=== PATIENT | male | born 1940 | race Caucasian/White ===

== ENCOUNTER 2022-04-28 14:38 | Emergency (ER) | payer MEDICARE, BC, SELFPAY ==
[2022-04-28] VITALS (12 sets, daily range): BP systolic 92–138; BP diastolic 63–84; PULSE 55–105; RESP 16; TEMP 36.3; O2SAT 95–97; BMI 23.0
--- NOTE | 2022-04-28 15:16 | ED_ITS ---
HPI - Arrhythmia/Palpitations General Chief Complaint: Arrhythmia/Palpitations Stated Complaint: Light headed, feeling faint, fast heartrate Time Seen by Provider: 04/28/22 14:45 History of Present Illness HPI narrative: This 81-year-old male comes in reporting episodes of lightheadedness especially when getting up. He states that he has noticed his heart is been going fast at times and other times he feels some palpitations. 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 Today his symptoms are more pronounced but at the time of my visit and while at rest he feels completely normal. He does not report any fevers. He has not had any shortness of breath, nausea, vomiting, or diaphoresis. He is taking metoprolol daily. He does have a prior history of atrial fibrillation. Related Data Home Medications Medication Instructions Recorded Confirmed allopurinol 300 mg tablet mg 04/28/22 calcitriol 0.25 mcg capsule mcg 04/28/22 calcium carb,cit ER 600 mg-vit D3 tab PO 04/28/22 12.5 mcg (500 unit) tablet,ext.rel (Citracal-D3 Slow Release) finasteride 5 mg tablet mg 04/28/22 levothyroxine 150 mcg tablet mcg 04/28/22 omeprazole 20 mg capsule,delayed mg 04/28/22 release potassium chloride 20 mEq meq PO 04/28/22 tablet,extended release(part/cryst) (Klor-Con M) rosuvastatin 10 mg tablet mg 04/28/22 sodium citrate-citric acid 500 ml 04/28/22 mg-334 mg/5 mL oral solution sodium di- and tab 04/28/22 monophosphate-potassium phos monobasic 250 mg tablet (Phospha Neutral) tamsulosin 0.4 mg capsule mg PO 04/28/22 Allergies Allergy/AdvReac Type Severity Reaction Status Date / Time furosemide [From Lasix] Allergy Intermediate Palpitation Verified 04/28/22 14:54 s aspirin Allergy Mild gi bleeding Verified 04/28/22 14:54 atorvastatin [From Lipitor] Allergy Mild Verified 04/28/22 14:54 codeine Allergy Mild constipatio Verified 04/28/22 14:54 n simvastatin Allergy Mild myalgia Verified 04/28/22 14:54 Review of Systems Status of ROS: Reports: 10 or more systems reviewed and unremarkable except as noted in History and below Narrative: Constitutional: No fevers, no weight gain or loss. Eyes: No discharge. No vision changes. HENT: No congestion, no sore throat, no ear pain. Cardiovascular: No chest pain. He reports palpitations and episodes of increased heart rate. Respiratory: No shortness of breath, no wheezes, no cough. Gastrointestinal: No abdominal pain, no vomiting, no diarrhea. Genitourinary: No dysuria, no hematuria. Musculoskeletal: Normal range of motion. Skin: No rashes, no pruritis. Neurological: No weakness, sensory change, speech change. Lightheadedness when arising from sitting position. Endo/Heme/Allergies: No bruising or bleeding. No polydipsia. Pysch: no suicidality, no anxiety, no insomnia. All other systems reviewed and are negative. PFSH PFS Social History Smoking Status: Never smoker Do you use any of these nicotine containing products: None Second hand tobacco smoke exposure: No How often do you have a drink containing alcohol: never How often do you have six or more drinks on one occasion: Never AUDIT-C Alcohol total score: 0 Non-prescribed substance use: denies use service: No Exam Narrative: Exam Narrative: Constitutional: Well-developed, well-nourished, no acute distress. HEENT: Normocephalic, atraumatic. Neck: Normal range of motion. Nontender. Supple. Heart: Irregular. No murmurs. Normal rate. Intact distal pulses. Lungs: Clear to auscultation. No chest discomfort. No wheezes, rhonchi, or rales. Abdomen: Normal bowel sounds. Nontender. No rebound tenderness. Genitalia: Deferred. Back: No midline tenderness. Normal range of motion. Extremities: Normal range of motion. No injury. Skin: Intact. No rash. Warm. No erythema or pallor. Neurologic: No altered sensation. No weakness. Alert and oriented. Psychiatric: No suicidality. No anxiety or depression. No insomnia. Nursing notes and vitals signs are reviewed. Const: Vital Signs, click to edit/add: Vital Signs - 24 hr 04/28/22 14:42 04/28/22 15:26 04/28/22 15:14 Temperature 97.3 F L Pulse Rate 60 Pulse Rate [Pulse Oximeter] 80 Pulse Rate [orthos tatic lying Pulse Oximeter] 59 L Pulse Rate [orthos tatic sitting Puls e Oximeter] 69 Pulse Rate [orthos tatic standing Pul se Oximeter] 105 H Respiratory Rate 16 Blood Pressure Blood Pressure [Le ft Upper Arm] 129/84 Blood Pressure [or thostatic lying] 113/63 Blood Pressure [or thostatic sitting] 116/63 Blood Pressure [or thostatic standing ] 92/66 Pulse Oximetry 96 96 Oxygen Delivery Me thod Room Air 04/28/22 15:30 04/28/22 15:35 04/28/22 15:38 Temperature Pulse Rate 63 55 L 67 Pulse Rate [Pulse Oximeter] Pulse Rate [orthos tatic lying Pulse Oximeter] Pulse Rate [orthos tatic sitting Puls e Oximeter] Pulse Rate [orthos tatic standing Pul se Oximeter] Respiratory Rate Blood Pressure 113/63 116/63 Blood Pressure [Le ft Upper Arm] Blood Pressure [or thostatic lying] Blood Pressure [or thostatic sitting] Blood Pressure [or thostatic standing ] Pulse Oximetry 96 96 95 Oxygen Delivery Me thod 04/28/22 15:43 04/28/22 16:00 04/28/22 16:30 Temperature Pulse Rate 87 63 62 Pulse Rate [Pulse Oximeter] Pulse Rate [orthos tatic lying Pulse Oximeter] Pulse Rate [orthos tatic sitting Puls e Oximeter] Pulse Rate [orthos tatic standing Pul se Oximeter] Respiratory Rate Blood Pressure 92/66 Blood Pressure [Le ft Upper Arm] Blood Pressure [or thostatic lying] Blood Pressure [or thostatic sitting] Blood Pressure [or thostatic standing ] Pulse Oximetry 97 97 97 Oxygen Delivery Me thod 04/28/22 17:00 Temperature Pulse Rate 60 Pulse Rate [Pulse Oximeter] Pulse Rate [orthos tatic lying Pulse Oximeter] Pulse Rate [orthos tatic sitting Puls e Oximeter] Pulse Rate [orthos tatic standing Pul se Oximeter] Respiratory Rate Blood Pressure Blood Pressure [Le ft Upper Arm] Blood Pressure [or thostatic lying] Blood Pressure [or thostatic sitting] Blood Pressure [or thostatic standing ] Pulse Oximetry 96 Oxygen Delivery Me thod Course Vital Signs Vital signs: Initial Vital Signs Temperature 97.3 F L 04/28/22 14:42 Temperature Source Temporal Artery Scan 04/28/22 14:42 Pulse Rate 80 04/28/22 14:42 Pulse Rhythm 04/28/22 14:42 Pulse Strength 3+ Normal 04/28/22 14:42 Respiratory Rate 16 04/28/22 14:42 Blood Pressure 129/84 04/28/22 14:42 Blood Pressure Mean 99 04/28/22 14:42 Blood Pressure Position Semi-Fowlers 04/28/22 14:42 Pulse Oximetry 96 04/28/22 14:42 Oxygen Delivery Method 04/28/22 14:42 Vital Signs Temperature 97.3 F L 04/28/22 14:42 Pulse Rate 80 04/28/22 14:42 Respiratory Rate 16 04/28/22 14:42 Blood Pressure 129/84 04/28/22 14:42 Pulse Oximetry 96 04/28/22 14:42 Oxygen Delivery Method 04/28/22 14:42 Temperature 97.3 F L 04/28/22 14:42 Pulse Rate 60 04/28/22 17:00 Respiratory Rate 16 04/28/22 14:42 Blood Pressure 92/66 04/28/22 15:43 Pulse Oximetry 96 04/28/22 17:00 Oxygen Delivery Method 04/28/22 14:42 MDM - Arrhythmia/Palpitations MDM Narrative Medical decision making narrative: This patient does feel fine when sitting and remaining still but has lightheadedness when arising to standing position. Orthostatic pressures are ob tained here and when he did transition from sitting to standing his blood pressure went from around 115 down to 92 and his heart rate went from 69 up to 105 roughly. His lab results returned with reassuring findings. He does have some chronic renal insufficiency and creatinine today returns at 2.8. EKG shows a paced rhythm at times. He has frequent PACs. He is not on any antihypertensives or rate controlling medications. The patient did receive a L of normal saline here and his blood pressure improved to a systolic value of 138. At the time of discharge the patient appears safe for outpatient management. The treatment plan is reviewed along with written and verbal return precautions. Reasons to return and the importance of close followup were also reviewed. I advised him to record his blood pressures and bring this to follow- up appointment with his primary physician. Lab Data Labs: Lab Results 04/28/22 04/28/22 04/28/22 Range/Units 14:52 14:52 14:52 WBC 5.81 (4.50-11.00) K/uL RBC 4.60 (4.30-5.90) m/uL Hgb 14.3 (13.5-17.5) gm/dL Hct 43.9 (37.0-53.0) % MCV 95 (80-100) fL MCH 31 (26-34) pg MCHC 33 (32-36) gm/dL RDW Coeff of Sylvia 13.5 (11.5-15.5) % Plt Count 176 (140-440) K/uL Neut % (Auto) 72.8 H (42.0-72.0) % Lymph % (Auto) 16.4 L (20-44) % Cascade % (Auto) 7.4 (0.0-11.0) % Eos % (Auto) 1.9 (0.0-7.0) % Baso % (Auto) 0.5 (0.0-3.0) % Neut # (Auto) 4.20 (1.7-7.0) K/uL Lymph # (Auto) 1.00 (0.90-2.90) K/uL Cascade # (Auto) 0.40 (0.00-0.90) K/UL Eos # (Auto) 0.11 (0.00-0.50) K/uL Baso # (Auto) 0.03 (0.00-0.30) K/uL Sodium 141 (135-149) mmol/L Potassium 3.8 (3.6-5.1) mmol/L Chloride 97 (96-114) mmol/L Carbon Dioxide 34 H (20-32) mmol/L BUN 57 H (7-30) mg/dL Creatinine 2.8 H (0.5-1.5) mg/dL Estimated Creat Clear 21.96 Estimated GFR 22 ml/min Glucose 116 H (60-115) mg/dL Calcium 9.9 (8.4-10.6) mg/dL Magnesium 1.8 (1.5-2.6) mg/dL POC Troponin I (0.01-0.04) ng/ml 04/28/22 Range/Units 15:15 WBC (4.50-11.00) K/uL RBC (4.30-5.90) m/uL Hgb (13.5-17.5) gm/dL Hct (37.0-53.0) % MCV (80-100) fL MCH (26-34) pg MCHC (32-36) gm/dL RDW Coeff of Sylvia (11.5-15.5) % Plt Count (140-440) K/uL Neut % (Auto) (42.0-72.0) % Lymph % (Auto) (20-44) % Cascade % (Auto) (0.0-11.0) % Eos % (Auto) (0.0-7.0) % Baso % (Auto) (0.0-3.0) % Neut # (Auto) (1.7-7.0) K/uL Lymph # (Auto) (0.90-2.90) K/uL Cascade # (Auto) (0.00-0.90) K/UL Eos # (Auto) (0.00-0.50) K/uL Baso # (Auto) (0.00-0.30) K/uL Sodium (135-149) mmol/L Potassium (3.6-5.1) mmol/L Chloride (96-114) mmol/L Carbon Dioxide (20-32) mmol/L BUN (7-30) mg/dL Creatinine (0.5-1.5) mg/dL Estimated Creat Clear Estimated GFR ml/min Glucose (60-115) mg/dL Calcium (8.4-10.6) mg/dL Magnesium (1.5-2.6) mg/dL POC Troponin I 0.02 (0.01-0.04) ng/ml ECG Data Attestation: I personally reviewed and interpreted this ECG as follows: Interpretation: Atrial fibrillation. Paced rhythm. Left bundle branch block. Rate is 74 beats per minute. There are no specific ST or T-wave abnormalities. Discharge Plan Discharge Clinical Impression: Orthostatic lightheadedness Patient Disposition: Home, Self-Care Condition: Stable Additional Instructions: Continue current plans. Take plenty of fluids. Follow-up with primary physician for review of plans. Return if worsening symptoms happen. Prescriptions: No Action potassium chloride [Klor-Con M20] 20 mEq tablet,ER particles/crystals PO Label Comments: TAKE ONE TABLET BY MOUTH TWICE DAILY WITH MEALS tamsulosin 0.4 mg capsule PO Label Comments: TAKE TWO CAPSULE BY MOUTH DAILY AT BEDTIME sodium citrate-citric acid 500-334 mg/5 mL solution Label Comments: TAKE 45ML BY MOUTH TWICE DAILY. levothyroxine 150 mcg tablet Label Comments: Take 1 Tablet (150 mcg) by mouth before breakfast. omeprazole 20 mg capsule,delayed release(DR/EC) Phospha 250 Neutral 250 mg tablet Label Comments: TAKE ONE TABLET BY MOUTH TWICE DAILY WITH FOOD allopurinol 300 mg tablet Label Comments: TAKE ONE TABLET BY MOUTH ONE TIME DAILY calcitriol 0.25 mcg capsule Label Comments: TAKE ONE CAPSULE BY MOUTH ONE TIME DAILY finasteride 5 mg tablet Label Comments: TAKE ONE TABLET BY MOUTH EVERY DAY IN THE MORNING. rosuvastatin 10 mg tablet Label Comments: TAKE ONE TABLET BY MOUTH ONE TIME DAILY AT BEDTIME calcium carb and citrate-vitD3 [Citracal-D3 Slow Release] 600 mg-12.5 mcg (500 unit) tablet extended release PO Label Comments: TAKE ONE TABLET BY MOUTH ONE TIME DAILY Follow Up/Referrals: Osito Joe MD [Primary Care Provider] - Stand Alone Forms: [facility] Info Instructions
[2022-04-28 15:21] LABS: Troponin, Point-of-Care* 0.02 ng/ml (0.01-0.04)
[2022-04-28 15:45] LABS: Chloride* 97 mmol/L (96-114); Potassium* 3.8 mmol/L (3.6-5.1); Sodium* 141 mmol/L (135-149)
[2022-04-28 15:48] LABS: Blood Urea Nitrogen* 57 mg/dL (7-30); Carbon Dioxide* 34 mmol/L (20-32); Creatinine* 2.8 mg/dL (0.5-1.5); Est. Creatinine Clearance* 21.96; Estimated Glomerular Filt Rate 22 ml/min; Magnesium* 1.8 mg/dL (1.5-2.6)
[2022-04-28 15:49] LABS: Calcium* 9.9 mg/dL (8.4-10.6); Glucose* 116 mg/dL (60-115)
[2022-04-28 15:55] LABS: Basophils Absolute Auto 0.03 K/uL (0.00-0.30); Basophils Percent Auto 0.5 % (0.0-3.0); Eosinophils Absolute Auto 0.11 K/uL (0.00-0.50); Eosinophils Percent Auto 1.9 % (0.0-7.0); Hematocrit 43.9 % (37.0-53.0); Hemoglobin* 14.3 gm/dL (13.5-17.5); Immature Granulocytes Abs Auto 0.06 K/uL (0.00-0.30); Lymphocytes Percent Auto 16.4 % (20-44); Mean Corpuscular HGB Conc 33 gm/dL (32-36); Mean Corpuscular Hemoglobin 31 pg (26-34); Mean Corpuscular Volume 95 fL (80-100); Monocytes Percent Auto 7.4 % (0.0-11.0); Neutrophils Percent Auto 72.8 % (42.0-72.0); Platelet Count* 176 K/uL (140-440); RDW Coefficient of Variation % 13.5 % (11.5-15.5); White Blood Count* 5.81 K/uL (4.50-11.00)
[2022-04-28 15:56] LABS: Slide Review Reflex No
[2022-04-28] MEDS: 0.9 % SODIUM CHLORIDE 1000 ml 1,000 ML IV (16:36)
== END 2022-04-28 18:07 | disposition home or self-care (01) ==
PROVIDERS: Emergency Provider Emergency Medicine Emergency Medical Services; PCP Surgery
DX: R42 Dizziness and giddiness (principal); I95.1 Orthostatic hypotension
CPT/HCPCS: 36415; 80048; 83735; 84484; 85025; 93005; 99283; 99284; J7030

== ENCOUNTER 2022-09-21 11:13 | Outpatient (CLI) | payer MEDICARE, BC, SELFPAY ==
[2022-09-21 11:22] VITALS: BP 118/64; PULSE 65; RESP 16; O2SAT 98
[2022-09-21] MEDS: TETRACAINE 0.5% OPHTH 1 DROP EYE-BOTH ×3 (11:22→11:56)
[2022-09-21] MEDS: BRIMONIDINE TARTRATE 0.2% OPHTH 1 DROP EYE-BOTH ×2 (11:26→12:18)
--- NOTE | 2022-09-21 12:38 | W.PM.OPTPROC ---
Procedure Note Date of procedure: 09/21/22 Will [facility] bill your pro fee for this procedure?: Yes Procedure Description: SURGEON: Bernadine Bolivar MD PREOPERATIVE DIAGNOSIS: Posterior capsular opacity, right and left eye POSTOPERATIVE DIAGNOSIS: Posterior capsular opacity, right and left eye PROCEDURE: YAG laser capsulotomy, both eyes ANESTHESIA: Topical. ESTIMATED BLOOD LOSS: None PATHOLOGY SPECIMEN: None COMPLICATIONS: None INDICATIONS: See consult note for details. The risks, benefits and alternatives of the procedure were explained to the patient, who elected to proceed and signed informed consent to do so. PROCEDURE: The patient was brought to the pre-holding area where the right and left eyes were identified as the operative eyes. I placed my initials above the eyes. The following was given in both eyes: The patient received 2 sets of 1 drop of 0.5% tetracaine and 1 drop of 1% tropicamide. They also received 1 drop of 0.2% brimonidine. They received 1 drop of 0.5% tetracaine immediately prior to bringing them back for the procedure. The patient was then brought to the procedure room where the right and left eyes were again identified as the operative eyes. A YAG Huan capsulotomy lens was placed on the right eye. The laser was administered using a total number of 13 shots with an energy of 2.4 mJ per shot for a total energy of 31 mJ. The patient tolerated the procedure well. A YAG Huan capsulotomy lens was placed on the left eye. The laser was administered using a total number of 35 shots with an energy of 2.4 mJ per shot for a total energy of 80 for mJ. The patient tolerated the procedure well. DISPOSITION: The patient was taken back to the pre-holding area and given 1 drop of 0.2% brimonidine in both eyes. They were discharged to home in stable condition. The patient was instructed to call me or go to the emergency department with any sudden change, including dramatic loss of vision, severe pain in the eye or eyebrow region, nausea, or vomiting. The patient was instructed to use the 0.2% brimonidine 1 drop 2 times a day in both eyes for 1 week. The patient will follow up in the clinic in 1-2 weeks.
== END 2022-09-21 12:19 | disposition home or self-care (01) ==
LOC: EYE PRC 11:14
PROVIDERS: PCP Surgery; Visit Provider Ophthalmology
DX: H26.9 Unspecified cataract (principal)
CPT/HCPCS: 66821; A9270

== ENCOUNTER 2022-10-20 19:50 | Outpatient (CLI) | payer MEDICARE, BC, SELFPAY | END 2022-10-20 19:51 | disposition home or self-care (01) | LOC: AMB 10-24 00:20 | PROVIDERS: PCP Surgery; Visit Provider Emergency Medicine Emergency Medical Services | DX: R10.9 Unspecified abdominal pain (principal) | CPT/HCPCS: A0425; A0427 ==

== ENCOUNTER 2022-10-20 20:16 | Emergency (ER) | payer MEDICARE, BC, SELFPAY ==
[2022-10-20] VITALS (10 sets, daily range): BP systolic 129–148; BP diastolic 70–100; PULSE 51–80; RESP 16; TEMP 36.7; O2SAT 94–97
--- NOTE | 2022-10-20 20:39 | CRLHL7_ITS ---
For Patients: As a result of the 21st Century Cures Act, medical imaging exams and procedure reports are released immediately into your electronic medical record. You may view this report before your referring provider. If you have questions, please contact your health care provider. INDICATION: Abdominal pain and distension. Previous history of ileostomy, appendectomy, transverse colonic resection. COMPARISON: CT of the abdomen and pelvis without contrast from 09/11/2012. TECHNIQUE: CT examination of the abdomen and pelvis was performed without contrast enhancement using 3 mm thick axial sections from the lung bases through the pubic symphysis. Oral contrast was not administered. Please note that all CT scans at this facility use dose modulation, iterative reconstruction, and/or weight-based dosing when appropriate to reduce radiation dose to as low as reasonably achievable. FINDINGS: There has been an increase in size of the moderate sized right paramedian mid abdominal ventral hernia, containing a short segment of transverse colon. The hernia sac measures up to 7.5 centimeters in diameter while the hernia neck measures 2.7 centimeters. There is new prominent gas distention of the nondependent portion of the colon. The sigmoid colon and rectum are nondistended. The findings suggest an ileus of the colon. There is new mild gaseous distention of the small bowel, without a point of transition to suggest obstruction. This may be an ileus. Again seen is the left upper pelvic wall ileostomy site with a mild peristomal hernia containing nondistended loops of small bowel. In the abdomen, the unenhanced liver, spleen, pancreas, and adrenals are normal in appearance. Again seen are several small cysts arising from both kidneys. There is moderate left and mild right nonobstructive nephrolithiasis, with the previously seen irregular calculus located in the right renal pelvis is no longer present. Stone burden is improved compared to the previous study, with an overall decrease in number of small calculi in both kidneys. The calculi are range between 2 and 5 millimeters in diameter. There is no sign of hydronephrosis or hydroureter. There is no sign of ureterolithiasis. The gallbladder is moderately distended and is otherwise normal in appearance. The abdominal aorta is normal in caliber with no sign of dilatation. There is no sign of retroperitoneal mass or adenopathy. The stomach, loops of small bowel, and colon in the abdomen are normal in appearance. In the pelvis, the appendix is nonvisualized, but there is no sign of an inflammatory process in the area of the appendix. The loops of small bowel, colon, and rectum in the pelvis are normal in appearance. The prostate remains moderately enlarged and is otherwise normal in appearance. The urinary bladder is normal in appearance. There is no sign of pelvic or inguinal mass or adenopathy. There is no sign of free air or free fluid in the abdomen or pelvis. The lung bases are clear. There is stable mild scoliosis of the lumbar spine convex towards the left. IMPRESSION: New moderate gaseous distension of the nondependent colon, with new mild distension of the small bowel, suggesting an ileus. CT of the abdomen shows increase in size of the moderate sized right anterior mid abdominal wall hernia containing a short segments of mildly distended transverse colon. Mild bilateral nonobstructive nephrolithiasis with decreased stone burden compared to the previous study. CT of the pelvis shows stable appearance of a left paramedian upper pelvic wall hernia with stable peristomal hernia containing nondistended loops of small bowel. Stable moderate enlargement of the prostate. Please note that all CT scans at this facility use dose modulation, iterative reconstruction, and/or weight-based dosing when appropriate to reduce radiation dose to as low as reasonably achievable. Dictated by Carmelo Henry MD @ 10/20/2022 10:10:19 PM (Electronically Signed)
--- NOTE | 2022-10-20 20:43 | ED.ABDPAIN ---
HPI - Abdominal Pain General Chief Complaint: Abdominal Pain Stated Complaint: RUQ abd pain Time Seen by Provider: 10/20/22 20:32 History of Present Illness HPI narrative: This 82-year-old male comes in reporting abdominal pain that is worsened over the past 3 or so hours. He does have history of abdominal surgery and has an ostomy. He has a hernia in the right upper quadrant that bulges when his bowels are distended. This is not new for him but it is more pronounced recently. He does have a history of bowel obstruction in the past. He came in by ambulance and received a dose of fentanyl and Zofran intravenously. This brought some temporary relief but he states that his pain is worsening currently. Related Data Home Medications Medication Instructions Recorded Confirmed allopurinol 300 mg tablet mg 04/28/22 calcitriol 0.25 mcg capsule mcg 04/28/22 calcium carb,cit ER 600 mg-vit D3 tab PO 04/28/22 12.5 mcg (500 unit) tablet,ext.rel (Citracal-D3 Slow Release) finasteride 5 mg tablet mg 04/28/22 levothyroxine 150 mcg tablet mcg 04/28/22 omeprazole 20 mg capsule,delayed mg 04/28/22 release potassium chloride 20 mEq meq PO 04/28/22 tablet,extended release(part/cryst) (Klor-Con M) rosuvastatin 10 mg tablet mg 04/28/22 sodium citrate-citric acid 500 ml 04/28/22 mg-334 mg/5 mL oral solution sodium di- and tab 04/28/22 monophosphate-potassium phos monobasic 250 mg tablet (Phospha Neutral) tamsulosin 0.4 mg capsule mg PO 04/28/22 Allergies Allergy/AdvReac Type Severity Reaction Status Date / Time furosemide [From Lasix] Allergy Intermediate Palpitation Verified 04/28/22 14:54 s aspirin Allergy Mild gi bleeding Verified 04/28/22 14:54 atorvastatin [From Lipitor] Allergy Mild Verified 04/28/22 14:54 codeine Allergy Mild constipatio Verified 04/28/22 14:54 n simvastatin Allergy Mild myalgia Verified 04/28/22 14:54 Review of Systems Status of ROS Reports: 10 or more systems reviewed and unremarkable except as noted in History and below Narrative Constitutional: No fevers, no weight gain or loss. Eyes: No discharge. No vision changes. HENT: No congestion, no sore throat, no ear pain. Cardiovascular: No chest pain, no palpitations. Respiratory: No shortness of breath, no wheezes, no cough. Gastrointestinal: Diffuse abdominal pain and distension. Genitourinary: No dysuria, no hematuria. Musculoskeletal: Normal range of motion. Skin: No rashes, no pruritis. Neurological: No dizziness, weakness, sensory change, speech change. Endo/Heme/Allergies: No bruising or bleeding. No polydipsia. Pysch: no suicidality, no anxiety, no insomnia. All other systems reviewed and are negative. [facility] Social History Smoking Status: Never smoker Do you use any of these nicotine containing products: None Second hand tobacco smoke exposure: No How often do you have a drink containing alcohol: never How often do you have six or more drinks on one occasion: Never AUDIT-C Alcohol total score: 0 Non-prescribed substance use: denies use service: No Exam Narrative: Exam Narrative: Constitutional: Well-developed, well-nourished, no acute distress. HEENT: Normocephalic, atraumatic. Neck: Normal range of motion. Nontender. Supple. Heart: Regular. No murmurs. Normal rate. Intact distal pulses. Lungs: Clear to auscultation. No chest discomfort. No wheezes, rhonchi, or rales. Abdomen: Diffuse abdominal pain. High-pitched bowel sounds. Abdominal distension. A right upper quadrant abdominal hernia with significant bulging. Ostomy is in place and seems to be functioning normally. Genitalia: Deferred. Back: No midline tenderness. Normal range of motion. Extremities: Normal range of motion. No injury. Skin: Intact. No rash. Warm. No erythema or pallor. Neurologic: No altered sensation. No weakness. Alert and oriented. Psychiatric: No suicidality. No anxiety or depression. No insomnia. Nursing notes and vitals signs are reviewed. Const: Vital Signs, click to edit/add: Vital Signs - 24 hr 10/20/22 20:23 10/20/22 21:24 10/20/22 21:30 Temperature 98.0 F Pulse Rate 51 L 54 L Pulse Rate [Left P ulse Oximeter] 67 Respiratory Rate 16 Blood Pressure Blood Pressure [Ri ght Upper Arm] 148/100 H Pulse Oximetry 97 94 94 Oxygen Delivery Me thod Room Air 10/20/22 21:32 10/20/22 22:00 10/20/22 22:01 Temperature Pulse Rate 65 57 L 61 Pulse Rate [Left P ulse Oximeter] Respiratory Rate Blood Pressure 129/75 137/77 Blood Pressure [Ri ght Upper Arm] Pulse Oximetry 95 97 96 Oxygen Delivery Me thod 10/20/22 22:30 10/20/22 22:32 10/20/22 23:00 Temperature Pulse Rate 53 L 57 L 72 Pulse Rate [Left P ulse Oximeter] Respiratory Rate Blood Pressure 133/75 Blood Pressure [Ri ght Upper Arm] Pulse Oximetry 96 97 95 Oxygen Delivery Me thod 10/20/22 23:02 Temperature Pulse Rate 80 Pulse Rate [Left P ulse Oximeter] Respiratory Rate Blood Pressure 138/70 Blood Pressure [Ri ght Upper Arm] Pulse Oximetry 96 Oxygen Delivery Me thod Course Vital Signs Vital signs: Initial Vital Signs Temperature 98.0 F 10/20/22 20:23 Temperature Source Temporal Artery Scan 10/20/22 20:23 Pulse Rate 67 10/20/22 20:23 Respiratory Rate 16 10/20/22 20:23 Blood Pressure 148/100 H 10/20/22 20:23 Blood Pressure Mean 116 H 10/20/22 20:23 Blood Pressure Position Sitting 10/20/22 20:23 Pulse Oximetry 97 10/20/22 20:23 Oxygen Delivery Method Room Air 10/20/22 20:23 Vital Signs Temperature 98.0 F 10/20/22 20:23 Pulse Rate 67 10/20/22 20:23 Respiratory Rate 16 10/20/22 20:23 Blood Pressure 148/100 H 10/20/22 20:23 Pulse Oximetry 97 10/20/22 20:23 Oxygen Delivery Method Room Air 10/20/22 20:23 Temperature 98.0 F 10/20/22 20:23 Pulse Rate 80 10/20/22 23:02 Respiratory Rate 16 10/20/22 20:23 Blood Pressure 138/70 10/20/22 23:02 Pulse Oximetry 96 10/20/22 23:02 Oxygen Delivery Method Room Air 10/20/22 20:23 MDM - Abdominal Pain MDM Narrative Medical decision making narrative: This patient comes in with abdominal pain and distension. 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 He does have some function of his: Also despite the ileostomy. He has had symptoms like this in the past. An IV was established and labs are acquired. CT imaging of the abdomen and pelvis show a distended ventral hernia that does not appear to be incarcerated. There is a lot a gas in the colon primarily. There is no sign of transition suggesting obstruction. More likely this was an ileus. I spoke with the surgeon on-call regarding this who reviewed the patient's past history and recommended admission but would not be able to do any kind of surgical intervention if needed. It went back in to describe results to the patient and he is sitting up with his clothes on states that he feels much better and is ready to go home. He states that he got up to the bathroom and passed a lot a gas and now feels back to normal. Lab Data Labs: Lab Results 10/20/22 10/20/22 10/20/22 Range/Units 20:51 20:51 20:51 WBC 4.54 (4.50-11.00) K/uL RBC 4.08 L (4.30-5.90) m/uL Hgb 12.9 L (13.5-17.5) gm/dL Hct 39.8 (37.0-53.0) % MCV 98 (80-100) fL MCH 32 (26-34) pg MCHC 32 (32-36) gm/dL RDW Coeff of Sylvia 14.2 (11.5-15.5) % Plt Count 143 (140-440) K/uL Neut % (Auto) 88.0 H (42.0-72.0) % Lymph % (Auto) 7.7 L (20-44) % Merrick % (Auto) 3.5 (0.0-11.0) % Eos % (Auto) 0.2 (0.0-7.0) % Baso % (Auto) 0.4 (0.0-3.0) % Neut # (Auto) 4.00 (1.7-7.0) K/uL Lymph # (Auto) 0.30 L (0.90-2.90) K/uL Merrick # (Auto) 0.20 (0.00-0.90) K/UL Eos # (Auto) 0.01 (0.00-0.50) K/uL Baso # (Auto) 0.02 (0.00-0.30) K/uL Abs Immat Gran (auto) 0.01 (0.00-0.30) K/uL Imm/Tot Granulo (auto) 0.2 % Sodium 138 (135-149) mmol/L Potassium 3.2 L (3.6-5.1) mmol/L Chloride 96 (96-114) mmol/L Carbon Dioxide 30 (20-32) mmol/L Anion Gap 12 (7-15) mEq/L BUN 51 H (7-30) mg/dL Creatinine 2.9 H (0.5-1.5) mg/dL Estimated Creat Clear 7.82 Estimated GFR 21 ml/min Glucose 154 H (60-115) mg/dL Lactate 2.9 H (0.5-1.9) mmol/L Calcium 9.6 (8.4-10.6) mg/dL Total Bilirubin 0.6 Cancelled (0.1-1.5) mg/dL Direct Bilirubin 0.2 Cancelled (0.0-0.5) mg/dL AST 41 H (12-35) U/L ALT (4-50) U/L Alkaline Phosphatase (40-150) U/L Total Protein (6.0-8.3) g/dL Albumin (3.3-5.0) g/dL Lipase (23-300) U/L 10/20/22 10/20/22 10/20/22 Range/Units 20:51 20:51 20:51 WBC (4.50-11.00) K/uL RBC (4.30-5.90) m/uL Hgb (13.5-17.5) gm/dL Hct (37.0-53.0) % MCV (80-100) fL MCH (26-34) pg MCHC (32-36) gm/dL RDW Coeff of Sylvia (11.5-15.5) % Plt Count (140-440) K/uL Neut % (Auto) (42.0-72.0) % Lymph % (Auto) (20-44) % Merrick % (Auto) (0.0-11.0) % Eos % (Auto) (0.0-7.0) % Baso % (Auto) (0.0-3.0) % Neut # (Auto) (1.7-7.0) K/uL Lymph # (Auto) (0.90-2.90) K/uL Merrick # (Auto) (0.00-0.90) K/UL Eos # (Auto) (0.00-0.50) K/uL Baso # (Auto) (0.00-0.30) K/uL Abs Immat Gran (auto) (0.00-0.30) K/uL Imm/Tot Granulo (auto) % Sodium (135-149) mmol/L Potassium (3.6-5.1) mmol/L Chloride (96-114) mmol/L Carbon Dioxide (20-32) mmol/L Anion Gap (7-15) mEq/L BUN (7-30) mg/dL Creatinine (0.5-1.5) mg/dL Estimated Creat Clear Estimated GFR ml/min Glucose (60-115) mg/dL Lactate (0.5-1.9) mmol/L Calcium (8.4-10.6) mg/dL Total Bilirubin (0.1-1.5) mg/dL Direct Bilirubin (0.0-0.5) mg/dL AST Cancelled (12-35) U/L ALT 23 Cancelled (4-50) U/L Alkaline Phosphatase 63 Cancelled (40-150) U/L Total Protein 7.6 (6.0-8.3) g/dL Albumin (3.3-5.0) g/dL Lipase (23-300) U/L 10/20/22 10/20/22 10/20/22 Range/Units 20:51 20:51 20:51 WBC (4.50-11.00) K/uL RBC (4.30-5.90) m/uL Hgb (13.5-17.5) gm/dL Hct (37.0-53.0) % MCV (80-100) fL MCH (26-34) pg MCHC (32-36) gm/dL RDW Coeff of Sylvia (11.5-15.5) % Plt Count (140-440) K/uL Neut % (Auto) (42.0-72.0) % Lymph % (Auto) (20-44) % Merrick % (Auto) (0.0-11.0) % Eos % (Auto) (0.0-7.0) % Baso % (Auto) (0.0-3.0) % Neut # (Auto) (1.7-7.0) K/uL Lymph # (Auto) (0.90-2.90) K/uL Merrick # (Auto) (0.00-0.90) K/UL Eos # (Auto) (0.00-0.50) K/uL Baso # (Auto) (0.00-0.30) K/uL Abs Immat Gran (auto) (0.00-0.30) K/uL Imm/Tot Granulo (auto) % Sodium (135-149) mmol/L Potassium (3.6-5.1) mmol/L Chloride (96-114) mmol/L Carbon Dioxide (20-32) mmol/L Anion Gap (7-15) mEq/L BUN (7-30) mg/dL Creatinine (0.5-1.5) mg/dL Estimated Creat Clear Estimated GFR ml/min Glucose (60-115) mg/dL Lactate (0.5-1.9) mmol/L Calcium (8.4-10.6) mg/dL Total Bilirubin (0.1-1.5) mg/dL Direct Bilirubin (0.0-0.5) mg/dL AST (12-35) U/L ALT (4-50) U/L Alkaline Phosphatase (40-150) U/L Total Protein Cancelled (6.0-8.3) g/dL Albumin 4.5 Cancelled (3.3-5.0) g/dL Lipase 322 H Cancelled (23-300) U/L Imaging Data CT scan - abdomen: Radiologist's impression: New moderate gaseous distension of the nondependent colon, with new mild distension of the small bowel, suggesting an ileus. CT of the abdomen shows increase in size of the moderate sized right anterior mid abdominal wall hernia containing a short segments of mildly distended transverse colon. Mild bilateral nonobstructive nephrolithiasis with decreased stone burden compared to the previous study. CT of the pelvis shows stable appearance of a left paramedian upper pelvic wall hernia with stable peristomal hernia containing nondistended loops of small bowel. Stable moderate enlargement of the prostate. Discharge Plan Discharge Clinical Impression: Abdominal pain Patient Disposition: Home, Self-Care Condition: Improved Additional Instructions: Continue current plans. Follow up with MD or return if worsening. Prescriptions: No Action potassium chloride [Klor-Con M20] 20 mEq tablet,ER particles/crystals PO Patient Comments: TAKE ONE TABLET BY MOUTH TWICE DAILY WITH MEALS tamsulosin 0.4 mg capsule PO Patient Comments: TAKE TWO CAPSULE BY MOUTH DAILY AT BEDTIME sodium citrate-citric acid 500-334 mg/5 mL solution Patient Comments: TAKE 45ML BY MOUTH TWICE DAILY. levothyroxine 150 mcg tablet Patient Comments: Take 1 Tablet (150 mcg) by mouth before breakfast. omeprazole 20 mg capsule,delayed release(DR/EC) Phospha 250 Neutral 250 mg tablet Patient Comments: TAKE ONE TABLET BY MOUTH TWICE DAILY WITH FOOD allopurinol 300 mg tablet Patient Comments: TAKE ONE TABLET BY MOUTH ONE TIME DAILY calcitriol 0.25 mcg capsule Patient Comments: TAKE ONE CAPSULE BY MOUTH ONE TIME DAILY finasteride 5 mg tablet Patient Comments: TAKE ONE TABLET BY MOUTH EVERY DAY IN THE MORNING. rosuvastatin 10 mg tablet Patient Comments: TAKE ONE TABLET BY MOUTH ONE TIME DAILY AT BEDTIME calcium carb and citrate-vitD3 [Citracal-D3 Slow Release] 600 mg-12.5 mcg (500 unit) tablet extended release PO Patient Comments: TAKE ONE TABLET BY MOUTH ONE TIME DAILY Follow Up/Referrals: Osito Joe MD [Primary Care Provider] - Stand Alone Forms: [facility] Info Instructions
[2022-10-20 20:56] LABS: Lactate* 2.9 mmol/L (0.5-1.9)
[2022-10-20 21:00] LABS: Basophils Absolute Auto 0.02 K/uL (0.00-0.30); Basophils Percent Auto 0.4 % (0.0-3.0); Eosinophils Absolute Auto 0.01 K/uL (0.00-0.50); Eosinophils Percent Auto 0.2 % (0.0-7.0); Hematocrit 39.8 % (37.0-53.0); Hemoglobin* 12.9 gm/dL (13.5-17.5); Immature Granulocytes Abs Auto 0.01 K/uL (0.00-0.30); Immature Granulocytes Pct Auto 0.2 %; Lymphocytes Percent Auto 7.7 % (20-44); Mean Corpuscular HGB Conc 32 gm/dL (32-36); Mean Corpuscular Hemoglobin 32 pg (26-34); Mean Corpuscular Volume 98 fL (80-100); Monocytes Percent Auto 3.5 % (0.0-11.0); Platelet Count* 143 K/uL (140-440); RDW Coefficient of Variation % 14.2 % (11.5-15.5); Red Blood Count 4.08 m/uL (4.30-5.90); White Blood Count* 4.54 K/uL (4.50-11.00)
[2022-10-20] MEDS: HYDROmorphone 0.5 mg/0.5 ml inj 0.3 MG IVP (21:00)
[2022-10-20 21:03] LABS: Slide Review Reflex No
[2022-10-20 21:12] LABS: Albumin* 4.5 g/dL (3.3-5.0); Chloride* 96 mmol/L (96-114)
[2022-10-20 21:13] LABS: Potassium* 3.2 mmol/L (3.6-5.1); Sodium* 138 mmol/L (135-149)
[2022-10-20 21:15] LABS: Anion Gap 12 mEq/L (7-15); Bilirubin Direct* 0.2 mg/dL (0.0-0.5); Bilirubin Total* 0.6 mg/dL (0.1-1.5); Blood Urea Nitrogen* 51 mg/dL (7-30); Carbon Dioxide* 30 mmol/L (20-32); Creatinine* 2.9 mg/dL (0.5-1.5); Est. Creatinine Clearance* 7.82; Estimated Glomerular Filt Rate 21 ml/min; Total Protein* 7.6 g/dL (6.0-8.3)
[2022-10-20 21:16] LABS: Alanine Aminotransferase* 23 U/L (4-50); Alkaline Phosphatase* 63 U/L (40-150); Aspartate Amino Transferase* 41 U/L (12-35); Calcium* 9.6 mg/dL (8.4-10.6); Glucose* 154 mg/dL (60-115); Lipase* 322 U/L (23-300)
== END 2022-10-21 00:17 | disposition home or self-care (01) ==
PROVIDERS: Emergency Provider Emergency Medicine Emergency Medical Services; PCP Surgery
DX: R10.11 Right upper quadrant pain (principal)
CPT/HCPCS: 36415; 74176; 80048; 80076; 83605; 83690; 85025; 96374; 99283; 99284; J1170

== ENCOUNTER 2023-10-17 09:20 | Emergency (ER) | payer MEDICARE, BC, SELFPAY ==
[2023-10-17 09:42] VITALS: BP 134/80; PULSE 82; TEMP 36.6; O2SAT 97; BMI 22.2
[2023-10-17 09:48] VITALS: RESP 20
[2023-10-17 10:00] LABS: Appearance Urine Cloudy (Clear); Bilirubin Urine Negative (Negative); Blood Urine 3+ (Negative); Color Urine Dark yellow (Yellow); Glucose Urine Negative (Negative); Ketones Urine Negative (Negative); Leukocyte Esterase Urine 3+ (Negative); Nitrite Urine Negative (Negative); Protein Urine 2+ (Negative); Specific Gravity Urine 1.015 (1.000-1.030)
--- NOTE | 2023-10-17 10:02 | CRLHL7_ITS ---
For Patients: As a result of the Century Cures Act, medical imaging exams and procedure reports are released immediately into your electronic medical record. You may view this report before your referring provider. If you have questions, please contact your health care provider. Indication: ABD PAIN, HERNIA NEAR ILEOSTOMY SITE? Technique: CT abdomen/pelvis without IV contrast Comparison: CT abdomen/pelvis on October 20, 2022 Findings: Lower thorax: Trace bibasilar linear atelectasis/scarring, unchanged. Abdomen/pelvis: The liver, gallbladder and biliary system, spleen, pancreas, and bilateral adrenal glands are unremarkable in appearance. Redemonstration of multiple renal cysts bilaterally, grossly unchanged compared to prior exam. There are few small nonobstructing renal stones bilaterally. No hydroureteronephrosis. The bladder is within normal limits in appearance. Mild prostatomegaly. There is no evidence of bowel obstruction. There is redemonstration of a right paramedian ventral abdominal wall hernia containing a short segment of the transverse colon similar in appearance compared to prior examination without evidence of obstruction or inflammation. 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 There is a small amount of fluid within the hernia with some mild fat stranding. No pneumatosis intestinalis. No free air. No abdominopelvic lymphadenopathy. No abdominal aortic aneurysm. Moderate calcific atherosclerosis of the aortoiliac system and its branches. Healed midline abdominal incision. No acute fracture or malalignment. Multilevel degenerative changes throughout the spine. Degenerative changes of the bilateral sacroiliac and femoroacetabular joints. Impression: 1. 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 There is a small amount of fluid within the hernia with some minimal fat stranding. Nonspecific findings which can be seen with strangulation in the appropriate clinical context. 2. There is no evidence of bowel obstruction. 3. Grossly unchanged right paramedian ventral abdominal wall hernia containing a short segment of transverse colon. Please note that all CT scans at this facility use dose modulation, iterative reconstruction, and/or weight-based dosing when appropriate to reduce radiation dose to as low as reasonably achievable. Dictated by Addison Bacon MD @ 10/17/2023 11:41:33 AM (Electronically Signed)
--- NOTE | 2023-10-17 10:04 | ED_ITS ---
HPI - General Adult General Chief complaint: Urogenital Problems, Male Stated complaint: Pain near ileostomy, UTI symptoms Time Seen by Provider: 10/17/23 09:53 History of Present Illness HPI narrative: This 83-year-old male comes in reporting some symptoms of dysuria over the past day or 2 with some increased pain when voiding urine. He also reports abdominal pain around the site of his ileostomy. He states that this is not a new finding as there is recurrent episodes of pain where he has increased gas. He does however report a lump that is tender just inferior to the ileostomy. This is a new or finding and seem suspicious for a hernia. He does have a hernia on the right abdomen that is not causing symptoms for him. Related Data Home Medications ?Medication ?Instructions ?Recorded ?Confirmed allopurinol 300 mg tablet mg 04/28/22 calcitriol 0.25 mcg capsule mcg 04/28/22 calcium carb,cit ER 600 mg-vit D3 tab PO 04/28/22 12.5 mcg (500 unit) tablet,ext.rel (Citracal-D3 Slow Release) finasteride 5 mg tablet mg 04/28/22 levothyroxine 150 mcg tablet mcg 04/28/22 omeprazole 20 mg capsule,delayed mg 04/28/22 release potassium chloride 20 mEq meq PO 04/28/22 tablet,extended release(part/cryst) (Klor-Con M) rosuvastatin 10 mg tablet mg 04/28/22 sodium citrate-citric acid 500 ml 04/28/22 mg-334 mg/5 mL oral solution sodium di- and tab 04/28/22 monophosphate-potassium phos monobasic 250 mg tablet (Phospha Neutral) tamsulosin 0.4 mg capsule mg PO 04/28/22 Previous Rx's ?Medication ?Instructions ?Recorded cephalexin 500 mg capsule 500 mg PO TID 10 days #30 caps 10/17/23 Allergies Allergy/AdvReac Type Severity Reaction Status Date / Time furosemide [From Lasix] Allergy Intermediate Palpitation Verified 04/28/22 14:54 s aspirin Allergy Mild gi bleeding Verified 04/28/22 14:54 atorvastatin [From Lipitor] Allergy Mild Verified 04/28/22 14:54 codeine Allergy Mild constipatio Verified 04/28/22 14:54 n simvastatin Allergy Mild myalgia Verified 04/28/22 14:54 Review of Systems Status of ROS: Reports: 10 or more systems reviewed and unremarkable except as noted in History and below Narrative: Constitutional: No fevers, no weight gain or loss. Eyes: No discharge. No vision changes. HENT: No congestion, no sore throat, no ear pain. Cardiovascular: No chest pain, no palpitations. Respiratory: No shortness of breath, no wheezes, no cough. Gastrointestinal: No vomiting, no diarrhea. Abdominal pain as described above. Genitourinary: No hematuria. He reports dysuria symptoms. Musculoskeletal: Normal range of motion. Skin: No rashes, no pruritis. Neurological: No dizziness, weakness, sensory change, speech change. Endo/Heme/Allergies: No bruising or bleeding. No polydipsia. Pysch: no suicidality, no anxiety, no insomnia. All other systems reviewed and are negative. PFSH PFS Social History Smoking Status: Never smoker Do you use any of these nicotine containing products: None Second hand tobacco smoke exposure: No How often do you have a drink containing alcohol: never How often do you have six or more drinks on one occasion: Never AUDIT-C Alcohol total score: 0 Non-prescribed substance use: denies use service: No Exam Narrative: Exam Narrative: Constitutional: Well-developed, well-nourished, no acute distress. HEENT: Normocephalic, atraumatic. Neck: Normal range of motion. Nontender. Supple. Heart: Regular. No murmurs. Normal rate. Intact distal pulses. Lungs: Clear to auscultation. No chest discomfort. No wheezes, rhonchi, or rales. Abdomen: Normal bowel sounds. No rebound tenderness. Tenderness around the ileostomy site. There is a palpable lump typical of a small hernia inferior to the ileostomy. Genitalia: Deferred. Back: No midline tenderness. Normal range of motion. Extremities: Normal range of motion. No injury. Skin: Intact. No rash. Warm. No erythema or pallor. Neurologic: No altered sensation. No weakness. Alert and oriented. Psychiatric: No suicidality. No anxiety or depression. No insomnia. Nursing notes and vitals signs are reviewed. Const: Vital Signs, click to edit/add: Vital Signs - 24 hr 10/17/23 09:42 10/17/23 09:48 10/17/23 11:17 Temperature 98 F Pulse Rate [Pulse Oximeter] 82 68 Respiratory Rate 20 20 Blood Pressure [Le ft Upper Arm] 134/80 144/84 H Pulse Oximetry 97 98 Oxygen Delivery Me thod Room Air Room Air Course Vital Signs Vital signs: Initial Vital Signs Temperature 98 F 10/17/23 09:42 Temperature Source Temporal Artery Scan 10/17/23 09:42 Pulse Rate 82 10/17/23 09:42 Pulse Rhythm Regular 10/17/23 09:42 Blood Pressure 134/80 10/17/23 09:42 Blood Pressure Mean 98 10/17/23 09:42 Pulse Oximetry 97 10/17/23 09:42 Oxygen Delivery Method Room Air 10/17/23 09:42 Vital Signs Temperature 98 F 10/17/23 09:42 Pulse Rate 82 10/17/23 09:42 Blood Pressure 134/80 10/17/23 09:42 Pulse Oximetry 97 10/17/23 09:42 Oxygen Delivery Method Room Air 10/17/23 09:42 Temperature 98 F 10/17/23 09:42 Pulse Rate 68 10/17/23 11:17 Respiratory Rate 20 10/17/23 11:17 Blood Pressure 144/84 H 10/17/23 11:17 Pulse Oximetry 98 10/17/23 11:17 Oxygen Delivery Method Room Air 10/17/23 11:17 Medical Decision Making MDM Narrative Medical decision making narrative: This 83-year-old male comes in reporting dysuria symptoms and abdominal pain as described above. Urinalysis does show evidence of urinary tract infection. The patient received a prescription for Keflex. CT imaging of the abdomen and pelvis does show evidence of a new hernia inferior to his ileostomy site that does have a loop of bowel present in the herniation. The patient is not showing any signs of incarceration. His pain is minimal currently. He does not have any nausea or vomiting and his bowel function is normal for him. I advised him to follow-up with surgery clinic for ongoing management of this condition. He is okay to be discharged home. Lab Data Labs: Lab Results 10/17/23 10/17/23 Range/Units 09:50 10:15 WBC 5.33 (4.50-11.00) K/uL RBC 3.96 L (4.30-5.90) m/uL Hgb 12.4 L (13.5-17.5) gm/dL Hct 38.7 (37.0-53.0) % MCV 98 (80-100) fL MCH 31 (26-34) pg MCHC 32 (32-36) gm/dL RDW Coeff of Sylvia 13.4 (11.5-15.5) % Plt Count 172 (140-440) K/uL Neut % (Auto) 86.0 H (42.0-72.0) % Lymph % (Auto) 5.8 L (20-44) % [place] % (Auto) 6.6 (0.0-11.0) % Eos % (Auto) 0.8 (0.0-7.0) % Baso % (Auto) 0.4 (0.0-3.0) % Neut # (Auto) 4.60 (1.7-7.0) K/uL Lymph # (Auto) 0.30 L (0.90-2.90) K/uL [place] # (Auto) 0.40 (0.00-0.90) K/UL Eos # (Auto) 0.04 (0.00-0.50) K/uL Baso # (Auto) 0.02 (0.00-0.30) K/uL Abs Immat Gran (auto) 0.02 (0.00-0.30) K/uL Imm/Tot Granulo (auto) 0.4 % Sodium 137 (135-149) mmol/L Potassium 3.6 (3.6-5.1) mmol/L Chloride 99 (96-114) mmol/L Carbon Dioxide 30 (20-32) mmol/L Anion Gap 8 (7-15) mEq/L BUN 46 H (7-30) mg/dL Creatinine 2.3 H (0.5-1.5) mg/dL Estimated Creat Clear 25.05 Estimated GFR 28 ml/min Glucose 112 (60-115) mg/dL Calcium 9.2 (8.4-10.6) mg/dL Urine Color Dark yellow (Yellow) Urine Appearance Cloudy A (Clear) Urine pH 7.0 (5.0-8.5) Ur Specific [place] 1.015 (1.000-1.030) Urine Protein 2+ A (Negative) Urine Glucose (UA) Negative (Negative) Urine Ketones Negative (Negative) Urine Blood 3+ A (Negative) Urine Nitrite Negative (Negative) Urine Bilirubin Negative (Negative) Urine Urobilinogen 1.0 (0.2-1.0) Ur Leukocyte Esterase 3+ A (Negative) Urine RBC >100 A (0-2) Urine WBC >100 A (0-5) Ur Squamous Epith Cells None (None-Few) Urine Bacteria Few A (None) Imaging Data CT scan - abdomen: Radiologist's impression: 1. 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 There is a small amount of fluid within the hernia with some minimal fat stranding. Nonspecific findings which can be seen with strangulation in the appropriate clinical context. 2. There is no evidence of bowel obstruction. 3. Grossly unchanged right paramedian ventral abdominal wall hernia containing a short segment of transverse colon. Discharge Plan Discharge Clinical Impression: Urinary tract infection, Abdominal hernia Patient Disposition: Home, Self-Care Condition: Stable Additional Instructions: Take medication as prescribed for urinary tract infection. Follow-up with surgery clinic for ongoing assessment and management of this abdominal hernia. Return if worsening. Prescriptions: New cephalexin 500 mg capsule 500 mg PO TID 10 Days Qty: 30 0RF No Action potassium chloride [Klor-Con M20] 20 mEq tablet,ER particles/crystals PO Patient Comments: TAKE ONE TABLET BY MOUTH TWICE DAILY WITH MEALS tamsulosin 0.4 mg capsule PO Patient Comments: TAKE TWO CAPSULE BY MOUTH DAILY AT BEDTIME sodium citrate-citric acid 500-334 mg/5 mL solution Patient Comments: TAKE 45ML BY MOUTH TWICE DAILY. levothyroxine 150 mcg tablet Patient Comments: Take 1 Tablet (150 mcg) by mouth before breakfast. omeprazole 20 mg capsule,delayed release(DR/EC) Phospha 250 Neutral 250 mg tablet Patient Comments: TAKE ONE TABLET BY MOUTH TWICE DAILY WITH FOOD allopurinol 300 mg tablet Patient Comments: TAKE ONE TABLET BY MOUTH ONE TIME DAILY calcitriol 0.25 mcg capsule Patient Comments: TAKE ONE CAPSULE BY MOUTH ONE TIME DAILY finasteride 5 mg tablet Patient Comments: TAKE ONE TABLET BY MOUTH EVERY DAY IN THE MORNING. rosuvastatin 10 mg tablet Patient Comments: TAKE ONE TABLET BY MOUTH ONE TIME DAILY AT BEDTIME calcium carb and citrate-vitD3 [Citracal-D3 Slow Release] 600 mg-12.5 mcg (500 unit) tablet extended release PO Patient Comments: TAKE ONE TABLET BY MOUTH ONE TIME DAILY Follow Up/Referrals: Osito Joe MD [Primary Care Provider] - Stand Alone Forms: [facility] Info Instructions
[2023-10-17 10:14] LABS: Bacteria Urine Few; RBC Urine >100 (0-2); WBC Urine >100 (0-5)
[2023-10-17 10:22] LABS: Basophils Absolute Auto 0.02 K/uL (0.00-0.30); Basophils Percent Auto 0.4 % (0.0-3.0); Eosinophils Absolute Auto 0.04 K/uL (0.00-0.50); Eosinophils Percent Auto 0.8 % (0.0-7.0); Hematocrit 38.7 % (37.0-53.0); Hemoglobin* 12.4 gm/dL (13.5-17.5); Immature Granulocytes Abs Auto 0.02 K/uL (0.00-0.30); Immature Granulocytes Pct Auto 0.4 %; Lymphocytes Percent Auto 5.8 % (20-44); Mean Corpuscular HGB Conc 32 gm/dL (32-36); Mean Corpuscular Hemoglobin 31 pg (26-34); Mean Corpuscular Volume 98 fL (80-100); Monocytes Percent Auto 6.6 % (0.0-11.0); Platelet Count* 172 K/uL (140-440); RDW Coefficient of Variation % 13.4 % (11.5-15.5); Red Blood Count 3.96 m/uL (4.30-5.90); White Blood Count* 5.33 K/uL (4.50-11.00)
[2023-10-17 10:24] LABS: Slide Review Reflex No
[2023-10-17 10:35] LABS: Chloride* 99 mmol/L (96-114); Sodium* 137 mmol/L (135-149)
[2023-10-17 10:36] LABS: Potassium* 3.6 mmol/L (3.6-5.1)
[2023-10-17 10:38] LABS: Creatinine* 2.3 mg/dL (0.5-1.5); Est. Creatinine Clearance* 25.05; Estimated Glomerular Filt Rate 28 ml/min
[2023-10-17 10:39] LABS: Anion Gap 8 mEq/L (7-15); Blood Urea Nitrogen* 46 mg/dL (7-30); Calcium* 9.2 mg/dL (8.4-10.6); Carbon Dioxide* 30 mmol/L (20-32); Glucose* 112 mg/dL (60-115)
[2023-10-17 11:17] VITALS: BP 144/84; PULSE 68; RESP 20; O2SAT 98
== END 2023-10-17 12:29 | disposition home or self-care (01) ==
PROVIDERS: Emergency Provider Emergency Medicine Emergency Medical Services; PCP Surgery
DX: N39.0 Urinary tract infection, site not specified (principal); K46.9 Unspecified abdominal hernia without obstruction or gangrene
CPT/HCPCS: 36415; 74176; 80048; 81001; 85025; 87086; 99284

== ENCOUNTER 2023-10-24 19:54 | Emergency (ER) | payer MEDICARE, BC, SELFPAY ==
[2023-10-24] VITALS (20 sets, daily range): BP systolic 92–126; BP diastolic 45–73; PULSE 69–76; RESP 16; TEMP 37.6; O2SAT 92–98; BMI 22.2
--- NOTE | 2023-10-24 20:34 | ED_ITS ---
HPI - Abdominal Pain General Time Seen by Provider: 08:15 Date Seen: 10/24/23 Chief Complaint: Abdominal Pain Stated Complaint: Abdominal pain Time Seen by Provider: 10/24/23 20:16 Source: patient and family Mode of arrival: ambulatory Limitations: no limitations History of Present Illness HPI narrative: Patient is an 83-year-old white male who presents to the emergency department for evaluation of abdominal pain. Patient here with known left lower abdominal hernia near his ileostomy who presents for evaluation of worsening abdominal pain. Patient states that he was seen in the emergency department recently last week for similar symptoms. States that he has had ongoing pain and unable to take the pain so came into the emergency department. The patient complains of intense pain located in left lower quadrant of his abdomen near his ileostomy. Patient reports pain for the past 1 week. Patient reports difficulty sleeping due to the pain. Patient has been taking Vicodin he had at home twice a day as needed for pain. Patient does have an appointment tomorrow with the line a coordinator for follow-up in in hopes to schedule surgery. Patient denies any fever, chills, nausea, vomiting, patient reports normal bowel movements, denies any bloody stools. Denies any chest pain, shortness of breath. Patient reports no new or worsening symptoms. Patient does report recently treated for urinary tract infection under current on antibiotics. No other complaints. Related Data Home Medications ?Medication ?Instructions ?Recorded ?Confirmed allopurinol 300 mg tablet mg 04/28/22 calcitriol 0.25 mcg capsule mcg 04/28/22 calcium carb,cit ER 600 mg-vit D3 tab PO 04/28/22 12.5 mcg (500 unit) tablet,ext.rel (Citracal-D3 Slow Release) finasteride 5 mg tablet mg 04/28/22 levothyroxine 150 mcg tablet mcg 04/28/22 omeprazole 20 mg capsule,delayed mg 04/28/22 release potassium chloride 20 mEq meq PO 04/28/22 tablet,extended release(part/cryst) (Klor-Con M) rosuvastatin 10 mg tablet mg 04/28/22 sodium citrate-citric acid 500 ml 04/28/22 mg-334 mg/5 mL oral solution sodium di- and tab 04/28/22 monophosphate-potassium phos monobasic 250 mg tablet (Phospha Neutral) tamsulosin 0.4 mg capsule mg PO 04/28/22 Previous Rx's ?Medication ?Instructions ?Recorded cephalexin 500 mg capsule 500 mg PO TID 10 days #30 caps 10/17/23 Allergies Allergy/AdvReac Type Severity Reaction Status Date / Time furosemide [From Lasix] Allergy Intermediate Palpitation Verified 10/24/23 20:08 s aspirin Allergy Mild gi bleeding Verified 10/24/23 20:08 atorvastatin [From Lipitor] Allergy Mild Verified 10/24/23 20:08 codeine Allergy Mild constipatio Verified 10/24/23 20:08 n simvastatin Allergy Mild myalgia Verified 10/24/23 20:08 Review of Systems Const Denies: fever ENMT Denies: throat pain Cardio Denies: chest pain or shortness of breath with exertion Resp Denies: shortness of breath GI Reports: abdominal pain; Denies: vomiting Denies: painful urination Musculo Denies: back pain Integ/Breast Denies: rash Neuro Denies: headache PFSH PFSH Social History Smoking Status: Never smoker Do you use any of these nicotine containing products: None Second hand tobacco smoke exposure: No How often do you have a drink containing alcohol: never How often do you have six or more drinks on one occasion: Never AUDIT-C Alcohol total score: 0 Non-prescribed substance use: denies use service: No Exam Narrative: Exam Narrative: General: Afebrile, moderate distress. Appears stated age. HENT: MMM, no oropharyngeal lesions Eyes: PERRL, normal sclerae Neck: non-tender, supple Cardio: regular rate. Regular rhythm. Extremities well perfused Resp: Normal work of breathing, clear breath sounds Chest/Back: no visual signs of trauma, no CVA tenderness Abdomen: soft, non-distended, +hernia in right side abdomen reducible, ostomy in place left abdomen, no obvious palpable hernia near ostomy, no peritoneal signs Neuro: alert and fully oriented. CN II-XII grossly intact. Grossly normal strength and sensation in all extremities. MSK: no deformities. Integumentary/Skin: no rash visualized, normal color Psych: normal affect, normal behavior Const: Vital Signs, click to edit/add: Vital Signs - 24 hr 10/24/23 20:04 10/24/23 20:57 10/24/23 20:58 Temperature 99.7 F H Pulse Rate 71 72 Pulse Rate [Right Pulse Oximeter] 76 Respiratory Rate 16 Blood Pressure 116/63 115/73 Blood Pressure [Ri ght Upper Arm] 92/45 L Pulse Oximetry 96 96 95 Oxygen Delivery Me thod Room Air 10/24/23 20:59 10/24/23 21:00 10/24/23 21:02 Temperature Pulse Rate 74 72 69 Pulse Rate [Right Pulse Oximeter] Respiratory Rate Blood Pressure 115/65 Blood Pressure [Ri ght Upper Arm] Pulse Oximetry 96 94 92 Oxygen Delivery Me thod 10/24/23 21:15 10/24/23 21:17 10/24/23 21:30 Temperature Pulse Rate 72 71 72 Pulse Rate [Right Pulse Oximeter] Respiratory Rate Blood Pressure 118/62 Blood Pressure [Ri ght Upper Arm] Pulse Oximetry 94 93 93 Oxygen Delivery Me thod 10/24/23 21:32 10/24/23 21:45 10/24/23 21:47 Temperature Pulse Rate 73 73 72 Pulse Rate [Right Pulse Oximeter] Respiratory Rate Blood Pressure 118/65 121/63 Blood Pressure [Ri ght Upper Arm] Pulse Oximetry 93 94 94 Oxygen Delivery Me thod 10/24/23 22:00 10/24/23 22:02 10/24/23 22:15 Temperature Pulse Rate 73 75 73 Pulse Rate [Right Pulse Oximeter] Respiratory Rate Blood Pressure 118/68 Blood Pressure [Ri ght Upper Arm] Pulse Oximetry 94 95 96 Oxygen Delivery Me thod 10/24/23 22:16 10/24/23 22:30 10/24/23 22:31 Temperature Pulse Rate 71 71 72 Pulse Rate [Right Pulse Oximeter] Respiratory Rate Blood Pressure 126/70 124/70 Blood Pressure [Ri ght Upper Arm] Pulse Oximetry 97 94 94 Oxygen Delivery Me thod 10/24/23 22:45 10/24/23 22:46 Temperature Pulse Rate 75 72 Pulse Rate [Right Pulse Oximeter] Respiratory Rate Blood Pressure 125/72 Blood Pressure [Ri ght Upper Arm] Pulse Oximetry 98 97 Oxygen Delivery Me thod Course Vital Signs Vital signs: Initial Vital Signs Temperature 99.7 F H 10/24/23 20:04 Temperature Source Temporal Artery Scan 10/24/23 20:04 Pulse Rate 76 10/24/23 20:04 Pulse Rhythm Regular 10/24/23 20:04 Pulse Strength 3+ Normal 10/24/23 20:04 Respiratory Rate 16 10/24/23 20:04 Blood Pressure 92/45 L 10/24/23 20:04 Blood Pressure Mean 60 L 10/24/23 20:04 Blood Pressure Position Sitting 10/24/23 20:04 Pulse Oximetry 96 10/24/23 20:04 Oxygen Delivery Method Room Air 10/24/23 20:04 Vital Signs Temperature 99.7 F H 10/24/23 20:04 Pulse Rate 76 10/24/23 20:04 Respiratory Rate 16 10/24/23 20:04 Blood Pressure 92/45 L 10/24/23 20:04 Pulse Oximetry 96 10/24/23 20:04 Oxygen Delivery Method Room Air 10/24/23 20:04 Temperature 99.7 F H 10/24/23 20:04 Pulse Rate 72 10/24/23 22:46 Respiratory Rate 16 10/24/23 20:04 Blood Pressure 125/72 10/24/23 22:46 Pulse Oximetry 97 10/24/23 22:46 Oxygen Delivery Method Room Air 10/24/23 20:04 Medications Administered Medications: Discontinued Medications Generic Name Dose Route Start Last Admin Trade Name Freq PRN Reason Stop Dose Admin Hydromorphone HCl 0.5 mg 10/24/23 20:31 10/24/23 21:00 Hydromorphone 0.5 Mg/0.5 Ml Inj IVP 10/24/23 20:32 0.5 mg ONCE ONE Administration Sodium Chloride 1,000 mls @ 500 mls/hr 10/24/23 20:45 10/24/23 21:39 0.9 % Sodium Chloride 1000 Ml IV 10/24/23 22:44 Infused .Q2H JOHANA Infusion Ondansetron HCl 4 mg 10/24/23 20:32 10/24/23 21:00 Ondansetron 2 Mg/Ml Inj IVP 10/24/23 20:33 4 mg ONCE ONE Administration MDM - Abdominal Pain MDM Narrative Medical decision making narrative: 83-year-old male here with known hernia on recent ED visit who presents for further evaluation of ongoing abdominal pain. Upon arrival patient is nontoxic appearing, afebrile, moderate distress secondary to pain. Patient blood pressure soft 92/45, heart rate 76, oxygen 96% on room air. Abdomen is soft, nondistended, no tenderness to palpation. Patient with known right lower abdominal hernia which is reducible, patient reports hernia located chest near his ileostomy. Unable to palpate hernia on examination, no obvious signs of strangulation. Upon arrival patient was treated with a dose of IV Zofran, Dilaudid, and IV fluids. Plan for comprehensive labs, and possible repeat imaging. I reviewed comprehensive labs which were unremarkable with white blood cell count 10.34, hemoglobin 12.3, sodium 133, no other acute metabolic electrolyte abnormality, BUN 10, creatinine 0.6, no significant transaminitis, normal lipase. I reviewed the urinalysis which is unremarkable with no evidence of acute infection. Patient is currently on antibiotics and shows improvement of infection. Recommend continuing previously prescribed antibiotics. I reviewed patient's most recent CT imaging on 10/17/2023 which demonstrates a left lower abdominal ileostomy with peristomal hernia containing a few loops of nondistended small bowel. On re-evaluation patient resting comfortably, no distress. Patient reports significant improvement of the symptoms after IV pain medication in the emergency department. I did discuss laboratory testing with patient as well as considering repeat imaging. At this time patient does not want repeat imaging. Patient reports improvement of his pain and would like to go home and follow-up at his currently scheduled outpatient appointment tomorrow. Discussed with patient to ensure follow-up, also recommend Tylenol as well as oxycodone as needed for severe pain until he is able to follow up but definitive plan. Strict return precautions discussed if high fever, worsening pain, vomiting, any worsening symptoms. Patient and spouse understand agrees with plan. Patient discharged in stable condition. Medical Records Attestation: I reviewed the patient's medical records. Lab Data Attestation: I reviewed the patient's lab results. Labs: Lab Results 10/24/23 10/24/23 Range/Units 20:40 20:45 WBC 10.34 (4.50-11.00) K/uL RBC 3.94 L (4.30-5.90) m/uL Hgb 12.3 L (13.5-17.5) gm/dL Hct 38.9 (37.0-53.0) % MCV 99 (80-100) fL MCH 31 (26-34) pg MCHC 32 (32-36) gm/dL RDW Coeff of Sylvia 14.0 (11.5-15.5) % Plt Count 194 (140-440) K/uL Neut % (Auto) 91.3 H (42.0-72.0) % Lymph % (Auto) 4.1 L (20-44) % [place] % (Auto) 3.8 (0.0-11.0) % Eos % (Auto) 0.3 (0.0-7.0) % Baso % (Auto) 0.2 (0.0-3.0) % Neut # (Auto) 9.40 H (1.7-7.0) K/uL Lymph # (Auto) 0.40 L (0.90-2.90) K/uL [place] # (Auto) 0.40 (0.00-0.90) K/UL Eos # (Auto) 0.03 (0.00-0.50) K/uL Baso # (Auto) 0.02 (0.00-0.30) K/uL Abs Immat Gran (auto) 0.03 (0.00-0.30) K/uL Imm/Tot Granulo (auto) 0.3 % Sodium 133 L (135-149) mmol/L Potassium 4.1 (3.6-5.1) mmol/L Chloride 109 (96-114) mmol/L Carbon Dioxide 16 L (20-32) mmol/L Anion Gap 8 (7-15) mEq/L BUN 10 (7-30) mg/dL Creatinine 0.6 (0.5-1.5) mg/dL Estimated Creat Clear 57.61 Estimated GFR 97 ml/min Glucose 106 (60-115) mg/dL Calcium 8.4 (8.4-10.6) mg/dL Total Bilirubin 0.9 (0.1-1.5) mg/dL AST 48 H (12-35) U/L ALT 27 (4-50) U/L Alkaline Phosphatase 146 (40-150) U/L Total Protein 5.7 L (6.0-8.3) g/dL Albumin 3.0 L (3.3-5.0) g/dL Lipase 167 (23-300) U/L Urine Color Yellow (Yellow) Urine Appearance Clear (Clear) Urine pH 8.5 (5.0-8.5) Ur Specific [place] 1.015 (1.000-1.030) Urine Protein 2+ A (Negative) Urine Glucose (UA) Negative (Negative) Urine Ketones Negative (Negative) Urine Blood Negative (Negative) Urine Nitrite Negative (Negative) Urine Bilirubin Negative (Negative) Urine Urobilinogen 1.0 (0.2-1.0) Ur Leukocyte Esterase Negative (Negative) Urine RBC 0-2 (0-2) Urine WBC 0-2 (0-5) Ur Squamous Epith Cells Few (None-Few) Urine Bacteria Moderate A (None) Discharge Plan Discharge Clinical Impression: Abdominal pain Patient Disposition: Home, Self-Care Condition: Improved Instructions: Abdominal Pain (ED) Additional Instructions: Please follow-up at your appointment tomorrow for further evaluation and follow-up. Please continue on medications. Please take Tylenol 1000 mg every 6 hours as needed for pain. Please take oxycodone 1 tablet every 6 hours as needed for severe pain. Please be cautious while taking this medication as it may make you dizzy, weak. Please return to the emergency department if you develop high fever, severe pain, persistent vomiting, or any worsening symptoms. It was a pleasure taking care of you today. We hope you feel better soon. Prescriptions: No Action cephalexin 500 mg capsule 500 mg PO TID 10 Days Qty: 30 0RF potassium chloride [Klor-Con M20] 20 mEq tablet,ER particles/crystals PO Patient Comments: TAKE ONE TABLET BY MOUTH TWICE DAILY WITH MEALS tamsulosin 0.4 mg capsule PO Patient Comments: TAKE TWO CAPSULE BY MOUTH DAILY AT BEDTIME sodium citrate-citric acid 500-334 mg/5 mL solution Patient Comments: TAKE 45ML BY MOUTH TWICE DAILY. levothyroxine 150 mcg tablet Patient Comments: Take 1 Tablet (150 mcg) by mouth before breakfast. omeprazole 20 mg capsule,delayed release(DR/EC) Phospha 250 Neutral 250 mg tablet Patient Comments: TAKE ONE TABLET BY MOUTH TWICE DAILY WITH FOOD allopurinol 300 mg tablet Patient Comments: TAKE ONE TABLET BY MOUTH ONE TIME DAILY calcitriol 0.25 mcg capsule Patient Comments: TAKE ONE CAPSULE BY MOUTH ONE TIME DAILY finasteride 5 mg tablet Patient Comments: TAKE ONE TABLET BY MOUTH EVERY DAY IN THE MORNING. rosuvastatin 10 mg tablet Patient Comments: TAKE ONE TABLET BY MOUTH ONE TIME DAILY AT BEDTIME calcium carb and citrate-vitD3 [Citracal-D3 Slow Release] 600 mg-12.5 mcg (500 unit) tablet extended release PO Patient Comments: TAKE ONE TABLET BY MOUTH ONE TIME DAILY Follow Up/Referrals: Osito Joe MD [Primary Care Provider] - Stand Alone Forms: [employer] Info Instructions
[2023-10-24 20:53] LABS: Appearance Urine Clear (Clear); Bilirubin Urine Negative (Negative); Blood Urine Negative (Negative); Color Urine Yellow (Yellow); Glucose Urine Negative (Negative); Ketones Urine Negative (Negative); Leukocyte Esterase Urine Negative (Negative); Nitrite Urine Negative (Negative); Protein Urine 2+ (Negative); Specific Gravity Urine 1.015 (1.000-1.030); pH Urine 8.5 (5.0-8.5)
[2023-10-24 20:53] LABS: Basophils Absolute Auto 0.02 K/uL (0.00-0.30); Basophils Percent Auto 0.2 % (0.0-3.0); Eosinophils Absolute Auto 0.03 K/uL (0.00-0.50); Eosinophils Percent Auto 0.3 % (0.0-7.0); Hematocrit 38.9 % (37.0-53.0); Hemoglobin* 12.3 gm/dL (13.5-17.5); Immature Granulocytes Abs Auto 0.03 K/uL (0.00-0.30); Immature Granulocytes Pct Auto 0.3 %; Lymphocytes Percent Auto 4.1 % (20-44); Mean Corpuscular HGB Conc 32 gm/dL (32-36); Mean Corpuscular Hemoglobin 31 pg (26-34); Mean Corpuscular Volume 99 fL (80-100); Monocytes Percent Auto 3.8 % (0.0-11.0); Neutrophils Percent Auto 91.3 % (42.0-72.0); Platelet Count* 194 K/uL (140-440); Red Blood Count 3.94 m/uL (4.30-5.90); White Blood Count* 10.34 K/uL (4.50-11.00)
[2023-10-24] MEDS: 0.9 % SODIUM CHLORIDE 1000 ml 1,000 ML 500 ML IV (20:54)
[2023-10-24] MEDS: HYDROmorphone 0.5 mg/0.5 ml inj IVP (21:00)
[2023-10-24] MEDS: ONDANSETRON 2 MG/ML inj 4 MG IVP (21:00)
[2023-10-24 21:02] LABS: Slide Review Reflex No
[2023-10-24 21:05] LABS: Chloride* 109 mmol/L (96-114); Potassium* 4.1 mmol/L (3.6-5.1); Sodium* 133 mmol/L (135-149)
[2023-10-24 21:07] LABS: Aspartate Amino Transferase* 48 U/L (12-35); Bilirubin Total* 0.9 mg/dL (0.1-1.5); Carbon Dioxide* 16 mmol/L (20-32); Creatinine* 0.6 mg/dL (0.5-1.5); Est. Creatinine Clearance* 57.61; Estimated Glomerular Filt Rate 97 ml/min
[2023-10-24 21:08] LABS: Alanine Aminotransferase* 27 U/L (4-50); Alkaline Phosphatase* 146 U/L (40-150); Blood Urea Nitrogen* 10 mg/dL (7-30); Calcium* 8.4 mg/dL (8.4-10.6); Glucose* 106 mg/dL (60-115); Lipase* 167 U/L (23-300); Total Protein* 5.7 g/dL (6.0-8.3)
[2023-10-24 21:22] LABS: Anion Gap 8 mEq/L (7-15)
[2023-10-24 21:23] LABS: RBC Urine 0-2 (0-2); WBC Urine 0-2 (0-5)
[2023-10-24 21:24] LABS: Bacteria Urine Moderate; Squamous Epithelial Cell Urine Few (None-Few)
== END 2023-10-24 22:55 | disposition home or self-care (01) ==
PROVIDERS: Emergency Provider Emergency Medicine; PCP Surgery
DX: R10.9 Unspecified abdominal pain (principal)
CPT/HCPCS: 36415; 80053; 81001; 81003; 83690; 85025; 87086; 94761; 96374; 96375; 99283; 99285; J1170; J2405; J7030

== ENCOUNTER 2023-10-31 09:50 | Outpatient (CLI) | payer MEDICARE, BC, SELFPAY ==
--- OUTSIDE RECORDS SUMMARY | 2023-11-04 03:12 | XMS_ITS | Continuity of Care Document ---
Author Organization [facility] Address [address] [address] [place] [address] Phone Care Team Providers Care Nuclear Power Reactor Operator Name Role Phone Bryce Bae MD Unavailable Unavailable Procedures Procedure Date Subsqt Hosp-da E&m Minr Compl 6 Ileoscopy-stoma; W/bx 1/mx Init Hosp-da E&m Mod Severity 6 Ugi Endo; Dx W/wo Collec Specm 16 Advance Directives Directive Yes / No Effective Date File Name No Information Encounters Encounter Description Practice Location Reason(s) For Visit Diagnoses Date Provider Providers Copied on Encounter [facility], [address] [address], [place], [place], [id number], [place] tel:[phone] [facility] No Information 4 Kathia Wu. [address] [facility], [facility] [address], [place], [id number], [place]. tel:[phone] Subsqt Hosp-da E&m Minr Compl [facility], [address] [address], [place], [place], [id number], [place] tel:[phone] [facility] No Information 6 Kvng Tellez. [address] [facility], [facility] [address], [place], [place], [id number], [place]. tel:[phone] Referring Provider: Rosalinda Swan, [address] [facility] [address], [place], [address] . tel:[phone] [facility], [address] [address], [place], [place], [id number], tel:[phone] [facility] No Information Dec-0 3201 6 Sandra Rosenbaum. [address] [place] [address], [id number], . tel:[phone] Referring Provider: Elenita Flores MD, [address] [place] [address], [place], [address] . tel:[phone] Init Hosp-da E&m Mod Severity [facility], [address] [address], [place], [place], [id number], tel:[phone] [facility] No Information Dec-0 2201 6 Joe Welsh. [address] [place] [address], [address], [id number], [place]. tel:[phone] Referring Provider: Anitha Diaz MD, [address] [place] [address], [place], [address] . tel:[phone] Family History Family Member Type Diagnosis Age At Onset No Information Payers Payer name Insurance type Covered alliance party ID Authoriza tion(s) No Information Social History Type Description Quantity Date Captured Comments Sex Male Smoking Status No Information Chief Complaint And Reason For Visit No Information Reason For Referral Reason For Referral No Information History Of Present Illness Encounter Date Complaint History Of Prese nt Illness No Information Functional Status Date Functional Assessmen t No Information Instructions Date Instruction Additional Infor mation No Information Assessments Type Assessment Date No Information Patient Care Teams Name Effective Dates (start - stop) Status Members No Information
--- OUTSIDE RECORDS SUMMARY | 2023-11-04 03:12 | XMS_ITS | Encounter Summary ---
Author Organization [facility] Address [address] [place] [address] Care Team Providers Care Banking Services Clerk Name Role Phone Osito Joe MD Primary Care Provider [phone] Encounter Details Date Type Department Care Team (Late st Contact Info) Description 08/25/2023 Orders Only [facility] [address] [place] [address] Yan Romero MD [address] [place] [address] Chronic kidney disease stage 4 (HCC); Hypomagnesemia Social History Tobacco Use Types Packs/Day Years Used Date Smoking Tobacco: Former Cigarettes 1 15 0 02/27/1974 - 02/27/1989 Smokeless Tobacco: Never Alcohol Use Standard Drinks/Week Comments Never 0 (1 standard drink = 0.6 oz pur e alcohol) Sex and Gender Information Value Date Recorded Sex Assigned at Not on file Gender Identity Not on file Sexual Orientation Not on file documented as of this encounter Plan of Treatment Upcoming Encounters Date Type Department Care Team (Late st Contact Info) Description 11/06/2023 Orders Only [facility] [address] [place] [address] Yan Romero MD [address] [place] [address] Chronic kidney disease stage 4 (HCC); Hypomagnesemia 12/14/2023 2:00 PM EDT Office Visit [facility] [address] [place] [address] Rossy Dunn, FIRER POWERHOUSE-DISPUTE RESOLUTION SPECIALIST [address] [place] [phone] documented as of this encounter Visit Diagnoses Diagnosis Chronic kidney disease stage 4 (HCC) Hypomagnesemia Chronic kidney disease stage 4 (HCC) Hypomagnesemia documented in this encounter Care Teams Banking Services Clerk Relationship Specialty Start Date End Date Osito Joe MD [address] [place] [address] PCP - General Family Medicine 01/13/23 documented as of this encounter
--- OUTSIDE RECORDS SUMMARY | 2023-11-04 03:12 | XMS_ITS | Clinical Summary ---
Author Organization [facility] Address [address] [place] [address] Phone Care Team Providers Care Catalyst Concentration Operator Name Role Phone Osito Joe MD Primary Care Provider [phone] Allergies Active Allergy Reactions Criticality Noted Date Comments Aspirin GI bleeding 04/12/2019 Atorvastatin Other (see comments) 11/17/2006 myalgia Codeine 05/09/2006 constipation Furosemide Palpitations Low 02/03/2012 Lasix caused palpitations in 2011. Simvastatin Other (see comments) Medium 03/19/2009 Medications Medication Sig Dispensed Refills Start Date End Date Status potassium chloride (KLOR-CON M20) 20 MEQ CR tablet Take 1 tablet (20 mEq total) by mouth in the morning and 1 tablet (20 mEq total) in the evening. 180 tablet 3 04/11/2023 04/10/2024 Active K Phos Harvey-Sod Phos Di & Harvey (Phospha 250 Neutral) 155-852-130 MG tablet Take 1 tablet by mouth in the morning and 1 tablet in the evening. 180 tablet 3 04/11/2023 04/10/2024 Active omeprazole (PriLOSEC) [address] capsule TAKE ONE CAPSULE BY MOUTH ONE TIME DAILY BEFORE A MEAL.* 04/28/2023 Active nitroglycerin (NITROSTAT) 0.[address] 0.4 mg under the tongue every 5 (five) minutes if needed for chest pain 05/30/2022 Active Bfuaaz-Daingiexoi-Ex lberry 20-1-2.2 MG capsule Take by mouth 1 (one) time each day 10/01/2021 Active Magnesium Oxide -Mg Supplement (True Magnesium Oxide) 500 MG tablet Take 1,000 mg by mouth in the morning and 1,000 mg in the evening. 08/06/2020 Active Sod Citrate-Citric Acid (Cytra-2) 500-334 MG/5ML solution Take 30 ml BID 01/12/2023 Active tamsulosin (FLOMAX) 0.4 MG 24 hr capsule Take 0.8 mg by mouth 1 (one) time each day Active rosuvastatin (CRESTOR) 20 MG tablet Take 10 mg by mouth 1 (one) time each day 05/30/2022 Active predniSONE (DELTASONE) 10 MG tablet Take 1 Tablet (10 mg) by mouth once daily with a meal. Take at onset of pseudogout flare. Only needs 1-2 days and then resolves. 10/24/2022 Active coenzyme Q-10 100 MG capsule 200 mg morning, 400 mg afternoon. 06/14/2016 Active cholecalciferol (VITAMIN D-3) 25 MCG (1000 UT) tablet Take 1,000 Units by mouth 1 (one) time each day 09/30/2016 Active allopurinol (ZYLOPRIM) 300 MG tablet Take 300 mg by mouth 1 (one) time each day 05/30/2022 Active finasteride (PROSCAR) 5 MG tablet Take 5 mg by mouth 1 (one) time each day Active levothyroxine (SYNTHROID, LEVOTHROID) 150 MCG tablet TAKE ONE TABLET BY MOUTH ONE TIME DAILY BEFORE BREAKFAST* Active Calcium Polycarbophil (FIBER-CAPS PO) Take 1 capsule by mouth in the morning. 05/11/2007 Active cyanocobalamin (VITAMIN B-12) 1000 MCG tablet Take 1,000 mcg by mouth once daily. PROTECT FROM LIGHT 01/09/2009 Active ferrous sulfate 325 (65 Fe) MG EC tablet Take 1 tablet by mouth 2 times daily with meals. 09/25/2012 Active calcitriol (ROCALTROL) 0.25 MCG capsule Take 1 capsule (0.25 mcg total) by mouth 1 (one) time each day 90 capsule 3 06/06/2023 06/05/2024 Active CITRACAL 600-40-500 MG-MG-UNIT tablet sustained-release 24 hour Take 1 Tablet 24 Hour Sustained Release by mouth 1 (one) time each day 90 tablet 3 09/25/2023 Active Active Problems Problem Noted Date Diagnosed Date Hyperparathyroidism due to renal insufficiency 0 05/25/2023 Overview: And Primary Hyperparathyroidism: Had parathyroidectomy and partial thyroidectomy. Currently supplemented. 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 Has fistula formation so stools in ileostomy and per rectum. Hypomagnesemia 05/25/2023 Ileostomy present 05/21/2021 Anemia 12/09/2020 Paroxysmal atrial fibrillation 05/09/2019 Hypokalemia 08/22/2018 Iron deficiency anemia 03/31/2016 History of calculus of kidney 01/28/2016 History of deep vein thrombosis 01/28/2016 Overview: Diagnosed 11/2008 following prolonged immobility; warfarin discontinued 01/2016 Hypertensive chronic kidney disease with stage 1 through stage 4 chronic kidney disease, or unspecified chronic kidney disease 07/23/2015 Nephrolithiasis 08/16/2013 Chronic kidney disease stage 4 11/10/2010 Benign prostatic hyperplasia without lower urinary tract symptom 05/14/2010 Overview: No symptoms with tamsulosin 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 Rare flare for which he takes prednisone. Vitamin D deficiency 05/07/2009 Reflux esophagitis 05/09/2006 Overview: Symptoms well controlled on omeprazole Supraventricular arrhythmia 01/10/2005 Overview: Diagnosed many years ago. Continues to have palpitations off and on but no diagnosed SVT for > 10 years. Encounters Date Type Department Care Team Description 08/25/2023 Orders Only [facility] [address] [place] [phone] Yan Romero MD Chronic kidney disease stage 4 (HCC); Hypomagnesemia from Last 3 Months Immunizations Name Administration Dates Next Due Influenza Split High Dose Pr eservative Free IM 12/29/2022,12/13/2021,11/27/2020 RSV RECOMBINANT 11/03/2022 Family History Medical History Relation Comments Hyperlipidemia Brother Heart disease Father [place] CABG Stroke Father Cancer Mother colon cancer Stroke Mother Hyperlipidemia Sister Relation Status Comments Brother Father Mother Sister Social History Tobacco Use Types Packs/Day Years Used Date Smoking Tobacco: Former Cigarettes 1 15 0 02/27/1974 - 02/27/1989 Smokeless Tobacco: Never Tobacco Cessation:Counseling Given: Not Answered Alcohol Use Standard Drinks/Week Comments Never 0 (1 standard drink = 0.6 oz pur e alcohol) Sex and Gender Information Value Date Recorded Sex Assigned at Not on file Gender Identity Not on file Sexual Orientation Not on file Last Filed Vital Signs Vital Sign Reading Time Taken Comments Blood Pressure 124/58 05/25/2023 1:32 PM CDT Pulse 78 05/25/2023 1:32 PM CDT Temperature - - Respiratory Rate - - Oxygen Saturation 97% 05/25/2023 1:32 PM CDT Inhaled Oxygen Concentration - - Weight 72.6 kg (160 lb) 05/25/2023 1:32 PM CDT Height 177.8 cm (5' 10) 05/25/2023 1:32 PM CDT Body Mass Index 22.96 05/25/2023 1:32 PM CDT Plan of Treatment Upcoming Encounters Date Type Department Care Team (Late st Contact Info) Description 11/06/2023 Orders Only [facility] [address] [place] [phone] Yan Romero MD [address] [place] [phone] Chronic kidney disease stage 4 (HCC); Hypomagnesemia 12/14/2023 2:00 PM EDT Office Visit [facility] [address] [place] [address] Rossy Dunn, RUBBER CUTTER AND SHAPE CARVER-DISTRICT TRAFFIC CHIEF [address] [place] [phone] Health Maintenance Due Date Last Done Comments Influenza Vaccine (#1) 2023 3, 12/13/2021, 11/27/2020, Additional history exists Hepatitis B Vaccine Aged Out 03/04/2005, 11/08/2004, 10/06/2004, Additional history exists No longer eligible based on patient's age to complete this topic Pneumococcal Vaccine: 65+ Years Completed 02/12/2015, 07/25/2013, 09/13/2012, Additional history exists Care Teams Catalyst Concentration Operator Relationship Specialty Start Date End Date Osito Joe MD [address] [place] [address] PCP - General Family Medicine 01/13/23
--- OUTSIDE RECORDS SUMMARY | 2023-11-04 03:13 | XMS_ITS | Encounter Summary ---
Author Organization [facility] Address [address] [place] [address] Care Team Providers Care Director Of Patient Safety Name Role Phone Osito Joe MD Primary Care Provider [phone] Encounter Details Date Type Department Care Team (Late st Contact Info) Description 07/19/2023 Office Communication [facility] [address] [place] [address] Yan Romero MD [address] [place] [address] Social History Tobacco Use Types Packs/Day Years [...] on file documented as of this encounter Miscellaneous Notes * Telephone Encounter - Lainey Ovalle - 09/06/2023 2:23 PM CDT Second call attempt made to reach the patient for scheduling. Mailed the Established Patient Letter to the patient to schedule 6 month follow up in October with CURTIS Dunn at [facility], per Dr. Romero. * Telephone Encounter - Matilda Hernandez - 07/19/2023 12:01 PM CDT LVM for patient to see if he will follow up with Rossy on 11-15 in [facility] per Dr. Romero'srequest. documented in this encounter Plan of Treatment Upcoming Encounters Date Type Department Care Team (Late st Contact Info) Description 11/06/2023 Orders Only [facility] [place] [address] [address] [phone] Yan Romero MD [address] [place] [phone] Chronic kidney disease stage 4 (HCC); Hypomagnesemia 12/14/2023 2:00 PM EDT Office Visit [facility] [place] [address] [phone] Rossy Dunn, [employer] [address] [facility] [address] [place] [phone] documented as of this encounter Visit Diagnoses Not on filedocumented in this encounter Care Teams Director Of Patient Safety Relationship Specialty Start Date End Date Osito Joe MD [address] [place] [address] PCP - General Family Medicine 01/13/23 documented as of this encounter
--- OUTSIDE RECORDS SUMMARY | 2023-11-04 03:13 | XMS_ITS | Clinical Summary ---
Author Organization [facility] Address [place], [place] [address] Care Team Providers Care Building Rental Manager Name Role Phone Osito Joe MD Primary Care Provider [phone] Ronan Pinedo RN Unavailable Unavailable Allergies Active Allergy Reactions Criticality Noted Date Comments Aspirin GI Bleeding 04/12/2019 Codeine 05/09/2006 constipation Furosemide Palpitations 02/03/2012 Lasix caused palpitations in 2011. Atorvastatin Intolerance-Can't Take 11/17/2006 myalgia Simvastatin Myalgia Medium 03/19/2009 Medications Medication Sig Dispensed Refills Start Date End Date Status FIBER CAP Take 1 capsule by mouth once daily. 0 05/11/19 08 Suspended CYANOCOBALAMIN 1,000 MCG TABIndications:Other B-complex deficiencies Take 1,000 mcg by mouth once daily. PROTECT FROM LIGHT 180 3 01/10/20 09 Suspended ferrous sulfate 325 mg delayed release tabletIndications:Hemo rrhage of gastrointestinal tract, unspecified Take 1 tablet by mouth 2 times daily with meals. 0 09/26/19 13 Suspended coenzyme q10 100 mg capIndications:Systoli c hypertension Take 200 mg by mouth in the morning, and 400 mg by mouth in the afternoon. 0 06/15/19 17 Suspended cholecalciferol (VITAMIN D) 1,000 unit tabletIndications:Teresa min D deficiency Take 1 tablet by mouth once daily. 90 tablet 3 10/01/19 17 Suspended Additional Information Magnesium Oxide 500 mg tabIndications:PAF (paroxysmal atrial fibrillation) (HC) Take 1,000 mg by mouth 2 times daily. 0 08/07/19 21 Suspended Additional Information oawpgo-wijfwppwqm-fyqx erry ext 20-1-2.2 mg cap Take 1 Capsule by mouth once daily. 0 10/02/19 22 Suspended potassium chloride (Klor-Con M20) 20 mEq Extended-Release tabletIndications:Hypo kalemia Take 1 Tablet (20 mEq) by mouth two times daily with meals. 180 Tablet 3 03/03/19 23 Suspended Additional Information potassium-sodium di-/monobasic phosphates (Phospha 250 Neutral) 250 mg tabletIndications:Hypo kalemia,Hypophosphatem ia Take 1 Tablet by mouth two times daily with meals. 180 Tablet 3 03/03/19 23 Suspended Additional Information nitroglycerin (NITROSTAT) 0.4 mg sublingual tabletIndications:CAD in [place] artery Place 1 Tablet (0.4 mg) under the tongue every 5 minutes if needed for Chest Pain. 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 90 Tablet 3 06/02/19 24 Suspended Additional Information finasteride (PROSCAR) 5 mg tabletIndications:BPH with obstruction/lower urinary tract symptoms Take 1 Tablet (5 mg) by mouth every morning. 90 Tablet 3 06/02/19 24 Suspended Additional Information levothyroxine (SYNTHROID) 150 mcg tabletIndications:Hypo thyroidism (acquired) Take 1 Tablet (150 mcg) by mouth before breakfast. 90 Tablet 3 06/02/19 24 Suspended Additional Information omeprazole (PRILOSEC) 20 mg Delayed-Release capsuleIndications:Gas troesophageal reflux disease with esophagitis without hemorrhage Take 1 Capsule (20 mg) by mouth once daily before a meal. 90 Capsule 3 06/02/19 24 Suspended Additional Information rosuvastatin (CRESTOR) 20 mg tabletIndications:Mixe d hyperlipidemia Take 0.5 Tablets (10 mg) by mouth at bedtime. 45 Tablet 3 06/02/19 24 024 Discontinued (Pharmacist change per medication history (E-cancel not sent)) tamsulosin (FLOMAX) 0.4 mg capsuleIndications:BPH with obstruction/lower urinary tract symptoms Take 2 Capsules (0.8 mg) by mouth at bedtime. 180 Capsule 3 06/02/19 24 Suspended Additional Information CITRACAL + D SLOW REL. Extended-Release tabletIndications:Seco ndary renal hyperparathyroidism (HC) TAKE ONE TABLET BY MOUTH ONE TIME DAILY 80 Tablet 06/30/19 24 Suspended Additional Information predniSONE (DELTASONE) 5 mg tabletIndications:Pseu dogout Take 1 tablet up to twice a week on an as needed basis for flares of joint pain 30 Tablet 1 09/19/19 24 024 Discontinued (Pharmacist change per medication history (E-cancel not sent)) HYDROcodone-acetaminop hen (5-325 mg/tablet)Indications: Acute abdominal pain Take 1 Tablet by mouth 2 times daily if needed for Pain. Max acetaminophen dose: 4000 mg in 24 hrs. 20 Tablet 10/27/19 Suspended Additional Information rosuvastatin (Crestor) 10 mg tablet Take 10 mg by mouth at bedtime. 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 Thyroidectomy in 2022. Hypothyroidism (acquired) 06/02/[address] 05/21/2021 Anemia in stage 4 chronic kidney disease 021 Paroxysmal atrial fibrillation 05/09/2019 Hypokalemia 08/22/2018 Iron deficiency anemia 03/31/2016 History of DVT (deep vein thrombosis) 01/28/2016 Overview (01/25/2018): Diagnosed 11/2008 following prolonged immobility; warfarin discontinued 01/2016 Essential hypertension 07/23/2015 Nephrolithiasis 08/16/2013 CKD (chronic kidney disease) stage 4, GFR 15-29 ml/min 11/10/2010 Benign prostatic hyperplasia without lower urinary tract symptoms 05/14/2010 Overview (01/25/2018): No symptoms with tamsulosin Pseudogout 09/25/2009 Overview (01/25/2018): On allopurinol. Rare flare for which he takes prednisone. Vitamin D deficiency 05/07/2009 Reflux esophagitis 05/09/2006 Overview (01/25/2018): Symptoms well controlled on omeprazole Paroxysmal supraventricular tachycardia 01/11/20 05 Overview (01/25/2018): Diagnosed many years ago. Continues to have palpitations off and on but no diagnosed SVT for > 10 years. CROHN'S DISEASE, s/p ILEOSTOMY Overview (01/31/2016): Ileostomy 35yrs ago. Has fistula formation so stools in ileostomy and per rectum. SECONDARY HYPERPARATHRYROIDISM Overview (05/30/2022): And Primary Hyperparathyroidism: Had parathyroidectomy and partial thyroidectomy. Currently supplemented. 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 Mixed hyperlipidemia DJD (degenerative joint disease) Overview (05/30/2022): OF KNEES AND SHOULDER Resolved Problems Problem Noted Date Diagnosed Date Resolved Date Orthostatic lightheadedness 05/30/2022 05/30/2022 06/02/2023 Subclinical hypothyroidism 04/13/2019 0 06/02/2023 History of nephrolithiasis 01/28/2016 0 06/02/2023 Pain medication agreement 07/30/2010 Other psoriasis 06/02/2023 Nontoxic goiter 06/02/2023 Delayed emergence from anesthesia 06/02/2023 Encounters Date Type Department Care Team Description 11/02/2023 10:56 AM CDT Anesthesia Event [facility] [address] [place] [address] Josue Sinha MD Moss, Elaina Susan, CRNA 11/02/2023 10:44 AM CDT - 11/02/2023 11:18 AM CDT Surgery [facility] [address] [place] [address] Bryce Pope MD ILEOSCOPY 10/31/2023 11:04 AM CDT - Present Hospital Encounter [facility] [address] [place] [address] Louisa Rivera, DO [facility], [facility], Sidney Cole MD 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, unspecified hernia type (Primary Dx); Abdominal pain, unspecified abdominal location 10/31/2023 Travel 10/27/2023 1:30 PM CDT Office Visit [facility] [address] [place] [address] Aileen Metcalf PA Medication Management (Needs something for pain until he can see surgeon or PCP) 10/27/2023 Travel 10/25/2023 3:30 PM CDT Office Visit [address] [address] Marnie Rosario MD Consult (Hernia/) 10/25/[address] [address] Marnie Rosario MD Questions 10/25/2023 Travel 10/17/2023 Orders Only [facility] Scanner 2 scans: (2-Ord) [facility], ABDOMEN PELVIS W/O CONTRAST, 10/17/2023 10/12/[address] [facility] [address] [place] [address] Osito Joe MD Abdominal Pain/problem (Abdominal pain for 3 days pain 7-8/10) 09/19/2023 10:55 AM CDT Office Visit [facility] [address] [place] [address] Osito Joe MD Follow Up 09/19/2023 Travel 09/19/[address] [address] Yan Romero MD Refill Request (Citracal + D Slow Rel.) from Last 3 Months Immunizations Name Administration Dates Next Due AMB Influenza, IIV4 PF (=>6 mos Flulaval,Fluzone Fluarix)(Flu Clinic Only) 12/17/2018 COVID-19 vaccine (H[employer] NTGera-IT 30mcg/0.3mL) PF, MDV 05/19/2020,04/28/2020 Hepatitis B (Adult) 03/04/2005, 5,10/06/2004,09/08 Influenza A (H1N1), Inactiva tessa (Age >=3 Years) 03/05/2009 Influenza, High-dose Inactivated 11/26/2015,10/28,11/06/2013 Influenza, High-dose Quadriv alent Inactivated 12/29/2022,12/13/2021,11/27/2020 Influenza, IIV3 (Age 6-35 mos) 11/10/2010 Influenza, IIV3 (Age >=3 years) 12/15/19 13,10/28/2011,11/10/2010,12/21,12/01/2008,01/04/2008,12/29/2006 ,12/14/2005 Influenza, Inactivated IIV3 (Age 65+ Years) Preserv Free 12/02/2019,11/29/2017,12/16/2016 Pneumococcal Poly,23-Valent (Pneumovax) 07/25/2013,09/13/2012,10/04/2004 Pneumococcal conj 13-Valent (Prevnar 13) 02/12/2015 RSV, Recombinant ADJ Reconst ituted (Arexvy 120MCG/0.5mL) 11/03/2022 Td (Age >=7 Years) 02/02/2005 Tdap 07/25/2013 Zoster (Shingrix-RZV, recombinant) 06/04/2019, Zoster (Zostavax-ZVL, live) 06/01/2007 Family History Medical History Relation Name Comments Hyperlipidemia Brother Heart Disease Father [place], CABG Stroke Father age 70s fr om CVA during CEA Cancer-colon Mother 72 Stroke Mother Diabetes Other none Hyperlipidemia Sister Relation Name Status Comments Brother Father (Age 70's) Mother (Age 70's) Other Sister Social History Tobacco Use Types Packs/Day Years Used Date Smoking Tobacco: Former Cigarettes 1 15 0 02/27/1974 - 02/27/1989 Smokeless Tobacco: Never Tobacco Cessation:Counseling Given: Yes Alcohol Use Standard Drinks/Week Comments No 0 (1 standard drink = 0.6 oz pur e alcohol) none PHQ-2 Answer Date Recorded PHQ-2 TOTAL SCORE 0 06/02/2023 Social Connections Answer Date Recorded Frequency of Communication with Friends and Fami ly 0 10/27/2023 Financial Resource Strain Answer Date R ecorded Difficulty of Paying Living Expenses 3 10/27/2023 Difficulty of Paying Living Expenses Not on file 10/27/2023 Food Insecurity Answer Date Recorded Worried About Running Out of Food in the Last Ye ar 1 10/27/2023 Transportation Needs Answer Date Record ed Lack of Transportation (Medical) 1 10/27/2023 Housing Stability Answer Date Recorded Unable to Pay for Housing in the Last Year 1 10/27/2023 Sex and Gender Information Value Date Recorded Sex Assigned at Not on file Gender Identity Not on file Sexual Orientation Not on file Obstetrics History Last Filed Vital Signs Vital Sign Reading Time Taken Comments Blood Pressure 103/54 11/03/2023 8:33 PM CDT Pulse 71 11/03/2023 8:33 PM CDT Temperature 36.5 ??C (97.7 ??F) 11/03/2023 8:33 PM CD T Respiratory Rate 16 11/03/2023 8:33 PM CDT Oxygen Saturation 99% 11/03/2023 8:33 PM CDT Inhaled Oxygen Concentration - - Weight 68 kg (150 lb) 10/31/2023 11:05 AM CDT Height 177.8 cm (5' 10) 10/31/2023 11:05 AM CDT Body Mass Index 21.52 10/31/2023 11:05 AM CDT Plan of Treatment Upcoming Encounters Date Type Department Care Team (Late st Contact Info) Description 11/10/2023 Cardiac Device Check [facility] [phone] 12/07/2023 10:15 AM CDT Orders Only [facility] [address] [place] [address] [place], [place] 12/18/2023 11:10 AM CDT Office Visit [facility] [address] [place] [address] Osito Joe MD [address] [place] [address] Health Maintenance Due Date Last Done Comments Tetanus booster 07/26/2023 07/25/2013, 02/02/2005 Influenza for age 65+ 10/29/2023 12/29/2022 , 12/13/2021, 11/27/2020, Additional history exists BMI (ht and wt on same day) for age 18+ 06/01/2024 06/02/2023, 03/06/2023, 05/30/2022, Additional history exists Depression screening for age 12+ 06/01/2024 06/02/2023, 06/02/2023, 06/01/2022, Additional history exists Medicare Wellness for age 65+ 06/02/2024, 05/30/2022, 05/21/2021, Additional history exists Tdap Completed 07/25/2013, 07/25/2013 Pneumococcal series for age 65+ Completed 02/12/2015, 02/12/2015, 07/25/2013, Additional history exists Zoster (shingles) series for age 50+ Completed 06/04/2019, 03/06/2019, 06/01/2007 RSV vaccine for adults or Completed 11/03/2022 COVID-19 vaccine series Completed 05/31/19 24, 12/22/2022, 07/28/2022, Additional history exists Medical Devices Implanted Type Area Greenhouse Technician Device Identifier Shelf Expiration Date Model / Serial / Lot Stent Contour [id number] - [id number] Implanted:Qty: 1 on 03/28/2012 by Sukhdev Elizalde MD at [facility] Right: [employer] [facility] 01/26/2015 [id number] / / [id number] Description:please see impla nt sheet. Stent Prcflx [id number] Hydpls - [id number] Implanted:Qty: 1 on 08/17/2013 at [facility] Right: [employer] [facility] [id number] / / [id number] Procedures The patient is currently admitted. The information in this section might not be complete until the patient is discharged. Procedure Name Priority Date/Time Associated Diagnosis Comments AEROBIC BACTERIAL CULTURE, STAIN Routine 11/03/2023 3:[address] ABD WALL SOFT TISSUE FLUID DRAIN COLLECT W GUIDE Routine 11/03/2023 3:28 PM CDT PROTIME-INR Early AM 11/03/2023 7:35 AM CDT BILIRUBIN,TOTAL Early AM 11/03/2023 7:35 AM CDT ALK PHOSPHATASE Early AM 11/03/2023 7:35 AM CDT ALT (SGPT) Early AM 11/03/2023 7:35 AM CDT AST (SGOT) Early AM 11/03/2023 7:35 AM CDT CREATININE Early AM 11/03/2023 7:35 AM CDT SODIUM Early AM 11/03/2023 7:35 AM CDT HEMOGLOBIN Early AM 11/03/2023 7:35 AM CDT POTASSIUM Early AM 11/03/2023 7:35 AM CDT ILEOSCOPY 11/02/2023 10:46 AM CDT See MD dictation ENDOSCOPY 11/02/2023 10:44 AM CDT HEMOGLOBIN Early AM 11/02/2023 6:57 AM CDT ALK PHOSPHATASE Early AM 11/02/2023 6:57 AM CDT BILIRUBIN,TOTAL Early AM 11/02/2023 6:57 AM CDT ALT (SGPT) Early AM 11/02/2023 6:57 AM CDT AST (SGOT) Early AM 11/02/2023 6:57 AM CDT CREATININE Early AM 11/02/2023 6:57 AM CDT POTASSIUM Early AM 11/02/2023 6:57 AM CDT SODIUM Early AM 11/02/2023 6:57 AM CDT US ABDOMEN LIMITED RUQ PORTABLE Routine 11/02/2023 6:[address] ABDOMEN PELVIS WO Routine 11/01/2023 8:49 PM CDT BILIRUBIN,TOTAL Early AM 11/01/2023 6:25 AM CDT ALT (SGPT) Early AM 11/01/2023 6:25 AM CDT AST (SGOT) Early AM 11/01/2023 6:25 AM CDT HEMOGLOBIN Early AM 11/01/2023 6:25 AM CDT BASIC METABOLIC PANEL Early AM 11/01/2023 6:[address] ABDOMEN PELVIS WO Routine 10/31/2023 8:29 PM CDT URINALYSIS MICROSCOPIC STAT 5:22 PM CDT UA W/ SEDIMENT EXAM REFLEXED PER CRITERIA STAT 10/31/2023 5:22 PM CDT LACTATE VENOUS STAT 10/31/2023 2:[address] ABDOMEN PELVIS WO STAT 10/31/2023 1:22 PM CDT LACTATE VENOUS STAT 10/31/2023 11:33 AM CDT LACTATE SCREEN VENOUS ISTAT W LINDQUIST STAT 10/31/2023 11:33 AM CDT EXTRA TUBE LINDQUIST ON ICE STAT 11:22 AM CDT ISTAT LACTATE SCREEN VENOUS STAT 10/31/2023 11:22 AM CDT LIPASE STAT 10/31/2023 11:21 AM CDT HEPATIC FUNCTION PANEL STAT 11:21 AM CDT BASIC METABOLIC PANEL STAT 10/31/2023 11:21 AM CDT CBC W PLT NO DIFF STAT 10/31/2023 11: 21 AM CDT SCAN-CT INTERPRETATION 12:00 AM CDT from Last 3 Months Results * CT ABD WALL SOFT TISSUE FLUID DRAIN COLLECT W GUIDE (11/03/2023 3:28 PM CDT) Anatomical Region Laterality Modality Abdomen Computed Tomogra phy, Other, Other 11/03/2023 4:09 PM CDT Narrative 11/03/2023 4:09 PM CDT For Patients: ??As a result of the Century Cures Act, medical imaging exams and procedure reports are released immediately into your electronic medical record. ??You may view this report before your referring provider. ??If you have questions, please contact your health care provider. INDICATION: Left lower quadrant ileostomy with adjacent 10 x 8 cm fluid collections suspicious for abscess. Drain placement requested. Oral contrast given prior to drain placement to better delineate bowel. TECHNIQUE: CT-guided abdominal drain placement. COMPARISON: CTs of the abdomen and pelvis 11/01/2023, 10/30/2022, and 10/08/2021. FINDINGS/DESCRIPTION OF PROCEDURE : In my discussion, prior to the signing of the consent, I reviewed the procedure, benefits, risks, long-term effects, treatment options, possible use of pain or sedation medications, and how the procedure will meet the treatment goal with the patient. The patient was given ample time to ask questions. All questions were answered. ?? MEDICATION GIVEN: VERSED 1 mg IV and FENTANYL 100 mcg IV. Lidocaine for local anesthesia. ?? MODERATE SEDATION: ??Under physician supervision, midazolam and fentanyl were administered intravenously for moderate sedation. Pulse oximetry, heart rate, and blood pressure were continuously monitored by a trained, dedicated nurse. The physician who performed the procedure provided 35 minutes of intra-service time with the patient. With the patient in supine position, localizing CT images were performed through the lower abdomen and pelvis without IV contrast, with oral contrast. There was good opacification of small bowel with contrast into the ostomy bag. There is dilute contrast visualized within the 10 x 8 cm fluid collection/abscess along the abdominal wall. This indicates communication with small bowel. Better seen on prior studies is distal small bowel diverticulosis. Suspect the abscess secondary to diverticulitis. There are new small gas bubbles extending from the inferior aspect of the abscess into the subcutaneous tissues and into the perineum. There are some small gas bubbles that extend into the scrotum. 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 Right anterior lateral approach to the abscess was chosen. The site was marked, and then prepped and draped in sterile fashion. [place] protocol was followed. TIME-OUT conducted just prior to starting procedure confirmed patient identity, site/side, procedure, patient position, and availability of correct equipment. ??Pause for cause was performed. 5 cc 1 percent lidocaine was used for superficial and deeper anesthesia. Under CT fluoroscopic guidance, a Yueh needle was advanced into the abscess. Through this, an 035 wire was advanced. The tract was dilated with a 12-Albanian dilator. Over the wire, a 14-Albanian pigtail catheter was placed with position verified by CT. The catheter was locked and attached to a Dino-Close drainage bag after 50 cc of pus was obtained and sent to microbiology. There was a large amount of drainage into the bag. Post images showed significant decrease in the size of the abscess by at least 75 percent. No immediate complications. EBL less than 10 cc. IMPRESSION/POSTPROCEDURE DIAGNOSIS : 1. CT images obtained prior to drain placement showed new gas bubbles within the subcutaneous tissues extending inferiorly from the abscess into the perineum with a few gas bubbles extending into the scrotum. 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 2. Contrast seen within the abscess. This indicates communication with distal small bowel. Distal small bowel diverticulosis has previously been noted. Overall, the findings are suspicious for abscess secondary to distal small bowel diverticulitis. 3. The above results were discussed with and acknowledged by Dr. Arauz 2:45 p.m., 11/03/2023. 4. Status post CT-guided placement of 14-Albanian pigtail catheter into left lower quadrant abscess. 50 cc of pus obtained and sent to microbiology. 5. No immediate complications. 6. Moderate sedation planned and used. Please note that all CT scans at this facility use dose modulation, iterative reconstruction, and/or weight-based dosing when appropriate to reduce radiation dose to as low as reasonably achievable. Dictated by Jesus Ortega MD @ 11/03/2023 4:09:57 PM (Electronically Signed) Procedure Note Jesus Ortega MD - 11/03/2023 For Patients: As a result of the Cures Act, medical imagingexams and procedure reports are released immediately into your electronicmedical record. You may view this report before your referring provider.If you have questions, please contact your health care provider. INDICATION: Left lower quadrant ileostomy with adjacent 10 x 8 cm fluid collectionssuspicious for abscess. Drain placement requested. Oral contrast givenprior to drain placement to better delineate bowel. TECHNIQUE: CT-guided abdominal drain placement. COMPARISON: CTs of the abdomen and pelvis 11/01/2023, 10/30/2022, and 10/08/2021. FINDINGS/DESCRIPTION OF PROCEDURE : In my discussion, prior to the signing of the consent, I reviewed theprocedure, benefits, risks, long-term effects, treatment options, possibleuse of pain or sedation medications, and how the procedure will meet thetreatment goal with the patient. The patient was given ample time to askquestions. All questions were answered. MEDICATION GIVEN: VERSED 1 mg IV and FENTANYL 100 mcg IV. Lidocaine forlocal anesthesia. MODERATE SEDATION: Under physician supervision, midazolam and fentanylwere administered intravenously for moderate sedation. Pulse oximetry,heart rate, and blood pressure were continuously monitored by a trained,dedicated nurse. The physician who performed the procedure provided 35minutes of intra-service time with the patient. With the patient in supine position, localizing CT images were performedthrough the lower abdomen and pelvis without IV contrast, with oralcontrast. There was good opacification of small bowel with contrast intothe ostomy bag. There is dilute contrast visualized within the 10 x 8 cmfluid collection/abscess along the abdominal wall. This indicatescommunication with small bowel. Better seen on prior studies is distalsmall bowel diverticulosis. Suspect the abscess secondary todiverticulitis. There are new small gas bubbles extending from theinferior aspect of the abscess into the subcutaneous tissues and into theperineum. 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 Right anterior lateral approach to the abscess was chosen. The site wasmarked, and then prepped and draped in sterile fashion. [place] protocol was followed. TIME-OUT conducted just prior to startingprocedure confirmed patient identity, site/side, procedure, patientposition, and availability of correct equipment. Pause for cause wasperformed. 5 cc 1 percent lidocaine was used for superficial and deeper anesthesia.Under CT fluoroscopic guidance, a NextEnergy needle was advanced into theabscess. Through this, an 035 wire was advanced. The tract was dilatedwith a 12-Albanian dilator. Over the wire, a 14-Albanian pigtail catheter wasplaced with position verified by CT. The catheter was locked and attachedto a Dino-Close drainage bag after 50 cc of pus was obtained and sent tomicrobiology. There was a large amount of drainage into the bag. Postimages showed significant decrease in the size of the abscess by at least75 percent. No immediate complications. EBL less than 10 cc. IMPRESSION/POSTPROCEDURE DIAGNOSIS : 1. CT images obtained prior to drain placement showed new gas bubbleswithin the subcutaneous tissues extending inferiorly from the abscess intothe perineum with a few gas bubbles extending into the scrotum. Findingsare consistent with necrotizing fasciitis/Christie`s gangrene. 2. Contrast seen within the abscess. This indicates communication withdistal small bowel. Distal small bowel diverticulosis has previously beennoted. Overall, the findings are suspicious for abscess secondary todistal small bowel diverticulitis. 3. The above results were discussed with and acknowledged by Dr. Arauz2:45 p.m., 11/03/2023. 4. Status post CT-guided placement of 14-Albanian pigtail catheter into leftlower quadrant abscess. 50 cc of pus obtained and sent to microbiology. 5. No immediate complications. 6. Moderate sedation planned and used. Please note that all CT scans at this facility use dose modulation,iterative reconstruction, and/or weight-based dosing when appropriate toreduce radiation dose to as low as reasonably achievable. Dictated by Jesus Ortega MD @ 11/03/2023 4:09:57 PM (Electronically Signed) Sidney Arauz MD CT * (ABNORMAL) Hemoglobin AM (11/03/2023 7:35 AM CDT) Only the most recent of3 resultswithin the time period is included. HEMOGLOBIN 9.8(L) 13.5 - 17.5 g/dL 11/03/2023 7:45 AM CDT [facility] MCV 93 80 - 100 fL 11/03/2023 7:45 AM CDT [facility] Blood BLOOD SPECIMEN / Unknown Venipuncture / Unknown 11/03/2023 7:35 AM CDT 11/03/2023 7:42 AM CDT Sidney Arauz MD HEMATOLOGY Performing Organization Address City/[facility] Co de Phone Number [facility] [address] [place] [address], [place] * (ABNORMAL) SODIUM (11/03/2023 7:35 AM CDT) Only the most recent of2 resultswithin the time period is included. Pathologist [facility] [place] SODIUM 135(L) 136 - 145 mmol/L 11/03/2023 8:22 AM CDT [facility] Blood BLOOD SPECIMEN / Unknown Venipuncture / Unknown 11/03/2023 7:35 AM CDT 11/03/2023 7:42 AM CDT Sidney Arauz MD CHEMISTRY Performing Organization Address [facility] Co de Phone Number [facility] [address] [place] [address], [place] * POTASSIUM (11/03/2023 7:35 AM CDT) Only the most recent of2 resultswithin the time period is included. POTASSIUM 3.8 3.5 - 5.1 mmol/L 11/03/2023 8:22 AM CDT [facility] Blood BLOOD SPECIMEN / Unknown Venipuncture / Unknown 11/03/2023 7:35 AM CDT 11/03/2023 7:42 AM CDT Sidney Arauz MD CHEMISTRY Performing Organization Address City/[facility]/ZIP Co de Phone Number [facility] [address] [place] [address], * (ABNORMAL) CREATININE (11/03/2023 7:35 AM CDT) Only the most recent of2 resultswithin the time period is included. eGFR 28(L) >90 mL/min/1.7 3m2 11/03/2023 8:22 AM CDT [facility] Comment:As of 2021, eG FR is calculated by the CKD-EPI creatinine equation without race adjustment. ??eGFR can be influenced by muscle mass, exercise, and diet. ??The reported eGFR is an estimation only and is only applicable if the renal function is stable. CREATININE 2.30(H) 0.70 - 1.20 mg/dL 11/03/2023 8:22 AM CDT [facility] Blood BLOOD SPECIMEN / Unknown Venipuncture / Unknown 11/03/2023 7:35 AM CDT 11/03/2023 7:42 AM CDT Sidney Arauz MD CHEMISTRY [facility] [address] [id number], [place] * (ABNORMAL) Bilirubin, total AM (11/03/2023 7:35 AM CDT) Only the most recent of3 resultswithin the time period is included. BILIRUBIN,TOTA L 1.3(H) 0.0 - 1.2 mg/dL 11/03/2023 8:22 AM CDT [facility] Blood BLOOD SPECIMEN / Unknown Venipuncture / Unknown 11/03/2023 7:35 AM CDT 11/03/2023 7:42 AM CDT Sidney Arauz MD CHEMISTRY Performing Organization Address [facility] de Phone Number [facility] [address] [address], [place] * (ABNORMAL) INR AM (11/03/2023 7:35 AM CDT) INR 1.9(H) <1.3 11/03/2023 7:58 AM CDT [facility] PROTIME 20.8(H) 10.3 - 12.3 sec 11/03/2023 7:58 AM CDT [facility] Blood BLOOD SPECIMEN / Unknown Venipuncture / Unknown 11/03/2023 7:35 AM CDT 11/03/2023 7:42 AM CDT Narrative [facility] - 11/03/2023 7:58 AM CDT ?Therapeutic Range 2.0-3.0 for most anticoagulated patients 2.5-3.5 or 4.0 for high risk patients The INR is only used for patients on stable oral anticoagulant therapy. It makes no significant contribution to the diagnosis or treatment of patients whose Protime is prolonged for other reasons. INR results are increased when heparin levels exceed 1.0 U/mL, which corresponds to an aPTT >125 seconds if the patient is on UFH. Sidney Arauz MD HEMATOLOGY Performing Organization Address [facility] de Phone Number [facility] [address] [address], [place] * ALT AM (11/03/2023 7:35 AM CDT) Only the most recent of3 resultswithin the time period is included. ALT (SGPT) 44 10 - 50 IU/L 11/03/2023 8:22 AM CDT [facility] Blood BLOOD SPECIMEN / Unknown Venipuncture / Unknown 11/03/2023 7:35 AM CDT 11/03/2023 7:42 AM CDT Sidney Arauz MD CHEMISTRY Performing Organization Address [facility] Co de Phone Number [facility] [address] [place] [address], * (ABNORMAL) AST AM (11/03/2023 7:35 AM CDT) Only the most recent of3 resultswithin the time period is included. AST (SGOT) 75(H) 10 - 50 IU/L 11/03/2023 8:22 AM CDT [facility] Blood BLOOD SPECIMEN / Unknown Venipuncture / Unknown 11/03/2023 7:35 AM CDT 11/03/2023 7:42 AM CDT Sidney Arauz MD CHEMISTRY Performing Organization Address [facility] de Phone Number [facility] [address] [place] [address], [place] * Alk phosphatase AM (11/03/2023 7:35 AM CDT) Only the most recent of2 resultswithin the time period is included. ALK PHOSPHATASE 125 40 - 129 IU/L 11/03/2023 8:22 AM CDT [facility] Blood BLOOD SPECIMEN / Unknown Venipuncture / Unknown 11/03/2023 7:35 AM CDT 11/03/2023 7:42 AM CDT Sidney Arauz MD CHEMISTRY Performing Organization Address [facility] Co de Phone Number [facility] [address] [place] [address], * ENDOSCOPY (11/02/2023 10:44 AM CDT) 11/02/2023 10:4 4 AM CDT Narrative Transcriptions Bryce Pope MD - 11/02/2023 11:19 AM CDT [facility] Patient Name: Long Nugent Procedure Date: 11/02/2023 Gender: Male Date of : 1940 Admit Type: Inpatient Procedure: Ileoscopy Proceduralist: Bryce Varner MD - [facility] Indications/Pre-Op Diagnosis: History of partial colectomy, Inflammatory bowel disease Medications: Monitored Anesthesia Care Procedure Description: Risk of bleeding, infection, perforation, need for surgery and alternatives were discussed. The endoscope [id number] was introduced through the anus and advanced to the terminal ileum. Risk of bleeding, infection, perforation, need for surgery and alternatives were discussed. The ileoscopy was performed without difficulty. The patient tolerated the procedure well. The quality of the bowel preparation wasadequate. Complications: No immediate complications. Estimated Blood Loss & Specimen: Estimated blood loss: none. Specimen collected: None Findings: The da-terminal ileum appeared normal. The terminal ileum contained multiple small diverticula. Impressions/Post-Op Diagnosis: - The examined portion of the ileum was normal. Normal mucosa, no evidence of Crohn's disease. 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 - No specimens collected. Recommendation: - Return patient to hospital [facility] for ongoing care. Bryce Varner MD 11/02/2023 11:19:23 AM This report has been signed electronically. Note Initiated On: 11/02/2023 10:44 AM Bryce Varner MD PROCEDURE O RD * US ABDOMEN LIMITED RUQ PORTABLE (11/02/2023 6:41 AM CDT) Anatomical Region Laterality Modality Abdomen, LIVER, PANCREAS, GALLBLADDER, SPLEEN Ultrasound 11/02/2023 7:12 AM CDT Impressions 11/02/2023 7:12 AM CDT 1. No sonographic findings to explain abnormal LFTs. 2. Distended gallbladder. Cholelithiasis and gallbladder sludge. No other sonographic signs of acute cholecystitis. No extrahepatic bile duct dilatation. Dictated by Bhupinder Burnette MD @ 11/02/2023 7:12:24 AM (Electronically Signed) Narrative 11/02/2023 7:12 AM CDT For Patients: ??As a result of the Cures Act, medical imaging exams and procedure reports are released immediately into your electronic medical record. ??You may view this report before your referring provider. ??If you have questions, please contact your health care provider. INDICATION: Abnormal LFTs. COMPARISON: CT examinations dated 11/01/2023 and 10/31/2023. TECHNIQUE: Right upper quadrant grayscale and limited color Doppler ultrasound. FINDINGS: Liver: Homogeneous in echotexture. No suspicious focal lesion. No intrahepatic biliary ductal dilatation. Smooth contour. Normal hepatopedal portal venous blood flow. Gallbladder: Distended. Numerous gallstones and sludge are noted within the gallbladder lumen. Normal wall thickness. Negative sonographic White sign. CBD: 3mm Pancreas: Normal where visualized. The pancreas is partially obscured and therefore incompletely evaluated. Right Kidney: Normal echotexture. No hydronephrosis. No convincing sonographic evidence of nephrolithiasis. Incidental anechoic unilocular benign exophytic right upper pole renal cortical cyst measuring 1.8 cm in greatest dimension. Midline Vasculature: Unremarkable where visualized. Peritoneal Cavity: No significant ascites. Additional Findings: None. Procedure Note Bhupinder Burnette MD - 11/02/2023 For Patients: As a result of the Cures Act, medical imagingexams and procedure reports are released immediately into your electronicmedical record. You may view this report before your referring provider.If you have questions, please contact your health care provider. INDICATION: Abnormal LFTs. COMPARISON: CT examinations dated 11/01/2023 and 10/31/2023. TECHNIQUE: Right upper quadrant grayscale and limited color Doppler ultrasound. FINDINGS: Liver: Homogeneous in echotexture. No suspicious focal lesion. Nointrahepatic biliary ductal dilatation. Smooth contour. Normal hepatopedalportal venous blood flow. Gallbladder: Distended. Numerous gallstones and sludge are noted withinthe gallbladder lumen. Normal wall thickness. Negative sonographic Murphysign. CBD: 3mm Pancreas: Normal where visualized. The pancreas is partially obscured andtherefore incompletely evaluated. Right Kidney: Normal echotexture. No hydronephrosis. No convincingsonographic evidence of nephrolithiasis. Incidental anechoic unilocularbenign exophytic right upper pole renal cortical cyst measuring 1.8 cm ingreatest dimension. Midline Vasculature: Unremarkable where visualized. Peritoneal Cavity: No significant ascites. Additional Findings: None. IMPRESSION: 1. No sonographic findings to explain abnormal LFTs. 2. Distended gallbladder. Cholelithiasis and gallbladder sludge. No othersonographic signs of acute cholecystitis. No extrahepatic bile ductdilatation. Dictated by Bhupinder Burnette MD @ 11/02/2023 7:12:24 AM (Electronically Signed) Rimma Osman MD, PhD [place] * CT ABDOMEN PELVIS WO (11/01/2023 8:49 PM CDT) Only the most recent of3 resultswithin the time period is included. Anatomical Region Laterality Modality Abdomen, Pelvis, AORTA, LIVER, SPLEEN Computed Tomography 11/02/2023 7:13 AM CDT Impressions 11/02/2023 7:13 AM CDT 1. Left lower quadrant stoma. 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 This measures 10.6 x 5.4 x 7.8 centimeters. It is difficult to say with certainty what component of this is hernia rather than collection. There is no clearly visible extraluminal contrast as administered through the left lower quadrant stoma. 2. Distended gallbladder with possible pericholecystic fluid. Correlate with sonography. 3. Other nonacute appearing findings as above Please note that all CT scans at this facility use dose modulation, iterative reconstruction, and/or weight-based dosing when appropriate to reduce radiation dose to as low as reasonably achievable. Dictated by Landon Mckay MD @ 11/02/2023 7:13:36 AM (Electronically Signed) Narrative 11/02/2023 7:13 AM CDT For Patients: ??As a result of the Cures Act, medical imaging exams and procedure reports are released immediately into your electronic medical record. ??You may view this report before your referring provider. ??If you have questions, please contact your health care provider. INDICATION: Abdominal pain, acute, non localized. Evaluate bowel involved in parastomal hernia versus a fluid collection. COMPARISON: A prior study dated October 31, 2023 TECHNIQUE: CT examination of the abdomen and pelvis was performed without intravenous contrast. Thin section axial images were obtained from the lung bases through the pubic symphysis. Contrast was administered as 90 milliliters of Omnipaque 350 mixed with water. This was injected via the left lower quadrant stoma. Please note that all CT scans at this facility use dose modulation, iterative reconstruction, and/or weight-based dosing when appropriate to reduce radiation dose to as low as reasonably achievable. FINDINGS: LUNG BASES: Basilar atelectasis. Small effusions bilaterally.Enlarged heart. Pacer. LIVER/BILIARY SYSTEM:The liver is normal in size and configuration given the lack of intravenous contrast. There is no visible focal mass and there is no intra- or extra hepatic biliary ductal dilatation.The gallbladder is significantly distended. There may be pericholecystic inflammatory change. Correlate with sonography. ADRENALS: Normal non-contrast appearance KIDNEYS, URETERS and BLADDER:Multiple rheumatoid or lesions probably combination of cysts and hyperdense cysts. Similar to the prior study. Calcifications probably largely vascular calcifications rather than stones. No obstructive uropathy. The bladder as visualized appears normal SPLEEN:Normal non-contrast appearance. PANCREAS: Normal non-contrast appearance. RETROPERITONEUM and MESENTERY: There is no mass, adenopathy or aortic aneurysm. Dense atherosclerotic vascular calcification GASTROINTESTINAL SYSTEM: There is a bowel containing hernia in the right lower quadrant in the subcutaneous space. This has Christie`s and Sixto feces filled bowel and is similar in appearance to the prior study. No definite evidence of mechanical obstruction in this area or evidence of necrosis. There is a left lower quadrant stoma. There is marked inflammatory change in this area. The contrast administered retrograde through the stoma appears to enter distal small bowel. There is a collection in this area which is primarily in the anterior abdominal wall including the rectus sheath on the left measuring about 5.3 x 1.6 by 7.8 centimeters. I am unconvinced that any of the contrast in this area is extraluminal. The larger abnormality I believe represents a large collection though it is difficult to say entirely what is intraluminal and extraluminal. This likely represents an abscess. Slightly worsened in overall appearance compared to the prior examination. PELVIS: No mass, adenopathy or free fluid. OSSEOUS STRUCTURES and ABDOMINAL WALL: There is an age-appropriate appearance of the osseous structures.No significant abdominal wall defect. OTHER: No free fluid or free air. Procedure Note Landon Mckay MD - 11/02/2023 For Patients: As a result of the Century Cures Act, medical imagingexams and procedure reports are released immediately into your electronicmedical record. You may view this report before your referring provider.If you have questions, please contact your health care provider. INDICATION: Abdominal pain, acute, non localized. Evaluate bowel involved inparastomal hernia versus a fluid collection. COMPARISON: A prior study dated October 31, 2023 TECHNIQUE: CT examination of the abdomen and pelvis was performed without intravenouscontrast. Thin section axial images were obtained from the lung basesthrough the pubic symphysis. Contrast was administered as 90 millilitersof Omnipaque 350 mixed with water. This was injected via the left lowerquadrant stoma. Please note that all CT scans at this facility use dose modulation,iterative reconstruction, and/or weight-based dosing when appropriate toreduce radiation dose to as low as reasonably achievable. FINDINGS: LUNG BASES: Basilar atelectasis. Small effusions bilaterally.Enlargedheart. Pacer. LIVER/BILIARY SYSTEM:The liver is normal in size and configuration giventhe lack of intravenous contrast. There is no visible focal mass and thereis no intra- or extra hepatic biliary ductal dilatation.The gallbladder issignificantly distended. There may be pericholecystic inflammatory change.Correlate with sonography. ADRENALS: Normal non-contrast appearance KIDNEYS, URETERS and BLADDER:Multiple rheumatoid or lesions probablycombination of cysts and hyperdense cysts. Similar to the prior study.Calcifications probably largely vascular calcifications rather thanstones. No obstructive uropathy. The bladder as visualized appearsnormal SPLEEN:Normal non-contrast appearance. PANCREAS: Normal non-contrast appearance. RETROPERITONEUM and MESENTERY: There is no mass, adenopathy or aorticaneurysm. Dense atherosclerotic vascular calcification GASTROINTESTINAL SYSTEM: There is a bowel containing hernia in the rightlower quadrant in the subcutaneous space. This has Christie`s and Lopezfeces filled bowel and is similar in appearance to the prior study. Nodefinite evidence of mechanical obstruction in this area or evidence ofnecrosis. There is a left lower quadrant stoma. There is markedinflammatory change in this area. The contrast administered retrogradethrough the stoma appears to enter distal small bowel. There is acollection in this area which is primarily in the anterior abdominal wallincluding the rectus sheath on the left measuring about 5.3 x 1.6 by 7.8centimeters. I am unconvinced that any of the contrast in this area isextraluminal. The larger abnormality I believe represents a largecollection though it is difficult to say entirely what is intraluminal andextraluminal. This likely represents an abscess. Slightly worsened inoverall appearance compared to the prior examination. PELVIS: No mass, adenopathy or free fluid. OSSEOUS STRUCTURES and ABDOMINAL WALL: There is an age-appropriateappearance of the osseous structures.No significant abdominal walldefect. OTHER: No free fluid or free air. IMPRESSION: 1. Left lower quadrant stoma. There is a parastomal hernia identified inthis area though the majority of the abnormality in this area I believe itis a large collection in the anterior abdominal wall and the rectus sheathon the left. This measures 10.6 x 5.4 x 7.8 centimeters. It is difficultto say with certainty what component of this is hernia rather thancollection. There is no clearly visible extraluminal contrast asadministered through the left lower quadrant stoma. 2. Distended gallbladder with possible pericholecystic fluid. Correlatewith sonography. 3. Other nonacute appearing findings as above Please note that all CT scans at this facility use dose modulation,iterative reconstruction, and/or weight-based dosing when appropriate toreduce radiation dose to as low as reasonably achievable. Dictated by Landon Mckay MD @ 11/02/2023 7:13:36 AM (Electronically Signed) [place]yenne Green MD CT * (ABNORMAL) Basic metabolic panel AM (11/01/2023 6:25 AM CDT) Only the most recent of2 resultswithin the time period is included. SODIUM 134(L) 136 - 145 mmol/L 11/01/2023 7:13 AM CDT [facility] POTASSIUM 3.6 3.5 - 5.1 mmol/L 11/01/2023 7:13 AM CDT [facility] CHLORIDE 94(L) 98 - 107 mmol/L 11/01/2023 7:13 AM T [facility] CO2,TOTAL 29 22 - 29 mmol/L 11/01/2023 7:13 AM CDT [facility] ANION GAP 11 5 - 18 11/01/2023 7:13 AM CDT [facility] GLUCOSE 71 70 - 99 mg/dL 11/01/2023 7:13 AM CDT [facility] CALCIUM 8.5(L) 8.8 - 10.2 mg/dL 11/01/2023 7:13 AM T [facility] BUN 40(H) 8 - 23 mg/dL 11/01/2023 7:13 AM T [facility] CREATININE 2.22(H) 0.70 - 1.20 mg/dL 11/01/2023 7:13 AM T [facility] BUN/CREAT RATIO 18 10 - 20 7:13 AM T [facility] eGFR 29(L) >90 mL/min/1.7 3m2 11/01/2023 7:13 AM T [facility] Comment:As of 2021, eG FR is calculated by the CKD-EPI creatinine equation without race adjustment. ??eGFR can be influenced by muscle mass, exercise, and diet. ??The reported eGFR is an estimation only and is only applicable if the renal function is stable. Blood BLOOD SPECIMEN / Unknown Venipuncture / Unknown 11/01/2023 6:25 AM CDT 11/01/2023 6:39 AM CDT Sidney Arauz MD CHEMISTRY Performing Organization Address City/[facility]/ZIP Co de Phone Number [facility] [address] [place] [address], [place] * (ABNORMAL) URINALYSIS MICROSCOPIC (10/31/2023 5:22 PM CDT) RBC 0-2 0-2, None Seen /HPF 10/31/2023 5:54 PM CDT [facility] WBC 11-25(A) 0-2, 3-5, None Seen /HPF 10/31/2023 5:54 PM CDT [facility] BACTERIA None Seen None Seen, Rare, Few Bacteria/ HPF 10/31/2023 5:54 PM CDT [facility] EPITHELIAL CELLS None Seen None Seen, Few Epi/HPF 10/31/2023 5:54 PM CDT [facility] HYALINE CASTS 0-2 0-2, 3-5 /LPF 10/31/2023 5:54 PM CDT [facility] Urine URINE SPECIMEN / Unknown Non-Blood / Unknown 10/31/2023 5:22 PM CDT 10/31/2023 5:37 PM CDT Louisa Calles DO URINE Performing Organization Address City/[facility]/ZIP Co de Phone Number [facility] [address] [place] [id number], [place] * (ABNORMAL) UA W/ SEDIMENT EXAM REFLEXED PER CRITERIA (10/31/2023 5:22 PM CDT) COLOR Yellow Yellow Color 10/31/2023 5:54 PM CDT [facility] CLARITY Clear Clear Clarity 10/31/2023 5:54 PM CDT [facility] SPECIFIC GRAVITY,URINE 1.015 1.010, 1.015, 1.020, 1.025 10/31/2023 5:54 PM CDT [facility] PH,URINE 8.0 6.0, 7.0, 8.0, 5.5, 6.5, 7.5, 8.5 10/31/2023 5:54 PM CDT [facility] UROBILINOGEN, QUALITATIVE Normal Normal EU/dl 10/31/2023 5:54 PM CDT [facility] PROTEIN, URINE 100(A) Negative mg/dL 10/31/2023 5:54 PM CDT [facility] GLUCOSE, URINE Negative Negative mg/dL 10/31/2023 5:54 PM CDT [facility] KETONES,URINE Trace(A) Negative mg/dL 10/31/2023 5:54 PM CDT [facility] BILIRUBIN,URI NE Negative Negative 10/31/2023 5:54 PM CDT [facility] OCCULT BLOOD,URINE Negative Negative 10/31/2023 5:54 PM CDT [facility] NITRITE Negative Negative 10/31/2023 5:54 PM CDT [facility] LEUKOCYTE ESTERASE Trace(A) Negative 10/31/2023 5:54 PM CDT [facility] Urine URINE SPECIMEN / Unknown Non-Blood / Unknown 10/31/2023 5:22 PM CDT 10/31/2023 5:37 PM CDT Louisa Calles DO URINE [facility] [address] [place] [address], * LACTATE VENOUS (10/31/2023 2:01 PM CDT) Only the most recent of2 resultswithin the time period is included. LACTATE,VENOUS 1.7 0.5 - 2.0 mmol/L 10/31/2023 2:53 PM CDT [facility] Blood BLOOD SPECIMEN / Unknown Venipuncture / Unknown 10/31/2023 2:01 PM CDT 10/31/2023 2:07 PM CDT Louisa Calles DO CHEMI STRY [facility] [address] [place] [address], [place] * (ABNORMAL) LACTATE SCREEN VENOUS ISTAT W LINDQUIST (10/31/2023 11:33 AM CDT) [facility] LACTATE VENOUS SCREEN ISTAT Intermedia te(A) <=2.0 10/31/2023 11:39 AM CDT [facility] LACTATE SCREEN VENOUS POCT 2.1(H) <=2.0 10/31/2023 11:39 AM CDT [facility] Blood BLOOD SPECIMEN / Unknown 10/31/2023 11:33 AM CDT 10/31/2023 11:39 AM CDT Narrative [facility] - 10/31/2023 11:39 AM CDT Lactate screen results of 2.1-3.9 mmol/L are reported as Intermediate. Lactate screen results of 4.0 mmol/L or greater are reported as Critical. Elevated whole blood lactate screening results >2.0 are automatically referred for confirmatory plasma lactate quantitation. Louisa Calles DO LABOR ATORValeria [facility] [address] [place] [address], [place] * EXTRA TUBE LINDQUIST ON ICE (10/31/2023 11:22 AM CDT) Blood BLOOD SPECIMEN / Unknown Butterfly / Unknown 10/31/2023 11:22 AM CDT 10/31/2023 11:36 AM CDT Louisa Zuleyma Calles DO [facility] Organization Address City/State/ZIP Co de Phone Number [facility] [address] [place] [address], * (ABNORMAL) CBC W PLT NO DIFF (10/31/2023 11:21 AM CDT) WHITE BLOOD COUNT 10.8 4.5 - 11.0 thou/cu mm 10/31/2023 11:47 AM CDT [facility] RED BLOOD COUNT 3.73(L) 4.30 - 5.90 mil/cu mm 10/31/2023 11:47 AM CDT [facility] HEMOGLOBIN 11.7(L) 13.5 - 17.5 g/dL 10/31/2023 11:47 AM CDT [facility] HEMATOCRIT 35.5(L) 37.0 - 53.0 % 10/31/2023 11:47 AM CDT [facility] MCV 95 80 - 100 fL 10/31/2023 11:47 AM CDT [facility] MCH 31.4 26.0 - 34.0 pg 10/31/2023 11:47 AM CDT [facility] MCHC 33.0 32.0 - 36.0 g/dL 10/31/2023 11:47 AM CDT [facility] RDW 14.7 11.5 - 15.5 % 10/31/2023 11:47 AM CDT [facility] PLATELET COUNT 189 140 - 440 thou/cu mm 10/31/2023 11:47 AM CDT [facility] MPV 10.0 6.5 - 11.0 fL 10/31/2023 11:47 AM CDT [facility] NRBC 0.0 % 10/31/2023 11:47 AM CDT [facility] ABS NRBC 0.0 thou /cu mm 10/31/2023 11:47 AM CDT [facility] Blood BLOOD SPECIMEN / Unknown Butterfly / Unknown 10/31/2023 11:21 AM CDT 10/31/2023 11:36 AM CDT Anw Ed Triage HEMATOLOGY Performing Organization Address [facility]/ZIP Co de Phone Number [facility] [address] [place] [address], * LIPASE (10/31/2023 11:21 AM CDT) LIPASE 34.9 13.0 - 60.0 IU/L 10/31/2023 12:11 PM CDT [facility] Blood BLOOD SPECIMEN / Unknown Butterfly / Unknown 10/31/2023 11:21 AM CDT 10/31/2023 11:36 AM CDT Louisa Calles DO CHEMI STRY Performing Organization Address City/[facility]/ZIP Co de Phone Number [facility] [address] [place] [address], [place] * (ABNORMAL) HEPATIC FUNCTION PANEL (10/31/2023 11:21 AM CDT) ALBUMIN 2.8(L) 4.0 - 4.9 g/dL 10/31/2023 12:11 PM CDT [facility] PROTEIN,TOTAL 6.9 6.0 - 8.0 g/dL 10/31/2023 12:11 PM CDT [facility] BILIRUBIN,TOTAL 1.7(H) 0.0 - 1.2 mg/dL 10/31/2023 12:11 PM CDT [facility] BILIRUBIN,DIRECT 0.9(H) 0.0 - 0.2 mg/dL 10/31/2023 12:11 PM CDT [facility] BILIRUBIN,INDIRE CT 0.8 0.2 - 0.8 mg/dL 10/31/2023 12:11 PM CDT [facility] ALK PHOSPHATASE 125 40 - 129 IU/L 10/31/2023 12:11 PM CDT [facility] ALT (SGPT) 71(H) 10 - 50 IU/L 10/31/2023 12:11 PM CDT [facility] AST (SGOT) 140(H) 10 - 50 IU/L 10/31/2023 12:11 PM CDT [facility] Blood BLOOD SPECIMEN / Unknown Butterfly / Unknown 10/31/2023 11:21 AM CDT 10/31/2023 11:36 AM CDT Anw Ed Triage CHEMISTRY [facility] [address] [place] [id number], * SCAN-CT INTERPRETATION (10/17/2023 12:00 AM CDT) Anatomical Region Laterality Modality Other Scanner OTHER from Last 3 Months Advance Directives * DNR (Latest Code Status on File) Date Activated Date Inactivated Comments 10/31/2023 4:15 PM Question Answer Comments Code Status Discussion: Reviewed Preferences * DNR Date Activated Date Inactivated Comments 04/12/2023 11:47 AM 04/12/2023 10:39 PM Question Answer Comments Code Status Discussion: Other * Full Code Date Activated Date Inactivated Comments 07/07/2020 7:15 AM 07/07/2020 3:47 PM Question Answer Comments Code Status Discussion: Discussed * Full Code Date Activated Date Inactivated Comments 02/14/2020 10:20 AM 02/15/2020 2:19 AM Question Answer Comments Code Status Discussion: Not Discussed * Full Code Date Activated Date Inactivated Comments 12/30/2019 9:46 AM 12/31/2019 5:13 PM Question Answer Comments Code Status Discussion: Discussed Care Teams Building Rental Manager Relationship Specialty Start Date End Date Osito Joe MD [address] [place] [address] PCP - General Family Practice 09/13/16 Ronan Pinedo RN [address] [place] [address] Painting Instructor Registered Nurse 01/20/20
== END 2023-10-31 09:51 | disposition home or self-care (01) ==
LOC: AMB 11-04 03:10
PROVIDERS: PCP Surgery; Visit Provider Student in an Organized Health Care Education/Training Program
DX: R53.1 Weakness (principal); R10.9 Unspecified abdominal pain
CPT/HCPCS: A0425; A0429

== ENCOUNTER 2023-12-24 12:12 | Emergency (ER) | payer MEDICARE, BC, SELFPAY ==
[2023-12-24] VITALS (7 sets, daily range): BP systolic 105–116; BP diastolic 47–74; PULSE 71–79; RESP 16; TEMP 37.2; O2SAT 97–100; BMI 21.5
--- OUTSIDE RECORDS SUMMARY | 2023-12-24 13:19 | XMS_ITS | Clinical Summary ---
Author Organization [facility] Address [address] [place] [address] Care Team Providers Care Buyer Intern Name Role Phone Unavailable Primary Care Provider Unavailabl e Source Comments Patient records contain information from all sites at [facility]. For routine questions regarding patient records, call [phone] during business hours, M-F 8:00 AM - 5:00 PM Central Time. Record requests for emergency care only can be directed to [phone] at any time.[facility] Allergies Active Allergy Reactions Criticality Noted Date Comments Aspirin GI bleeding Low 04/12/2019 Atorvastatin GI intolerance,Other (see comments) Low 11/17/2006 myalgia Codeine GI intolerance Low 05/09/2006 constipation Furosemide Palpitations High 02/03/2012 Lasix caused palpitations in 2011. Simvastatin Myalgia,Other (see comments) Medium 03/19/2009 Medications calcitRIOL (RocaltroL) 0.25 mcg capsule Take 1 capsule by mouth daily. 024 Active Phospha 250 Neutral 250 mg tablet Take 1 tablet by mouth 2 (two) times a day with meals. 023 Active nitroglycerin (Nitrostat) 0.[address] 0.4 mg under the tongue every 5 (five) minutes as needed. 023 Active magnesium oxide (Mag-Ox) 500 mg magnesium tablet tablet Take 1,000 mg by mouth 2 (two) times a day. 021 Active cyanocobalamin (Vitamin B-12) 1,000 mcg tablet Take 1,000 mcg by mouth daily. 009 Active bismuth subsalicylate (Pepto-BismoL) 262 mg/15 mL suspension Take 15 mL by mouth 2 (two) times a day as needed for diarrhea. Active cholecalciferol, vitamin D3, 25 mcg (1,000 Unit) tablet Take 1 tablet by mouth daily. Active acetaminophen (TylenoL) 500 mg tablet Take 1,000 mg by mouth every 6 (six) hours as needed for pain. Max Dose of 4000 mg in 24 hours Active amino acids-protein hydrolysate (Provide Gold) 15-60 gram-kcal/30 mL liquid Take 30 mL by mouth daily. Active vitamin A,C,J-vxapsf-hmhk rals 300 mcg (1,000 Unit)-200 mg-60 Unit-2 mg tablet Take 1 tablet by mouth daily. Active sodium citrate-citric acid (Cytra-2) 500-334 mg/5 mL solution Take 30 mL by mouth 2 (two) times a day. Active apixaban (Eliquis) 5 mg tabletIndications :Thrombosis Deep Vein Acute Lower Leg Left (HCC) Take 1 tablet (5 mg total) by mouth 2 (two) times a day. 60 tablet 2 2024 Active midodrine (ProAmatine) 5 mg tablet Take 1 tablet (5 mg total) by mouth 3 (three) times a day. Per [facility] EHR: Give 1 tablet by mouth three times a day related to ORTHOSTATIC HYPOTENSION (I95.1) Hold if SBP >120 or DBP >90 90 tablet Active oxyCODONE (Roxicodone) 5 mg immediate release tabletIndications :Acute Pain Exception Take 1 tablet (5 mg total) by mouth every 6 (six) hours as needed for pain Indication: Acute Pain Exception. 10 tablet Active potassium chloride (Jessica CieL) 20 mEq/15 mL liquid 40 mEq (30 mL) with breakfast and 20 mEq (15 mL) with lunch and supper Must dilute with at least 120 mL of cold water or liquid prior to administration . 180 mL Active allopurinoL (Zyloprim) 300 mg tablet Take 1 tablet (300 mg total) by mouth daily. 30 tablet Active amoxicillin-pot clavulanate (Augmentin) 875-125 mg per tablet Take 1 tablet by mouth 2 (two) times a day. 30 tablet Active omeprazole (PriLOSEC) [address] capsule Take 1 capsule (20 mg total) by mouth daily. 30 capsule Active rosuvastatin (Crestor) 10 mg tablet Take 1 tablet (10 mg total) by mouth at bedtime. 30 tablet Active finasteride (Proscar) 5 mg tablet Take 1 tablet (5 mg total) by mouth every morning. 30 tablet Active levothyroxine 175 mcg tablet Take 1 tablet (175 mcg total) by mouth daily before morning meal. 30 tablet Active finasteride (Proscar) 5 mg tablet Take 1 tablet by mouth every morning. 2023 Discontinued(R eorder) midodrine (ProAmatine) 5 mg tablet Take 5 mg by mouth 3 (three) times a day. Per SNF EHR: Give 1 tablet by mouth three times a day related to ORTHOSTATIC HYPOTENSION (I95.1) Hold if SBP >120 or DBP >90 2023 Discontinued(R eorder) sodium citrate-citric acid (Cytra-2) 500-334 mg/5 mL solution Take 30 mL by mouth 2 (two) times a day. 2023 Discontinued(T herapy completed) omeprazole (PriLOSEC) [address] capsule Take 1 capsule by mouth daily. 2023 Discontinued(R eorder) ondansetron ODT (Zofran-ODT) 4 mg disintegrating tablet Dissolve 4 mg in the mouth every 8 (eight) hours as needed for vomiting or nausea. 2023 Discontinued(T herapy completed) allopurinoL (Zyloprim) 300 mg tablet Take 1 tablet by mouth daily. 2023 Discontinued(R eorder) rosuvastatin (Crestor) 10 mg tablet Take 10 mg by mouth at bedtime. 2023 Discontinued(R eorder) levothyroxine 175 mcg tablet Take 175 mcg by mouth daily before morning meal. 2023 Discontinued(R eorder) amoxicillin-pot clavulanate (Augmentin) 875-125 mg per tablet Take 1 tablet by mouth 2 (two) times a day with meals. Hold for 5 days starting 11/30/23 2023 Discontinued ciprofloxacin (Cipro) 500 mg tablet Take 500 mg by mouth 2 (two) times a day before morning and evening meals. 2023 potassium chloride (Klor-Con M) 20 mEq ER tablet Take 1 tablet (20 mEq total) by mouth daily. 2023 Discontinued(T herapy completed) cefepime in dextrose, iso osm, (Maxipime) 2 gram/100 mL IVBP Infuse 100 mL (2 g total) into a venous catheter daily for 5 days. 500 mL 2023 metroNIDAZOLE (FlagyL) 500 mg tablet Take 1 tablet (500 mg total) by mouth 3 (three) times a day for 5 days. 15 tablet 2023 oxyCODONE (Oxy IR) 5 mg immediate release capsule Take 5 mg by mouth every 6 (six) hours as needed for moderate pain or score 4-6 of 10 or severe pain or score 7-10 of 10. 2023 Discontinued(D uplicate order) apixaban (Eliquis) 5 mg tablet Take 5 mg by mouth 2 (two) times a day. 2023 Discontinued(R eorder) vitamin A,C,Y-dahels-hxzo rals 300 mcg (1,000 Unit)-200 mg-60 Unit-2 mg tablet Take 1 tablet by mouth daily. 2023 Discontinued(T herapy completed) oxyCODONE (Roxicodone) 5 mg immediate release tabletIndications :Acute Pain Exception Take 1 tablet (5 mg total) by mouth every 6 (six) hours as needed for pain Indication: Acute Pain Exception. 20 tablet 2023 Discontinued(R eorder) potassium chloride (Jessica CieL) 20 mEq/15 mL liquid Take 15 mL (20 mEq total) by mouth 2 (two) times a day with meals. Must dilute with at least 120 mL of cold water or liquid prior to administration . 2023 Discontinued(D ose adjustment) UNABLE TO FIND Take 30 each by mouth 2 (two) times a day. Med Name: Bicitra 30 mL 2023 Discontinued(D uplicate order) multivitamin (Multiple Vitamins) tablet Take 1 tablet by mouth daily. Occuvite 2023 Discontinued(D uplicate order) potassium bicarb-citric acid (Effer-K) 20 mEq disintegrating tablet Take 1 tablet (20 mEq total) by mouth 2 (two) times a day with meals. 2023 Discontinued(T herapy completed) potassium chloride (Jessica CieL) 20 mEq/15 mL liquid Take 15 mL (20 mEq total) by mouth 3 (three) times a day with meals. Must dilute with at least 120 mL of cold water or liquid prior to administration . 2023 Discontinued(R eorder) amoxicillin-pot clavulanate (Augmentin) 875-125 mg per tablet Take 1 tablet by mouth 2 (two) times a day. 2023 Discontinued(R eorder) Active Problems Problem Noted Date Diagnosed Date Thrombosis Deep Vein Acute Lower Leg Left 2023 Overview (12/01/2023): Left posterior vein DVT noted 12/01/23 Assessment & Plan (12/18/2023 1:24 PM CDT): Noted on 12/01/2023 in left posterior vein He completed 7 days of 10 mg of apixaban twice a day Will continue with 5 mg of apixaban twice a day for three months Appears to be a med error in that he didn't receive apixaban from 12/10 through 12/18/23 Assessment & Plan (12/01/2023 12:01 PM CDT): Did discuss risks versus benefits of anticoagulation with patient. He had been on warfarin in the past and developed multiple GI bleeds. This was 10-15 years ago. He did have a Watchman procedure done and an ablation related to his atrial fibrillation which is why he was not on anticoagulation. Patient is agreeable to restart apixaban, have consulted with anticoagulation pharmacist, his renal function was noted and studies have shown no further risk of bleeding with apixaban with creatinine clearance less than 25 mL/min. He is also on multiple antibiotics which could impact his INR's if placed on warfarin. Have elected to start apixaban 10 mg twice a day x 7 days, then 5 mg twice a day x at least three months. Oxycodone 5 mg every 6 hours prn for pain if acetaminophen is not effective Crohns Disease Unspecified Without Complications 11/24/2023 Overview (11/24/2023): Ileostomy 35yrs ago. Has fistula formation so stools in ileostomy and per rectum. 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 This is improving in size and character. Current orders are cleanse area with Vashe say wound cleanser, pat dry, apply skin prep to periwound, apply Santyl and cover with foam change daily and as needed Assessment & Plan (11/24/2023 12:04 PM CDT): Wound care per arturo wound care nurse practitioner Anemia 11/24/2023 Assessment & Plan (12/18/2023 1:27 PM CDT): Will need to be monitored by PCP Assessment & Plan (11/24/2023 12:05 PM CDT): Last hemoglobin was 8.6 on 11/17/23 Recheck ordered for 11/28/23 Benign Prostatic Hyperplasia Without Obstruction 11/24/2023 Assessment & Plan (12/18/2023 1:27 PM CDT): Continue finasteride Assessment & Plan (11/24/2023 12:07 PM CDT): Continue finasteride Abscess Abdominal Wall 11/02/2023 Assessment & Plan (12/18/2023 1:31 PM CDT): Continue with wound care, was followed be wound care SENIOR GIS ANALYST Current wound care orders remove all packing, irrigate wound with normal saline and wound cleanser, probe wound with Q-tip to assess undermining/tunneling, loosely pack wound with Kerlix roll gauze slightly dampened with saline, take care to pack into areas of undermining, cover with oval Mepilex dressing Continue with Augmentin and ciprofloxacin until recommended abdominal CT which is scheduled for 12/20/23. ID to contact patient if he should continue antibiotics at that time Will discontinue Zofran Assessment & Plan (11/24/2023 11:42 AM CDT): Continue with wound care Continue with Augmentin and ciprofloxacin until follow up with ID He is using Zofran as needed Parastomal Hernia Without Obstruction Or Gangren e 10/31/2023 Assessment & Plan (12/18/2023 1:30 PM CDT): Has follow up with general surgery Assessment & Plan (11/24/2023 12:06 PM CDT): Has follow up with general surgery Hypothyroidism 06/02/2023 Overview (11/24/2023): History of thyroidectomy Assessment & Plan (12/18/2023 1:28 PM CDT): Continue levothyroxine 175 mcg daily Assessment & Plan (11/24/2023 12:06 PM CDT): Continue levothyroxine 175 mcg daily Tumor Benign Thyroid 06/02/2023 Overview (11/24/2023): No malignancy. Thyroidectomy in 2022. Hyperlipidemia Mixed 05/25/2023 Assessment & Plan (11/24/2023 11:45 AM CDT): Rosuvastatin Hyperparathyroidism Renal Secondary 05/25/2023 Overview (11/24/2023): And Primary Hyperparathyroidism: Had parathyroidectomy and partial thyroidectomy. Currently supplemented. 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 Assessment & Plan (12/18/2023 1:28 PM CDT): Continue calcitriol Continue follow up with nephrology Assessment & Plan (11/24/2023 11:43 AM CDT): Continue cacitriol Osteoarthritis 05/25/2023 Overview (11/24/2023): OF KNEES AND SHOULDER Assessment & Plan (12/18/2023 1:25 PM CDT): Continue as needed acetaminophen He has had a flare up with some pain in left knee. 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 Rare flare for which he takes prednisone. 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 Rare flare for which he takes prednisone. Deficiency Vitamin D 05/07/2009 Assessment & Plan (12/18/2023 1:24 PM CDT): Continue vitamin D supplement Assessment & Plan (11/24/2023 11:43 AM CDT): Continue vitamin D supplement Gastro-Esophageal Reflux Dis ease With Esophagitis Without Bleeding 05/09/2006 Overview (11/24/2023): Symptoms well controlled on omeprazole Assessment & Plan (12/18/2023 1:24 PM CDT): Continue omeprazole, now on anticoagulation for DVT. Did explain signs and symptoms of GI bleeding to patient and he verbalized understanding. Assessment & Plan (12/01/2023 12:02 PM CDT): Continue omeprazole, now on anticoagulation for DVT. Did explain signs and symptoms of GI bleeding to patient and he verbalized understanding. Assessment & Plan (11/24/2023 12:07 PM CDT): Continue omeprazole Supraventricular Tachycardia, Unspecified 2004 Overview (11/24/2023): Diagnosed many years ago. Continues to have palpitations off and on but no diagnosed SVT for > 10 years. Assessment & Plan (12/18/2023 1:20 PM CDT): Had history of ablation Assessment & Plan (11/24/2023 12:03 PM CDT): Had history of ablation Resolved Problems Problem Noted Date Diagnosed Date Resolved Date Acute Cystitis Without Hematuria 12/01/2023 12/18/2023 Assessment & Plan (12/01/2023 12:03 PM CDT): Complicated due to age and comorbidities. Did consult with antibiotic pharmacist as patient had been treated with ciprofloxacin and Augmentin for abdominal abscess. Recommendation is to treat with 2 g of IV cefepime every 24 hours x5 days and Flagyl 500 mg every 8 hours x5 days for his abdominal abscess. After 5 days of treatment he will resume ciprofloxacin and Augmentin as ordered until he follows up with General surgery and Infectious Disease. Estimated Creatinine Clearance: 21.3 mL/min (A) (by C-G formula based on SCr of 2.55 mg/dL (H)). Encounters Date Type Department Care Team Description 12/19/2023 Clinical Communication Department of Family Medicine in [place] [address] [place] [address] Cindy Au R.N. SNF Nurse Intake 12/18/2023 9:30 AM CDT External Outreach [facility] in [place] [address] [place] [address] Christina Vargas APRN, C.N.P. 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 Hypokalemia Discharge Disposition: Home or Self Care 12/12/2023 12:41 AM CDT - 12/12/2023 11:59 PM CDT Hospital Encounter Department of Laboratory Medicine in [place], [place] [address] [place] [address] Christina Vargas APRN, C.N.P. Anemia; Chronic Kidney Disease Discharge Disposition: Home or Self Care 12/12/2023 Orders Only [facility] in [address] [address] Christina Vargas APRN, C.N.P. 12/08/2023 2:00 PM CDT External Outreach [facility] in [place] [address] [place] [phone] Christina Vargas APRN, C.N.P. Effusion Knee Left (Primary Dx); Thrombosis Deep Vein Acute Lower Leg Left (HCC) 12/07/2023 9:00 AM CDT External Outreach [facility] in [place] [address] [place] [address] Merissa Reddy D.O. 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 (HCC); Hypertensive Chronic Kidney Disease With Stage 1 Through Stage 4 Chronic Kidney Disease, Or Unspecified Chronic Kidney Disease; Chronic Kidney Disease Stage 4 Glomerular Filtration Rate 15-29 (HCC); Hyperparathyroidism Renal Secondary (HCC); Deficiency Vitamin D; Hypothyroidism; Hyperlipidemia Mixed; Benign Prostatic Hyperplasia Without Obstruction; Gastro-Esophageal Reflux Disease With Esophagitis Without Bleeding; Chondrocalcinosis; Osteoarthritis; Deficiency Vitamin B12 12/07/2023 8:30 AM CDT - 12/07/2023 11:59 PM CDT Hospital Encounter Department of Laboratory Medicine in [place] [address] [place] [address] Christina Vargas APRN, C.N.P. Anemia Discharge Disposition: Home or Self Care 12/06/2023 Clinical Communication [facility] in [place] [address] [place] [address] Emilie Villareal R.N. [facility] Nurse Intake 12/04/2023 8:30 AM CDT - 12/04/2023 11:59 PM CDT Hospital Encounter Department of Laboratory Medicine in [address] [address] Christina Vargas APRN, C.N.P. Chronic Kidney Disease Discharge Disposition: Home or Self Care 12/04/2023 Clinical Communication [facility] in [place] [address] [place] [phone] Diana Morris APRN, C.N.P., M.S.N. 12/02/2023 2:40 PM CDT - 12/02/2023 6:06 PM CDT Emergency [facility] [place] [facility] [address] [place] [phone] Garry Pettit III, M.D. Other Iron Deficiency Anemias (Primary Dx); Chronic Kidney Disease Stage 4 Glomerular Filtration Rate 15-29 (HCC) Discharge Disposition: Home or Self Care 12/02/2023 Clinical Communication [facility] in [place] [address] [place] [address] Christina Vargas APRN, C.N.P. 12/01/2023 2:50 PM CDT - 12/01/2023 11:59 PM CDT Hospital Encounter Department of Laboratory Medicine in [place], [place] [address] [place] [address] Ethan Orozco M.D. Chronic Kidney Disease Discharge Disposition: Home or Self Care 12/01/2023 1:30 PM CDT External Outreach [facility] in [place] [address] [place] [address] Christina Vargas APRN, C.N.P. Thrombosis Deep Vein Acute Lower Leg Left (HCC) (Primary Dx); Gastro-Esophageal Reflux Disease With Esophagitis Without Bleeding; Acute Cystitis Without Hematuria; Chronic Kidney Disease Stage 4 Glomerular Filtration Rate 15-29 (HCC) 11/30/2023 7:30 AM CDT External Outreach [facility] in [address] [place] [address] Andrew Coleman APRN, C.N.P. Pain Lower Leg Left (Primary Dx); Atrial Fibrillation Paroxysmal (HCC) Discharge Disposition: Home or Self Care 11/30/2023 Clinical Communication [facility] in [address] [place] [phone] Andrew Coleman APRN, C.N.P. 11/29/2023 Orders Only [facility] in [place] [address] [place] [address] Christina Vargas APRN, C.N.P. 11/29/2023 Orders Only [facility] in [place] [address] [place] [address] Christina Vargas APRN, C.N.P. 11/28/2023 12:33 AM CDT - 11/28/2023 11:59 PM CDT Hospital Encounter Department of Laboratory Medicine in [place] [address] [place] [address] Christina Vargas APRN, C.N.P. Chronic Kidney Disease Stage 4 Glomerular Filtration Rate 15-29 (HCC); Abscess Abdominal Wall Discharge Disposition: Home or Self Care 11/28/2023 Refill Senior [facility] in [address] [address] hCristina Vargas APRN, C.N.P. Med Refill 11/27/2023 Clinical Communication [facility] in [address] [address] Emilie Villareal R.N. SNF Nurse Intake 11/25/2023 3:48 PM CDT - 11/25/2023 11:59 PM CDT Hospital Encounter Department of Laboratory Medicine in [address] [phone] Christina Vargas APRN, C.N.P. Urinary Tract Infection Site Not Specified Discharge Disposition: Home or Self Care 11/24/2023 3:00 PM CDT External Outreach [facility] in [address] [address] Christina Vargas APRN, C.N.P. 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 Chronic Kidney Disease Stage 4 Glomerular Filtration Rate 15-29 (HCC) Discharge Disposition: Home or Self Care from Last 3 Months Immunizations Name Administration Dates Next Due H1N1 Inj 03/05/2009 HZV (ZOSTAVAX) 06/01/2007 HepB Adult 03/04/2005, 5,10/06/2004,2004 Influenza TIV (IM) 12/07/2023,11/29/2017, 017 Influenza high dose QV(65 ye ars or older) (PF) 12/29/2022,12/13/2021,11/27/2020 Influenza, Seasonal, Injectable 12/15/19 13,10/28/2011,12/21/2009,2008,01/04/2008,12/29/2006,12/14/2005 PCV13 02/12/2015 PPSV23 07/25/2013,09/13/2012,10/04/2004 RSV: respiratory syncytial v irus (AREXVY) recombinant vaccine 11/03/2022 RZV (SHINGRIX) 06/04/2019,03/06/2019 Td Preservative Free (TENIVA C, DECAVAC) 02/02/2005 Tdap 07/25/2013 influenza trivalent high dos e (HD)(PF) 11/26/2015,11/07/2014,11/06/2013 influenza trivalent vaccine (6 months and older)(PF) 11/10/2010 influenza vaccine QV(FLUBLOK ) (18 years or older) (PF) 12/02/2019 influenza vaccine quad (FLUZONE/FLUARIX) (6 months and older)(PF) 12/17/2018 Social History Tobacco Use Types Packs/Day Years Used Date Smoking Tobacco: Former Cigarettes Q uit: 1989 Smokeless Tobacco: Never Tobacco Cessation:Counseling Given: Not Answered Nutrition Answer Date Recorded Nutrition: EVOO Fat Source Unknown 07/08 Nutrition: Servings of Fruits/Vegetables per Day Not on file 07/08/2020 Dental Answer Date Recorded Dental: Regular Dentist Unknown 11/21/19 Sex and Gender Information Value Date Recorded Sex Assigned at Not on file Legal Sex Male 8:25 AM CDT Gender Identity Not on file Sexual Orientation Not on file Last Filed Vital Signs Vital Sign Reading Time Taken Comments Blood Pressure 105/68 12/18/2023 8:34 AM CDT Pulse 79 12/18/2023 8:34 AM CDT Temperature 36.5 ??C (97.7 ??F) 12/18/2023 8:34 AM CD T Respiratory Rate 18 12/18/2023 8:34 AM CDT Oxygen Saturation 97% 12/18/2023 8:34 AM CDT Inhaled Oxygen Concentration - - Weight 67.1 kg (148 lb) 12/18/2023 8:34 AM CDT Height - - Body Mass Index - - Plan of Treatment Health Maintenance Due Date Last Done Comments Fall Risk Screen (Annual) 02/27/2023 DTaP,Tdap,and Td Vaccines (2 - Td or Tdap) 07/26/2023 07/25/2013, 02/02/2005 COVID-19 Vaccine (7 - 2023-2 5 season) 2023 07/28/2022, 11/16/2021, 06/07/2021, Additional history exists Hepatitis B Vaccines Completed 03/04/2005, 11/08/2004, 10/06/2004, Additional history exists Pneumococcal vaccine (65+ years) Completed 02/12/2015, 07/25/2013, 09/13/2012, Additional history exists Zoster Vaccines Completed 06/04/2019, 09/2019, 06/01/2007 RSV vaccine - (32-3 6 weeks) or 60+ years Completed 11/03/2022 Influenza Vaccine Completed 12/07/2023, , 12/13/2021, Additional history exists Procedures Procedure Name Priority Date/Time Associated Diagnosis Comments BASIC METABOLIC PANEL, S/P Routine 12/15/2023 1:45 PM CDT Hypokalemia CBC WITH DIFFERENTIAL, B Routine 12/12/2023 6:40 AM CDT Anemia Chronic Kidney Disease BASIC METABOLIC PANEL, S/P Routine 12/12/2023 6:40 AM CDT Anemia Chronic Kidney Disease CBC WITH DIFFERENTIAL, B Routine 12/07/2023 1:58 PM CDT Anemia BASIC METABOLIC PANEL, S/P Routine 12/04/2023 1:05 PM CDT Chronic Kidney Disease C-REACTIVE PROTEIN (CRP), S/P STAT 12/02/2023 4:02 PM CDT BASIC METABOLIC PANEL, S/P STAT 12/02/2023 4:02 PM CDT CBC WITH DIFFERENTIAL, B STAT 12/02/2023 4:02 PM CDT BASIC METABOLIC PANEL, S/P Routine 12/01/2023 3:30 PM CDT Chronic Kidney Disease CBC WITHOUT DIFFERENTIAL, B Routine 11/28/2023 7:05 AM CDT Chronic Kidney Disease Stage 4 Glomerular Filtration Rate 15-29 (HCC) Abscess Abdominal Wall BASIC METABOLIC PANEL, S/P Routine 11/28/2023 7:05 AM CDT Chronic Kidney Disease Stage 4 Glomerular Filtration Rate 15-29 (HCC) Abscess Abdominal Wall HC URINALYSIS AUTO W MICRO Routine 11/25/2023 2:20 PM CDT URINALYSIS WITH MICROSCOPIC IF INDICATED, U Routine 11/25/2023 2:20 PM CDT Urinary Tract Infection Site Not Specified BACTERIAL CULTURE, AEROBIC + SUSC, URINE Routine 11/25/2023 2:20 PM CDT Urinary Tract Infection Site Not Specified BASIC METABOLIC PANEL, S/P Routine 11/23/2023 11:55 AM CDT Chronic Kidney Disease Stage 4 Glomerular Filtration Rate 15-29 (HCC) from Last 3 Months Results * (ABNORMAL) Basic Metabolic Panel (12/15/2023 1:45 PM CDT) Only the most recent of7 resultswithin the time period is included. Potassium, P 3.4(L) 3.6 - 5.2 mmol/L 12/15/2023 3:27 PM CDT NPRG Sodium, P 137 135 - 145 mmol/L 12/15/2023 3:27 PM CDT NPRG Chloride, P 99 98 - 107 mmol/L 12/15/2023 3:27 PM CDT NPRG Bicarbonate, P 24 22 - 29 mmol/L 12/15/2023 3:27 PM CDT NPRG Anion Gap, P 14 7 - 15 12/15/2023 3:27 PM CDT NPRG BUN (Blood Urea Nitrogen), P 19 8 - 24 mg/dL 12/15/2023 3:27 PM CDT NPRG Creatinine 2.21(H) 0.74 - 1.35 mg/dL 12/15/2023 3:27 PM CDT NPRG Estimated GFR (eGFR) 29(L) >=60 mL/min/BSA 12/15/2023 3:27 PM CDT NPRG Comment: Estimated GFR calculated using the 2020 CKD_EPI creatinine equation. Calcium, Total, P 7.0(L) 8.8 - 10.2 mg/dL 12/15/2023 3:27 PM CDT NPRG Glucose, P 123 70 - 140 mg/dL 12/15/2023 3:27 PM CDT NPRG Blood (Blood, Venous) 12/15/2023 1:45 PM CDT 12/15/2023 3:08 PM CDT us Christina Vargas APRN, C.N.P. LAB BLOOD ADD-ON Fi nal Result [facility] [address] [place] [address], [facility] NPRG [facility] [address] [place] [address] * (ABNORMAL) CBC with Differential, Blood (12/12/2023 6:40 AM CDT) Only the most recent of3 resultswithin the time period is included. Hemoglobin 8.7(L) 13.2 - 16.6 g/dL 12/12/2023 7:19 AM CDT NPRG Hematocrit 27.9(L) 38.3 - 48.6 % 12/12/2023 7:19 AM CDT NPRG Erythrocytes 2.82(L) 4.35 - 5.65 x10(12)/L 12/12/2023 7:19 AM CDT NPRG MCV 98.9(H) 78.2 - 97.9 fL 12/12/2023 7:19 AM CDT NPRG RBC Distrib Width 17.9(H) 11.8 - 14.5 % 12/12/2023 7:19 AM CDT NPRG Platelet Count 241 135 - 317 x10(9)/L 12/12/2023 7:19 AM CDT NPRG Leukocytes 4.8 3.4 - 9.6 x10(9)/L 12/12/2023 7:19 AM CDT NPRG Neutrophils 3.75 1.56 - 6.45 x10(9)/L 12/12/2023 7:19 AM CDT NPRG Lymphocytes 0.68(L) 0.95 - 3.07 x10(9)/L 12/12/2023 7:19 AM CDT NPRG Monocytes 0.21(L) 0.26 - 0.81 x10(9)/L 12/12/2023 7:19 AM CDT NPRG Eosinophils 0.07 0.03 - 0.48 x10(9)/L 12/12/2023 7:19 AM CDT NPRG Basophils 0.05 0.01 - 0.08 x10(9)/L 12/12/2023 7:19 AM CDT NPRG Blood (Blood, Venous) 12/12/2023 6:40 AM CDT 12/12/2023 7:07 AM CDT us Christina Vargas APRN C.NAnthonyP. LAB BLOOD ADD-ON Fi nal Result [facility] [address] [place] [address], [facility] NPRG [address] [place] [address] * (ABNORMAL) CRP (C-Reactive Protein) (12/02/2023 4:02 PM CDT) C-Reactive Protein (CRP), P 90.1(H) <5.0 mg/L 12/02/2023 4:26 PM CDT NPRG Blood (Blood, Venous) 12/02/2023 4:02 PM CDT 12/02/2023 4:04 PM CDT us Garry Pettit III, M.D. LAB BLOOD ADD-ON Final Result Performing Organization Address City/[facility] Co de Phone Number [facility] [address] [place] [address], [address] [address] * (ABNORMAL) CBC without Differential (11/28/2023 7:05 AM CDT) Hemoglobin 10.3(L) 13.2 - 16.6 g/dL 11/28/2023 8:12 AM CDT NPRG Hematocrit 32.1(L) 38.3 - 48.6 % 11/28/2023 8:12 AM CDT NPRG Erythrocytes 3.31(L) 4.35 - 5.65 x10(12)/L 11/28/2023 8:12 AM CDT NPRG MCV 97.0 78.2 - 97.9 fL 11/28/2023 8:12 AM CDT NPRG RBC Distrib Width 19.2(H) 11.8 - 14.5 % 11/28/2023 8:12 AM CDT NPRG Platelet Count 257 135 - 317 x10(9)/L 11/28/2023 8:12 AM CDT NPRG Leukocytes 5.8 3.4 - 9.6 x10(9)/L 11/28/2023 8:12 AM CDT NPRG Blood (Blood, Venous) 11/28/2023 7:05 AM CDT 11/28/2023 7:49 AM CDT us Christina Vargas APRN C.N.P. LAB BLOOD ADD-ON Fi nal Result [facility] [address] [place] [address], [facility] NPRG [facility] [address] [place] [address] * (ABNORMAL) Urinalysis with Microscopic if Indicated (11/25/2023 2:20 PM CDT) Source Urine, Urine, Catheter 11/25/2023 3:49 PM CDT NPRG Clarity Clear Clear 11/25/2023 3:54 PM CDT NPRG Color Daniella 11/25/2023 3:54 PM CDT NPRG Comment: ----REFERENCE VALUE---- Colorless Yellow Daniella Blood Moderate(A) Negative 11/25/2023 3:54 PM CDT NPRG Nitrite Negative Negative 11/25/2023 3:54 PM CDT NPRG Leukocyte Esterase Trace(A) Negative 11/25/2023 3:54 PM CDT NPRG Protein >=300(A) mg/dL 11/25/2023 3:54 PM CDT NPRG Comment: ----REFERENCE VALUE---- Negative Trace Glucose Negative Negative mg/dL 11/25/2023 3:54 PM CDT NPRG Ketones, QI(U) Trace(A) Negative mg/dL 11/25/2023 3:54 PM CDT NPRG Bilirubin Negative Negative 11/25/2023 3:54 PM CDT NPRG pH 6.0 5.0 - 8.0 11/25/2023 3:54 PM CDT NPRG Specific [place] >=1.030 1.001 - 1.035 11/25/2023 3:54 PM CDT NPRG Urobilinogen 0.2 0.2 - 1.0 mg/dL 11/25/2023 3:54 PM CDT NPRG Urine (Urine, Catheter) 11/25/2023 2:20 PM CDT 11/25/2023 3:49 PM CDT us Christina Vargas APRN, C.N.P. LAB URINE ORDERABLE S Final Result Performing Organization Address City/[facility]/ZIP Co de Phone Number [facility] [address] [place] [address], [place] NPRG [address] [place] [address] * (ABNORMAL) Microscopic Manual (11/25/2023 2:20 PM CDT) White Blood Cells 4-10(A) /hpf 11/25/2023 4:01 PM CDT NPRG Comment: ----REFERENCE VALUE---- Males: 0-3 Females: 0-10 Unknown: 0-10 Red Blood Cells 11-20(A) 0 - 2 /hpf 4:01 PM CDT NPRG Dysmorphic Red Blood Cells <=25 <=25 % 11/25/2023 4:01 PM CDT NPRG Squamous Cells 4-10 /hpf 11/25/2023 4:01 PM CDT NPRG Bacteria Present(A) None Seen 11/25/2023 4:01 PM CDT NPRG Urine 11/25/2023 2:20 PM CDT 11/25/2023 3:49 PM CDT us Christina Vargas APRN, C.N.P. LAB URINE ORDERABLE S Final Result Performing Organization Address City/[facility] Co de Phone Number [facility] [address] [place] [address], [place] NPR[place] [address] [place] [address] * (ABNORMAL) Bacterial Culture, Aerobic + Susceptibility, Urine (11/25/2023 2:20 PM CDT) [facility] Urine Culture With urogenital microbiota, susceptibilities not performed per laboratory criteria. (A) 11/28/2023 7:15 AM CDT [facility] Urine Culture PSEUDOMONAS AERUGINOSA >100,000 cfu/mL (A) 11/28/2023 7:15 AM CDT [facility] Urine (Urine, Straight Catheter) 11/25/2023 2:20 PM CDT 11/26/2023 4:59 PM CDT Comment:Specimen Source Site : Urine Narrative Organism Antibiotic Method Susceptibility Pseudomonas aeruginosa Piperacillin + Tazobactam SUSCEPTIBILITY, DAILY (MCG/ML) 8 mcg/mL: Susceptible Pseudomonas aeruginosa Ceftazidime SUSCEPTIB ILITY, DAILY (MCG/ML) 2 mcg/mL: Susceptible Pseudomonas aeruginosa Cefepime SUSCEPTIB ILITY, DAILY (MCG/ML) 8 mcg/mL: Susceptible Pseudomonas aeruginosa Meropenem SUSCEPTIB ILITY, DAILY (MCG/ML) <=0.25 mcg/mL: Susceptible Pseudomonas aeruginosa Gentamicin SUSCEPTIB ILITY, DAILY (MCG/ML) <=1 mcg/mL: Resistant Pseudomonas aeruginosa Tobramycin SUSCEPTIB ILITY, DAILY (MCG/ML) <=1 mcg/mL: Susceptible Pseudomonas aeruginosa Levofloxacin SUSCEPTIB ILITY, DAILY (MCG/ML) 2 mcg/mL: Intermediate Christina Vargas APRN C.N.P. LAB MICROBIOLOGY - GENERAL ORDERABLES Final Result [facility] [address] [place] [address], [facility] [place] [address] [place] [address] from Last 3 Months Insurance MEDICARE [facility] Advance Directives For more information, please contact: [phone] Documents on File Type Date Recorded Patient Letterer Expl anation Advance Directives 11/27/2023 10:48 AM ODILON MENDOZA/MAXIME
--- OUTSIDE RECORDS SUMMARY | 2023-12-24 13:20 | XMS_ITS | Encounter Summary ---
Author Organization [facility] Address [address] [place] [address] Care Team Providers Care Pipeline Construction Inspector Name Role Phone Christina Vargas APRN, C.NAnthonyPAnthony Primary Care Provi khurram Encounter Details Date Type Department Care Team (Latest Contact Info) Description 12/07/2023 9:00 AM CDT External [facility]reach [facility] [place] [address] [place] [address] Merissa Reddy, DSofi [address] [place] [address] Abscess Abdominal Wall (Primary Dx); Crohns Disease [...] Without Bleeding; Chondrocalcinosis; Osteoarthritis; Deficiency Vitamin B12 Social History Tobacco Use Types Packs/Day Years [...] on file documented as of this encounter Last Filed Vital Signs Vital Sign Reading Time Taken Comments Blood Pressure 120/69 12/07/2023 8:33 AM CDT Pulse 84 12/07/2023 8:33 AM CDT Temperature 36.8 ??C (98.2 ??F) 12/07/2023 8:33 AM CD T Respiratory Rate 16 12/07/2023 8:33 AM CDT Oxygen Saturation 99% 12/07/2023 8:33 AM CDT Inhaled Oxygen Concentration - - Weight 66.6 kg (146 lb 12.8 oz) 12/07/2023 8:33 AM CDT Height - - Body Mass Index - - documented in this encounter Progress Notes * Merissa Reddy D.O. - 12/07/2023 9:00 AM CDT SUBJECTIVE CHIEF COMPLAINT / REASON FOR VISIT I am asked to see Long, for a New Admission visit. Visit Type: In Person Face-to- Face visit HISTORY OF PRESENT ILLNESS Long is a 83 y.o. male who currently resides at [facility] in [place], [place]. Past medical history of Crohn's disease (s/p end-ileostomy), CKD stage IV, atrial fibrillation s/p Watchman and ablation, hypertension, hypothyroidism s/p thyroidectomy 2022. Obtained from Patient, SBAR, and chart review: Patient was hospitalized from 10/31/23-11/20/23 for abdominal wall abscess. Patient was having worsening pain around his stoma site. CT showed increased fat stranding with foci of gas and fluid aboutthe left anterior abdominal wall. Patient had ileoscopy via ileostomy, which showed no evidence of Crohn's disease. Infectious Disease was consulted. Patient was initiated on IV cefepime and metronidazole while in the hospital. CT-guided drain was placed. Unfortunately, CT scan on 11/06/2023 showedincrease in size of fluid collection with gas concerning for ostomy leak. Patient taken to the operating room on 11/08/23 for for incision and drainage of abdominal wall secondary to perforated colostomy diverticulum. Patient advised to remain on ciprofloxacin and Augmentin for 30 more days. However, due to concern for UTI, patient was transitioned to IV cefepime 2 g for 5 days and Flagyl 500 mg every 8 hours for 5 days. He has completed this and is now back on Augmentin and ciprofloxacin. Has Infectious Disease follow up on 12/13/2023. Patient had general surgery follow up yesterday, who recommended continuing with wet-to-dry packing changing 1-2 times daily. Covering with Mepilex. Plan isfor follow up in 1 month. Patient was diagnosed with DVT on 12/01/2023. Has history of GI bleeds When on warfarin about 10-15years ago, which he no longer required after having Watchman procedure and ablation for atrial fibrillation. Per chart review, there was discussion regarding risks and benefits of restarting anticoagulation. Apixaban dosing was discussed with anticoagulation pharmacist, recommending apixaban 10 mg twice a day for 7 days, then 5 mg twice a day for at least 3 months. Patient was sent to the emergency department this past weekend due to concern for abdominal wound possibly having stool from fistula. At Emergency Department, his dose was decreased to 5 mg twice daily in hopes of reducing bleeding, though unclear if patient was truly having bleeding. Reports that he has not noticed any bleeding in his ileostomy output or urine. Upon return to the residential, it appears his dose of apixaban was increased again to 10 mg twice daily for a total of 7 days. Patient reports that his leg pain hascompletely resolved. He is no longer noticing swelling in his left leg. Patient's hemoglobin is noted to have dropped from 10.3 to 8.9 when seen in the Emergency Department. Diagnosis Overview 1. Chondrocalcinosis On allopurinol. Rare flare for which he takes prednisone. 2. Chronic Kidney Disease Stage 4 Glomerular Filtration Rate 15-29 (HCC) 3. Hypertensive Chronic Kidney Disease With Stage 1 Through Stage 4 Chronic Kidney Disease, Or Unspecified Chronic Kidney Disease (Chronic) 4. Crohns Disease Unspecified Without Complications (HCC) Ileostomy 35yrs ago. Has fistula formation so stools in ileostomy and per rectum. 5. Deficiency Vitamin D 6. Gastro-Esophageal Reflux Disease With Esophagitis Without Bleeding Symptoms well controlled on omeprazole 7. Hyperlipidemia Mixed 8. Hyperparathyroidism Renal Secondary (HCC) And Primary Hyperparathyroidism: Had parathyroidectomy and partial thyroidectomy. Currently supplemented. 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 9. Hypothyroidism History of thyroidectomy 10. Ileostomy Status ([facility]) 11. Osteoarthritis OF KNEES AND SHOULDER 12. Abscess Abdominal Wall - Primary 13. Pressure Injury (Ulcer) Of Sacral Region Stage 2 ([facility]) 14. Anemia 15. Benign Prostatic Hyperplasia Without Obstruction 16. Thrombosis Deep Vein Acute Lower Leg Left (HCC) Left posterior vein DVT noted 12/01/23 I reviewed EPIC notes as well as any facility-provided information (if applicable), lab/test results, and images/imaging reports. The following portions of the patient's history were reviewed and updated as appropriate: allergies, current medications, medical history, social history, surgical history and problem list. CODE STATUS: DNR REVIEW OF SYSTEMS Complete review of systems was performed, as allowable by patient's cognitive status, and incorporating collateral history if applicable. Relevant positives are noted elsewhere in this note, otherwise negative. OBJECTIVE VITAL SIGNS Vitals: 12/07/23 0833 BP: 120/69 Pulse: 84 Temp: 36.8 ??C Resp: 16 Weight: 66.6 kg SpO2: 99% PHYSICAL EXAMINATION Constitutional General: No acute distress. Appearance: Normal appearance. He is not ill-appearing. HENT Nose: Nose normal. No congestion or rhinorrhea. Eyes Conjunctiva/sclera: Conjunctivae normal. Extraocular movements intact. Cardiovascular Rate and Rhythm: Normal rate and regular rhythm. Pulmonary Effort: Pulmonary effort is normal. No respiratory distress. Clear to auscultation. Abdominal Comments: He has ileostomy. Soft, nontender. Musculoskeletal No swelling present bilaterally. No pain in calves bilaterally. Skin Has stage 2 pressure ulcer of sacrum and open abdominal wound- did not view, though did review photographs obtained by wound care today. Neurological Mental Status: He is alert. Mental status is at baseline. Psychiatric Mood and Affect: Mood normal. Behavior: Behavior normal. Labs: Lab Results Component Value Date WBC 6.9 12/07/2023 HGB 9.8 (L) 12/07/2023 HCT 30.2 (L) 12/07/2023 MCV 98.1 (H) 12/07/2023 PLT 258 12/07/2023 Lab Results Component Value Date NA 141 12/04/2023 KSERUM 3.4 (L) 11/20/2023 KBLOOD 3.6 04/12/2023 KPLASMA 3.8 12/04/2023 CL 105 12/04/2023 BICARB 21 (L) 12/04/2023 CREATININE 2.25 (H) 12/04/2023 EGFRBLKAA 29 (L) 02/10/2021 EGFRNONBLKAA 24 (L) 02/10/2021 EGFR 29 (L) 12/04/2023 BUN 35 (H) 12/04/2023 ANIONGAP 15 12/04/2023 GLUCOSE 151 (H) 12/04/2023 CALCIUM 7.7 (L) 12/04/2023 ASSESSMENT / PLAN #1 Abscess Abdominal Wall Patient was hospitalized from 10/31/23-11/20/23 for abdominal wall abscess. CT scan on 11/06/2023 showed increase in size of fluid collection with gas concerning for ostomy leak. Patient taken to theoperating room on 11/08/23 for incision and drainage of abdominal wall secondary to perforated colostomy diverticulum. Patient advised to remain on ciprofloxacin and Augmentin for 30 more days. However, due to concern for UTI, patient was transitioned to IV cefepime 2 g for 5 days and Flagyl 500 mgevery 8 hours for 5 days. He has completed this in his now back on Augmentin and ciprofloxacin. - Re-evaluated by General surgery yesterday. Provided wound care recommendations. Wound Care will continue to follow. Follow up with General surgery in 1 month. - Follow up with Infectious Disease on 12/13/2023. - Continue Augmentin 875-125 mg daily. - Continue ciprofloxacin 500 mg twice daily. #2 Crohn's Disease Unspecified Without Complications ([facility]) #3 Ileostomy Status ([facility]) Overview: Ileostomy 35yrs ago. Has fistula formation so stools in ileostomy and per rectum. #4 Thrombosis Deep Vein Acute Lower Leg Left ([facility]) #5 Anticoagulant Therapy Overview: Left posterior vein DVT noted 12/01/23 - Risks and benefits discussed with patient. Initially started on apixaban 10 mg twice daily for 7 days after anticoagulation pharmacist was consulted, though this was decreased to 5 mg twice daily by ED provider. It appears this was then increased again at residential to 10 mg twice daily for total of 7 days. Given his slight decrease in hemoglobin and known history of GI bleeds, will obtain CBC today to ensure hemoglobin has remained stable. If continuing to decrease, then would need to re-evaluate dosing of apixaban. - For now, continue apixaban 10 mg twice daily for 7 days total, then 5 mg twice daily for 3 months. - Oxycodone p.r.n. initiated when diagnosed with DVT. Patient has required oxycodone on 11/30, 12/05,and 12/06. #6 Anemia - History of anemia. Obtaining CBC as above. #7 Pressure Injury (Ulcer) Of Sacral Region Stage 2 ([facility]) - Wound Care following. #8 Chronic Kidney Disease Stage 4 Glomerular Filtration Rate 15-29 ([facility]) #9 Hyperparathyroidism Renal Secondary ([facility]) #10 Deficiency Vitamin D #11 History of hypomagnesemia #12 History of hypocalcemia #13 History of hypokalemia Patient also has primary hyperthyroidism, status post parathyroidectomy and partial thyroidectomy. Currently supplemented. Secondary hyperparathyroidism related to chronic kidney disease. Follows with Nephrology, He has appointment with them on 12/14/2023. - Continue calcitriol 0.25 mcg daily. - Continue vitamin-D 1000 units daily. - Continue magnesium oxide 1000 units twice daily. - Continue Phospha 1 tablet by mouth twice daily. - Continue potassium chloride 20 mEq twice daily. #14 Hypothyroidism Overview: History of thyroidectomy - Continue levothyroxine 175 mcg daily. #15 Hyperlipidemia Mixed - Continue rosuvastatin 10 mg daily. #16 Benign Prostatic Hyperplasia Without Obstruction - Continue finasteride 5 mg daily. #17 Gastro-Esophageal Reflux Disease With Esophagitis Without Bleeding Overview: Symptoms well controlled on omeprazole - Continue omeprazole 20 mg daily. #18 Chondrocalcinosis Overview: On allopurinol. Rare flare for which he takes prednisone. - Continue allopurinol 300 mg daily. #19 Osteoarthritis Overview: Knees and shoulders - Acetaminophen as needed. #20 Vitamin B12 Deficiency - Continue vitamin B12 1000 mcg daily #21 Orthostatic Hypotension - Continue midodrine 5 mg 3 times daily for orthostatic hypotension, hold if SBP> 120 or DBP>90. Merissa Reddy D.O. documented in this encounter Plan of Treatment Not on file documented as of this encounter Visit Diagnoses Diagnosis Abscess Abdominal Wall- Primary Crohns Disease Unspecified Without Complications (HCC) Ileostomy Status (HCC) Thrombosis Deep Vein Acute Lower Leg Left (HCC) Anticoagulant Therapy Anemia Pressure Injury (Ulcer) Of Sacral Region Stage 2 (HCC) Hypertensive Chronic Kidney Disease With Stage 1 Through Stage 4 Chronic Kidney Disease, Or Unspecified Chronic Kidney Disease Chronic Kidney Disease Stage 4 Glomerular Filtration Rate 15-29 (HCC) Hyperparathyroidism Renal Secondary (HCC) Deficiency Vitamin D Hypothyroidism Hyperlipidemia Mixed Benign Prostatic Hyperplasia Without Obstruction Gastro-Esophageal Reflux Disease With Esophagitis Without Bleeding Chondrocalcinosis Osteoarthritis Deficiency Vitamin B12 documented in this encounter Care Teams Pipeline Construction Inspector Relationship Specialty Start Date End Date Christina Vargas, KIMBERLY, C.N.P. [address] [place] [phone] PCP - General Family Medicine 11/20/23 12/19/23 documented as of this encounter
--- OUTSIDE RECORDS SUMMARY | 2023-12-24 13:20 | XMS_ITS | Encounter Summary ---
Author Organization [facility] Address [address] [place] [address] Care Team Providers Care Christmas Tree Farm Worker Name Role Phone Jarred Yepez APRN, C.N.P. Primary Care Provi khurram Encounter Details Date Type Department Care Team (Late st Contact Info) Description 12/01/2023 1:30 PM CDT External Outreach [facility] [place] [phone] Jarred Yepez APRN, C.N.P. 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 - 12/01/2023 1:30 PM CDT CHIEF COMPLAINT / REASON FOR VISIT The resident is being seen at [place], [place] for Acute visit Visit Type: In Person Face-to- Face visit SUBJECTIVE HISTORY OF PRESENT ILLNESS Obtained from Patient and Nursing: SNF VISIT for New Admission visit New Admission to the facility. Recent Hospital admission: Yes,This resident was recently hospitalized at: Outside Hospital [facility] Date of hospitalization: Admission Date: 10/31/2023 Discharge Date: 11/20/2023 Reason for hospitalization: Abdominal wall abscess Long Nugent is a(n) 83 y.o. with a history of Crohn disease (s/p end- ileostomy), CKD stage IV, atrial fibrillation (s/p Watchman and ablation), HTN, hypothyroidism (s/p thyroidectomy 2022) Patient was admitted for worsening abdominal pain around his stoma site. CT showed large fluid collection within the left anterior abdominal wall and rectus sheath. He underwent an ileoscopy through the ileostomy which showed no evidence of Crohn disease. He was started on IV cefepime and metronidazole in the hospital. He had a CT-guided drain placed, on 11/05 CT scan showed increase in size of fluid collection with gas concerning for ostomy leak. He was taken to the operating room for incisionand drainage of abdominal wall secondary to perforated colostomy diverticulum on 11/07. He received1 unit of packed red blood cells after his surgery and was started on midodrine for lower blood pres sures. At discharge his oral appetite was good, TPN was discontinued. He is to follow-up with surgery and Infectious Disease. His activity is up as tolerated. He is walking with a walker. Active wound requiring treatment: Wound care to lower left quadrant 1 remove all packing. 2 irrigate wound with saline or wound dry cleaner apprentice. 3 probe wound with q-tip to assess undermining/tunneling.4 loosely pack wound with Kerlix roll gauze lightly dampened with saline, take care to pack into areas of undermining. 5 Cover with dry gauze or ABD. Wounds/L/D/A: Colostomy He was seen yesterday for provider for left knee pain and swelling. Had positive Marleny's sign. Portable ultrasound was ordered, results were available at 12:30 p.m. a.m. proximally. Did show positiveleft lower extremity in the left posterior tibial vein. Also visible was the abscess in midline andleft groin which was known previously. Patient is seen today. He does have some pain and stiffness in his left knee. He says it is hard towalk at times. Does not have any decreased sensation, no chest pain or shortness of breath. His legis not warm or red. I personally reviewed the most recent following items: clinical notes, lab results, imaging reports The following medical problems were actively reviewed (including updating overview sections as necessary) and addressed as part of today's visit: Diagnosis Overview 1. 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 Gastro-Esophageal Reflux Disease With Esophagitis Without Bleeding Symptoms well controlled on omeprazole 3. Thrombosis Deep Vein Acute Lower Leg Left (HCC) - Primary Left posterior vein DVT noted 12/01/23 4. Acute Cystitis Without Hematuria CODE STATUS: DNR/DNI REVIEW OF SYSTEMS Complete review of systems was performed, as allowable by patient's cognitive status, and incorporating collateral history if applicable. Relevant positives are noted elsewhere in this note, otherwise negative. OBJECTIVE Vital signs provided by facility: BP 125/74 Pulse 85 Temp 36.4 ??C Resp 19 Wt 66.2 kg SpO2 99% PHYSICAL EXAM Constitutional General: He is not in acute distress. Appearance: Normal appearance. He is not ill-appearing. HENT Nose: Nose normal. No congestion or rhinorrhea. Eyes Conjunctiva/sclera: Conjunctivae normal. Cardiovascular Rate and Rhythm: Normal rate and regular rhythm. Pulses: Dorsalis pedis pulses are 2+ on the left side. Pulmonary Effort: Pulmonary effort is normal. No respiratory distress. Abdominal Comments: He has ileostomy Musculoskeletal General: Swelling (left knee swelling) present. Right lower leg: No edema. Left lower leg: No edema. Comments: He does have decreased range of motion due to pain. No redness or warmths Skin Coloration: Skin is pale. Comments: Has stage 2 pressure ulcer of sacrum and open abdominal wound- did not view today Neurological Mental Status: He is alert. Mental status is at baseline. Psychiatric Mood and Affect: Mood normal. Behavior: Behavior normal. Thought Content: Thought content normal. Judgment: Judgment normal. ASSESSMENT / PLAN Full background details regarding problems addressed at today's visit can be found in the HPI. Pertinent changes to the care plan based on today's evaluation are explicitly discussed below, otherwiselisted problems are stable and present management will be continued. #1 Thrombosis Deep Vein Acute Lower Leg Left (HCC) Assessment & Plan: Did discuss risks versus benefits of anticoagulation with patient. He had been on warfarin in the past and developed multiple GI bleeds. This was 10-15 years ago. He did have a Watchman procedure done and an ablation related to his atrial fibrillation which is why he was not on anticoagulation. Patient is agreeable to restart apixaban, have consulted with anticoagulation pharmacist, his renal func tion was noted and studies have shown no [...] for pain if acetaminophen is not effective #2 Gastro-Esophageal Reflux Disease With Esophagitis Without Bleeding Assessment & Plan: Continue omeprazole, now on anticoagulation for DVT. Did explain signs and symptoms of GI bleeding to patient and he verbalized understanding. #3 Acute Cystitis Without Hematuria Assessment & Plan: Complicated due to age and comorbidities. Did consult with antibiotic pharmacist as patient had been treated with ciprofloxacin and Augmentinfor abdominal abscess. Recommendation is to treat with 2 g of IV cefepime every 24 hours x5 days and Flagyl 500 mg every 8 hours x5 days for his abdominal abscess. After 5 days of treatment he will resume ciprofloxacin and Augmentin as ordered until he follows up with General surgery and InfectiousDisease. Estimated Creatinine Clearance: 21.3 mL/min (A) (by C-G formula based on SCr of 2.55 mg/dL (H)). 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 Explained diagnosis and treatment plan; patient/child/caregiver expressed understanding of the content. Billing based on: Time, including the following tasks: reviewing the electronic medical record, updating the EPIC Problem List, reviewing written facility- provided information, reviewing information in facility EMR, medication reconciliation, obtaining collateral history from facility staff, Interviewing and examining the patient, consulting resources (e.g. journal articles, UpToDate, AskMayoExpert) to guide medical decision-making, communicating with specialty service(s), placing orders, communicating orders to facility, providing education/counseling to patient, family, and/or facility staff. Total time 50 minutes. F/U with Dr Haseeb Monk MondayDec 12 1:00pm [facility] [address] [place] [address] Patient needs [facility]. documented in this encounter Miscellaneous Notes * Addendum Note - Jarred Yepez APRN, C.N.P. - 12/01/2023 1:30 PM CDT Addended by: JARRED YEPEZ on: 12/01/2023 05:58 PM Modules accepted: Orders * Assessment & Plan Note - Jarred Yepez APRN, C.N.P. 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 - 12/01/2023 12:03 PM CDTAssociated Problem(s): Acute Cystitis Without Hematuria (Resolved 12/18/2023) Complicated due to age and comorbidities. Did consult with antibiotic pharmacist as patient had been treated with ciprofloxacin and Augmentinfor abdominal abscess. Recommendation is to treat with 2 g of IV cefepime every 24 hours x5 days and Flagyl 500 mg every 8 hours x5 days for his abdominal abscess. After 5 days of treatment he will resume ciprofloxacin and Augmentin as ordered until he follows up with General surgery and InfectiousDisease. Estimated Creatinine Clearance: 21.3 mL/min (A) (by C-G formula based on SCr of 2.55 mg/dL (H)). * Assessment & Plan Note - Jarred Yepez APRN, C.N.P. - 12/01/2023 12:02 PM CDTAssociated Problem(s): Gastro-Esophageal Reflux Disease With Esophagitis Without Bleeding Continue omeprazole, now on anticoagulation for DVT. Did explain signs and symptoms of GI bleeding to patient and he verbalized understanding. * Assessment & Plan Note - Jarred Yepez APRN, C.N.P. - 12/01/2023 12:01 PM CDTAssociated Problem(s): Thrombosis Deep Vein Acute Lower Leg Left (HCC) Did discuss risks versus benefits of anticoagulation with patient. He had been on warfarin in the past and developed multiple GI bleeds. This was 10-15 years ago. He did have a Watchman procedure done and an ablation related to his atrial fibrillation which is why he was not on anticoagulation. 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 [address] [place] [phone] PCP - General Family Medicine 11/20/23 12/19/23 documented as of this encounter
--- OUTSIDE RECORDS SUMMARY | 2023-12-24 13:20 | XMS_ITS | Encounter Summary ---
Author Organization [facility] Address [address] [place] [address] Care Team Providers Care District Medical Examiner Name Role Phone Alicia Christina Main APRN, C.N.P. Primary Care Provi khurram Reason for Visit * Reason Comments Abnormal Lab Pt brought in by EMS for abnormal sodium bicarb Encounter Details Date Type Department Care Team (Late st Contact Info) Description 12/02/2023 2:40 PM CDT - 12/02/2023 6:06 PM CDT Emergency [facility] [address] [place] [phone] Garry Pettit III, M.D. 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 Rate 15-29 (HCC) Discharge Disposition: Home or Self Care Social History Tobacco Use Types Packs/Day Years Used Date Smoking Tobacco: Former Cigarettes Q uit: 1989 Smokeless Tobacco: Never Nutrition Answer Date Recorded Nutrition: EVOO Fat [...] Sign Reading Time Taken Comments Blood Pressure 107/64 12/02/2023 6:04 PM CDT Pulse 72 12/02/2023 6:04 PM CDT Temperature 36.6 ??C (97.9 ??F) 12/02/2023 6:04 PM CD T Respiratory Rate 17 12/02/2023 6:04 PM CDT Oxygen Saturation 97% 12/02/2023 6:04 PM CDT Inhaled Oxygen Concentration - - Weight 67.4 kg (148 lb 11.2 oz) 12/02/2023 2:43 PM CDT Height - - Body Mass Index - - documented in this encounter Discharge Instructions * Attachments The following attachments cannot be sent through Care Everywhere. * Iron Deficiency Anemia ([place]) documented in this encounter Medications at Time of Discharge acetaminophen (TylenoL) 500 mg tablet Take 1,000 mg by mouth every 6 (six) hours as needed for pain. Max Dose of 4000 mg in 24 hours 11/19/2023 bismuth subsalicylate (Pepto-BismoL) 262 mg/15 mL suspension Take 15 mL by mouth 2 (two) times a day as needed for diarrhea. 11/19/2023 calcitRIOL (RocaltroL) 0.25 mcg capsule Take 1 capsule by mouth daily. 03/03/2023 cholecalciferol, vitamin D3, 25 mcg (1,000 Unit) tablet Take 1 tablet by mouth daily. 09/30/2016 cyanocobalamin (Vitamin B-12) 1,000 mcg tablet Take 1,000 mcg by mouth daily. 01/09/2009 magnesium oxide (Mag-Ox) 500 mg magnesium tablet tablet Take 1,000 mg by mouth 2 (two) times a day. 08/06/2020 nitroglycerin (Nitrostat) 0.[address] 0.4 mg under the tongue every 5 (five) minutes as needed. 05/30/2022 Phospha 250 Neutral 250 mg tablet Take 1 tablet by mouth 2 (two) times a day with meals. 03/03/2022 cefepime in dextrose, iso osm, (Maxipime) 2 gram/100 mL IVBP Infuse 100 mL (2 g total) into a venous catheter daily for 5 days. 500 mL 11/30/2023 12/05/19 24 ciprofloxacin (Cipro) 500 mg tablet Take 500 mg by mouth 2 (two) times a day before morning and evening meals. 12/20/19 metroNIDAZOLE (FlagyL) 500 mg tablet Take 1 tablet (500 mg total) by mouth 3 (three) times a day for 5 days. 15 tablet 11/30/2023 12/05/19 allopurinoL (Zyloprim) 300 mg tablet Take 1 tablet by mouth daily. 05/30/2022 12/20/19 amoxicillin-pot clavulanate (Augmentin) 875-125 mg per tablet Take 1 tablet by mouth 2 (two) times a day with meals. Hold for 5 days starting 11/30/23 11/16/2023 12/18/19 apixaban (Eliquis) 5 mg tablet Take 5 mg by mouth 2 (two) times a day. 12/18/19 finasteride (Proscar) 5 mg tablet Take 1 tablet by mouth every morning. 06/02/2023 12/20/19 levothyroxine 175 mcg tablet Take 175 mcg by mouth daily before morning meal. 11/20/2023 12/20/19 midodrine (ProAmatine) 5 mg tablet Take 5 mg by mouth 3 (three) times a day. Per SNF EHR: Give 1 tablet by mouth three times a day related to ORTHOSTATIC HYPOTENSION (I95.1) Hold if SBP >120 or DBP >90 11/16/2023 12/18/19 omeprazole (PriLOSEC) [address] capsule Take 1 capsule by mouth daily. 04/28/2023 12/20/19 ondansetron ODT (Zofran-ODT) 4 mg disintegrating tablet Dissolve 4 mg in the mouth every 8 (eight) hours as needed for vomiting or nausea. 11/16/2023 12/18/19 oxyCODONE (Roxicodone) 5 mg immediate release tabletIndications:A cute Pain Exception Take 1 tablet (5 mg total) by mouth every 6 (six) hours as needed for pain Indication: Acute Pain Exception. 20 tablet 12/01/2023 12/18/19 potassium chloride (Jessica CieL) 20 mEq/15 mL liquid Take 15 mL (20 mEq total) by mouth 2 (two) times a day with meals. Must dilute with at least 120 mL of cold water or liquid prior to administration. 12/01/2023 12/12/19 rosuvastatin (Crestor) 10 mg tablet Take 10 mg by mouth at bedtime. 12/20/19 UNABLE TO FIND Take 30 each by mouth 2 (two) times a day. Med Name: Bicitra 30 mL 12/15/19 documented as of this encounter ED Notes * Garry Pettit III, M.D. - 12/02/2023 6:00 PM CDT SUBJECTIVE CHIEF COMPLAINT/REASON FOR VISIT Abnormal Lab (Pt brought in by EMS for abnormal sodium bicarb) HISTORY OF PRESENT ILLNESS The patient is an 83 y.o. male who presents to the ED in [place] with a problem list significantfor hypertension, paroxysmal atrial fibrillation, CKD stage 4, hyperlipidemia, Crohn's disease, secondary hyperparathyroidism, and hypothyroidism. He was more tired and sleepy today. Nursing staff noted during dressing change of his abdominal wound that there was possibly stool from fistula in his abdominal wound. The patient states that this is not the case. He reports that they are directed to change the bandages multiple times each day, however, it does not appear that they are doing that quite as often and when they wait to change it, the bandages are more dark. His most recent labs have b een at baseline. History provided by: Patient and medical records REVIEW OF SYSTEMS Constitutional: Negative for chills and fever. HENT: Negative for sore throat. Eyes: Negative for pain and visual disturbance. Respiratory: Negative for shortness of breath. Cardiovascular: Negative for chest pain, palpitations and leg swelling. Gastrointestinal: Negative for constipation, diarrhea, nausea and vomiting. Endocrine: Negative for cold intolerance, heat intolerance, polydipsia, polyphagia and polyuria. Genitourinary: Negative for dysuria and frequency. Musculoskeletal: Negative for joint swelling and extremity pain. Skin: Negative for rash. Allergic/Immunologic: Negative for environmental allergies and food allergies. Neurological: Negative for weakness, numbness and headaches. Hematological: Does not bruise/bleed easily. Psychiatric/Behavioral: Negative for agitation and depression. OBJECTIVE Initial Vitals Temp -- Pulse Rate 12/02/23 1440 89 Heart Rate -- Resp -- Blood Pressure 12/02/23 1440 110/64 SpO2 12/02/23 1440 97 % Pain Score 10/05/24 1447 0 - No pain PHYSICAL EXAMINATION Constitutional: Nursing note and vitals reviewed. HENT: Head: Normocephalic and atraumatic. Mouth/Throat: Mucous membranes are moist. Eyes: Conjunctivae are normal. Cardiovascular: Normal rate, regular rhythm, S1 normal, S2 normal and normal heart sounds. Pulses are strong and palpable. Capillary refill: takes less than 3 secondsEdema: no edema noted Pulmonary/Chest: Effort normal and breath sounds normal. There is normal air entry. Abdominal: Soft. Bowel sounds are normal. exhibits no distension. There is no abdominal tenderness. Musculoskeletal: General: Normal range of motion. Neurological: Alert and oriented to person, place, and time. Skin: Skin is warm and dry. Psychiatric: He has a normal mood and affect. ASSESSMENT/PLAN Assessment and Plan The patient is an 83-year-old male who presents to the emergency department with concerns about abnormal labs. He reports that he feels more fatigued than normal. He was recently started on Eliquis for a DVT. He has taken a total of 2- 3 doses of the 10 mg loading. I discussed this case with pharmacy. They feel that it would be appropriate for him to decrease his dose to 5 mg twice daily in hopes of reducing whatever bleeding he was experiencing. We have recommended close follow-up with his primary medical provider early in the week for re- evaluation. If he feels like he is starting to see blood in his stool, feeling lightheaded, or presyncopal that we would recommend that he return to the em ergency department. He would much rather do this than consider admission at this point. Home, symptomatic therapies were reviewed. Reasons to return to the ED were discussed in detail. An appointmentwas scheduled with his primary medical provider. DIFFERENTIAL DIAGNOSES Electrolyte imbalance(s), anemia, medication reactions and urinary tract infection. . Final Diagnoses: as of 12/02/23 1800 Other Iron Deficiency Anemias Chronic Kidney Disease Stage 4 Glomerular Filtration Rate 15-29 (HCC) Garry Pettit III, M.D. 12/06/23 1320 documented in this encounter Plan of Treatment Not on file documented as of this encounter Procedures Procedure Name Priority Date/Time Associated Diagnosis Comments CBC WITH DIFFERENTIAL, B STAT 12/02/2023 4:02 PM CDT C-REACTIVE PROTEIN (CRP), S/P STAT 12/02/2023 4:02 PM CDT BASIC METABOLIC PANEL, S/P STAT 12/02/2023 4:02 PM CDT documented in this encounter Results * (ABNORMAL) CRP (C-Reactive Protein) (12/02/2023 4:02 PM CDT) C-Reactive Protein (CRP), P 90.1(H) <5.0 mg/L 12/02/2023 4:26 PM CDT NPRG Blood (Blood, Venous) 12/02/2023 4:02 PM CDT 12/02/2023 4:04 PM CDT Garry Pettit III, M.D. LAB BLOOD ADD-ON Final Result [facility] [address] [place] [address], [facility] NPRG [facility] [address] [place] [address] * (ABNORMAL) Basic Metabolic Panel (12/02/2023 4:02 PM CDT) Potassium, P 3.4(L) 3.6 - 5.2 mmol/L 12/02/2023 4:26 PM CDT NPRG Sodium, P 137 135 - 145 mmol/L 12/02/2023 4:26 PM CDT NPRG Chloride, P 102 98 - 107 mmol/L 12/02/2023 4:26 PM CDT NPRG Bicarbonate, P 21(L) 22 - 29 mmol/L 12/02/2023 4:26 PM CDT NPRG Anion Gap, P 14 7 - 15 12/02/2023 4:26 PM CDT NPRG BUN (Blood Urea Nitrogen), P 40(H) 8 - 24 mg/dL 12/02/2023 4:26 PM CDT NPRG Creatinine 2.39(H) 0.74 - 1.35 mg/dL 12/02/2023 4:26 PM CDT NPRG Estimated GFR (eGFR) 27(L) >=60 mL/min/BSA 12/02/2023 4:26 PM CDT NPRG Comment: Estimated GFR calculated using the 2020 CKD_EPI creatinine equation. Calcium, Total, P 7.5(L) 8.8 - 10.2 mg/dL 12/02/2023 4:26 PM CDT NPRG Glucose, P 102 70 - 140 mg/dL 12/02/2023 4:26 PM CDT NPRG Blood (Blood, Venous) 12/02/2023 4:02 PM CDT 12/02/2023 4:04 PM CDT us Garry Pettit III, M.D. LAB BLOOD ADD-ON Final Result [facility] [address] [place] [address], [facility] NPRG [facility] [address] [place] [address] * (ABNORMAL) CBC with Differential, Blood (12/02/2023 4:02 PM CDT) Hemoglobin 8.9(L) 13.2 - 16.6 g/dL 12/02/2023 4:09 PM CDT NPRG Hematocrit 27.0(L) 38.3 - 48.6 % 12/02/2023 4:09 PM CDT NPRG Erythrocytes 2.84(L) 4.35 - 5.65 x10(12)/L 12/02/2023 4:09 PM CDT NPRG MCV 95.1 78.2 - 97.9 fL 12/02/2023 4:09 PM CDT NPRG RBC Distrib Width 19.3(H) 11.8 - 14.5 % 12/02/2023 4:09 PM CDT NPRG Platelet Count 232 135 - 317 x10(9)/L 12/02/2023 4:09 PM CDT NPRG Leukocytes 5.8 3.4 - 9.6 x10(9)/L 12/02/2023 4:09 PM CDT NPRG Neutrophils 4.57 1.56 - 6.45 x10(9)/L 12/02/2023 4:09 PM CDT NPRG Lymphocytes 0.61(L) 0.95 - 3.07 x10(9)/L 12/02/2023 4:09 PM CDT NPRG Monocytes 0.49 0.26 - 0.81 x10(9)/L 12/02/2023 4:09 PM CDT NPRG Eosinophils 0.04 0.03 - 0.48 x10(9)/L 12/02/2023 4:09 PM CDT NPRG Basophils 0.05 0.01 - 0.08 x10(9)/L 12/02/2023 4:09 PM CDT NPRG Blood (Blood, Venous) 12/02/2023 4:02 PM CDT 12/02/2023 4:04 PM CDT us Garry Pettit III, M.D. 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 [address] [place] [phone] PCP - General Family Medicine 11/20/23 12/19/23 documented as of this encounter
--- OUTSIDE RECORDS SUMMARY | 2023-12-24 13:20 | XMS_ITS | Encounter Summary ---
Author Organization [facility] Address [address] [place] [address] Care Team Providers Care Merchandising Consultant Name Role Phone Christina Vargas APRN, C.N.P. Primary Care Provi khurram Encounter Details Date Type Department Care Team (Late st Contact Info) Description 12/12/2023 Orders Only Senior Services in [place], [place] [address] [place] [phone] Christina Vargas APRN, C.N.P. [address] [place] [address] Social History Tobacco Use Types Packs/Day Years [...] as of this encounter Plan of Treatment Not on file documented as of this encounter Visit Diagnoses Not on filedocumented in this encounter Care Teams Merchandising Consultant Relationship Specialty Start Date End Date Christina Vargas APRN, C.N.P. [address] [place] [address] PCP - General Family Medicine 11/20/23 12/19/23 documented as of this encounter
--- OUTSIDE RECORDS SUMMARY | 2023-12-24 13:20 | XMS_ITS | Encounter Summary ---
Author Organization [facility] Address [address] [place] [address] Care Team Providers Care Wig Stylist Name Role Phone Christina Vargas APRN, C.N.P. Primary Care Provi khurram Reason for Visit * Reason Onset Date Comments SNF Nurse Intake 12/06/2023 Encounter Details Date Type Department Care Team (Latest Contact Info) Description 12/06/2023 Clinical Communication [place] [phone] Emilie Villareal, R.N. SNF Nurse Intake Social History Tobacco Use Types Packs/Day Years [...] encounter Miscellaneous Notes * Telephone Encounter - Christina Vargas APRN, C.N.P. - 12/08/2023 8:43 AM CDT Noted. Have orders for repeat BMP next week on lab day (12/12/23) Electronically signed by: Christina Vargas APRN, C.N.P. 12/08/23 8:44 AM CDT * Telephone Encounter - Kimberly Lundy APRN, C.NMax - 12/07/2023 2:33 PM CDT Noted. No orders were given. Zeenat, please determine if you would like to order follow up potassium. * Telephone Encounter - Emilie Villareal R.N. - 12/07/2023 2:27 PM CDT Received call from Maria Elena, staff with [facility] where pt currently resides Maria Elena states that pt had med error this AM. Pt was to receive 20 mEq Effer-K , but accidentally received 20 mEq K+ in tablet form. No concerned noted per nursing staff. * Telephone Encounter - Emilie Villareal R.N. - 12/06/2023 2:34 PM CDT Received call from Kasia, nurse Rn Chronic from [facility] She calls as FYI to PCP that pt missed K+ dosing last night (12/05/23) and today (12/06/23). However, staff states they hope to get dose from pharmacy today to give evening dose this evening (12/06/23) Pt is to take 20 mEq 2xDay with meals (Of note, error occurred when pharmacy sent tablets and not effervescence as ordered) documented in this encounter Plan of Treatment Not on file documented as of this encounter Visit Diagnoses Not on filedocumented in this encounter Care Teams Wig Stylist Relationship Specialty Start Date End Date Christina Vargas APRN, C.N.P. [address] [place] [address], [place] [phone] PCP - General Family Medicine 11/20/23 12/19/23 documented as of this encounter
--- OUTSIDE RECORDS SUMMARY | 2023-12-24 13:20 | XMS_ITS | Encounter Summary ---
Author Organization [facility] Address [address] [place] [address] Care Team Providers Care Garment Folder Name Role Phone Christina Vargas APRN, C.N.P. Primary Care Provi khurram Encounter Details Date Type Department Care Team (Latest Contact Info) Description 12/04/2023 8:30 AM CDT - 12/04/2023 11:59 PM CDT Hospital Encounter Department of Laboratory Medicine in [place], [place] [address] [place] [phone] Christina Vargas APRN, C.N.P. [address] [place] [phone] Chronic Kidney Disease Discharge Disposition: Home or Self Care Social [...] on file documented as of this encounter Medications at Time of Discharge [...] for 5 days. 500 mL 11/30/2023 12/05/19 ciprofloxacin (Cipro) 500 mg tablet Take 500 mg by mouth 2 (two) times a day before morning and evening meals. 12/20/19 metroNIDAZOLE (FlagyL) 500 mg tablet Take 1 tablet (500 mg total) by mouth 3 (three) times a day for 5 days. 15 tablet 11/30/2023 12/05/19 allopurinoL (Zyloprim) 300 mg tablet Take 1 tablet by mouth daily. 05/30/2022 12/20/19 24 amoxicillin-pot clavulanate (Augmentin) 875-125 mg per tablet [...] mouth 3 (three) times a day. Per [facility] EHR: Give 1 tablet by mouth three [...] mL 12/15/19 documented as of this encounter Plan of Treatment Not on file documented as of this encounter Procedures Procedure Name Priority Date/Time Associated Diagnosis Comments BASIC METABOLIC PANEL, S/P Routine 12/04/2023 1:05 PM CDT Chronic Kidney Disease documented in this encounter Results * (ABNORMAL) Basic Metabolic Panel (12/04/2023 1:05 PM CDT) Potassium, P 3.8 3.6 - 5.2 mmol/L 12/04/2023 2:03 PM CDT NPRG Sodium, P 141 135 - 145 mmol/L 12/04/2023 2:03 PM CDT NPRG Chloride, P 105 98 - 107 mmol/L 12/04/2023 2:03 PM CDT NPRG Bicarbonate, P 21(L) 22 - 29 mmol/L 12/04/2023 2:03 PM CDT NPRG Anion Gap, P 15 7 - 15 12/04/2023 2:03 PM CDT NPRG BUN (Blood Urea Nitrogen), P 35(H) 8 - 24 mg/dL 12/04/2023 2:03 PM CDT NPRG Creatinine 2.25(H) 0.74 - 1.35 mg/dL 12/04/2023 2:03 PM CDT NPRG Estimated GFR (eGFR) 29(L) >=60 mL/min/BSA 12/04/2023 2:03 PM CDT NPRG Comment: Estimated GFR calculated using the 2020 CKD_EPI creatinine equation. Calcium, Total, P 7.7(L) 8.8 - 10.2 mg/dL 12/04/2023 2:03 PM CDT NPRG Glucose, P 151(H) 70 - 140 mg/dL 12/04/2023 2:03 PM CDT NPRG Blood (Blood, Venous) 12/04/2023 1:05 PM CDT 12/04/2023 1:35 PM CDT Christina Vargas APRN, C.N.P. LAB BLOOD ADD-ON Fi nal Result [facility] [address] [place] [address], [facility] NPRG [facility] [address] [place] [address] documented in this encounter Visit Diagnoses Diagnosis Chronic Kidney Disease documented in this encounter Care Teams Garment Folder Relationship Specialty Start Date End Date Christina Vargas APRN, C.N.P. [address] [place] [phone] PCP - General Family Medicine 11/20/23 12/19/23 documented as of this encounter
--- OUTSIDE RECORDS SUMMARY | 2023-12-24 13:20 | XMS_ITS | Encounter Summary ---
Author Organization [facility] Address [address] [place] [address] Care Team Providers Care Suede Cleaner Name Role Phone Jarred Yepez APRN, C.N.P. Primary Care Provi khurram Reason for Visit * Reason Comments Discharge Orders Encounter Details Date Type Department Care Team (Latest Contact Info) Description 12/18/2023 9:30 AM CDT External Outreach Senior Services in [place] [address] [place] [phone] Jarred Yepez APRN, C.N.P. [address] [place] [phone] Atrial Fibrillation Paroxysmal (HCC) (Primary Dx); Osteoarthritis; [...] Gangrene; Abscess Abdominal Wall; Dizziness And Giddiness Social History Tobacco Use Types Packs/Day Years [...] documented in this encounter Progress Notes * Abbie Donis, L.P.N. - 12/18/2023 9:30 AM CDT SNF VISIT for a [facility] Discharge Visit Anticipated Discharge Date: 12/20/2023 Anticipated Discharge to: The resident is admitting from their: Own home DNR The resident was admitted to the longterm on 11/20/2023 for: The patient is debilitated and unable to care for self at home due to chronic, progressive medical conditions and needs 24/7 nursing care He will need Home Health: Yes - Ordered w/ [facility] (Pending Review) Medication List has been reconciled: Yes Future Appointments 12/18/2023 9:30 AM Jarred Yepez APRN, C.N.P. Senior Services in [place] Nursing Comments External NEP Referral Scheduled: 12/21/2023 External GNS Referral Scheduled: 01/04/2024 External FAM PCP Visit Scheduled: 12/18/2023 * Jarred Yepez APRN, C.N.P. - 12/18/2023 9:30 AM CDT CHIEF COMPLAINT / REASON FOR VISIT The resident is being seen at [place], [place] for Discharge H&P Visit Visit Type: In Person Face-to- Face visit SUBJECTIVE HISTORY OF PRESENT ILLNESS Obtained from Patient, Nursing, and SBAR: SNF VISIT for a [place] [facility] Discharge Visit Anticipated Discharge Date: 12/20/2023 Anticipated Discharge to: Own home with Long Nugent is a(n) 83 y.o. with [...] tolerated. He is walking with a walker. His dizziness has improved with midodrine. He did develop an acute DVT in his left popliteal vein on 12/01/2023 and was started on apixaban 10 mg twice a day, he was supposed to transitioned to 5 mg twice a day, however there was a medication air and he has not received 5 mg twice a day, his last dose of apixaban was on 12/10/2023, will restart this medication for at least 3 months. Dose adjustment is not required as this is treatment dose for DVT. Patient has also had some increased pain in his knee. He is using as needed oxycodone sparingly. Therapy is recommending home health physical therapy, occupational therapy, RN and home health aide. He has followed up with Infectious Disease and they are recommending a CT scan on 12/19 2 assess abdom inal abscess. He is currently on ciprofloxacin and Augmentin. During his stay he did develop an acute urinary tract infection in which she was treated with cefepime and Flagyl to cover his abdominal infection, he received these medications for 5 days and his ciprofloxacin and Augmentin were on holdduring that time. Patient is seen today, he is in good spirits and looking forward to going home. He wonders if he should undergo a change in his stoma location as was recommended by General surgery. Did recommend he undergo his CT scan on 12/20/2023 which will give more information. Patient denies fever, chills, nelia sea. His breathing has been at baseline. I personally reviewed the most recent following items: clinical notes, lab results The following medical problems were actively reviewed (including updating overview sections as necessary) and addressed as part of today's visit: Diagnosis Overview 1. Atrial Fibrillation Paroxysmal (HCC) - Primary 2. Chronic Kidney Disease Stage 4 Glomerular Filtration Rate 15-29 ([facility]) 3. Crohns Disease Unspecified Without Complications ([facility]) Ileostomy 35yrs ago. Has fistula formation so stools in ileostomy and per rectum. 4. Deficiency Vitamin D 5. Dizziness And Giddiness 6. Gastro-Esophageal Reflux Disease With Esophagitis Without Bleeding Symptoms well controlled on omeprazole 7. Hyperparathyroidism Renal Secondary ([facility]) And Primary Hyperparathyroidism: Had parathyroidectomy and partial thyroidectomy. Currently supplemented. 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 8. Hypothyroidism History of thyroidectomy 9. Ileostomy Status ([facility]) 10. Osteoarthritis OF KNEES AND SHOULDER 11. Supraventricular Tachycardia, Unspecified ([facility]) Diagnosed many years ago. Continues to have palpitations off and on but no diagnosed SVT for > 10 years. 12. Abscess Abdominal Wall 13. Parastomal Hernia Without Obstruction Or Gangrene 14. 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 Anemia 16. Benign Prostatic Hyperplasia Without Obstruction 17. Thrombosis Deep Vein Acute Lower Leg Left (HCC) Left posterior vein DVT noted 12/01/23 CODE STATUS: DNR/DNI REVIEW OF SYSTEMS Complete review of systems was performed, as allowable by patient's cognitive status, and incorporating collateral history if applicable. Relevant positives are noted elsewhere in this note, otherwise negative. OBJECTIVE Vital signs provided by facility: BP 105/68 Pulse 79 Temp 36.5 ??C Resp 18 Wt 67.1 kg SpO2 97% PHYSICAL EXAM Constitutional General: He is not in acute distress. Appearance: Normal appearance. He is not ill-appearing. HENT Nose: Nose normal. No congestion or rhinorrhea. Eyes Conjunctiva/sclera: Conjunctivae normal. Cardiovascular Rate and Rhythm: Normal rate and regular rhythm. Heart sounds: Normal heart sounds. Pulmonary Effort: Pulmonary effort is normal. No respiratory distress. Breath sounds: Normal breath sounds. Abdominal General: Bowel sounds are normal. Palpations: Abdomen is soft. Comments: He has ileostomy Musculoskeletal Right lower leg: No edema. Left lower leg: Edema present. Skin Coloration: Skin is pale. Comments: Reviewed pictures and longterm records, open abdominal abscess and genital region measures 5.46x 1.69 x 1.5 cm. Wound bed is pink and beefy, 98% granulation tissue with 2% slough Stage III pressure ulcer on coccyx measures 0.91 cm x 0.34 cm x 0.3 cm, 100% slough with macerationaround wound bed Neurological Mental Status: He is alert. Mental [...] and present management will be continued. #1 Osteoarthritis Assessment & Plan: Continue as needed acetaminophen He has had a flare up with some pain in left knee. Will send 10 tablets of 5 mg oxycodone to pharmacy at discharge #2 Atrial Fibrillation Paroxysmal (HCC) Assessment & Plan: History of ablation and had watchman procedure #3 Supraventricular Tachycardia, Unspecified (HCC) Assessment & Plan: Had history of ablation #4 Thrombosis Deep Vein Acute Lower Leg Left (HCC) Assessment & Plan: Noted on 12/01/2023 in left posterior vein He completed 7 days of 10 mg of apixaban twice a day Will continue with 5 mg of apixaban twice a day for three months Appears to be a med error in that he didn't receive apixaban from 12/10 through 12/18/23 #5 Crohns Disease Unspecified Without Complications ([facility]) Assessment & Plan: Continue current ostomy cares #6 Deficiency Vitamin D Assessment & Plan: Continue vitamin D supplement #7 Gastro-Esophageal Reflux Disease With Esophagitis Without Bleeding Assessment & Plan: Continue omeprazole, now on anticoagulation for DVT. Did explain signs and symptoms of GI bleeding to patient and he verbalized understanding. 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 This is improving in size and character. Current orders are cleanse area with Vashe say wound cleanser, pat dry, apply skin prep to periwound, apply Santyl and cover with foam change daily and as needed #9 Anemia Assessment & Plan: Will need to be monitored by PCP #10 Benign Prostatic Hyperplasia Without Obstruction Assessment & Plan: Continue finasteride #11 Chronic Kidney Disease Stage 4 Glomerular Filtration Rate 15-29 ([facility]) Assessment & Plan: Follows with nephrology #12 Hypothyroidism Assessment & Plan: Continue levothyroxine 175 mcg daily #13 Hyperparathyroidism Renal Secondary ([facility]) Assessment & Plan: Continue calcitriol Continue follow up with nephrology #14 Ileostomy Status ([facility]) #15 Parastomal Hernia Without Obstruction Or Gangrene Assessment & Plan: Has follow up with general surgery #16 Abscess Abdominal Wall Assessment & Plan: Continue with wound care, was followed be wound care SAFETY AIDE Current wound care orders remove all packing, irrigate wound with normal saline and wound cleanser,probe wound with Q-tip to assess undermining/tunneling, loosely pack wound with Kerlix roll gauze slightly dampened with saline, take care to pack into areas of undermining, cover with oval Mepilex dressing Continue with Augmentin and ciprofloxacin until recommended abdominal CT which is scheduled for 12/20/23. ID to contact patient if he should continue antibiotics at that time Will discontinue Zofran #17 Dizziness And Giddiness Assessment & Plan: Continue midodrine three times per day Reviewed medications with patient. Discontinue Zofran due to nonuse Will send 10 tablets of oxycodone Patient to continue antibiotics until 12/20/2023, Infectious Disease to contact patient about whether continuing antibiotics are not Will send 30 day supply of midodrine as this is a new medication Increase potassium to 40 mEq in the morning and continue 20 mEq in lunch and supper DME Medical Justification: Kelby Nugent has a mobility limitation that sufficiently impairs his ability to participate in mobility-related activities of daily living in the home. A cane and crutch have been ruled out . The mobility limitation can be sufficiently resolved by the prescription of this walker. He can safely use the walker. More than one ambulation aid is not needed. Most recent height: No data found for Ht Most recent weight: 12/18/23 : 67.1 kg DME Medical Justification: Bathroom/Toileting/Commodes Long Nugent has bathing or toileting safety concerns of falling. A commode was not ordered. Most recent height: No data found for Ht Most recent weight: 12/18/23 : 67.1 kg FACE TO FACE DOCUMENTATION Patient has been prescribed home PT and OT at [facility] therapy department for continued balance, strengthening, and to develop a home exercise program. He will have home health nursing for wound care and medication management and home health aide for assistance with ADL's including bathing. Long is considered homebound because he requires a device for ambulation and leaving his home requires a considerable and taxing effort. External NEP Referral Scheduled: 12/21/2023 External GNS Referral Scheduled: 01/04/2024 External FAM PCP Visit Scheduled: 12/18/2023 PATIENT EDUCATION Ready to learn, no apparent [...] facility staff, Interviewing and examining the patient, placing orders, communicating orders to facility, providing education/counseling to patient, family, and/or facility staff. Total time 45 minutes. documented in this encounter Miscellaneous Notes * Assessment & Plan Note - Jarred Yepez APRN, C.N.P. - 12/18/2023 1:32 PM CDTAssociated Problem(s): Dizziness And Giddiness Continue midodrine three times per day * Assessment & Plan Note - Jarred Yepez APRN, C.N.P. - 12/18/2023 1:30 PM CDTAssociated Problem(s): Parastomal Hernia Without Obstruction Or Gangrene Has follow up with general surgery * Assessment & Plan Note - Jarred Yepez APRN, C.N.P. - 12/18/2023 1:30 PM CDTAssociated Problem(s): Abscess Abdominal Wall Continue with wound care, was followed be wound care SAFETY AIDE Current wound care orders remove all packing, irrigate wound with normal saline and wound cleanser,probe wound with Q-tip to assess undermining/tunneling, loosely pack wound with Kerlix roll gauze slightly dampened with saline, take care to pack into areas of undermining, cover with oval Mepilex dressing Continue with Augmentin and ciprofloxacin until recommended abdominal CT which is scheduled for 12/20/23. ID to contact patient if he should continue antibiotics at that time Will discontinue Zofran * Assessment & Plan Note - Jarred Yepez APRN, C.N.P. - 12/18/2023 1:28 PM CDTAssociated Problem(s): Hyperparathyroidism Renal Secondary (HCC) Continue calcitriol Continue follow up with nephrology * Assessment & Plan Note - Jarred Yepez APRN, C.N.P. - 12/18/2023 1:28 PM CDTAssociated Problem(s): Hypothyroidism Continue levothyroxine 175 mcg daily * Assessment & Plan Note - Jarred Yepez APRN, C.N.P. - 12/18/2023 1:28 PM CDTAssociated Problem(s): Chronic Kidney Disease Stage 4 Glomerular Filtration Rate 15-29 (HCC) Follows with nephrology * Assessment & Plan Note - Jarred Yepez APRN, C.N.P. - 12/18/2023 1:27 PM CDTAssociated Problem(s): Benign Prostatic Hyperplasia Without Obstruction Continue finasteride * Assessment & Plan Note - Jarred Yepez APRN, C.N.P. - 12/18/2023 1:27 PM CDTAssociated Problem(s): Anemia Will need to be monitored by PCP * Assessment & Plan Note - Jarred Yepez APRN, C.N.P. 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 This is improving in size and character. Current orders are cleanse area with Vashe say wound cleanser, pat dry, apply skin prep to periwound, apply Santyl and cover with foam change daily and as needed * Assessment & Plan Note - Jarred Yepez APRN, C.N.P. - 12/18/2023 1:25 PM CDTAssociated Problem(s): Osteoarthritis Continue as needed acetaminophen He has had a flare up with some pain in left knee. Will send 10 tablets of 5 mg oxycodone to pharmacy at discharge * Assessment & Plan Note - Jarred Yepez APRN, C.N.P. - 12/18/2023 1:24 PM CDTAssociated Problem(s): Gastro-Esophageal Reflux Disease With Esophagitis Without Bleeding Continue omeprazole, now on anticoagulation for DVT. Did explain signs and symptoms of GI bleeding to patient and he verbalized understanding. * Assessment & Plan Note - Jarred Yepez APRN, C.N.P. - 12/18/2023 1:24 PM CDTAssociated Problem(s): Deficiency Vitamin D Continue vitamin D supplement * Assessment & Plan Note - Jarred Yepez APRN, C.N.P. - 12/18/2023 1:24 PM CDTAssociated Problem(s): Crohns Disease Unspecified Without Complications (HCC) Continue current ostomy cares * Assessment & Plan Note - Jarred Yepez APRN, C.N.P. - 12/18/2023 1:24 PM CDTAssociated Problem(s): Thrombosis Deep Vein Acute Lower Leg Left (HCC) Noted on 12/01/2023 in left posterior vein He completed 7 days of 10 mg of apixaban twice a day Will continue with 5 mg of apixaban twice a day for three months Appears to be a med error in that he didn't receive apixaban from 12/10 through 12/18/23 * Assessment & Plan Note - Jarred Yepez APRN, C.N.P. - 12/18/2023 1:20 PM CDTAssociated Problem(s): Supraventricular Tachycardia, Unspecified (HCC) Had history of ablation * Assessment & Plan Note - Jarred Yepez APRN, C.N.P. - 12/18/2023 1:20 PM CDTAssociated Problem(s): Atrial Fibrillation Paroxysmal (HCC) History of ablation and had watchman procedure * Addendum Note - Jarred Yepez APRN, C.N.P. 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 [address] [place] [phone] PCP - General Family Medicine 11/20/23 12/19/23 documented as of this encounter
--- OUTSIDE RECORDS SUMMARY | 2023-12-24 13:20 | XMS_ITS | Encounter Summary ---
Author Organization [facility] Address [address] [place] [address] Care Team Providers Care Sap Hana Developer Name Role Phone Christina Vargas APRN, C.N.P. Primary Care Provi khurram Encounter Details Date Type Department Care Team (Late st Contact Info) Description 12/02/2023 Clinical Communication Senior Services in [place] [address] [place] [address] Christina Vargas APRN, C.N.P. [address] [place] [address] Social History Tobacco Use Types Packs/Day Years [...] Encounter - Christina Vargas APRN, C.N.P. - 12/02/2023 1:49 PM CDT Called Beena Lowell to check in on patient today. He is more tired and sleepy today. Nursing staff noted during dressing change of abdominal wound there was possibly stool from fistula in his abdominal wound. Have elected to have patient seen in ED for further labs, imaging and evaluation. documented in this encounter Plan of Treatment Not on file documented as of this encounter Visit Diagnoses Not on filedocumented in this encounter Care Teams Sap Hana Developer Relationship Specialty Start Date End Date Christina Vargas APRN, C.N.P. [address] [place] [phone] PCP - General Family Medicine 11/20/23 12/19/23 documented as of this encounter
--- OUTSIDE RECORDS SUMMARY | 2023-12-24 13:20 | XMS_ITS | Encounter Summary ---
Author Organization [facility] Address [address] [place] [address] Care Team Providers Care Catering Staff Member Name Role Phone Christina Vargas APRN C.N.PAnthony Primary Care Provi khurram Encounter Details Date Type Department Care Team (Latest Contact Info) Description 12/01/2023 2:50 PM CDT - 12/01/2023 11:59 PM CDT Hospital Encounter Department of Laboratory Medicine in [place], [place] [address] [place] [phone] Ethan Orozco M.D. [address] [place] [phone] Chronic Kidney Disease Discharge Disposition: Home or [...] 10 mg by mouth at bedtime. 12/20/19 sodium citrate-citric acid (Cytra-2) 500-334 mg/5 mL solution Take 30 mL by mouth 2 (two) times a day. 01/12/2023 12/02/19 vitamin A,C,A-vjmyhz-zuvpff ls 300 mcg (1,000 Unit)-200 mg-60 Unit-2 mg tablet Take 1 tablet by mouth daily. 12/02/19 documented as of this encounter Plan of Treatment Not on file documented as of this encounter Procedures Procedure Name Priority Date/Time Associated Diagnosis Comments BASIC METABOLIC PANEL, S/P Routine 12/01/2023 3:30 PM CDT Chronic Kidney Disease documented in this encounter Results * (ABNORMAL) Basic Metabolic Panel (12/01/2023 3:30 PM CDT) Potassium, P 3.3(L) 3.6 - 5.2 mmol/L 12/01/2023 4:45 PM CDT NPRG Sodium, P 138 135 - 145 mmol/L 12/01/2023 4:45 PM CDT NPRG Chloride, P 103 98 - 107 mmol/L 12/01/2023 4:45 PM CDT NPRG Bicarbonate, P 18(L) 22 - 29 mmol/L 12/01/2023 4:45 PM CDT NPRG Anion Gap, P 17(H) 7 - 15 12/01/2023 4:45 PM CDT NPRG BUN (Blood Urea Nitrogen), P 35(H) 8 - 24 mg/dL 12/01/2023 4:45 PM CDT NPRG Creatinine 2.30(H) 0.74 - 1.35 mg/dL 12/01/2023 4:45 PM CDT NPRG Estimated GFR (eGFR) 28(L) >=60 mL/min/BSA 12/01/2023 4:45 PM CDT NPRG Comment: Estimated GFR calculated using the 2020 CKD_EPI creatinine equation. Calcium, Total, P 7.4(L) 8.8 - 10.2 mg/dL 12/01/2023 4:45 PM CDT NPRG Glucose, P 101 70 - 140 mg/dL 12/01/2023 4:45 PM CDT NPRG Blood (Blood, Venous) 12/01/2023 3:30 PM CDT 12/01/2023 4:25 PM CDT us Ethan Orozco M.D. LAB BLOOD ADD-ON Final Result [facility] [address] [place] [address], [facility] NPRG [facility] [address] [place] [address] documented in this encounter Visit Diagnoses Diagnosis Chronic Kidney Disease documented in this encounter Care Teams Catering Staff Member Relationship Specialty Start Date End Date Christina Vargas APRN, C.N.P. [address] [place] [phone] PCP - General Family Medicine 11/20/23 12/19/23 documented as of this encounter
--- OUTSIDE RECORDS SUMMARY | 2023-12-24 13:20 | XMS_ITS | Encounter Summary ---
Author Organization [facility] Address [address] [place] [address] Care Team Providers Care Page Technician Name Role Phone Christina Vargas APRN, C.N.P. Primary Care Provi khurram Encounter Details Date Type Department Care Team (Latest Contact Info) Description 11/28/2023 12:33 AM CDT - 11/28/2023 11:59 PM CDT Hospital Encounter Department of Laboratory Medicine in [place], [place] [address] [place] [phone] Christina Vargas APRN, C.N.P. 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 03/03/2022 ciprofloxacin (Cipro) 500 mg tablet Take 500 mg by mouth 2 (two) times a day before morning and evening meals. 12/20/19 allopurinoL (Zyloprim) 300 mg tablet Take 1 tablet by mouth daily. 05/30/2022 12/20/19 amoxicillin-pot clavulanate (Augmentin) 875-125 mg per tablet Take 1 tablet by mouth 2 (two) times a day with meals. Hold for 5 days starting 11/30/23 11/16/2023 12/18/19 finasteride (Proscar) 5 mg tablet Take 1 tablet by mouth every morning. 06/02/2023 12/20/19 levothyroxine 175 mcg tablet Take 175 mcg by mouth daily before morning meal. 11/20/2023 12/20/19 midodrine (ProAmatine) 5 mg tablet Take 5 mg by mouth 3 (three) times a day. Per [facility] EHR: Give 1 tablet by [...] needed for vomiting or nausea. 11/16/2023 12/18/19 rosuvastatin (Crestor) 10 mg tablet Take 10 mg by mouth at bedtime. 12/20/19 sodium citrate-citric acid (Cytra-2) 500-334 mg/5 mL solution Take 30 mL by mouth 2 (two) times a day. 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 LAB BLOOD ADD-ON Fi nal Result [facility] [address] [place] [address], [facility] NPRG [facility] [address] [place] [address] * (ABNORMAL) Basic Metabolic Panel (11/28/2023 7:05 AM CDT) Potassium, P 3.3(L) 3.6 - 5.2 mmol/L 11/28/2023 8:23 AM CDT NPRG Sodium, P 144 135 - 145 mmol/L 11/28/2023 8:23 AM CDT NPRG Chloride, P 108(H) 98 - 107 mmol/L 11/28/2023 8:23 AM CDT NPRG Bicarbonate, P 20(L) 22 - 29 mmol/L 11/28/2023 8:23 AM CDT NPRG Anion Gap, P 16(H) 7 - 15 11/28/2023 8:23 AM CDT NPRG BUN (Blood Urea Nitrogen), P 23 8 - 24 mg/dL 11/28/2023 8:23 AM CDT NPRG Creatinine 2.55(H) 0.74 - 1.35 mg/dL 11/28/2023 8:23 AM CDT NPRG Estimated GFR (eGFR) 25(L) >=60 mL/min/BSA 11/28/2023 8:23 AM CDT NPRG Comment: Estimated GFR calculated using the 2020 CKD_EPI creatinine equation. Calcium, Total, P 8.1(L) 8.8 - 10.2 mg/dL 11/28/2023 8:23 AM CDT NPRG Glucose, P 87 70 - 140 mg/dL 11/28/2023 8:23 AM CDT NPRG Blood (Blood, Venous) 11/28/2023 7:05 AM CDT 11/28/2023 7:49 AM CDT Christina Vargas APRN, C.N.P. 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 [address] [place] [phone] PCP - General Family Medicine 11/20/23 12/19/23 documented as of this encounter
--- OUTSIDE RECORDS SUMMARY | 2023-12-24 13:20 | XMS_ITS | Encounter Summary ---
Author Organization [facility] Address [address] [place] [address] Care Team Providers Care Reporting Developer Name Role Phone Christina Vargas APRN, C.N.P. Primary Care Provi khurram Encounter Details Date Type Department Care Team (Latest Contact Info) Description 12/15/2023 2:40 PM CDT - 12/15/2023 11:59 PM CDT Hospital Encounter Department of Laboratory Medicine in [place], [place] [address] [place] [phone] Christina Vargas APRN, C.N.P. [address] [place] [phone] Hypokalemia Discharge Disposition: Home or Self Care Social [...] (two) times a day with meals. 03/03/2022 amino acids-protein hydrolysate (Provide Gold) 15-60 gram-kcal/30 mL liquid Take 30 mL by mouth daily. sodium citrate-citric acid (Cytra-2) 500-334 mg/5 mL solution Take 30 mL by mouth 2 (two) times a day. vitamin A,C,M-nucuuy-jtrfxt ls 300 mcg (1,000 Unit)-200 mg-60 Unit-2 mg tablet Take 1 tablet by mouth daily. ciprofloxacin (Cipro) 500 mg tablet Take 500 [...] Acute Pain Exception. 20 tablet 12/01/2023 12/18/19 rosuvastatin (Crestor) 10 mg tablet Take 10 mg by mouth at bedtime. 12/20/19 potassium chloride (Jessica CieL) 20 mEq/15 mL liquid Take 15 mL (20 mEq total) by mouth 3 (three) times a day with meals. Must dilute with at least 120 mL of cold water or liquid prior to administration. 12/12/2023 12/18/19 documented as of this encounter Plan of Treatment Not on file documented as of this encounter Procedures Procedure Name Priority Date/Time Associated Diagnosis Comments BASIC METABOLIC PANEL, S/P Routine 12/15/2023 1:45 PM CDT Hypokalemia documented in this encounter Results * (ABNORMAL) Basic Metabolic Panel (12/15/2023 1:45 PM CDT) Potassium, P 3.4(L) 3.6 - [...] 1:45 PM CDT 12/15/2023 3:08 PM CDT Christina Vargas APRN, C.N.P. LAB BLOOD ADD-ON Fi nal Result [facility] [address] [place] [address], [facility] NPRG [facility] [address] [place] [address] documented in this encounter Visit Diagnoses Diagnosis Hypokalemia documented in this encounter Care Teams Reporting Developer Relationship Specialty Start Date End Date Christina Vargas APRN, C.N.P. [address] [place] [address] PCP - General Family Medicine 11/20/23 12/19/23 documented as of this encounter
--- OUTSIDE RECORDS SUMMARY | 2023-12-24 13:20 | XMS_ITS | Encounter Summary ---
Author Organization [facility] Address [address] [place] [address] Care Team Providers Care Geodetic Engineer Name Role Phone Zeenat Vargasreena Main APRN, C.N.P. Primary Care Provi khurram Encounter Details Date Type Department Care Team (Late st Contact Info) Description 11/30/2023 Clinical Communication Senior Services in [address] [place] [phone] Andrew Coleman APRN, C.N.P. [address] [place] [address] [place] [phone] Social History Tobacco Use Types Packs/Day Years [...] encounter Miscellaneous Notes * Telephone Encounter - Andrew Coleman APRN, C.N.P. - 11/30/2023 7:14 AM CDT Nurse phones with patient c/o pain and lump behind left knee. Phone call taken while this provider was in transit to the clinic. Vital signs 116/53, temp 97.1??, heart rate 80, respirations 16, O2 sat 90 % on room air. When asked the nurse states the patient has started complaining of pain yesterday. When asked regarding medical history specifically atrial fibrillation the nurse tells this providerthat the patient has paroxysmal atrial fibrillation. When this provider asked whether the patient was anticoagulated the nurse states ???no. The nurse states the patient is not having any chest pain, shortness breath, hemoptysis or dyspnea. I ordered an ultrasound of the left leg via dispatch Health Nurse to notify on-call provider if any changes including chest pain, shortness a breath, palpitations, worsening leg pain or swelling noted. I will actually be at this fci later in the morning. As the primary PCP has a day off, I will see the patient today. Please paste on my schedule. documented in this encounter Plan of Treatment Not on file documented as of this encounter Visit Diagnoses Not on filedocumented in this encounter Care Teams Geodetic Engineer Relationship Specialty Start Date End Date Christina Vargas APRN, C.N.P. [address] [place] [phone] PCP - General Family Medicine 11/20/23 12/19/23 documented as of this encounter
--- OUTSIDE RECORDS SUMMARY | 2023-12-24 13:20 | XMS_ITS | Encounter Summary ---
Author Organization [facility] Address [address] [place] [address] Care Team Providers Care Frame Table Operator Helper Name Role Phone Jarred Vargas APRN, C.N.P. Primary Care Provi khurram Encounter Details Date Type Department Care Team (Late st Contact Info) Description 12/08/2023 2:00 PM CDT External Outreach Senior Services [place] [phone] Jarred Vargas APRN, C.N.P. [address] [place] [address] Effusion Knee Left (Primary Dx); Thrombosis Deep Vein Acute Lower Leg Left (HCC) Social History Tobacco Use Types Packs/Day [...] Sign Reading Time Taken Comments Blood Pressure 121/57 12/08/2023 11:32 AM CDT Pulse 82 12/08/2023 11:32 AM CDT Temperature 36.6 ??C (97.8 ??F) 12/08/2023 1 1:32 AM CDT Respiratory Rate 18 12/08/2023 11:3 2 AM CDT Oxygen Saturation 98% 12/08/2023 11: 32 AM CDT Inhaled Oxygen Concentration - - Weight 66.6 kg (146 lb 12.8 oz) 024 11:32 AM CDT Height - - Body Mass Index - - documented in this encounter Progress Notes * Jarred Vargas APRN, C.N.P. - 12/08/2023 2:00 PM CDT CHIEF COMPLAINT / REASON FOR VISIT The resident is being seen at [place], [place] for Acute visit Visit Type: In Person Face-to- Face visit SUBJECTIVE HISTORY OF PRESENT ILLNESS Obtained from Patient and Nursing: SNF VISIT for New Admission visit New Admission to the facility. Recent Hospital admission: Yes,This resident was recently hospitalized at: Outside Hospital [facility] Date of hospitalization: Admission Date: 10/31/2023 Discharge [...] 2 irrigate wound with saline or wound trolley cleaner. 3 probe wound with q-tip to assess undermining/tunneling.4 loosely pack wound with Kerlix roll gauze lightly dampened with saline, take care to pack into areas of undermining. 5 Cover with dry gauze or ABD. 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 Nursing asked provider to see patient today, they noticed some increased swelling in his left knee.Patient does report some increased pain and swelling in his knee. There is a fluid shift when his patella is manipulated. Known DVT, but states the swelling is worse today in the knee. No falls or injuries. He has not had a fever, there is no redness warmth for open areas. No signs of cellulitis. I personally reviewed the most recent following items: clinical notes, lab results, imaging reports The following medical problems were actively reviewed (including updating overview sections as necessary) and addressed as part of today's visit: Diagnosis Overview 1. Thrombosis Deep Vein Acute Lower Leg Left (HCC) Left posterior vein DVT noted 12/01/23 CODE STATUS: DNR/DNI REVIEW OF SYSTEMS Complete review of systems was performed, as allowable by patient's cognitive status, and incorporating collateral history if applicable. Relevant positives are noted elsewhere in this note, otherwise negative. OBJECTIVE Vital signs provided by facility: BP 121/57 Pulse 82 Temp 36.6 ??C Resp 18 Wt 66.6 kg SpO2 98% PHYSICAL EXAM Constitutional General: He is not in acute distress. Appearance: Normal appearance. He is not ill-appearing. HENT Nose: Nose normal. No congestion or rhinorrhea. Eyes Conjunctiva/sclera: Conjunctivae normal. Cardiovascular Pulses: Dorsalis pedis pulses are 2+ on the left side. Pulmonary Effort: Pulmonary effort is normal. No respiratory distress. Abdominal Comments: He has ileostomy Musculoskeletal General: Swelling (left knee swelling- fluid shift present with patellar manipulation) present. Right lower leg: No edema. Left lower leg: No edema. Comments: He does have decreased range of motion due to pain. No redness or warmths Skin Coloration: Skin is pale. Comments: Neurological Mental Status: He is alert. Mental [...] and present management will be continued. #1 Effusion Knee Left #2 Thrombosis Deep Vein Acute Lower Leg Left (HCC) Patient refuses any further assessment or treatment. He does not want to be seen for 2 days he says. Did offer for him to see Orthopedics. He says he will see how he feels next week. There is no warmth, redness, no fever. He does have acute pain. Did recommend joint aspiration and he declines. He is requesting prednisone, but did explain that he is high risk for GI bleed with prednisone. Did offer for him to go to ED and he declines stating the last time he was there he went for no reason. He declines compression to the knee. He may use as needed acetaminophen and as needed oxycodone for paincontrol. Nursing to monitor closely. Patient has capacity to make his own decision. PATIENT EDUCATION Ready to learn, no apparent [...] patient, family, and/or facility staff. Total time 30 minutes. F/U with Dr Haseeb Monk MondayDec 12 1:00pm [facility] [address] [place] [address] documented in this encounter Miscellaneous Notes * Addendum Note - Jarred Vargas APRN, C.N.P. - 12/08/2023 2:00 PM CDT Addended by: JARRED VARGAS on: 12/12/2023 11:08 AM Modules accepted: Orders documented in this encounter Plan of Treatment Not on file documented as of this encounter Visit Diagnoses Diagnosis Effusion Knee Left- Primary Thrombosis Deep Vein Acute Lower Leg Left (HCC) documented in this encounter Care Teams Frame Table Operator Helper Relationship Specialty Start Date End Date Jarred Vargas APRN, C.N.P. [address] [place] [phone] PCP - General Family Medicine 11/20/23 12/19/23 documented as of this encounter
--- OUTSIDE RECORDS SUMMARY | 2023-12-24 13:20 | XMS_ITS | Encounter Summary ---
Author Organization [facility] Address [address] [place] [address] Care Team Providers Care Production Support Consultant Name Role Phone Christina Vargas APRN, C.N.P. Primary Care Provi khurram Reason for Visit * Reason Onset Date Comments SNF Nurse Intake 12/19/2023 Encounter Details Date Type Department Care Team (Latest Contact Info) Description 12/19/2023 Clinical Communication Department of Family Medicine in [place] [address] [place] [phone] Cindy Au R.N. SNF Nurse Intake Social History Tobacco Use Types Packs/Day Years Used Date Smoking Tobacco: Former Cigarettes Q uit: 1989 Smokeless Tobacco: Never Nutrition Answer Date Recorded Nutrition: EVOO Fat Source Unknown 07/08 Nutrition: Servings of Fruits/Vegetables per Day Not on file 07/08/2020 Dental Answer Date Recorded Dental: Regular Dentist Unknown 11/21/19 24 Sex and Gender Information Value Date Recorded Sex Assigned at Not on file Legal Sex Male 8:25 AM CDT Gender Identity Not on file Sexual Orientation Not on file documented as of this encounter Miscellaneous Notes * Telephone Encounter - Christina Vargas APRN, C.N.P. - 12/20/2023 2:03 PM CDT Spoke with Lori, assistant community director, she has been following wound. Saw wound today before patient left. No noted pus, did have normal amount of drainage, no signs of active infection. Patient has CT scan today to assess abscess further. * Telephone Encounter - Cindy Au R.N. - 12/19/2023 2:44 PM CDT SNF called about abdominal wound, Increased drainage, puss, yellowish brown color, thick, has been changed 3 to 4 times during the night and today, Patient stated it ran down his legs too. Vital signs T 97.3 P 89 R 20 BP 105/56 Wound from abd abscess, around his ostomy. Skin was around wound looks good no new breakdown. Nurse Alonso called documented in this encounter Plan of Treatment Not on file documented as of this encounter Visit Diagnoses Not on filedocumented in this encounter Care Teams Production Support Consultant Relationship Specialty Start Date End Date Christina Vargas APRN, C.N.P. [address] [place] [phone] PCP - General Family Medicine 11/20/23 12/19/23 documented as of this encounter
--- OUTSIDE RECORDS SUMMARY | 2023-12-24 13:20 | XMS_ITS | Encounter Summary ---
Author Organization [facility] Address [address] [place] [address] Care Team Providers Care Improvement Auditor Name Role Phone Christina Vargas APRN, C.N.P. Primary Care Provi khurram Reason for Visit * Reason Comments Med Refill Encounter Details Date Type Department Care Team (Late st Contact Info) Description 11/28/2023 Refill Senior Services in [place] [address] [place] [address] Christina Vargas APRN, C.N.P. [address] [place] [phone] Med Refill Social History Tobacco Use Types Packs/Day Years [...] encounter Miscellaneous Notes * Telephone Encounter - Emilie Villareal R.N. - 11/28/2023 11:03 AM CDT Received call from Kimberly, nurse with [facility] where pt currently resides Kimberly states that pt needs refill of Augmentin. Radio Maintainer asked Kimberly how long pt is to be on Augmentin and she was not sure. Radio Maintainer advised this be looked into. Kimberly states that they do have enough tablets available until PCP is back in office sot his can beaddressed for refill tomorrow, 11/29/23 documented in this encounter Plan of Treatment Not on file documented as of this encounter Visit Diagnoses Not on filedocumented in this encounter Care Teams Improvement Auditor Relationship Specialty Start Date End Date Christina Vargas APRN, C.N.P. [address] [place] [phone] PCP - General Family Medicine 11/20/23 12/19/23 documented as of this encounter
--- OUTSIDE RECORDS SUMMARY | 2023-12-24 13:20 | XMS_ITS | Encounter Summary ---
Author Organization [facility] Address [address] [place] [address] Care Team Providers Care Gatekeeper Name Role Phone AliciaZeenat daleChristinareena Main APRN, C.N.P. Primary Care Provi khurram Encounter Details Date Type Department Care Team (Latest Contact Info) Description 11/30/2023 7:30 AM CDT External Outreach Senior Services in [address] [place] [phone] Andrew Coleman APRN, C.N.P. [address] [place] [address] [place] [phone] Pain Lower Leg Left (Primary Dx); Atrial [...] Sign Reading Time Taken Comments Blood Pressure 116/53 11/30/2023 9:57 AM CDT vs per SNF EHR ' Pulse 80 11/30/2023 9:57 AM CDT Temperature 36.2 ??C (97.1 ??F) 11/30/2023 9 :57 AM CDT Respiratory Rate 16 11/30/2023 9:57 AM CDT Oxygen Saturation 99% 11/30/2023 9:5 7 AM CDT RA Inhaled Oxygen Concentration - - Weight 66.2 kg (146 lb) 11/30/2023 9:5 7 AM CDT Height - - Body Mass Index - - documented in this encounter Progress Notes * Andrew Coleman APRN, C.N.P. - 11/30/2023 7:30 AM CDT CHIEF COMPLAINT / REASON FOR VISIT The resident is being seen at [place], [place] for Acute visit Visit Type: In Person Face-to- Face visit SUBJECTIVE HISTORY OF PRESENT ILLNESS Long Nugent is a 83 y.o. male with a medical history significant for Crohn disease (s/p end-ileostomy), CKD stage IV, atrial fibrillation (s/p Watchman and ablation), HTN, hypothyroidism (s/p thyroidectomy 2022). Long was recently hospitalized 10/31/2023 through 11/20/[address] 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 I am seeing Long today due to noted pain to the left lower calf. I was phoned earlier today by his nurse reporting left calf pain. He has a history of atrial fibrillation and is not anticoagulated secondary to GI hemorrhage. He has a Watchman. He denies chest pain, SOB, hemoptysis or dyspnea. He has been afebrile however he is on Augmentin and ciprofloxacin. I personally reviewed the most recent following items: clinical notes, lab results, imaging reports, other test results or reports Most recent labs reviewed: Most recent CBC with diff The following medical problems were actively reviewed (including updating overview sections as necessary) and addressed as part of today's visit: Diagnosis Overview 1. Atrial Fibrillation Paroxysmal (HCC) CODE STATUS: DNR/DNI REVIEW OF SYSTEMS Complete review of systems was performed, as allowable by patient's cognitive status, and incorporating collateral history if applicable. Relevant positives are noted elsewhere in this note, otherwise negative. OBJECTIVE Vital signs provided by facility: BP (!) 116/53 Comment: vs per SNF EHR ' Pulse 80 Temp 36.2 ??C Resp 16 Wt 66.2 kg SpO2 99% Comment: RA PHYSICAL EXAM Constitutional General: He is not in acute distress. HENT Nose: Nose normal. Mouth/Throat: Mouth: Mucous membranes are moist. Pharynx: Oropharynx is clear. Cardiovascular Rate and Rhythm: Normal rate and regular rhythm. Heart sounds: Normal heart sounds. Pulmonary Effort: Pulmonary effort is normal. Breath sounds: Normal breath sounds. Musculoskeletal Comments: Positive Marleny's sign Left lower exremity Skin General: Skin is warm and dry. Comments: No noted erythema or swelling the the left lower extremity. Neurological Mental Status: He is alert and oriented to person, place, and time. Psychiatric Mood and Affect: Mood normal. Behavior: Behavior normal. ASSESSMENT / PLAN Full background details regarding problems addressed at today's visit can be found in the HPI. Pertinent changes to the care plan based on today's evaluation are explicitly discussed below, otherwiselisted problems are stable and present management will be continued. #1 Pain Lower Leg Left #2 Atrial Fibrillation Paroxysmal (HCC) Note watchman device Ultrasound ordered this morning and pending at time of visit. and DON present at visit, all questions answered. PATIENT EDUCATION Ready to learn, no apparent learning barriers were identified; learning preferences include listening. Explained diagnosis and treatment plan; patient/child/caregiver expressed understanding of the content. Billing based on: Medical decision-making. See clinical note for justification. Any additional supporting information is noted below. documented in this encounter Plan of Treatment Not on file documented as of this encounter Visit Diagnoses Diagnosis Pain Lower Leg Left- Primary Atrial Fibrillation Paroxysmal (HCC) documented in this encounter Care Teams Gatekeeper Relationship Specialty Start Date End Date Christina Vargas APRN, C.N.P. [address] [place] [phone] PCP - General Family Medicine 11/20/23 12/19/23 documented as of this encounter
--- OUTSIDE RECORDS SUMMARY | 2023-12-24 13:20 | XMS_ITS ---
Author Organization [facility] Address [address] [place] [address] Care Team Providers Care Assurance Analyst Name Role Phone Unavailable Unavailable Unavailable Surgery Details Not on file Complications Check Surgery Details section. Procedure Estimated Blood Loss Check Surgery Details section. Procedure Findings Check Surgery Details section. Procedure Specimens Taken Check Surgery Details section.
--- OUTSIDE RECORDS SUMMARY | 2023-12-24 13:20 | XMS_ITS | Encounter Summary ---
Author Organization [facility] Address [address] [place] [address] Care Team Providers Care Vice President Corporate Communications Name Role Phone Christina Vargas APRN, C.N.P. Primary Care Provi khurram Encounter Details Date Type Department Care Team (Late st Contact Info) Description 11/29/2023 Orders Only Senior Services in [place] [address] [place] [phone] Christina Vargas APRN, C.N.P. [address] [place] [address] Social History Tobacco Use Types [...] on filedocumented in this encounter Care Teams Vice President Corporate Communications Relationship Specialty Start Date End Date Christina Vargas APRN, C.N.P. [address] [place] [address] PCP - General Family Medicine 11/20/23 12/19/23 documented as of this encounter
--- OUTSIDE RECORDS SUMMARY | 2023-12-24 13:20 | XMS_ITS | Encounter Summary ---
Author Organization [facility] Address [address] [place] [address] Care Team Providers Care International Marketing Manager Name Role Phone Christina Vargas APRN, C.N.P. Primary Care Provi khurram Encounter Details Date Type Department Care Team (Latest Contact Info) Description 12/07/2023 8:30 AM CDT - 12/07/2023 11:59 PM CDT Hospital Encounter Department of Laboratory Medicine in [place], [place] [address] [place] [phone] Christina Vargas APRN, C.N.P. [address] [place] [phone] Anemia Discharge Disposition: Home or Self Care Social [...] day before morning and evening meals. 12/20/19 24 allopurinoL (Zyloprim) 300 mg tablet Take 1 [...] day. Med Name: Bicitra 30 mL 12/15/19 multivitamin (Multiple Vitamins) tablet Take 1 tablet by mouth daily. Occuvite 12/15/19 documented as of this encounter Plan of Treatment Not on file documented as of this encounter Procedures Procedure Name Priority Date/Time Associated Diagnosis Comments CBC WITH DIFFERENTIAL, B Routine 12/07/2023 1:58 PM CDT Anemia documented in this encounter Results * (ABNORMAL) CBC with Differential, Blood (12/07/2023 1:58 PM CDT) Hemoglobin 9.8(L) 13.2 - 16.6 g/dL 12/07/2023 2:42 PM CDT NPRG Hematocrit 30.2(L) 38.3 - 48.6 % 12/07/2023 2:42 PM CDT NPRG Erythrocytes 3.08(L) 4.35 - 5.65 x10(12)/L 12/07/2023 2:42 PM CDT NPRG MCV 98.1(H) 78.2 - 97.9 fL 12/07/2023 2:42 PM CDT NPRG RBC Distrib Width 19.0(H) 11.8 - 14.5 % 12/07/2023 2:42 PM CDT NPRG Platelet Count 258 135 - 317 x10(9)/L 12/07/2023 2:42 PM CDT NPRG Leukocytes 6.9 3.4 - 9.6 x10(9)/L 12/07/2023 2:42 PM CDT NPRG Neutrophils 5.66 1.56 - 6.45 x10(9)/L 12/07/2023 2:42 PM CDT NPRG Lymphocytes 0.64(L) 0.95 - 3.07 x10(9)/L 12/07/2023 2:42 PM CDT NPRG Monocytes 0.41 0.26 - 0.81 x10(9)/L 12/07/2023 2:42 PM CDT NPRG Eosinophils 0.11 0.03 - 0.48 x10(9)/L 12/07/2023 2:42 PM CDT NPRG Basophils 0.04 0.01 - 0.08 x10(9)/L 12/07/2023 2:42 PM CDT NPRG Blood (Blood, Venous) 12/07/2023 1:58 PM CDT 12/07/2023 2:32 PM CDT Christina Vargas APRN, C.N.P. LAB BLOOD ADD-ON Fi nal Result [facility] [address] [place] [address], [facility] NPRG [facility] [place] [address] [place] [address] documented in this encounter Visit Diagnoses Diagnosis Anemia documented in this encounter Care Teams International Marketing Manager Relationship Specialty Start Date End Date Christian Vargas APRN, C.N.P. [address] [place] [phone] PCP - General Family Medicine 11/20/23 12/19/23 documented as of this encounter
--- OUTSIDE RECORDS SUMMARY | 2023-12-24 13:20 | XMS_ITS | Referral Summary ---
Author Organization [facility] Address [address] [place] [address] Care Team Providers Care Ski Patrol Officer Name Role Phone Unavailable Primary Care Provider Unavailabl e Source Comments Patient records contain information from all sites at [facility]. For routine questions regarding patient records, call [phone] during business hours, M-F 8:00 AM - 5:00 PM Central Time. Record requests for emergency care only can be directed to [phone] at any time.[facility] Encounters Date Type Department Care Team Description 12/19/2023 Clinical Communication Department of Family Medicine in [place] [address] [place] [address] Cindy Au R.N. SNF Nurse Intake 12/18/2023 9:30 AM CDT External Outreach Senior Services in [place] [address] [place] [address] Christina Vargas, TELEVISION RECEIVER ANALYZER, C.N.P. Atrial Fibrillation Paroxysmal (HCC) (Primary Dx); [...] Hospital Encounter Department of Laboratory Medicine in [place], [place] [address] [place] [address] Christina Vargas APRN, C.N.P. Hypokalemia Discharge Disposition: Home or Self Care 12/12/2023 Orders Only Senior Services in [place], [place] [address] [place] [address] Christina Vargas APRN, C.N.P. 12/12/2023 12:41 AM CDT - 12/12/2023 11:59 PM CDT Hospital Encounter Department of Laboratory Medicine in [place] [address] [place] [address] Christina Vargas APRN, C.N.P. Anemia; Chronic Kidney Disease Discharge Disposition: Home or Self Care 12/08/2023 2:00 PM CDT External Outreach Senior Services in [place] [address] [place] [phone] Christina Vargas APRN, C.N.P. Effusion Knee Left (Primary Dx); Thrombosis Deep Vein Acute Lower Leg Left (HCC) 12/07/2023 8:30 AM CDT - 12/07/2023 11:59 PM CDT Hospital Encounter Department of Laboratory Medicine in [place] [address] [place] [address] Christina Vargas APRN, C.N.P. Anemia Discharge Disposition: Home or Self Care 12/07/2023 9:00 AM CDT External Outreach Senior Services in [place] [address] [place] [phone] Merissa Reddy D.O. Abscess Abdominal Wall (Primary [...] Without Bleeding; Chondrocalcinosis; Osteoarthritis; Deficiency Vitamin B12 12/06/2023 Clinical Communication Senior Services in [place] [address] [place] [phone] Emilie Villareal R.N. [facility] Nurse Intake 12/04/2023 Clinical Communication Senior Services [address] [place] [phone] Diana Morris APRN, C.N.P., M.S.N. 12/04/2023 8:30 AM CDT - 12/04/2023 11:59 PM CDT Hospital Encounter Department of Laboratory Medicine in [place] [address] [place] [address] Christina Vargas APRN, C.N.P. Chronic Kidney Disease Discharge Disposition: Home or Self Care 12/02/2023 2:40 PM CDT - 12/02/2023 6:06 PM CDT Emergency [place] [facility] [address] [place] [address] Garry Pettit III, M.D. Other Iron Deficiency Anemias (Primary Dx); Chronic Kidney Disease Stage 4 Glomerular Filtration Rate 15-29 (HCC) Discharge Disposition: Home or Self Care 12/02/2023 Clinical Communication Senior Services in [place] [address] [place] [phone] Christina Vargas APRN, C.N.P. 12/01/2023 2:50 PM CDT - 12/01/2023 11:59 PM CDT Hospital Encounter Department of Laboratory Medicine in [place] [address] [place] [address] Ethan Orozco M.D. Chronic Kidney Disease Discharge Disposition: Home or Self Care 12/01/2023 1:30 PM CDT External Outreach Senior Services in [place] [address] [place] [phone] Christina Vargas APRN, C.N.P. Thrombosis Deep Vein Acute Lower Leg Left (HCC) (Primary Dx); Gastro-Esophageal Reflux Disease With Esophagitis Without Bleeding; Acute Cystitis Without Hematuria; Chronic Kidney Disease Stage 4 Glomerular Filtration Rate 15-29 (HCC) 11/30/2023 7:30 AM CDT External Outreach Senior Services in [address] [place] [phone] Andrew Coleman APRN, C.N.P. Pain Lower Leg Left (Primary Dx); Atrial Fibrillation Paroxysmal (HCC) Discharge Disposition: Home or Self Care 11/30/2023 Clinical Communication Senior Services in [address] [place] [phone] Andrew Coleman APRN, C.N.P. 11/29/2023 Orders Only Senior Services in [place] [address] [place] [phone] Christina Vargas APRN, C.N.P. 11/29/2023 Orders Only Senior Services in [place] [address] [place] [address] Christina Vargas APRN, C.N.P. 11/28/2023 Refill Senior Services in [place] [address] [place] [phone] Christina Vargas APRN, C.N.P. Med Refill 11/28/2023 12:33 AM CDT - 11/28/2023 11:59 PM CDT Hospital Encounter Department of Laboratory Medicine in [place], [place] [address] [place] [address] Christina Vargas APRN, C.N.P. Chronic Kidney Disease Stage 4 Glomerular Filtration Rate 15-29 (HCC); Abscess Abdominal Wall Discharge Disposition: Home or Self Care 11/27/2023 Clinical Communication Senior Services in [address] [phone] Emilie Villareal R.N. SNF Nurse Intake 11/25/2023 3:48 PM CDT - 11/25/2023 11:59 PM CDT Hospital Encounter Department of Laboratory Medicine in [address] [phone] Christina Vargas APRN, C.N.P. Urinary Tract Infection Site Not Specified Discharge Disposition: Home or Self Care 11/24/2023 3:00 PM CDT External Outreach Senior Services in [place] [address] [place] [phone] Christina Vargas APRN, C.N.P. Chondrocalcinosis (Primary Dx); [...] Hernia Without Obstruction Or Gangrene; Ileostomy Status ([facility]); Benign Prostatic Hyperplasia Without Obstruction; Gastro-Esophageal Reflux Disease With Esophagitis Without Bleeding; Hypertensive Chronic Kidney Disease With Stage 1 Through Stage 4 Chronic Kidney Disease, Or Unspecified Chronic Kidney Disease 11/23/2023 1:17 PM CDT - 11/23/2023 11:59 PM CDT Hospital Encounter Department of Laboratory Medicine in [address] [phone] Christina Vargas APRN, C.N.P. Chronic Kidney Disease Stage 4 Glomerular Filtration Rate 15-29 (HCC) Discharge Disposition: Home or Self Care from Last 3 Months Allergies Active Allergy Reactions Criticality Noted Date Comments Aspirin GI bleeding Low 04/12/2019 Atorvastatin GI intolerance,Other (see comments) Low 11/17/2006 myalgia Codeine GI intolerance Low 05/09/2006 constipation Furosemide Palpitations High 02/03/2012 Lasix caused palpitations in 2012. Simvastatin Myalgia,Other (see comments) Medium 03/19/2009 Medications calcitRIOL (RocaltroL) 0.25 mcg capsule Take 1 capsule by mouth daily. Active Phospha 250 Neutral 250 mg tablet Take 1 tablet by mouth 2 (two) times a day with meals. Active nitroglycerin (Nitrostat) 0.[address] 0.4 mg under the tongue every 5 (five) minutes as needed. Active magnesium oxide (Mag-Ox) 500 mg magnesium tablet tablet Take 1,000 mg by mouth 2 (two) times a day. Active cyanocobalamin (Vitamin B-12) 1,000 mcg tablet Take 1,000 mcg by mouth daily. 009 Active bismuth subsalicylate (Pepto-BismoL) 262 mg/15 mL suspension Take 15 mL by mouth 2 (two) times a day as needed for diarrhea. Active cholecalciferol, vitamin D3, 25 mcg (1,000 Unit) tablet Take 1 tablet by mouth daily. 017 Active acetaminophen (TylenoL) 500 mg tablet Take 1,000 mg by mouth every 6 (six) hours as needed for pain. Max Dose of 4000 mg in 24 hours Active amino acids-protein hydrolysate (Provide Gold) 15-60 gram-kcal/30 mL liquid Take 30 mL by mouth daily. Active vitamin A,C,V-lrneiv-mbjm rals 300 mcg (1,000 Unit)-200 mg-60 Unit-2 [...] mouth 3 (three) times a day. Per [facility] EHR: Give 1 tablet by [...] mouth 3 (three) times a day. Per [facility] EHR: Give 1 tablet by [...] times a day. 2023 Discontinued(R eorder) vitamin A,C,Z-fzfvkf-trfj rals 300 mcg (1,000 Unit)-200 mg-60 Unit-2 [...] by mouth 2 (two) times a day. 024 2023 Discontinued(R eorder) Active Problems Problem Noted [...] wound care, was followed be wound care DRIVE IN WAITER/WAITRESS Current wound care orders remove all packing, [...] based on SCr of 2.55 mg/dL (H)). Immunizations Name Administration Dates Next Due H1N1 [...] Mass Index - - Plan of Treatment Not on file Procedures Procedure Name Priority Date/Time Associated Diagnosis [...] C.N.P. LAB BLOOD ADD-ON Fi nal Result [facility] [address] [place] [address], [facility] NPRG [facility] [address] [place] [address] * (ABNORMAL) CBC with Differential, Blood (12/12/2023 [...] 6:40 AM CDT 12/12/2023 7:07 AM CDT Christina Vargas APRN, C.N.P. LAB BLOOD ADD-ON Fi nal Result [facility] [address] [place] [address], [facility] [address] [place] [address] * (ABNORMAL) CRP (C-Reactive Protein) (12/02/2023 4:02 PM CDT) C-Reactive Protein (CRP), P 90.1(H) <5.0 mg/L 12/02/2023 4:26 PM CDT NPRG Blood (Blood, Venous) 12/02/2023 4:02 PM CDT 12/02/2023 4:04 PM CDT us Garry Pettit III, M.D. LAB BLOOD ADD-ON Final Result [facility] [address] [place] [address], [place] [facility]G [facility] [address] [place] [address] * (ABNORMAL) CBC without Differential (11/28/2023 7:05 AM CDT) Pathologist [facility] Hemoglobin 10.3(L) 13.2 - 16.6 g/dL 11/28/2023 [...] C.N.P. LAB BLOOD ADD-ON Fi nal Result [facility] [address] [place] [address], [place] [facility] [address] [place] [address] * (ABNORMAL) Urinalysis with Microscopic if Indicated (11/25/2023 2:20 PM CDT) Pathologist [facility] Source Urine, Urine, Catheter 11/25/2023 3:49 PM [...] 8.0 11/25/2023 3:54 PM CDT NPRG Specific [place] >=1.030 1.001 - 1.035 11/25/2023 3:54 PM CDT NPRG Urobilinogen 0.2 0.2 - 1.0 mg/dL 11/25/2023 3:54 PM CDT NPR[facility] Urine (Urine, Catheter) 11/25/2023 2:20 PM CDT 11/25/2023 3:49 PM CDT us Christina Vargas APRN, C.N.P. LAB URINE ORDERABLE S Final Result [facility] [address] [place] [address], [place] [facility] [address] [place] [address] * (ABNORMAL) Microscopic Manual (11/25/2023 2:20 PM [...] C.N.P. LAB URINE ORDERABLE S Final Result [facility] [address] [place] [address], [place] [facility] [address] [place] [address] * (ABNORMAL) Bacterial Culture, Aerobic + Susceptibility, Urine (11/25/2023 2:20 PM CDT) [facility] Urine Culture With urogenital microbiota, susceptibilities not performed per laboratory criteria. (A) 11/28/2023 7:15 AM CDT [facility] Urine Culture PSEUDOMONAS AERUGINOSA >100,000 cfu/mL (A) 11/28/2023 7:15 AM CDT [facility] Urine (Urine, Straight Catheter) 11/25/2023 2:20 PM [...] SUSCEPTIB ILITY, DAILY (MCG/ML) 2 mcg/mL: Intermediate us Christina Vargas APRN, C.N.P. LAB MICROBIOLOGY - GENERAL ORDERABLES Final Result [facility] [place] [facility] [address] [place] [address], [place] [facility] in [place] [address] [place] [address] from Last 3 Months Insurance MEDICARE [employer] Advance Directives For more information, please contact: [phone] Documents on File Type Date Recorded Patient File Machine Operator Expl anation Advance Directives 11/27/2023 10:[address]/MOLST
--- OUTSIDE RECORDS SUMMARY | 2023-12-24 13:20 | XMS_ITS | Encounter Summary ---
Author Organization [facility] Address [address] [place] [address] Care Team Providers Care Ux Researcher Name Role Phone AliciaZeenat daleChristinareena Main APRN, C.N.P. Primary Care Provi khurram Encounter Details Date Type Department Care Team (Late st Contact Info) Description 12/04/2023 Clinical Communication Senior Services [facility] [address] [phone] Diana Morris APRN, C.N.P., M.S.N. [address] [place] [phone] Social History Tobacco Use Types Packs/Day Years [...] encounter Miscellaneous Notes * Telephone Encounter - Diana Morris APRN, C.N.P., M.S.N. - 12/04/2023 10:14 PM CDT DON called to report a medication error found tonight. Patient was ordered Apixaban 10 mg po BID for 7 days , then to 5 mg BID for at least 3 months. It was found today that patient was not given fora full day yesterday and then today was only given 5 mg po this morning. Did ask for patient to be given 10 mg po for tonight's dose. Nursing was unsure where DVT was located. Was able to look it up and is in left lower leg. Did ask nurse to ensure that the orders were corrected for patient to receive apixaban 10 mg po BID through the . Then to switch to 5 mg po BID. Will update rounding provider to determine if any changes need to occur tomorrow. documented in this encounter Plan of Treatment Not on file documented as of this encounter Visit Diagnoses Not on filedocumented in this encounter Care Teams Ux Researcher Relationship Specialty Start Date End Date Christina Vargas APRN, C.N.P. [address] [place] [phone] PCP - General Family Medicine 11/20/23 12/19/23 documented as of this encounter
--- OUTSIDE RECORDS SUMMARY | 2023-12-24 13:20 | XMS_ITS | Encounter Summary ---
Author Organization [facility] Address [address] [place] [address] Care Team Providers Care Airport Refueling Handler Name Role Phone Christina Vargas APRN, C.N.P. Primary Care Provi khurram Encounter Details Date Type Department Care Team (Latest Contact Info) Description 12/12/2023 12:41 AM CDT - 12/12/2023 11:59 PM CDT Hospital Encounter Department of Laboratory Medicine in [place], [place] [address] [place] [phone] Christina Vargas APRN, C.N.P. [address] [place] [phone] Anemia; Chronic Kidney Disease Discharge Disposition: Home [...] liquid Take 30 mL by mouth daily. ciprofloxacin (Cipro) 500 mg [...] 1 tablet by mouth daily. Occuvite 12/15/19 potassium chloride (Jessica CieL) 20 mEq/15 mL [...] Diagnosis Comments CBC WITH DIFFERENTIAL, B Routine 12/12/2023 6:40 AM CDT Anemia Chronic Kidney Disease BASIC METABOLIC PANEL, S/P Routine 12/12/2023 6:40 AM CDT Anemia Chronic Kidney Disease documented in this encounter Results * (ABNORMAL) CBC with Differential, Blood (12/12/2023 6:40 AM CDT) Hemoglobin 8.7(L) 13.2 - 16.6 g/dL 12/12/2023 [...] 12/12/2023 7:07 AM CDT us Christina Vargas APRN, C.N.P. LAB BLOOD ADD-ON Fi nal Result [facility] [address] [place] [address], [facility] [[email or web address]] [facility] [address] [place] [address] * (ABNORMAL) Basic Metabolic Panel (12/12/2023 6:40 AM CDT) Potassium, P 3.0(L) 3.6 - 5.2 mmol/L 12/12/2023 7:35 AM CDT [facility] Sodium, P 141 135 - 145 mmol/L 12/12/2023 7:35 AM CDT [facility] Chloride, P 99 98 - 107 mmol/L 12/12/2023 7:35 AM CDT [facility] Bicarbonate, P 32(H) 22 - 29 mmol/L 12/12/2023 7:35 AM CDT [facility] Anion Gap, P 10 7 - 15 12/12/2023 7:35 AM CDT [facility] BUN (Blood Urea Nitrogen), P 24 8 - 24 mg/dL 12/12/2023 7:35 AM CDT [facility] Creatinine 2.34(H) 0.74 - 1.35 mg/dL 12/12/2023 7:35 AM CDT [facility] Estimated GFR (eGFR) 27(L) >=60 mL/min/BSA 12/12/2023 7:35 AM CDT [facility] Comment: Estimated GFR calculated using the 2020 CKD_EPI creatinine equation. Calcium, Total, P 6.7(L) 8.8 - 10.2 mg/dL 12/12/2023 7:41 AM CDT [facility] Glucose, P 102 70 - 140 mg/dL 12/12/2023 7:35 AM CDT [facility] Blood (Blood, Venous) 12/12/2023 6:40 AM CDT 12/12/2023 7:07 AM CDT Christina Vargas APRN, C.N.P. LAB BLOOD ADD-ON Fi nal Result [facility] [address] [place] [address], [facility] [[email or web address]] [facility] [address] [place] [address] documented in this encounter Visit Diagnoses Diagnosis Anemia Chronic Kidney Disease documented in this encounter Care Teams Airport Refueling Handler Relationship Specialty Start Date End Date Christina Vargas APRN, C.N.P. [address] [place] [phone] PCP - General Family Medicine 11/20/23 12/19/23 documented as of this encounter
--- OUTSIDE RECORDS SUMMARY | 2023-12-24 13:20 | XMS_ITS | Encounter Summary ---
Author Organization [facility] Address [address] [place] [address] Care Team Providers Care Marketing Intelligence Analyst Name Role Phone Christina Vargas APRN, C.N.P. Primary Care Provi khurram Encounter Details Date Type Department Care Team (Late st Contact Info) Description 11/29/2023 Orders Only [facility] [place] [address] [place] [phone] Christina Vargas APRN, C.N.P. [address] [place] [address] Social History Tobacco Use Types [...] on filedocumented in this encounter Care Teams Marketing Intelligence Analyst Relationship Specialty Start Date End Date Christina Vargas APRN, C.N.P. [address] [place] [address] PCP - General Family Medicine 11/20/23 12/19/23 documented as of this encounter
--- OUTSIDE RECORDS SUMMARY | 2023-12-24 13:21 | XMS_ITS | Encounter Summary ---
Author Organization [facility] Address [address] [place] [address] Care Team Providers Care Nursing Aide Name Role Phone Osito Joe MD Primary Care Provider [phone] Encounter Details Date Type Department Care Team (Late st Contact Info) Description 12/21/2023 Orders Only [facility] [address] [place] [address] Rossy Dunn, HIV PREVENTION SPECIALIST-SPECIAL EDUCATION TEACHING ASSISTANT [address] [place] [address] Chronic kidney disease, stage 4 (severe) (HCC) Social History Tobacco Use Types Packs/Day Years Used Date Smoking Tobacco: Former Cigarettes 1 15 0 02/27/1974 - 02/27/1989 Smokeless Tobacco: Never Alcohol Use Standard Drinks/Week Comments Never 0 (1 standard drink = 0.6 oz pur e alcohol) Sex and Gender Information Value Date Recorded Sex Assigned at Not on file Legal Sex Male 9:55 AM EDT Gender Identity Not on file Sexual Orientation Not on file documented as of this encounter Plan of Treatment Not on file documented as of this encounter Procedures Procedure Name Priority Date/Time Associated Diagnosis Comments PROTEIN / CREATININE RATIO, URINE Routine 12/18/2023 11:14 AM CDT Chronic kidney disease, stage 4 (severe) (HCC) URINALYSIS WITH MICROSCOPIC Routine 12/18/2023 11:14 AM CDT Chronic kidney disease, stage 4 (severe) (HCC) documented in this encounter Results * (ABNORMAL) Urine Protein / creatinine ratio (12/18/2023 11:14 AM CDT) Creatinine, Ur 150 20 - 320 mg/dL See order comments Urine Protein/Creati nine Ratio 833(H) 25 - 148 mg/g creat See order comments Protein/Creati nine Ratio, Urine 0.833(H) 0.025 - 0.148 mg/mg creat See order comments Protein Urine Random 125(H) 5 - 25 mg/dL See order comments Urine (Urine, Clean Catch) 12/18/2023 11:14 AM CDT 12/18/2023 11:15 AM CDT Narrative Resulting Agency Comment Performing Organization Information: ?Site ID: ?Name: [facility] ?Address: [address] [place] [phone] ?Director: Boy Arredondo Rossy Dunn HIV PREVENTION SPECIALIST-SPECIAL EDUCATION TEACHING ASSISTANT LAB URINE ORDERABLES F inal Result [facility] See order comments [place] [address] * (ABNORMAL) Urinalysis with microscopic (12/18/2023 11:14 AM CDT) Color, Urine YELLOW YELLOW See ord er comments Appearance Urine CLEAR CLEAR See order comments Specific [place], UA 1.018 1.001 - 1.035 See order comments pH Urine 8.0 5.0 - 8.0 See order comments Glucose, Ur NEGATIVE NEGATIVE See orde r comments Bilirubin, Urine NEGATIVE NEGATIVE See order comments Ketones, Urine NEGATIVE NEGATIVE See o rder comments Hemoglobin Ur Ql Strip NEGATIVE NEGATIVE See order comments Protein, Ur 2+(A) NEGATIVE See orde r comments Nitrite, Urine NEGATIVE NEGATIVE See o rder comments WBC Esterase Urine NEGATIVE NEGATIVE See order comments WBC, Urine 0-5 < OR = 5 /HPF See order comments RBC, Urine 0-2 < OR = 2 /HPF See order comments Epithelial Cells in Urine 0-5 < OR = 5 /HPF See order comments Bacteria NONE SEEN NONE SEEN /HPF See order comments Hyaline Casts, Urine 0-5(A) NONE SEEN /LPF See order comments Note: See order comments Comment: This urine was analyzed for the presence of WBC, RBC, bacteria, casts, and other formed elements. Only those elements seen were reported. Urine (Urine, Clean Catch) 12/18/2023 11:14 AM CDT 12/18/2023 11:15 AM CDT Narrative Resulting Agency Comment Performing Organization Information: ?Site ID: ?Name: [facility] ?Address: [address] [place] [phone] ?Director: Boy Arredondo Rossy Dunn HIV PREVENTION SPECIALIST-SPECIAL EDUCATION TEACHING ASSISTANT LAB URINE ORDERABLES F inal Result [facility] See order comments [place] [address] documented in this encounter Visit Diagnoses Diagnosis Chronic kidney disease, stage 4 (severe) (HCC) documented in this encounter Care Teams Nursing Aide Relationship Specialty Start Date End Date Osito Joe MD [address] [place] [address] PCP - General Family Medicine 01/13/23 documented as of this encounter
--- OUTSIDE RECORDS SUMMARY | 2023-12-24 13:21 | XMS_ITS | Encounter Summary ---
Author Organization [facility] Address [address] [place] [address] Care Team Providers Care Traffic Recorder Name Role Phone Osito Joe MD Primary Care Provider [phone] Encounter Details Date Type Department Care Team (Late st Contact Info) Description 11/06/2023 Orders Only [facility] [address] [place] [address] Yan Romero MD [address] [place] [address] Chronic kidney disease stage 4 [...] Procedure Name Priority Date/Time Associated Diagnosis Comments VITAMIN D 25 HYDROXY Routine 12/18/2023 11:16 AM CDT Chronic kidney disease stage 4 (HCC) PTH, INTACT Routine 12/18/2023 11:16 AM CDT Chronic kidney disease stage 4 (HCC) MAGNESIUM Routine 12/18/2023 11:16 AM CDT Chronic kidney disease stage 4 (HCC) Hypomagnesemia RENAL FUNCTION PANEL Routine 12/18/2023 11:16 AM CDT RENAL FUNCTION PANEL Routine 12/12/2023 Chronic kidney disease stage 4 (HCC) documented in this encounter Results * (ABNORMAL) Renal Function Panel (12/18/2023 11:16 AM CDT) Glucose 96 65 - 139 mg/dL See order comments Comment: ? Non-fasting reference interval BUN 17 7 - 25 mg/dL See order comments Creatinine 2.21(H) 0.70 - 1.22 mg/dL See order comments eGFR CKD-EPI CR 2020 29(L) > OR = 60 mL/min/1.7 3m2 See order comments BUN/Creatinine Ratio 8 6 - 22 (calc) See order comments Sodium 140 135 - 146 mmol/L See order comments Potassium 3.8 3.5 - 5.3 mmol/L See order comments Chloride 98 98 - 110 mmol/L See order comments Bicarbonate (CO2) 29 20 - 32 mmol/L See order comments Calcium 6.9(L) 8.6 - 10.3 mg/dL See order comments Phosphorus 2.7 2.1 - 4.3 mg/dL See order comments Albumin 3.3(L) 3.6 - 5.1 g/dL See order comments 12/18/2023 11:1 6 AM CDT 12/18/2023 11:16 AM CDT Narrative [facility] - 12/19/2023 12:57 PM CDT FASTING:NO FASTING: NO Resulting Agency Comment Performing Organization Information: ?Site ID: [id number] ?Name: [facility] ?Address: [address] [place] [phone] ?Director: Boy Arredondo us Yan Romero MD LAB BLOOD ORDERABLES Final Re sult [email or web address] See order comments [place] [address] * (ABNORMAL) Magnesium (12/18/2023 11:16 AM CDT) Magnesium 1.4(L) 1.5 - 2.5 mg/dL See order comments Blood (Blood, Venous) 12/18/2023 11:16 AM CDT 12/18/2023 11:16 AM CDT Narrative [facility] - 12/19/2023 12:57 PM CDT FASTING:NO FASTING: NO Resulting Agency Comment Performing Organization Information: ?Site ID: [id number] ?Name: [facility] ?Address: [address] [place] [phone] ?Director: Boy Arredondo us Yan Romero MD LAB BLOOD ORDERABLES Final Re sult [facility] See order comments [place] [address] * Vitamin D 25 hydroxy (12/18/2023 11:16 AM CDT) Vitamin D, 25-OH, Total, IA 30 30 - 100 ng/mL See order comments Comment: Vitamin D Status ? 25-OH Vitamin D: Deficiency: ?<20 ng/mL Insufficiency: ? 20 - 29 ng/mL Optimal: ? > or = 30 ng/mL For 25-OH Vitamin D testing on patients on D2-supplementation and patients for whom quantitation of D2 and D3 fractions is required, the QuestAssureD() 25-OH VIT D, (D2,D3), LC/MS/MS is recommended: order code 91333 (patients >2yrs). See Note 1 Note 1 For additional information, please refer to http://education.HistoRx/faq/IWE269 (This link is being provided for informational/ educational purposes only.) Blood (Blood, Venous) 12/18/2023 11:16 AM CDT 12/18/2023 11:16 AM CDT Narrative [facility] - 12/19/2023 12:57 PM CDT FASTING:NO FASTING: NO Resulting Agency Comment Performing Organization Information: ?Site ID: [id number] ?Name: [facility] ?Address: [address] [place], [place] [address] [address] ?Director: Boy Arredondo us Yan Romero MD LAB BLOOD ORDERABLES Final Re sult [facility] See order comments [place] [address] * (ABNORMAL) PTH, intact (12/18/2023 11:16 AM CDT) Parathyroid Hormone, Intact 146(H) 16 - 77 pg/mL See order comments Comment: Interpretive Guide ?Intact PTH ? Calcium ? ------- Normal Parathyroid ?Normal ? Normal Hypoparathyroidism ?Low or Low Normal ?Low Hyperparathyroidism ?? Primary ?Normal or High ? High ?? Secondary ?High ? Normal or Low ?? Tertiary ? High ? High Non-Parathyroid ?? Hypercalcemia ?Low or Low Normal ?High Blood (Blood, Venous) 12/18/2023 11:16 AM CDT 12/18/2023 11:16 AM CDT Narrative [facility] - 12/19/2023 12:57 PM CDT FASTING:NO FASTING: NO Resulting Agency Comment Performing Organization Information: ?Site ID: [id number] ?Name: [facility] ?Address: [address] [place], [place] [address] [address] ?Director: Boy Arredondo Yan Romero MD LAB BLOOD ORDERABLES Final Re sult [facility] See order comments [place] [address] * (ABNORMAL) Renal function panel (12/12/2023) Glucose 102 mg/dL [facility] BUN 24 mg/dL [facility] Creatinine 2.34(H) mg/dL [facility] Sodium 141 mEq/L [facility] Potassium 3.0(L) mEq/L [facility] Chloride 99 [facility] Carbon Dioxide 32(H) mmol/L [facility] Calcium 6.7(L) mg/dL [facility] eGFR 27(L) [facility] Comment:BMP was drawn Blood (Blood, Venous) 12/12/2023 Yan Romero MD LAB BLOOD ORDERABLES Final Re sult [facility] documented in this encounter Visit Diagnoses Diagnosis Chronic kidney disease stage 4 (HCC) Hypomagnesemia documented in this encounter Care Teams Traffic Recorder Relationship Specialty Start Date End Date Osito Joe MD [address] [place] [address] PCP - General Family Medicine 01/13/23 documented as of this encounter
--- OUTSIDE RECORDS SUMMARY | 2023-12-24 13:21 | XMS_ITS | Encounter Summary ---
Author Organization [facility] Address [address] [place] [address] Care Team Providers Care Cloth Weaver Name Role Phone Osito Joe MD Primary Care Provider [phone] Encounter Details Date Type Department Care Team (Late st Contact Info) Description 11/23/2023 Office Communication [facility] [address] [place] [address] Yan Romero MD [address] [place] [address] Social History Tobacco Use Types [...] encounter Miscellaneous Notes * Telephone Encounter - Aleksandra Bennett - 11/23/2023 11:22 AM CDT Pt called to let us know he is in a [facility] , he mightreschedule his FU with Adriana [place] still [place] will let us know closer to scheduled appt. documented in this encounter Plan of Treatment Not on file documented as of this encounter Visit Diagnoses Not on filedocumented in this encounter Care Teams Cloth Weaver Relationship Specialty Start Date End Date Osito Joe MD [address] [place] [address] PCP - General Family Medicine 01/13/23 documented as of this encounter
--- OUTSIDE RECORDS SUMMARY | 2023-12-24 13:21 | XMS_ITS | Clinical Summary ---
Author Organization [facility] [place] Address [address] [place] [address] Phone Care Team Providers Care Motor Coach Chauffeur Name Role Phone Osito Joe MD Primary Care Provider [phone] Allergies Active Allergy Reactions Criticality Noted Date Comments Aspirin GI bleeding 04/12/2019 Atorvastatin Other (see comments) 11/17/2006 myalgia Codeine 05/09/2006 constipation Furosemide Palpitations Low 02/03/2012 Lasix caused palpitations in 2011. Simvastatin Other (see comments) Medium 03/19/2009 Medications potassium chloride (KLOR-CON M20) 20 MEQ CR tablet Take 1 tablet (20 mEq total) by mouth in the morning and 1 tablet (20 mEq total) in the evening. 180 tablet 3 4 04/10/19 25 Active K Phos Hernando-Sod Phos Di & Hernando (Phospha 250 Neutral) 155-852-130 MG tablet Take 1 tablet by mouth in the morning and 1 tablet in the evening. 180 tablet 3 4 04/10/19 25 Active omeprazole (PriLOSEC) [address] capsule TAKE ONE CAPSULE BY MOUTH ONE TIME DAILY BEFORE A MEAL.* 4 Active nitroglycerin (NITROSTAT) 0.[address] 0.4 mg under the tongue every 5 (five) minutes if needed for chest pain 3 Active Lutein-Zeaxanthin -Bilberry 20-1-2.2 MG capsule Take by mouth 1 (one) time each day 2 Active Magnesium Oxide -Mg Supplement (True Magnesium Oxide) 500 MG tablet Take 1,000 mg by mouth in the morning and 1,000 mg in the evening. 1 Active Sod Citrate-Citric Acid (Cytra-2) 500-334 MG/5ML solution Take 30 ml BID 3 Active tamsulosin (FLOMAX) 0.4 MG 24 hr capsule Take 0.8 mg by mouth 1 (one) time each day Active rosuvastatin (CRESTOR) 20 MG tablet Take 10 mg by mouth 1 (one) time each day 3 Active predniSONE (DELTASONE) 10 MG tablet Take 1 Tablet (10 mg) by mouth once daily with a meal. Take at onset of pseudogout flare. Only needs 1-2 days and then resolves. 3 Active coenzyme Q-10 100 MG capsule 200 mg morning, 400 mg afternoon. 7 Active cholecalciferol (VITAMIN D-3) 25 MCG (1000 UT) tablet Take 1,000 Units by mouth 1 (one) time each day 7 Active allopurinol (ZYLOPRIM) 300 MG tablet Take 300 mg by mouth 1 (one) time each day 3 Active finasteride (PROSCAR) 5 MG tablet Take 5 mg by mouth 1 (one) time each day Active levothyroxine (SYNTHROID, LEVOTHROID) 150 MCG tablet TAKE ONE TABLET BY MOUTH ONE TIME DAILY BEFORE BREAKFAST* Active Calcium Polycarbophil (FIBER-CAPS PO) Take 1 capsule by mouth in the morning. 8 Active cyanocobalamin (VITAMIN B-12) 1000 MCG tablet Take 1,000 mcg by mouth once daily. PROTECT FROM LIGHT 9 Active ferrous sulfate 325 (65 Fe) MG EC tablet Take 1 tablet by mouth 2 times daily with meals. 3 Active calcitriol (ROCALTROL) 0.25 MCG capsule Take 1 capsule (0.25 mcg total) by mouth 1 (one) time each day 90 capsule 3 4 06/06/19 25 Active CITRACAL 600-40-500 MG-MG-UNIT tablet sustained-release 24 hour Take 1 Tablet 24 Hour Sustained Release by mouth 1 (one) time each day 90 tablet 3 4 Active Active Problems Problem Noted Date Diagnosed Date Hyperparathyroidism due to renal insufficiency 0 05/25/2023 Overview (05/25/2023): And Primary Hyperparathyroidism: Had parathyroidectomy and partial thyroidectomy. Currently supplemented. 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 Has fistula formation so stools in ileostomy and per rectum. Hypomagnesemia 05/25/2023 Ileostomy present 05/21/2021 Anemia 12/09/2020 Paroxysmal atrial fibrillation 05/09/2019 Hypokalemia 08/22/2018 Iron deficiency anemia 03/31/2016 History of calculus of kidney 01/28/2016 History of deep vein thrombosis 01/28/2016 Overview (05/25/2023): Diagnosed 11/2008 following prolonged immobility; warfarin discontinued 01/2016 Hypertensive chronic kidney disease with stage 1 through stage 4 chronic kidney disease, or unspecified chronic kidney disease 07/23/2015 Nephrolithiasis 08/16/2013 Chronic kidney disease stage 4 11/10/2010 Benign prostatic hyperplasia without lower urinary tract symptom 05/14/2010 Overview (05/25/2023): No symptoms with tamsulosin 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 Rare flare for which he takes prednisone. Vitamin D deficiency 05/07/2009 Reflux esophagitis 05/09/2006 Overview (05/25/2023): Symptoms well controlled on omeprazole Supraventricular arrhythmia 01/10/2005 Overview (05/25/2023): Diagnosed many years ago. Continues to have palpitations off and on but no diagnosed SVT for > 10 years. Encounters Date Type Department Care Team Description 12/21/2023 Orders Only [facility] [place] [address] Rossy Dunn APRN-LUIS Chronic kidney disease, stage 4 (severe) (HCC) 12/14/2023 2:00 PM CDT Office Visit [facility] [place] [address] Rossy Dunn APRN-LUIS Chronic kidney disease, stage 4 (severe) (HCC) (Primary Dx); Hypertensive chronic kidney disease with stage 1 through stage 4 chronic kidney disease, or unspecified chronic kidney disease; Nephrolithiasis; Hypomagnesemia; Hypokalemia; Paroxysmal atrial fibrillation (HCC); Other secondary gout, not otherwise specified; Ileostomy present (HCC); Inflammatory bowel disease; Anemia in chronic kidney disease; Hyperparathyroidism due to renal insufficiency (HCC) 12/13/2023 Office Communication [facility] [place] [address] [place] [address] Rossy Dunn APRN-LUIS 12/12/2023 Telephone [facility] [address] [facility] [address] [place] [address] Kasia Rojo, STEPHANIE Provider question 12/06/2023 Telephone [facility] [address] [facility] [address] [place] [phone] Edwina Harden RN 11/23/2023 Office Communication [facility] [address] [facility] [address] [place] [address] Yan Romero MD 11/06/2023 Orders Only [facility] [address] [place] [address] Yan Romero MD Chronic kidney disease stage 4 (HCC); Hypomagnesemia from Last 3 Months Immunizations Name Administration Dates Next Due Influenza Split High Dose Pr eservative Free IM 12/29/2022,12/13/2021,11/27/2020 RSV RECOMBINANT 11/03/2022 Family History Medical History Relation Comments Hyperlipidemia Brother Heart disease Father UT CABG Stroke Father Cancer Mother colon cancer [...] Sign Reading Time Taken Comments Blood Pressure 130/68 12/14/2023 1:43 PM CDT Pulse 99 12/14/2023 1:43 PM CDT Temperature - - Respiratory Rate - - Oxygen Saturation 97% 05/25/2023 1:32 PM CDT Inhaled Oxygen Concentration - - Weight 67.1 kg (148 lb) 12/14/2023 1:43 PM CDT Height 177.8 cm (5' 10) 12/14/2023 1:43 PM CDT Body Mass Index 21.24 12/14/2023 1:43 PM CDT Plan of Treatment Health Maintenance Due Date Last Done Comments Hepatitis B Vaccine Aged Out 03/04/2005, 11/08/2004, 10/06/2004, Additional history exists No longer eligible based on patient's age to complete this topic Pneumococcal Vaccine: 65+ Years Completed 02/12/2015, 07/25/2013, 09/13/2012, Additional history exists Influenza Vaccine Completed 12/07/2023, , 12/13/2021, Additional history exists Procedures Procedure Name Priority Date/Time Associated Diagnosis Comments RENAL FUNCTION PANEL Routine 12/18/2023 11:16 AM CDT MAGNESIUM Routine 12/18/2023 11:16 AM CDT Chronic kidney disease stage 4 (HCC) Hypomagnesemia VITAMIN D 25 HYDROXY Routine 12/18/2023 11:16 AM CDT Chronic kidney disease stage 4 (HCC) PTH, INTACT Routine 12/18/2023 11:16 AM CDT Chronic kidney disease stage 4 (HCC) PROTEIN / CREATININE RATIO, URINE Routine 12/18/2023 11:14 AM CDT Chronic kidney disease, stage 4 (severe) (HCC) URINALYSIS WITH MICROSCOPIC Routine 12/18/2023 11:14 AM CDT Chronic kidney disease, stage 4 (severe) (HCC) CBC Routine 12/12/2023 RENAL FUNCTION PANEL Routine 12/12/2023 Chronic kidney disease stage 4 (HCC) from Last 3 Months Results * Vitamin D 25 hydroxy (12/18/2023 11:16 [...] D2 and D3 fractions is required, the [facility] 25-OH VIT D, (D2,D3), LC/MS/MS is recommended: order code 60614 (patients >2yrs). See Note 1 Note 1 For additional information, please refer to http://education.CPM Braxis.[employer]/faq/KIZ293 (This link is being provided for informational/ educational purposes only.) Blood (Blood, Venous) 12/18/2023 11:16 AM CDT 12/18/2023 11:16 AM CDT Narrative ROSEMARY BOB - 12/19/2023 12:57 PM CDT FASTING:NO FASTING: NO Resulting Agency Comment Performing Organization Information: ?Site ID: [id number] ?Name: [facility] ?Address: [address] [place], [place] [address] [address] ?Director: Boy Arredondo us Yan Romero MD LAB BLOOD ORDERABLES Final Re sult ROSEMARY ROJAS See order comments [place] [address] * (ABNORMAL) PTH, intact (12/18/2023 11:16 AM [...] Comment Performing Organization Information: ?Site ID: ?Name: [facility] ?Address: [address] [place] [phone] ?Director: Boy Arredondo Yan Romero MD LAB BLOOD ORDERABLES Final Re sult Performing Organization Address [facility] de Phone Number [facility] See order comments [place] [address] * (ABNORMAL) Magnesium (12/18/2023 11:16 AM CDT) Magnesium 1.4(L) 1.5 - 2.5 mg/dL See order comments Blood (Blood, Venous) 12/18/2023 11:16 AM CDT 12/18/2023 11:16 AM CDT Narrative [facility] - 12/19/2023 12:57 PM CDT FASTING:NO FASTING: NO Resulting Agency Comment Performing Organization Information: ?Site ID: [id number] ?Name: [facility] ?Address: [address] [place] [address] ?Director: Boy Arredondo Yan Romero MD LAB BLOOD ORDERABLES Final Re sult Performing Organization Address [facility] de Phone Number [facility] See order comments [place] [address] * (ABNORMAL) Renal Function Panel (12/18/2023 11:16 AM CDT) Only the most recent of2 resultswithin the time period is included. Glucose 96 65 - 139 mg/dL See [...] Performing Organization Information: ?Site ID: [id number] ?Name: [employer] ?Address: [address] [place] [phone] ?Director: Boy Arredondo us Yan Romero MD LAB BLOOD ORDERABLES Final Re sult [facility] See order comments [place] [address] * (ABNORMAL) Urine Protein / creatinine ratio [...] Performing Organization Information: ?Site ID: [id number] ?Name: [employer] ?Address: [address] [place] [phone] ?Director: Boy Arredondo Rossy Dunn INSOLE CHANNELER-EMT I/99 LAB URINE ORDERABLES F inal Result Performing Organization Address [facility] de Phone Number [facility] See order comments [place] [address] * (ABNORMAL) Urinalysis with microscopic (12/18/2023 11:14 AM CDT) Color, Urine YELLOW YELLOW See ord er comments Appearance Urine CLEAR CLEAR See order comments Specific [place], UA 1.018 1.001 - 1.035 See order [...] Performing Organization Information: ?Site ID: [id number] ?Name: [facility] ?Address: [address] [place] [phone] ?Director: Boy Arredondo Rossy Dunn INSOLE CHANNELER-EMT I/99 LAB URINE ORDERABLES F inal Result Performing Organization Address [facility] Co de Phone Number [facility] See order comments [place] [address] * (ABNORMAL) CBC (12/12/2023) Red Blood Cell Count 2.82(L) [facility] Hemoglobin 8.7 g/dL [facility] Hematocrit 27.9 % [facility] MCV 98.9 [facility] RDW 17.9 [facility] Platelet Count 241 [facility] Blood (Blood, Venous) 12/12/2023 us Historical Provider LAB BLOOD ORDERABLES Kathrin l Result [facility] from Last 3 Months Insurance [facility] MEDICARE Care Teams Motor Coach Chauffeur Relationship Specialty Start Date End Date Osito Joe MD [address] [place] [address] PCP - General Family Medicine 01/13/23
--- OUTSIDE RECORDS SUMMARY | 2023-12-24 13:21 | XMS_ITS | Encounter Summary ---
Author Organization [facility] Address [address] [place] [address] Care Team Providers Care Tableau Developer Name Role Phone Christina Vargas APRN, C.N.P. Primary Care Provi khurram Encounter Details Date Type Department Care Team (Latest Contact Info) Description 11/23/2023 1:17 PM CDT - 11/23/2023 11:59 PM CDT Hospital Encounter Department of Laboratory Medicine in [place], [place] [address] [place] [phone] Christina Vargas APRN, C.N.P. [address] [place] [phone] Chronic Kidney Disease Stage 4 Glomerular Filtration [...] for 5 days starting 11/30/23 11/16/2023 12/18/19 24 finasteride (Proscar) 5 mg tablet Take 1 tablet by mouth every morning. 06/02/2023 12/20/19 levothyroxine 175 mcg tablet Take 175 mcg by mouth daily before morning meal. 11/20/2023 12/20/19 midodrine (ProAmatine) 5 mg tablet Take 5 mg by mouth 3 (three) times a day. Per [facility] EHR: Give 1 tablet by mouth three [...] Diagnosis Comments BASIC METABOLIC PANEL, S/P Routine 11/23/2023 11:55 AM CDT Chronic Kidney Disease Stage 4 Glomerular Filtration Rate 15-29 (HCC) documented in this encounter Results * (ABNORMAL) Basic Metabolic Panel (11/23/2023 11:55 AM CDT) Potassium, P 4.2 3.6 - 5.2 mmol/L 11/23/2023 1:37 PM CDT [facility] Sodium, P 141 135 - 145 mmol/L 11/23/2023 1:37 PM CDT [facility] Chloride, P 110(H) 98 - 107 mmol/L 11/23/2023 1:37 PM CDT [facility] Bicarbonate, P 20(L) 22 - 29 mmol/L 11/23/2023 1:37 PM CDT [facility] Anion Gap, P 11 7 - 15 11/23/2023 1:37 PM CDT [facility] BUN (Blood Urea Nitrogen), P 31(H) 8 - 24 mg/dL 11/23/2023 1:37 PM CDT [facility] Creatinine 2.05(H) 0.74 - 1.35 mg/dL 11/23/2023 1:37 PM CDT [facility] Estimated GFR (eGFR) 32(L) >=60 mL/min/BSA 11/23/2023 1:37 PM CDT [facility] Comment: Estimated GFR calculated using the 2020 CKD_EPI creatinine equation. Calcium, Total, P 8.7(L) 8.8 - 10.2 mg/dL 11/23/2023 1:37 PM CDT [facility] Glucose, P 97 70 - 140 mg/dL 11/23/2023 1:37 PM CDT [facility] Blood (Blood, Venous) 11/23/2023 11:55 AM CDT 11/23/2023 1:18 PM CDT Christina Vargas APRN, C.N.P. LAB BLOOD ADD-ON Fi nal Result [facility] [address] [place] [address], [facility] NPRG [facility] [address] [place] [address] documented in this encounter Visit Diagnoses Diagnosis Chronic Kidney Disease Stage 4 Glomerular Filtration Rate 15-29 (HCC) documented in this encounter Care Teams Tableau Developer Relationship Specialty Start Date End Date Christina Vargas APRN, C.N.P. [address] [place] [address] PCP - General Family Medicine 11/20/23 12/19/23 documented as of this encounter
--- OUTSIDE RECORDS SUMMARY | 2023-12-24 13:21 | XMS_ITS | Encounter Summary ---
Author Organization [facility] Address [address] [place] [address] Care Team Providers Care Hogshead Mat Inspector Name Role Phone Osito Joe MD Primary Care Provider [phone] Encounter Details Date Type Department Care Team (Late st Contact Info) Description 12/13/2023 Office Communication [facility] [address] [place] [address] Rossy Dunn, ROD TAPE OPERATOR-COMMUNICATIONS AND SIGNALS SUPERVISOR [address] [place] [address] Social History Tobacco Use Types Packs/Day Years [...] encounter Miscellaneous Notes * Telephone Encounter - Popeye Hale - 12/13/2023 10:53 AM CDT For FU with Rossy 12/13, patient requested copay be billed. documented in this encounter Plan of Treatment Not on file documented as of this encounter Visit Diagnoses Not on filedocumented in this encounter Care Teams Hogshead Mat Inspector Relationship Specialty Start Date End Date Osito Joe MD [address] [place] [address] PCP - General Family Medicine 01/13/23 documented as of this encounter
--- OUTSIDE RECORDS SUMMARY | 2023-12-24 13:21 | XMS_ITS | Encounter Summary ---
Author Organization [facility] Address [address] [place] [address] Care Team Providers Care Electrical Tester Battery Name Role Phone Osito Joe MD Primary Care Provider [phone] Encounter Details Date Type Department Care Team (Late st Contact Info) Description 12/06/2023 Telephone [facility] [place] [address] [place] [address] Edwina Harden, RN [address] [place] [address] Social History Tobacco Use Types Packs/Day Years [...] encounter Miscellaneous Notes * Telephone Encounter - Yan Romero MD - 12/07/2023 10:34 PM CDT No changes necessary for now, has visit coming up and labs to be addressed further. -Max * Telephone Encounter - Edwina Harden RN - 12/06/2023 3:11 PM CDT Images from the original note were not included. Nurse with [facility] called stating PCP wanted Dr. Romero to be aware of 12/03 BMP result. RTC 12/13 with Rossy. documented in this encounter Plan of Treatment Not on file documented as of this encounter Visit Diagnoses Not on filedocumented in this encounter Care Teams Electrical Tester Battery Relationship Specialty Start Date End Date Osito Joe MD [address] [place] [address] PCP - General Family Medicine 01/13/23 documented as of this encounter
--- OUTSIDE RECORDS SUMMARY | 2023-12-24 13:21 | XMS_ITS | Encounter Summary ---
Author Organization [facility] [place] Address [address] [facility] [address] [place] [address] Care Team Providers Care Header Machine Operator Name Role Phone Osito Joe MD Primary Care Provider [phone] Reason for Visit * Reason Comments Follow-up Encounter Details Date Type Department Care Team (Latest Contact Info) Description 12/14/2023 2:00 PM CDT Office Visit [facility] [address] [place] [address] Rossy Dunn, GATE MANAGER-SUPERINTENDENT REFUSE DISPOSAL [address] [place] [address] Chronic kidney disease, stage 4 (severe) (HCC) (Primary Dx); Hypertensive chronic kidney disease with stage 1 through stage 4 chronic kidney disease, or unspecified chronic kidney disease; Nephrolithiasis; Hypomagnesemia; Hypokalemia; Paroxysmal atrial fibrillation (HCC); Other secondary gout, not otherwise specified; Ileostomy present (HCC); Inflammatory bowel disease; Anemia in chronic kidney disease; Hyperparathyroidism due to renal insufficiency (HCC) Social History Tobacco Use Types Packs/Day [...] - Respiratory Rate - - Oxygen Saturation - - Inhaled Oxygen Concentration - - Weight 67.1 kg (148 lb) 12/14/2023 1:43 PM CDT Height 177.8 cm (5' 10) 12/14/2023 1:43 PM CDT Body Mass Index 21.24 12/14/2023 1:43 PM CDT documented in this encounter Patient Instructions * Patient Instructions* Karl Preciado - 12/14/2023 2:00 PM CDT -Return to clinic in [address] Romero for follow-up -Plan renal labs with primary appointment on Monday. Hard copy given for lab recheck. -No changes today We will contact you to schedule your 6 month follow up. Labs should be completed 1-2 weeks prior. Rossy Dunn NP /Karl Kwong MA documented in this encounter Progress Notes * Rossy Dunn APRN-CNP - 12/14/2023 2:00 PM CDT Images from the original note were not included. Patient: Long Nugent Date of : 1940 Chart: [id number] PCP: Osito Joe MD Date of Service: 12/14/2023 Chief Complaint: CKD Stage 4 Subjective: Long Nugent is a 83 y.o. with a history of Crohn disease (s/p end-ileostomy), CKD stage IV, atrial fibrillation (s/p Watchman and ablation), HTN and hypothryoidism (s/p thyroidectomy 2022). He is clinic for CKD follow-up. He was admitted on 10/31/2023 with worsening abdominal pain around stoma. Found to have abdominal wall abscess versus possible hematoma surrounding the stoma. Started on Cefepime and Flagyl. He underwent ileoscopy with was grossly unrevealing apart from some diverticula. He is currently at TCU. Hoping to be discharged hoe early next week. Overall feeling fairly well. Had pre-visit labs and they were all off. He questions lab drawn from [facility]. He is scheduled to see primary next week. Will plan to repeat labs. Continued on antibioticas. Another CT scan scheduld for next week. He denies fever, chest pain, dyspnea, abdominal pain, flank pain, nausea, hematuria, and edema. 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[place]) He does not smoke The following portions of the patient's chart were reviewed in this encounter and updated as appropriate: Tobacco Allergies Meds Med Hx Surg Hx Fam Hx Active Problems Patient Active Problem List Diagnosis Chronic kidney disease stage 4 (HCC) Hypertensive chronic kidney disease with stage 1 through stage 4 chronic kidney disease, or unspecified chronic kidney disease History of calculus of kidney Iron deficiency anemia Nephrolithiasis Vitamin D deficiency History of deep vein thrombosis Supraventricular arrhythmia Anemia Benign prostatic hyperplasia without lower urinary tract symptom 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 Taking? Provider LT allopurinol (ZYLOPRIM) 300 MG tablet Josiah Mace MD Take 300 mg by mouth 1 (one) time each day calcitriol (ROCALTROL) 0.25 MCG capsule Yan Romero MD Take 1 capsule (0.25 mcg total) by mouth 1 (one) time each day Calcium Polycarbophil (FIBER-CAPS PO) Josiah Mace MD Take 1 capsule by mouth in the morning. cholecalciferol (VITAMIN D-3) 25 MCG (1000 UT) tablet Josiah Mace MD Take 1,000 Units by mouth 1 (one) time each day CITRACAL 600-40-500 MG-MG-UNIT tablet sustained-release 24 hour Yan Romero MD Take 1 Tablet 24 Hour Sustained Release by mouth 1 (one) time each day coenzyme Q-10 100 MG capsule Josiah Mace MD 200 mg morning, 400 mg afternoon. cyanocobalamin (VITAMIN B-12) 1000 MCG tablet Josiah Mace MD Take 1,000 mcg by mouth once daily. PROTECT FROM LIGHT ferrous sulfate 325 (65 Fe) MG EC tablet Josiah Mace MD Take 1 tablet by mouth 2 times daily with meals. finasteride (PROSCAR) 5 MG tablet Josiah Mace MD Take 5 mg by mouth 1 (one) time each day K Phos [place]-Sod Phos Di & [place] (Phospha 250 Neutral) 155-852-130 MG tablet Yan Romero MD Take 1 tablet by mouth in the morning and 1 tablet in the evening. levothyroxine (SYNTHROID, LEVOTHROID) 150 MCG tablet Josiah Mace MD TAKE ONE TABLET BY MOUTH ONE TIME DAILY BEFORE BREAKFAST* Ddtjax-Kewjznnboz-Bnortenr 20-1-2.2 MG capsule Josiah Mace MD Take by mouth 1 (one) time each day Magnesium Oxide -Mg Supplement (True Magnesium Oxide) 500 MG tablet Josiah Mace MD Take 1,000 mg by mouth in the morning and 1,000 mg in the evening. nitroglycerin (NITROSTAT) 0.4 MG SL tablet Josiah Mace MD Place 0.4 mg under the tongue every 5 (five) minutes if needed for chest pain omeprazole (PriLOSEC) [address] capsule Josiah Mace MD TAKE ONE CAPSULE BY MOUTH ONE TIME DAILY BEFORE A MEAL.* potassium chloride (KLOR-CON M20) 20 MEQ CR tablet Yan Romero MD Take 1 tablet (20 mEq total) by mouth in the morning and 1 tablet (20 mEq total) in the evening. predniSONE (DELTASONE) 10 MG tablet Josiah Mace MD Take 1 Tablet (10 mg) by mouth once daily with a meal. Take at onset of pseudogout flare. Only needs 1-2 days and then resolves. rosuvastatin (CRESTOR) 20 MG tablet Josiah Mace MD Take 10 mg by mouth 1 (one) time each day Sod Citrate-Citric Acid (Cytra-2) 500-334 MG/5ML solution Josiah Mace MD Take 30 ml BID tamsulosin (FLOMAX) 0.4 MG 24 hr capsule Josiah Mace MD Take 0.8 mg by mouth 1 (one) time each day Allergies Allergen Reactions Simvastatin Other (see comments) Aspirin GI bleeding Atorvastatin Other (see comments) myalgia Codeine constipation Furosemide Palpitations Lasix caused palpitations in 2011. Physical Exam BP 130/68 (BP Location: Left upper arm, Patient Position: Sitting, BP Cuff Size: Adult) Pulse 99 Ht 5' 10 (1.778 m) Wt 148 lb (67.1 kg) BMI 21.24 kg/m?? CONSTITUTIONAL: appears well today EYES: pupils equal, sclerae not icteric. RESPIRATORY: Clear to auscultation bilaterally, nl effort CARDIOVASCULAR: Regular rate and rhythm, no murmurs. Trace leg edema. PSYCHIATRIC: Alert and pleasant INTEGUMENT: No visible rash on exposed skin MUSCULOSKELETAL: four limbs, no contractures Chemistry and Bone Mineral Lab Units 12/18/23 1116 12/12/23 0000 05/03/23 0000 SODIUM mEq/L -- 141 142 POTASSIUM mEq/L -- 3.0* 4.2 CHLORIDE -- 99 99 CO2 mmol/L -- 32* 30* MAGNESIUM -- -- 1.7 CALCIUM mg/dL -- 6.7* 9.9 9.9 PHOSPHORUS mg/dL -- -- 3.5 PTH pg/mL -- -- 37.1 VIT D 25 HYDROXY ng/mL 30 -- -- GLUCOSE mg/dL -- 102 108* ALBUMIN g/dL -- -- 4.3 BUN mg/dL -- 24 46* CREATININE mg/dL -- 2.34* 2.69* EGFR -- 27* 23* CBC and Iron Studies Lab Units 12/12/23 0000 05/03/23 0000 HEMATOCRIT % 27.9 -- HEMOGLOBIN g/dL 8.7 13.3* MCV 98.9 101.0* PLATELETS AUTO 241 -- Imaging: Renal ultrasound 04/2014: Impression: 1. Bilateral renal cysts. 2. Bilateral cortical thinning of the kidneys with maintenance of normal cortical medullary differentiation. 3. 1.7 cm calculus suggested at the left kidney. 4. Prominent prostate impression at the bladder base and 17 cc postvoid bladder residual. CT abd/pelvis 10/2014: Impression: 1. Bilateral nephrolithiasis. Decreased stone burden on the left compared to previous examination. 2. No ureteral or bladder calculi or evidence of hydronephrosis. 3. Bilateral renal cysts. 4. Right-sided ventral hernia containing nonobstructed bowel and left anterior abdominal wall ostomy. 5. Prostatomegaly. 6. Chronic bladder wall thickening. 7. Colonic diverticulosis. ASSESSMENT AND PLAN: 1. CKD Stage 4: thought 2/2 recurrent stones, recurrent AMAURY (with hypovolemia, stones, and infection), HTN, and it is possible that he has interstitial nephritis associated with IBD (has chron's). Hehad AMAURY requiring dialysis for 6 months in 2004, recovered. He now has slowly progressive CKD with eGFR loss from 35 to 20-23 in the last 10 years and has somewhat variable Cr with volume/hydration status. -Continue with good BP control, avoidance of hypovolemia (good hydration), and avoidance of nephrotoxins like NSAID's -Cr stable overall with stable eGFR for a number of years now. eGFR in low 20's -We discussed AVF placement for future dialysis if GFR consistently <20 and trending down further. Will not proceed yet, but would do so when GFR is sustained under 20 -He has chronic pyuria, no symptoms of UTI and will not work-up further at this time with stable GFR -Not a candidate for SGLT2i at his GFR, also propensity for hypotension and has very stable kidney function without 2. HTN with CKD - Continued off BP meds. Off metoprolol since ablation for a- fib, no longer orthostatic. Monitor BP, at goal. 3. 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 -Encouraged to stay well hydrated and push fluids -Bicarb was up to 32, He will have repeat labs in a couple days. 4. Hypokalemia, hypomagnesemia, hypophosphatemia - continue current supplementation as all look good currently. Monitor labs every 3 months. 5. Primary and secondary hyperparathyroidism - follows with endocrine as well as with me. I had himon calcitriol, but he has had rising Ca levels and endocrinology recommended partial parathyroidectomy and he saw Dr. Guthrie and had this done at same time as partial thyroidectomy. -PTH at goal for CKD, Ca and phos normal. Continue close monitoring of labs. -Continue Ca-D + calcitriol 0.25mcg daily 6. Anemia in CKD stage 4 - Hgb at goal. Not requiring CORWIN. Will monitor. 7. IBD, chron's disease, with ostomy and has stool out his anus and in ostomy, no active symptoms 8. Gout - no recent flairs, on allopurinol and uses prednisone x1 dose when has mild flair with good result 9. Paroxysmal a-fib, s/p ablation, PPM in place - off beta david since ablation. No symptoms. F/uwith cardiology as needed. Return in about 6 months (around 06/13/2024) for Recheck.with Dr. Heather Dunn APRN CNP [facility]: [phone] documented in this encounter Plan of Treatment Scheduled Orders Name Type Priority Associated Diagnoses Orde r Schedule Renal function panel Lab Routine Chronic kidney disease, stage 4 (severe) (HCC) Expected: 06/18/2024 (Approximate), Expires: 01/18/2025 Hemoglobin Lab Routine Chronic kidney disease, stage 4 (severe) (HCC) Expected: 06/18/2024 (Approximate), Expires: 01/18/2025 PTH, intact Lab Routine Chronic kidney disease, stage 4 (severe) (HCC) Expected: 06/18/2024 (Approximate), Expires: 01/18/2025 Urinalysis with microscopic Lab Routine Chronic kidney disease, stage 4 (severe) (HCC) Expected: 06/18/2024 (Approximate), Expires: 01/18/2025 Urine Protein / creatinine ratio Lab Routine Chronic kidney disease, stage 4 (severe) (HCC) Expected: 06/18/2024 (Approximate), Expires: 01/18/2025 documented as of this encounter Results * (ABNORMAL) Urine Protein [...] Comment Performing Organization Information: ?Site ID: ?Name: [employer] ?Address: [address] [place] [phone] ?Director: Boy Arredondo Rossy Dunn GATE MANAGER-SUPERINTENDENT REFUSE DISPOSAL LAB URINE ORDERABLES F inal Result [facility] See order comments [place] [address] * (ABNORMAL) Urinalysis with microscopic (12/18/2023 11:14 AM CDT) Color, Urine YELLOW YELLOW See ord er comments Appearance Urine CLEAR CLEAR See order comments Specific [place], UA 1.018 1.001 - 1.035 See order [...] Comment Performing Organization Information: ?Site ID: ?Name: [facility] ?Address: [address] [place] [phone] ?Director: Boy Arredondo Rossy uDnn GATE MANAGER-SUPERINTENDENT REFUSE DISPOSAL LAB URINE ORDERABLES F inal Result [facility] See order comments [place] [address] documented in this encounter Visit Diagnoses Diagnosis Chronic kidney disease, stage 4 (severe) (HCC)- Primary Hypertensive chronic kidney disease with stage 1 through stage 4 chronic kidney disease, or unspecified chronic kidney disease Nephrolithiasis Hypomagnesemia Hypokalemia Paroxysmal atrial fibrillation (HCC) Other secondary gout, 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
--- OUTSIDE RECORDS SUMMARY | 2023-12-24 13:21 | XMS_ITS | Encounter Summary ---
Author Organization [facility] Address [address] [place] [address] Care Team Providers Care Motor Expert Name Role Phone Osito Joe MD Primary Care Provider [phone] Reason for Visit * Reason Onset Date Comments Provider question 12/12/2023 Encounter Details Date Type Department Care Team (Late st Contact Info) Description 12/12/2023 Telephone [facility] [address] [place] [address] Kasia Rojo, RN [address] [place] [address] Provider question Social History Tobacco Use Types Packs/Day Years [...] encounter Miscellaneous Notes * Telephone Encounter - Edwina Harden RN - 12/13/2023 12:01 PM CDT Lab databased * Telephone Encounter - Yan Romero MD - 12/12/2023 12:25 PM CDT Can we please get the labs that were done databased and then Rossy will have them for the visit on Dec 13 and can adjust things if necessary! Thank you. - Pj Romero * Telephone Encounter - Kasia Rojo RN - 12/12/2023 11:03 AM CDT Christina Vargas APRN, C.N.P. ph from [facility] called, pt had labs drawn today 12/11 at the TCU he is at and she asks if Dr. Romero wants to make any medication changes, Ca+ was low 6.7 and Bicarb is up. She is faxing the results over and will be forwarded to Dr. Romero. Pt is coming in to see us in clinic 12/13 w/ Mona Blair NP. documented in this encounter Plan of Treatment Not on file documented as of this encounter Procedures Procedure Name Priority Date/Time Associated Diagnosis Comments CBC Routine 12/12/2023 documented in this encounter Results * (ABNORMAL) CBC (12/12/2023) Red Blood Cell Count 2.82(L) [facility] Hemoglobin 8.7 g/dL [facility] Hematocrit 27.9 % [facility] MCV 98.9 [facility] RDW 17.9 [facility] Platelet Count 241 [facility] Blood (Blood, Venous) 12/12/2023 us Historical Provider LAB BLOOD ORDERABLES Kathrin lua Result [facility] documented in this encounter Visit Diagnoses Not on filedocumented in this encounter Care Teams Motor Expert Relationship Specialty Start Date End Date Osito Joe MD [address] [place] [id number] PCP - General Family Medicine 01/13/23 documented as of this encounter
--- OUTSIDE RECORDS SUMMARY | 2023-12-24 13:21 | XMS_ITS | Encounter Summary ---
Author Organization [facility] Address [address] [place] [address] Care Team Providers Care Policeman Name Role Phone Osito Joe MD Primary Care Provider [phone] Encounter Details Date Type Department Care Team (Late st Contact Info) Description 08/25/2023 Orders Only [facility] [address] [place] [address] Yan Romero MD [address] [place] [address] Chronic kidney disease stage 4 [...] Hypomagnesemia documented in this encounter Care Teams Policeman Relationship Specialty Start Date End Date Osito Joe MD [address] [place] [address] PCP - General Family Medicine 01/13/23 documented as of this encounter
--- OUTSIDE RECORDS SUMMARY | 2023-12-24 13:21 | XMS_ITS | Encounter Summary ---
Author Organization [facility] Address [address] [place] [address] Care Team Providers Care Associate Team Physician Name Role Phone Christina Vargas APRN, C.N.P. Primary Care Provi khurram Encounter Details Date Type Department Care Team (Latest Contact Info) Description 11/25/2023 3:48 PM CDT - 11/25/2023 11:59 PM CDT Hospital Encounter Department of Laboratory Medicine in [place], [place] [address] [place] [phone] Christina Vargas APRN, C.N.P. [address] [place] [phone] Urinary Tract Infection Site Not Specified Discharge Disposition: Home or Self Care Social [...] 3 (three) times a day. Per [facility] EHR: Give 1 tablet by mouth three [...] 01/12/2023 12/02/19 documented as of this encounter Miscellaneous Notes * Result Encounter Note - Kimberly Lundy APRN, C.N.P. - 11/27/2023 12:21 PM CDT Will wait for UA/UC culture. He is already on antibiotics augmentin and cipro for a wound infection. documented in this encounter Plan of Treatment Not on file documented as of this encounter Procedures Procedure Name Priority Date/Time Associated Diagnosis Comments URINALYSIS WITH MICROSCOPIC IF INDICATED, U Routine 11/25/2023 2:20 PM CDT Urinary Tract Infection Site Not Specified HC URINALYSIS AUTO W MICRO Routine 11/25/2023 2:20 PM CDT BACTERIAL CULTURE, AEROBIC + SUSC, URINE Routine 11/25/2023 2:20 PM CDT Urinary Tract Infection Site Not Specified documented in this encounter Results * (ABNORMAL) Microscopic Manual (11/25/2023 2:20 PM [...] C.N.P. LAB URINE ORDERABLE S Final Result [facility] [address] [place] [address], [place] NPR[facility] [address] [place] [address] * (ABNORMAL) Bacterial Culture, Aerobic + Susceptibility, Urine (11/25/2023 2:20 PM CDT) [facility] Urine Culture With urogenital microbiota, susceptibilities [...] LAB MICROBIOLOGY - GENERAL ORDERABLES Final Result [facility] [address] [place] [address], [facility] in [place] [address] [place] [address] * (ABNORMAL) Urinalysis with Microscopic if Indicated [...] 8.0 11/25/2023 3:54 PM CDT [facility] Specific [place] >=1.030 1.001 - 1.035 11/25/2023 3:54 PM CDT [facility] Urobilinogen 0.2 0.2 - 1.0 mg/dL 11/25/2023 3:54 PM CDT [facility] Urine (Urine, Catheter) 11/25/2023 2:20 PM CDT 11/25/2023 3:49 PM CDT us Christina Vargas APRN C.N.P. LAB URINE ORDERABLE S Final Result [facility] [address] [place] [address], [facility] [address] [place] [address] documented in this encounter Visit Diagnoses Diagnosis Urinary Tract Infection Site Not Specified documented in this encounter Care Teams Associate Team Physician Relationship Specialty Start Date End Date Christina Vargas APRN, C.N.P. [address] [place] [address] PCP - General Family Medicine 11/20/23 12/19/23 documented as of this encounter
--- OUTSIDE RECORDS SUMMARY | 2023-12-24 13:21 | XMS_ITS | Encounter Summary ---
Author Organization [facility] Address [address] [place] [address] Care Team Providers Care Engine Tester Name Role Phone Glory Vargasfidencio Main APRN, C.N.P. Primary Care Provi khurram Reason for Visit * Reason Onset Date Comments SNF Nurse Intake 11/27/2023 Encounter Details Date Type Department Care Team (Latest Contact Info) Description 11/27/2023 Clinical Communication [facility] [place] [address] Emilie Villareal, RAnthonyN. SNF Nurse Intake Social History Tobacco Use [...] encounter Miscellaneous Notes * Telephone Encounter - Kimberly Lundy APRN, C.N.P. - 11/27/2023 2:26 PM CDT Order given to DC blood sugar checks * Telephone Encounter - Emilie Villareal RAnthonyN. - 11/27/2023 12:16 PM CDT Received call from Bella, nurse Dependency Counselor from [facility] where pt currently resides Staff wondering if blood sugar checks can be D/c'd as pt is no longer getting TPN and BS checks were order with TPN Staff seeking provider to review lab results documented in this encounter Plan of Treatment Not on file documented as of this encounter Visit Diagnoses Not on filedocumented in this encounter Care Teams Engine Tester Relationship Specialty Start Date End Date Christina Vargas APRN, C.N.P. [address] [place] [phone] PCP - General Family Medicine 11/20/23 12/19/23 documented as of this encounter
--- OUTSIDE RECORDS SUMMARY | 2023-12-24 13:21 | XMS_ITS | Encounter Summary ---
Author Organization [facility] Address [address] [place] [address] Care Team Providers Care Head Of Drama Name Role Phone Christina Vargas APRN, C.N.P. Primary Care Provi khurram Encounter Details Date Type Department Care Team (Latest Contact Info) Description 11/24/2023 3:00 PM CDT External Outreach [facility] [place] [address] [place] [phone] Christina Vargas APRN, C.N.P. [address] [place] [phone] Chondrocalcinosis (Primary Dx); Abscess Abdominal Wall; Hyperparathyroidism [...] Kidney Disease, Or Unspecified Chronic Kidney Disease Social History Tobacco Use Types Packs/Day Years [...] Sign Reading Time Taken Comments Blood Pressure 96/60 11/24/2023 7:13 AM CDT Pulse 77 11/24/2023 7:13 AM CDT Temperature 36.8 ??C (98.2 ??F) 11/24/2023 7:13 AM CD T Respiratory Rate 18 11/24/2023 7:13 AM CDT Oxygen Saturation 93% 11/24/2023 7:13 AM CDT Inhaled Oxygen Concentration - - Weight 70.6 kg (155 lb 9.6 oz) 11/24/2023 7:13 A M CDT Height - - Body Mass Index - - documented in this encounter Progress Notes * Aileen Cartwright L.PAnthonyN. - 11/24/2023 3:00 PM CDT Images from the original note were not included. SNF VISIT for New Admission visit New Admission to the facility. Recent Hospital admission: Yes,This resident was recently hospitalized at: Outside Hospital [facility] Date of hospitalization: Admission Date: 10/31/2023 Discharge Date: 11/20/2023 Reason for hospitalization: Abdominal wall abscess Medication changes: Start Tylenol, Augmentin, Pepto bismol, Cipro, Midodrine, Zofran Adjusted Levothyroxine Stopped Iron, Fiber, Hydrocodone-acetaminophen, Potassium Code Status:DNR Active issues needing follow up: Specific recommendations to be addressed at the follow up visit: Follow up wound healing, PO intake, antibiotic completion, therapies Please follow up with the [facility] with the [facility] 2-4weeks after discharge for a wound check. Appointment set for 12/05 at 12:00 noon with for wound check Follow up labs/imaging: CBC/BMP Active wound requiring treatment: Wound care to lower left quadrant 1 remove all packing. 2 irrigate wound with saline or wound upholstery cleaner. 3 probe wound with q-tip to assess undermining/tunneling.4 loosely pack wound with kerlix roll gauze lightly dampened with saline, take care to pack into areas of undermining. 5 Cover with dry gauze or ABD. Wounds/L/D/A: Colostomy SNF Nurse concerns: unknown Future Appointments 11/24/2023 3:00 PM Christina Vargas APRN, C.N.P. 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 - 11/24/2023 3:00 PM CDT CHIEF COMPLAINT / REASON FOR VISIT The resident is being seen at [place], [place] for Post hospitalization Follow up Visit Visit Type: In Person Face-to- Face visit SUBJECTIVE HISTORY OF PRESENT ILLNESS Obtained from Patient and Nursing: SNF VISIT for New Admission visit New Admission to the facility. Recent Hospital admission: Yes,This resident was recently hospitalized at: Outside Hospital [facility] Date of hospitalization: Admission Date: 10/31/2023 Discharge Date: 11/20/2023 Reason for hospitalization: Abdominal wall abscess Long Nugent is a(n) 83 y.o. with a history of Crohn disease (s/p end- ileostomy), CKD stage IV, atrial fibrillation (s/p Watchman and ablation), HTN, hypothryoidism (s/p thyroidectomy 2022) Patient was admitted for [...] 2 irrigate wound with saline or wound upholstery cleaner. 3 probe wound with q-tip to assess undermining/tunneling.4 loosely pack wound with kerlix roll gauze lightly dampened with saline, take care to pack into areas of undermining. 5 Cover with dry gauze or ABD. Wounds/L/D/A: Colostomy Patient is seen today, he says he starting to feel better. His nausea has improved. He denies any dizziness or lightheadedness. He is starting to tolerate more of a regular diet. Denies any coughing,fever or chills. He does note to have a sore on his coccyx. Staff are also caring for his abdominalwound. His ileostomy has been functioning, he says he also does pass some stool through his rectum which has been his normal. I personally reviewed the most recent following items: clinical notes, lab results, imaging reports The following medical problems were actively reviewed (including updating overview sections as necessary) and addressed as part of today's visit: Diagnosis Overview 1. Chondrocalcinosis - Primary On allopurinol. Rare flare for which he takes prednisone. 2. Chronic Kidney Disease Stage 4 Glomerular Filtration Rate 15-29 (HCC) 3. Deficiency Vitamin D 4. Dizziness And Giddiness 5. Hyperlipidemia Mixed 6. Hyperparathyroidism Renal Secondary (HCC) And Primary Hyperparathyroidism: Had parathyroidectomy and partial thyroidectomy. Currently supplemented. 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 7. Osteoarthritis OF KNEES AND SHOULDER 8. Abscess Abdominal Wall CODE STATUS: DNR/DNI REVIEW OF SYSTEMS Complete review of systems was performed, as allowable by patient's cognitive status, and incorporating collateral history if applicable. Relevant positives are noted elsewhere in this note, otherwise negative. OBJECTIVE Vital signs provided by facility: BP 96/60 Pulse 77 Temp 36.8 ??C Resp 18 Wt 70.6 kg SpO2 93% PHYSICAL EXAM Constitutional General: He is not in acute distress. Appearance: Normal appearance. He is not ill-appearing. HENT Nose: Nose normal. No congestion or rhinorrhea. Eyes Conjunctiva/sclera: Conjunctivae normal. Cardiovascular Rate and Rhythm: Normal rate and regular rhythm. Pulmonary Effort: Pulmonary effort is normal. No respiratory distress. Abdominal Comments: He has ileostomy Musculoskeletal Right lower leg: No edema. Left lower leg: No edema. Skin Coloration: Skin is pale. Comments: Did view pictures in prison records Has stage 2 pressure ulcer of sacrum and open abdominal wound Neurological Mental Status: He is alert. Mental [...] and present management will be continued. #1 Chondrocalcinosis Assessment & Plan: Continue allopurinol #2 Abscess Abdominal Wall Assessment & Plan: Continue with wound care Continue with Augmentin and ciprofloxacin until follow up with ID He is using Zofran as needed #3 Hyperparathyroidism Renal Secondary (HCC) Assessment & Plan: Continue cacitriol #4 Deficiency Vitamin D Assessment & Plan: Continue vitamin D supplement #5 Dizziness And Giddiness Assessment & Plan: Continue midodrine, hold if systolic BP is greater than 130 or diastolic is greater than 90 #6 Chronic Kidney Disease Stage 4 Glomerular Filtration Rate 15-29 (HCC) Assessment & Plan: Follows with nephrology Takes Phospha 250 mg twice a day and sodium citrate twice a day #7 Hyperlipidemia Mixed Assessment & Plan: Rosuvastatin #8 Osteoarthritis Assessment & Plan: Continue as needed acetaminophen #9 Atrial Fibrillation Paroxysmal (HCC) Assessment & Plan: History of ablation and had watchman procedure #10 Supraventricular Tachycardia, Unspecified (HCC) Assessment & Plan: Had history of ablation #11 Crohns Disease Unspecified Without Complications ([facility]) Assessment & Plan: Continue current ostomy cares #12 Pressure Injury (Ulcer) Of Sacral Region Stage 2 (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) #17 Benign Prostatic Hyperplasia Without Obstruction Assessment & Plan: Continue finasteride #18 Gastro-Esophageal Reflux Disease With Esophagitis Without Bleeding Assessment & Plan: Continue omeprazole CBC and BMP ordered for next week [...] patient, family, and/or facility staff. Total time 60 minutes. F/U with Dr Haseeb Monk MondayDec 12 1:00pm [facility] [address] [place] [address] Patient needs follow up with [facility] Infectious Disease documented in this encounter Miscellaneous Notes * Assessment & Plan Note - Christina Vargas APRN, C.N.P. - 11/24/2023 12:07 PM CDTAssociated Problem(s): Gastro-Esophageal Reflux Disease With Esophagitis Without Bleeding Continue omeprazole * Assessment & Plan Note - Christina Vargas APRN, C.N.P. - 11/24/2023 12:07 PM CDTAssociated Problem(s): Benign Prostatic Hyperplasia Without Obstruction Continue finasteride * Assessment & Plan Note - Christina Vargas APRN, C.N.P. - 11/24/2023 12:06 PM CDTAssociated Problem(s): Parastomal Hernia Without Obstruction Or Gangrene Has follow up with general surgery * Assessment & Plan Note - Christina Vargas APRN, C.N.P. - 11/24/2023 12:06 PM CDTAssociated Problem(s): Hypothyroidism Continue levothyroxine 175 mcg daily * Assessment & Plan Note - Christina Vargas APRN, C.N.P. - 11/24/2023 12:05 PM CDTAssociated Problem(s): Anemia Last hemoglobin was 8.6 on 11/17/23 Recheck ordered for 11/28/23 * Assessment & Plan Note - Christina Vargas APRN, C.N.P. - 11/24/2023 12:04 PM CDTAssociated Problem(s): Pressure Injury (Ulcer) Of Sacral Region Stage 2 (HCC) Wound care per rounding wound care nurse practitioner * Assessment & Plan Note - Christina Vargas APRN, C.N.P. - 11/24/2023 12:03 PM CDTAssociated Problem(s): Crohns Disease Unspecified Without Complications (HCC) Continue current ostomy cares * Assessment & Plan Note - Christina Vargas APRN, C.N.P. - 11/24/2023 12:03 PM CDTAssociated Problem(s): Supraventricular Tachycardia, Unspecified (HCC) Had history of ablation * Assessment & Plan Note - Christina Vargas APRN, C.N.P. - 11/24/2023 12:02 PM CDTAssociated Problem(s): Atrial Fibrillation Paroxysmal (HCC) History of ablation and had watchman procedure * Assessment & Plan Note - Christina Vargas APRN, C.N.P. - 11/24/2023 11:45 AM CDTAssociated Problem(s): Osteoarthritis Continue as needed acetaminophen * Assessment & Plan Note - Christina Vargas APRN, C.N.P. - 11/24/2023 11:45 AM CDTAssociated Problem(s): Hyperlipidemia Mixed Rosuvastatin * Assessment & Plan Note - Christina Vargas APRN, C.N.P. - 11/24/2023 11:45 AM CDTAssociated Problem(s): Chronic Kidney Disease Stage 4 Glomerular Filtration Rate 15-29 (HCC) Follows with nephrology Takes Phospha 250 mg twice a day and sodium citrate twice a day * Assessment & Plan Note - Christina Vargas APRN, C.N.P. - 11/24/2023 11:44 AM CDTAssociated Problem(s): Dizziness And Giddiness Continue midodrine, hold if systolic BP is greater than 130 or diastolic is greater than 90 * Assessment & Plan Note - Christina Vargas APRN, C.N.P. - 11/24/2023 11:43 AM CDTAssociated Problem(s): Deficiency Vitamin D Continue vitamin D supplement * Assessment & Plan Note - Christina Vargas APRN, C.N.P. - 11/24/2023 11:43 AM CDTAssociated Problem(s): Hyperparathyroidism Renal Secondary (HCC) Continue cacitriol * Assessment & Plan Note - Christina Vargas APRN, C.N.P. - 11/24/2023 11:42 AM CDTAssociated Problem(s): Abscess Abdominal Wall Continue with wound care Continue with Augmentin and ciprofloxacin until follow up with ID He is using Zofran as needed * Assessment & Plan Note - Christina Vargas APRN, C.N.P. 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 Dizziness And Giddiness Chronic Kidney Disease Stage 4 Glomerular Filtration Rate 15-29 (HCC) Hyperlipidemia Mixed Osteoarthritis Atrial Fibrillation Paroxysmal (HCC) Supraventricular Tachycardia, Unspecified (HCC) Crohns Disease Unspecified Without Complications (HCC) Pressure Injury (Ulcer) Of Sacral Region Stage 2 (HCC) Anemia Hypothyroidism Parastomal Hernia Without Obstruction Or Gangrene Ileostomy Status (HCC) Benign Prostatic Hyperplasia Without Obstruction Gastro-Esophageal Reflux Disease With Esophagitis Without Bleeding Hypertensive Chronic Kidney Disease With Stage 1 Through Stage 4 Chronic Kidney Disease, Or Unspecified Chronic Kidney Disease documented in this encounter Care Teams Head Of Drama Relationship Specialty Start Date End Date Christina Vargas APRN, C.N.P. [address] [place] [phone] PCP - General Family Medicine 11/20/23 12/19/23 documented as of this encounter
--- OUTSIDE RECORDS SUMMARY | 2023-12-24 13:22 | XMS_ITS | Clinical Summary ---
Author Organization [facility] Address [place], [place] [address] Care Team Providers Care Crop Setting Out Machine Operator Name Role Phone Osito Joe MD Primary Care Provider [phone] Ronan Pinedo RN Unavailable Unavailable [facility] Unavailable Allergies Active Allergy Reactions Criticality Noted Date Comments Aspirin GI Bleeding 04/12/2019 Codeine 05/09/2006 constipation Furosemide Palpitations 02/03/2012 Lasix caused palpitations in 2011. Atorvastatin Intolerance-Can't Take 11/17/2006 myalgia Simvastatin Myalgia Medium 03/19/2009 Medications Medication Sig Dispensed Refills Start Date End Date Status CYANOCOBALAMIN 1,000 MCG TABIndications:Other B-complex deficiencies Take 1,000 mcg by mouth once daily. PROTECT FROM LIGHT 180 3 9 Active coenzyme q10 100 mg capIndications:Systolic hypertension Take 200 mg by mouth in the morning, and 400 mg by mouth in the afternoon. 0 7 Active cholecalciferol (VITAMIN D) 1,000 unit tabletIndications:Vitam in D deficiency Take 1 tablet by mouth once daily. 90 tablet 3 7 Active Magnesium Oxide 500 mg tabIndications:PAF (paroxysmal atrial fibrillation) (HC) Take 1,000 mg by mouth 2 times daily. 0 1 Active geiexs-tauirrwpjm-qolhk rry ext 20-1-2.2 mg cap Take 1 Capsule by mouth once daily. 0 2 Active potassium-sodium di-/monobasic phosphates (Phospha 250 Neutral) 250 mg tabletIndications:Hypok alemia,Hypophosphatemia Take 1 Tablet by mouth two times daily with meals. 180 Tablet 3 3 Active nitroglycerin (NITROSTAT) 0.4 mg sublingual tabletIndications:CAD in [place] artery Place 1 Tablet (0.4 mg) under the tongue every 5 minutes if needed for Chest Pain. 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 90 Tablet 3 4 Active finasteride (PROSCAR) 5 mg tabletIndications:BPH with obstruction/lower urinary tract symptoms Take 1 Tablet (5 mg) by mouth every morning. 90 Tablet 3 4 Active omeprazole (PRILOSEC) 20 mg Delayed-Release capsuleIndications:Jaymie roesophageal reflux disease with esophagitis without hemorrhage Take 1 Capsule (20 mg) by mouth once daily before a meal. 90 Capsule 3 4 Active tamsulosin (FLOMAX) 0.4 mg capsuleIndications:BPH with obstruction/lower urinary tract symptoms Take 2 Capsules (0.8 mg) by mouth at bedtime. 180 Capsule 3 4 Active CITRACAL + D SLOW REL. Extended-Release tabletIndications:Secon michael renal hyperparathyroidism (HC) TAKE ONE TABLET BY MOUTH ONE TIME DAILY 80 Tablet 4 Active rosuvastatin (Crestor) 10 mg tablet Take 10 mg by mouth at bedtime. Active midodrine (PROAMATINE) 5 mg tabletIndications:Ortho static hypotension Take 1 Tablet (5 mg) by mouth three times daily. 4 Active ondansetron (ZOFRAN ODT) 4 mg disintegrating tabletIndications:Crohn 's disease of small intestine without complication (HC) Place 1 Tablet (4 mg) on the tongue every 8 hours if needed for Nausea/Vomiting. 4 Active amoxicillin-clavulanate (AUGMENTIN) 875-125 mg tabletIndications:ABDOM EN/PELVIS INFECTION Take 1 Tablet by mouth two times daily with meals. 60 Tablet 4 Active ciprofloxacin (CIPRO) 500 mg tabletIndications:ABDOM EN/PELVIS INFECTION Take 1 Tablet (500 mg) by mouth two times daily. 60 Tablet 4 Active bismuth subsalicylate (PEPTO-BISMOL) 262 mg/15 mL suspensionIndications:R ecurrent abdominal hernia with obstruction without gangrene, unspecified hernia type Twice a day PRN for loose stools/ fecal incontinence, but please stop if stools become too firm 4 Active levothyroxine (SYNTHROID) 175 mcg tabletIndications:Hypot hyroidism (acquired) Take 1 Tablet (175 mcg) by mouth before breakfast. 4 Active acetaminophen (TYLENOL EXTRA STRGTH) 500 mg tabletIndications:Recur rent abdominal hernia with obstruction without gangrene, unspecified hernia type,Abdominal pain, unspecified abdominal location Take 2 Tablets (1,000 mg) by mouth every 6 hours if needed for Pain. Max acetaminophen dose: 4000mg in 24 hrs. 4 Active Foam Bandage (Tendra Mepilex Border) 6 X 8 bndgIndications:Open wound of abdominal wall, subsequent encounter Apply topically to affected area(s). 30 Each 2 4 Active apixaban (ELIQUIS) 2.5 mg tabletIndications:deep venous thrombosis Take 1 Tablet (2.5 mg) by mouth two times daily. 60 Tablet 11 4 Active Active Problems Problem Noted Date Diagnosed Date Abdominal wall abscess 11/02/2023 Overview (12/18/2023): Admitted at [facility] on 10/31/23 for worsening abdominal pain around his stoma (history of Crohn's disease s/p end-ileostomy). CT abdomen and pelvis in the ED was notable for LLQ ostomy with fast stranding and foci of fas and fluid about left anterior abdominal wall. CT repeated with contrast through the ileostomy and showed large fluid collection within the left anterior abdominal wall and rectus sheath. He underwent ileoscopy which showed no evidence of Crohn's disease. A drain was placed into abdominal wall fluid collection 11/02 while on cefepime and metronidazole. Unfortunately CT scan on 11/05 showed increase in fluid collection size and now with gas. Take to the OR for I&D on 11/07 of fluid collection thought to be secondary from perforated colostomy diverticulum. His post-op course was complicated by orthostatic hypotension which improved after 1u PRBCs and midodrine. He was discharged to TCU on PO diet, additional 30 days of antibiotics (Cipro and Augmentin - polymicrobial cultures), and close follow up with general surgery and infectious disease. 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 [...] Encounters Date Type Department Care Team Description 12/24/2023 Home Care Visit [facility] [address] [place] [address] Dilshad Mckeon, OT CARE TRANSITION NOTE 12/22/2023 9:00 AM CDT Home Care Visit [facility] [address] [place] [address] Kira Quiroz, RN SN - OASIS START OF CARE 12/22/2023 Telephone [facility] [place], [place] [id number] Kira Quiroz, high pressure cleaner (Requesting Verbal Orders, Medication updates and vitals outside of parameters.) 12/22/2023 Plan of Care Documentation [facility] [address] [place] [address] 12/20/2023 2:00 PM CDT Ancillary Procedure [facility] [address] [place] [address] Arrived 12/20/2023 Telephone [facility] [address] [facility] [address] Osito Joe MD Results 12/20/2023 Orders Only [facility] [address] [place] [address] Oisto Joe MD <No scans attached> 12/20/2023 Travel 12/18/2023 11:10 AM CDT Office Visit [facility] [address] [place] [address] Osito Joe MD Follow Up 12/18/2023 Travel 12/15/2023 Transcribe Orders [facility] [address] [place] [address] Etahn Orozco MD 12/13/2023 1:00 PM CDT Office Visit [facility] [address] [address] Shannan Monk MD Follow Up 12/13/2023 Travel 12/06/2023 12:00 PM CDT [facility] [address] [place] [address] Rachel Mitchell, DO Wound Check 12/06/2023 Travel 11/08/2023 1:02 PM CDT Anesthesia Event [facility] [address] [place] [address] Kimberly Anderson MD Skoog, Richard Emery, MD 11/08/2023 12:57 PM CDT - 11/08/2023 4:21 PM CDT Surgery [facility] [address] [place] [address] Rachel Mitchell, CLOSURE OF FISTULA, EXPLORATION ABDOMINAL WALL 11/02/2023 10:56 AM CDT Anesthesia Event [facility] [address] [place] [address] Josue Sinha MD Moss, Elaina Susan, CRNA 11/02/2023 10:44 AM CDT - 11/02/2023 11:18 AM CDT Surgery [facility] [address] [place] [address] Bryce Pope MD ILEOSCOPY 10/31/2023 11:04 AM CDT - 11/20/2023 1:30 PM CDT Hospital Encounter [facility] [address] [place] [address] Louisa Rivera, DO [facility] [place], MD Brandon Broussard, MD Sim Velasco, MD Stacy Sanders, Derik Guerrero MD 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, unspecified hernia type (Primary Dx); Abdominal pain, unspecified abdominal location; Hypothyroidism (acquired); Orthostatic hypotension; Crohn's disease of small intestine without complication (HC); Abdominal wall abscess Discharge Disposition: Assisted Facility 10/31/2023 Travel 10/27/2023 1:30 PM CDT Office Visit [facility] [address] [place] [address] Aileen Metcalf PA Medication Management (Needs something for pain until he can see surgeon or PCP) 10/27/2023 Travel 10/25/2023 3:30 PM CDT Office Visit [facility] [address] [place] [address] Marnie Rosario MD Consult (Hernia/) 10/25/2023 Telephone [facility] [address] [place] [address] Marnie Rosario MD Questions 10/25/2023 Travel 10/17/[address] [facility] Scanner 2 scans: (2-Ord) [facility], ABDOMEN PELVIS W/O CONTRAST, 10/17/2023 10/12/2023 Nurse Triage [facility] [address] [place] [address] Osito Joe MD Abdominal Pain/problem (Abdominal pain for 3 days pain 7-8/10) from Last 3 Months Immunizations Name Administration Dates Next Due AMB Influenza, IIV4 PF (=>6 mos Flulaval,Fluzone Fluarix)(Flu Clinic Only) 12/17/2018 COVID-19 vaccine (mAPPn NTech 30mcg/0.3mL) PF, MDV 05/19/2020,04/28/2020 Hepatitis B (Adult) 03/04/2005, 5,10/06/2004,09/08 Influenza A (H1N1), Inactiva tessa (Age >=3 Years) 03/05/2009 Influenza, High-dose Inactivated 11/26/2015,10/28,11/06/2013 Influenza, High-dose Quadriv alent Inactivated 12/29/2022,12/13/2021,11/27/2020 Influenza, IIV3 (Age 6-35 mos) 11/10/2010 Influenza, IIV3 (Age >=3 years) 12/15/19 13,10/28/2011,11/10/2010,12/21,12/01/2008,01/04/2008,12/29/2006 ,12/14/2005 Influenza, Inactivated IIV3 (Age 65+ Years) Preserv Free 12/07/2023,12/02/2019,11/29/2017,12/16 Pneumococcal Poly,23-Valent (Pneumovax) 07/25/2013,09/13/2012,10/04/2004 Pneumococcal conj 13-Valent (Prevnar 13) 02/12/2015 RSV, Recombinant ADJ Reconst ituted (Arexvy 120MCG/0.5mL) 11/03/2022 Td (Age >=7 Years) 02/02/2005 Td, Preservative Free (age >= 7 Years) 5 Tdap 07/25/2013 Zoster (Shingrix-RZV, recombinant) 06/04/2019, Zoster (Zostavax-ZVL, live) 06/01/2007 Family History Medical History Relation Name Comments Hyperlipidemia Brother Heart Disease Father [place], CABG Stroke Father age 70s fr om [...] file 10/27/2023 Food Insecurity Answer Date Recorded Do you worry your food will run out before you are able to buy more? 1 10/31/2023 Transportation Needs Answer Date Record ed Lack of Transportation (Medical) 1 10/27/2023 Housing Stability Answer Date Recorded What is your housing situation today? 1 10/31/2023 Sex and Gender Information Value Date Recorded Sex Assigned at Not on file Gender Identity Not on file Sexual Orientation Not on file Obstetrics History Last Filed Vital Signs Vital Sign Reading Time Taken Comments Blood Pressure 90/42 12/22/2023 9:22 AM CDT Pulse 74 12/22/2023 9:22 AM CDT Temperature 36.3 ??C (97.4 ??F) 12/22/2023 9:18 AM CD T Respiratory Rate 18 12/22/2023 9:18 AM CDT Oxygen Saturation 98% 12/22/2023 9:22 AM CDT Inhaled Oxygen Concentration - - Weight 66.9 kg (147 lb 6.4 oz) 12/18/2023 11:04 AM CDT Height 177.8 cm (5' 10) 12/06/2023 11:57 AM CDT Body Mass Index 21.15 12/06/2023 11:57 AM CDT Plan of Treatment Upcoming Encounters Date Type Department Care Team (Late st Contact Info) Description 12/25/2023 4:30 AM CDT Home Care Visit [facility] [address] [place] [id number] Dilshad Mckeon, OT [address] [place] [address] 12/25/2023 5:00 AM CDT Home Care Visit [facility] [address] [place] [address] Vidhya León [address] [place] [address] 12/25/2023 9:00 AM CDT Home Care Visit [facility] [address] [place] [address] 01/04/2024 12:00 PM GREEN HIDE INSPECTOR [facility] [address] [place] [address] Aileen Hayes MD [address] [address] 01/18/2024 10:15 AM GREEN HIDE INSPECTOR Office Visit [facility] [address] [place] [address] Osito Joe MD [address] [place] [address] 04/09/2024 Cardiac Device Check [facility] [phone] Health Maintenance Due Date Last Done Comments Tetanus booster 07/26/2023 07/25/2013, 08/2004, 02/02/2005 Depression screening for age 12+ 06/01/2024 06/02/2023, 06/02/2023, 06/01/2022, Additional history exists Medicare Wellness for age 65+ 06/02/2024, 05/30/2022, 05/21/2021, Additional history exists BMI (ht and wt on same day) for age 18+ 12/05/2024 12/06/2023, 06/02/2023, 03/06/2023, Additional history exists Tdap Completed 07/25/2013, 07/25/2013 Pneumococcal series for age 65+ Completed 02/12/2015, 02/12/2015, 07/25/2013, Additional history exists Zoster (shingles) series for age 50+ Completed 06/04/2019, 03/06/2019, 06/01/2007 RSV vaccine for adults or Completed 11/03/2022 COVID-19 vaccine series Completed 12/07/19, 05/31/2023, 12/22/2022, Additional history exists Influenza for age 65+ Completed 12/07/2023 , 12/29/2022, 12/13/2021, Additional history exists Medical Devices Implanted Type Area Music Coordinator Device Identifier Shelf Expiration Date Model / Serial / Lot Stent Contour [id number] - [id number] Implanted:Qty: 1 on 03/28/2012 by Sukhdev Elizalde MD at [facility] Right: Ureter [facility] 01/26/2015 [id number] / / [id number] Description:please see impla nt sheet. Stent Prcflx [id number] Hydpls - [id number] Implanted:Qty: 1 on 08/17/2013 at [facility] Right: [employer]ter [facility] [id number]# / / [id number] Procedures Procedure Name Priority Date/Time Associated Diagnosis Comments CT ABDOMEN PELVIS WO Routine 12/20/2023 2:06 PM CDT Abdominal wall abscess MAGNESIUM Routine 12/18/2023 12:12 PM CDT Hypokalemia BASIC METABOLIC PANEL Routine 12/18/2023 12:12 PM CDT Hypokalemia CBC W PLT NO DIFF Routine 12/18/2023 12: 12 PM CDT Anemia of unknown etiology GLUCOSE METER Timed 11/20/2023 11:39 AM CDT GLUCOSE METER Timed 11/20/2023 9:25 AM CDT TRIGLYCERIDES [place] 11/20/2023 7:10 AM CDT COMP METABOLIC PANEL [place]W 11/20/2023 7:10 AM CDT HEMOGLOBIN Early AM 11/20/2023 7:10 AM CDT PHOSPHORUS Timed 11/20/2023 7:10 AM CDT MAGNESIUM Timed 11/20/2023 7:10 AM CDT GLUCOSE METER Timed 11/19/2023 9:49 PM CDT GLUCOSE METER Timed 11/19/2023 5:03 PM CDT GLUCOSE METER Timed 11/19/2023 11:57 AM CDT MAGNESIUM Timed 11/19/2023 9:05 AM CDT PLATELET COUNT Timed 11/19/2023 9:05 AM CDT GLUCOSE METER Timed 11/19/2023 6:56 AM CDT GLUCOSE METER Timed 11/19/2023 4:24 AM CDT GLUCOSE METER Timed 11/18/2023 10:52 PM CDT GLUCOSE METER Timed 11/18/2023 5:22 PM CDT GLUCOSE METER Timed 11/18/2023 11:46 AM CDT MAGNESIUM Early AM 11/18/2023 7:46 AM CDT SODIUM Early AM 11/18/2023 7:46 AM CDT PHOSPHORUS Early AM 11/18/2023 7:46 AM CDT HEMOGLOBIN Early AM 11/18/2023 7:45 AM CDT GLUCOSE METER Timed 11/18/2023 6:43 AM CDT GLUCOSE METER Timed 11/17/2023 10:07 PM CDT GLUCOSE METER Timed 11/17/2023 5:33 PM CDT GLUCOSE METER Timed 11/17/2023 12:01 PM CDT GLUCOSE METER Timed 11/17/2023 8:52 AM CDT POTASSIUM Today 11/17/2023 8:09 AM CDT SODIUM Early AM 11/17/2023 8:09 AM CDT HEMOGLOBIN Early AM 11/17/2023 8:09 AM CDT PHOSPHORUS Timed 11/17/2023 8:09 AM CDT MAGNESIUM Timed 11/17/2023 8:09 AM CDT GLUCOSE METER Timed 11/17/2023 6:00 AM CDT GLUCOSE METER Timed 11/16/2023 9:46 PM CDT GLUCOSE METER Timed 11/16/2023 5:13 PM CDT GLUCOSE METER Timed 11/16/2023 8:25 AM CDT PHOSPHORUS [place] 11/16/2023 6:38 AM CDT POTASSIUM [place] 11/16/2023 6:38 AM CDT MAGNESIUM [place] 11/16/2023 6:38 AM CDT CREATININE Early AM 11/16/2023 6:38 AM CDT SODIUM Early AM 11/16/2023 6:38 AM CDT HEMOGLOBIN Early AM 11/16/2023 6:38 AM CDT PLATELET COUNT Timed 11/16/2023 6:38 AM CDT GLUCOSE METER Timed 11/15/2023 9:29 PM CDT GLUCOSE METER Timed 11/15/2023 6:11 PM CDT TRANSFUSE RBC (NURSE COMMUNICATION ORDER) STAT 11/15/2023 2:31 PM CDT RBC W TYPE AND SCREEN STAT 11/15/2023 1:04 PM CDT RED BLOOD CELLS EA UNIT STAT 11/15/2023 1:00 PM CDT GLUCOSE METER Timed 11/15/2023 7:13 AM CDT HEMOGLOBIN Early AM 11/15/2023 6:16 AM CDT PHOSPHORUS Timed 11/15/2023 6:16 AM CDT MAGNESIUM Timed 11/15/2023 6:16 AM CDT GLUCOSE METER Timed 11/15/2023 1:12 AM CDT COMP METABOLIC PANEL Timed 11/15/2023 1:08 AM CDT GLUCOSE METER Timed 11/14/2023 9:37 PM CDT GLUCOSE METER Timed 11/14/2023 11:47 AM CDT GLUCOSE METER Timed 11/14/2023 7:05 AM CDT WHITE BLOOD COUNT Early AM 11/14/2023 5:5 6 AM CDT HEMOGLOBIN Early AM 11/14/2023 5:56 AM CDT CORTISOL TOTAL Early AM 11/14/2023 3:35 AM CDT MAGNESIUM Timed 11/14/2023 3:35 AM CDT POTASSIUM Timed 11/14/2023 12:18 AM CDT PHOSPHORUS Early AM 11/14/2023 12:18 AM CDT CREATININE Early AM 11/14/2023 12:18 AM CDT GLUCOSE METER Timed 11/13/2023 9:32 PM CDT POTASSIUM STAT 11/13/2023 6:33 PM CDT MAGNESIUM STAT 11/13/2023 6:33 PM CDT GLUCOSE METER Timed 11/13/2023 5:24 PM CDT GLUCOSE METER Timed 11/13/2023 10:49 AM CDT WHITE BLOOD COUNT Early AM 11/13/2023 5:0 5 AM CDT HEMOGLOBIN Early AM 11/13/2023 5:05 AM CDT CREATININE Early AM 11/13/2023 5:05 AM CDT POTASSIUM Early AM 11/13/2023 5:05 AM CDT SODIUM Early AM 11/13/2023 5:05 AM CDT PHOSPHORUS Timed 11/13/2023 5:05 AM CDT MAGNESIUM Timed 11/13/2023 5:05 AM CDT PLATELET COUNT Timed 11/13/2023 5:05 AM CDT GLUCOSE METER Timed 11/12/2023 9:42 PM CDT GLUCOSE METER Timed 11/12/2023 8:51 PM CDT GLUCOSE METER Timed 11/12/2023 4:53 PM CDT PHOSPHORUS Timed 11/12/2023 3:43 PM CDT GLUCOSE METER Timed 11/12/2023 11:53 AM CDT HEMOGLOBIN Early AM 11/12/2023 8:38 AM CDT CREATININE Early AM 11/12/2023 8:38 AM CDT SODIUM Early AM 11/12/2023 8:38 AM CDT POTASSIUM Early AM 11/12/2023 8:38 AM CDT PHOSPHORUS Early AM 11/12/2023 8:38 AM CDT GLUCOSE METER Timed 11/12/2023 7:59 AM CDT GLUCOSE METER Timed 11/11/2023 9:35 PM CDT GLUCOSE METER Timed 11/11/2023 5:16 PM CDT POTASSIUM Timed 11/11/2023 3:18 PM CDT GLUCOSE METER Timed 11/11/2023 11:22 AM CDT GLUCOSE METER Timed 11/11/2023 7:47 AM CDT GLUCOSE METER Timed 11/11/2023 6:32 AM CDT BASIC METABOLIC PANEL Early AM 11/11/2023 6:14 AM CDT PLATELET COUNT Early AM 11/11/2023 6:14 AM CDT WHITE BLOOD COUNT Early AM 11/11/2023 6:1 4 AM CDT HEMOGLOBIN Early AM 11/11/2023 6:14 AM CDT MAGNESIUM Early AM 11/11/2023 6:14 AM CDT PHOSPHORUS Early AM 11/11/2023 6:14 AM CDT GLUCOSE METER Timed 11/10/2023 9:07 PM CDT GLUCOSE METER Timed 11/10/2023 4:46 PM CDT GLUCOSE METER Timed 11/10/2023 12:49 PM CDT IRON PLUS IRON BINDING CAP [place] 11/10/2023 5:47 AM CDT HEMOGLOBIN Early AM 11/10/2023 5:47 AM CDT WHITE BLOOD COUNT Early AM 11/10/2023 5:4 7 AM CDT BASIC METABOLIC PANEL Early AM 11/10/2023 5:47 AM CDT PHOSPHORUS Timed 11/10/2023 5:47 AM CDT MAGNESIUM Timed 11/10/2023 5:47 AM CDT PLATELET COUNT Timed 11/10/2023 5:47 AM CDT VANCOMYCIN TROUGH Timed 11/10/2023 5:4 6 AM CDT PHOSPHORUS Early AM 11/09/2023 6:25 AM CDT MAGNESIUM Early AM 11/09/2023 6:25 AM CDT BASIC METABOLIC PANEL Early AM 11/09/2023 6:25 AM CDT CBC W PLT NO DIFF Early AM 11/09/2023 6:2 5 AM CDT INSERT PICC LINE Routine 11/08/2023 7:25 PM CDT AEROBIC BACTERIAL CULTURE, STAIN Today 11/08/2023 1:54 PM CDT ANAEROBIC CULTURE Today 11/08/2023 1:5 4 PM CDT ENDOTRACHEAL TUBE Routine 11/08/2023 1:3 7 PM CDT ENDOTRACHEAL TUBE Routine 11/08/2023 1:3 7 PM CDT LAPAROTOMY EXPLORATION Class D Urgent 11/08/2023 12:44 PM CDT COLOCUTANEOUS FISTULA Case Notes BOOKWALTER POTASSIUM Early AM 11/08/2023 7:22 AM CDT MAGNESIUM Early AM 11/07/2023 7:41 AM CDT CBC W PLT NO DIFF Early AM 11/07/2023 7:4 1 AM CDT BASIC METABOLIC PANEL Early AM 11/07/2023 7:41 AM CDT LACTATE VENOUS STAT 11/06/2023 6:02 AM CDT WHITE BLOOD COUNT Early AM 11/06/2023 6:0 2 AM CDT HEMOGLOBIN Early AM 11/06/2023 6:[address] ABDOMEN PELVIS W Routine 11/05/2023 7 :22 PM CDT HEMOGLOBIN STAT 11/05/2023 10:37 AM CDT LACTATE VENOUS STAT 11/05/2023 10:37 AM CDT T4,FREE [place] 11/05/2023 7:42 AM CDT TSH [place] 11/05/2023 7:42 AM CDT POTASSIUM Timed 11/05/2023 7:42 AM CDT CREATININE Early AM 11/05/2023 7:42 AM CDT SODIUM Early AM 11/05/2023 7:42 AM CDT WHITE BLOOD COUNT Early AM 11/05/2023 7:4 2 AM CDT ALT (SGPT) Today 11/04/2023 8:39 AM CDT AST (SGOT) Today 11/04/2023 8:39 AM CDT HEMOGLOBIN Today 11/04/2023 8:39 AM CDT POTASSIUM Early AM 11/04/2023 8:39 AM CDT AEROBIC BACTERIAL CULTURE, STAIN Routine 11/03/2023 3:35 PM CDT ANAEROBIC CULTURE Today 11/03/2023 3:[address] ABD WALL SOFT TISSUE [...] 10/31/2023 8:29 PM CDT URINALYSIS MICROSCOPIC STAT 10/31/2023 5:22 PM CDT UA W/ SEDIMENT EXAM REFLEXED PER CRITERIA STAT 10/31/2023 5:22 PM CDT LACTATE VENOUS STAT 10/31/2023 2:[address] ABDOMEN PELVIS WO STAT 10/31/2023 1:22 PM CDT LACTATE VENOUS STAT 10/31/2023 11:33 AM CDT LACTATE SCREEN VENOUS ISTAT W LINDQUIST STAT 10/31/2023 11:33 AM CDT EXTRA TUBE LINDQUIST ON ICE STAT 10/31/2023 11:22 AM CDT ISTAT LACTATE SCREEN VENOUS STAT 10/31/2023 11:22 AM CDT LIPASE STAT 10/31/2023 11:21 AM CDT HEPATIC FUNCTION PANEL STAT 10/31/2023 11:21 AM CDT BASIC METABOLIC PANEL STAT 10/31/2023 11:21 AM CDT CBC W PLT NO DIFF STAT 10/31/2023 11: 21 AM CDT SCAN-CARDIAC STRIP 10/31/2023 12 :00 AM CDT SCAN-CT INTERPRETATION 10/17/2023 12:00 AM CDT from Last 3 Months Results * CT ABDOMEN PELVIS WO (12/20/2023 2:06 PM CDT) Only the most recent of4 resultswithin the time period is included. Anatomical Region Laterality Modality Abdomen, Pelvis, AORTA, LIVER, SPLEEN Computed Tomography 12/20/2023 2:42 PM CDT Narrative 12/20/2023 2:42 PM CDT For Patients: ??As a result of the Cures Act, medical imaging exams and procedure reports are released immediately into your electronic medical record. ??You may view this report before your referring provider. ??If you have questions, please contact your health care provider. Indication: Abdominal wall abscess Technique: Routine noncontrast CT abdomen and pelvis performed. No intravenous contrast provided due to severe renal insufficiency. Please note that all CT scans at this facility use dose modulation, iterative reconstruction, and/or weight-based dosing when appropriate to reduce radiation dose to as low as reasonably achievable. Comparison: 11/05/2023 Findings: Since the prior study, there has been open incision and drainage of the abdominal wall abscess inferior to the stoma. The open abdominal wall wound is packed with material. The drainage catheter is no longer present. No subcutaneous gas. Stoma appears intact. Some residual fullness of the underlying left rectus abdominis muscle. Incidental subpleural nodule in the right lung base measuring 3 millimeters. Linear subsegmental atelectasis in the right lower lobe. Resolution of the previously noted pleural effusions. Improved aeration within both lung bases. Noncontrast enhanced liver is normal. Gallbladder is similar. Normal spleen. No adrenal lesion. Nonobstructing renal calculi. Simple renal cysts are present bilaterally. Atherosclerotic changes. Bladder incompletely distended. Prostate enlarged. Interval clearing of the positive enteric contrast since the prior study. No acute bowel obstruction. Multilevel degenerative changes. Impression: Status post open wound debridement of the lower left anterior abdominal wall abscess inferior to the intact stoma. Resolution of the previously noted subcutaneous emphysema. Mild residual fullness of the left inferior rectus muscle. No free intraperitoneal air or acute mechanical bowel obstruction. Resolution of the small bilateral pleural effusions. Please note that all CT scans at this facility use dose modulation, iterative reconstruction, and/or weight-based dosing when appropriate to reduce radiation dose to as low as reasonably achievable. Dictated by Robi Herrera MD @ 12/20/2023 2:42:38 PM (Electronically Signed) Procedure Note Robi Herrera MD - 12/20/2023 For Patients: As a result of the 21st Century Cures Act, medical imagingexams and procedure reports are released immediately into your electronicmedical record. You may view this report before your referring provider.If you have questions, please contact your health care provider. Indication: Abdominal wall abscess Technique: Routine noncontrast CT abdomen and pelvis performed. No intravenouscontrast provided due to severe renal insufficiency. Please note that all CT scans at this facility use dose modulation,iterative reconstruction, and/or weight-based dosing when appropriate toreduce radiation dose to as low as reasonably achievable. Comparison: 11/05/2023 Findings: Since the prior study, there has been open incision and drainage of theabdominal wall abscess inferior to the stoma. The open abdominal wallwound is packed with material. The drainage catheter is no longer present.No subcutaneous gas. Stoma appears intact. Some residual fullness of theunderlying left rectus abdominis muscle. Incidental subpleural nodule inthe right lung base measuring 3 millimeters. Linear subsegmentalatelectasis in the right lower lobe. Resolution of the previously notedpleural effusions. Improved aeration within both lung bases. Noncontrastenhanced liver is normal. Gallbladder is similar. Normal spleen. Noadrenal lesion. Nonobstructing renal calculi. Simple renal cysts arepresent bilaterally. Atherosclerotic changes. Bladder incompletelydistended. Prostate enlarged. Interval clearing of the positive entericcontrast since the prior study. No acute bowel obstruction. Multileveldegenerative changes. Impression: Status post open wound debridement of the lower left anterior abdominalwall abscess inferior to the intact stoma. Resolution of the previouslynoted subcutaneous emphysema. Mild residual fullness of the left inferiorrectus muscle. No free intraperitoneal air or acute mechanical bowel obstruction. Resolution of the small bilateral pleural effusions. Please note that all CT scans at this facility use dose modulation,iterative reconstruction, and/or weight-based dosing when appropriate toreduce radiation dose to as low as reasonably achievable. Dictated by Robi Herrera MD @ 12/20/2023 2:42:38 PM (Electronically Signed) Shannan Monk MD CT * (ABNORMAL) CBC W PLT NO DIFF (12/18/2023 12:12 PM CDT) Only the most recent of4 resultswithin the time period is included. WHITE BLOOD CELL COUNT 7.7 3.8 - 10.8 Thousand/u L [facility] RED BLOOD CELL COUNT 2.88(L) 4.20 - 5.80 Million/uL [facility] HEMOGLOBIN 9.0(L) 13.2 - 17.1 g/dL [facility] HEMATOCRIT 28.9(L) 38.5 - 50.0 % [facility] MCV 100.3(H) 80.0 - 100.0 fL [facility] MCH 31.3 27.0 - 33.0 pg [facility] MCHC 31.1(L) 32.0 - 36.0 g/dL [facility] Comment: For adults, a slight decrease in the calculated MCHC value (in the range of 30 to 32 g/dL) is most likely not clinically significant; however, it should be interpreted with caution in correlation with other red cell parameters and the patient's clinical condition. RDW 17.5(H) 11.0 - 15.0 % [facility] PLATELET COUNT 289 140 - 400 Thousand/u L [facility] MPV 9.9 7.5 - 12.5 fL [facility] Blood BLOOD SPECIMEN / Unknown 12/18/2023 12:12 PM CDT 12/18/2023 12:13 PM CDT Narrative [facility] - 12/19/2023 4:26 AM CDT FASTING:NO FASTING: NO Osito Joe MD HEMATOLOGY [place] [facility] [address] [place] [address], [facility] [address] [place] [address] * (ABNORMAL) MAGNESIUM (12/18/2023 12:12 PM CDT) Only the most recent of14 resultswithin the time period is included. MAGNESIUM 1.4(L) 1.5 - 2.5 mg/dL [facility] Blood BLOOD SPECIMEN / Unknown 12/18/2023 12:12 PM CDT 12/18/2023 12:13 PM CDT Narrative [facility] - 12/19/2023 11:30 AM CDT FASTING:NO FASTING: NO Osito Joe MD CHEMISTRY [place] [facility] [address] [place] [address], [facility] [address] [place] [address] * (ABNORMAL) BASIC METABOLIC PANEL (12/18/2023 12:12 PM CDT) Only the most recent of7 resultswithin the time period is included. GLUCOSE 96 65 - 139 mg/dL [facility] Comment: ? Non-fasting reference interval UREA NITROGEN (BUN) 16 7 - 25 mg/dL [facility] CREATININE 2.16(H) 0.70 - 1.22 mg/dL [facility] EGFR 30(L) > OR = 60 mL/min/1.7 3m2 [facility] BUN/CREATININE RATIO 7 6 - 22 (calc) [facility] SODIUM 139 135 - 146 mmol/L [facility] POTASSIUM 3.8 3.5 - 5.3 mmol/L [facility] CHLORIDE 98 98 - 110 mmol/L [facility] CARBON DIOXIDE 32 20 - 32 mmol/L [facility] ELECTROLYTE BALANCE 9 7 - 17 mmol/L (calc) [facility] CALCIUM 6.8(L) 8.6 - 10.3 mg/dL [facility] Blood BLOOD SPECIMEN / Unknown 12/18/2023 12:12 PM CDT 12/18/2023 12:13 PM CDT Narrative [facility] - 12/19/2023 11:30 AM CDT FASTING:NO FASTING: NO Osito Joe MD CHEMISTRY Performing Organization Address City/[facility]/ZIP Co de Phone Number [facility] [address] [place] [address], [place] [phone] [facility] [address] [place] [address] * (ABNORMAL) GLUCOSE METER (11/20/2023 11:39 AM CDT) Only the most recent of42 resultswithin the time period is included. GLUCOSE METER 101(H) 65 - 100 mg/dL 11/20/2023 11:40 AM CDT [facility] Blood BLOOD SPECIMEN / Unknown 11/20/2023 11:39 AM CDT 11/20/2023 11:40 AM CDT Derik Kumar MD CHEMISTRY Performing Organization Address [facility] Co de Phone Number [facility] [address] [place] [address], * (ABNORMAL) Hemoglobin AM (11/20/2023 7:10 AM CDT) Only the most recent of16 resultswithin the time period is included. HEMOGLOBIN 8.6(L) 13.5 - 17.5 g/dL 11/20/2023 7:27 AM CDT [facility] MCV 95 80 - 100 fL 11/20/2023 7:27 AM CDT [facility] Blood BLOOD SPECIMEN / Unknown Extra Tube / Unknown 11/20/2023 7:10 AM CDT 11/20/2023 7:20 AM CDT Danay Taylor MD HEMATOLOGY Performing Organization Address City/[facility]/ZIP Co de Phone Number [facility] [address] [place] [address], * TRIGLYCERIDES (11/20/2023 7:10 AM CDT) TRIGLYCERIDES 110 <150 mg/dL 11/20/2023 8:11 AM CDT [facility] PROVIDER ORDERED STATUS RANDOM 11/20/2023 8:11 AM CDT [facility] Blood BLOOD SPECIMEN / Unknown Extra Tube / Unknown 11/20/2023 7:10 AM CDT 11/20/2023 7:20 AM CDT Derik Kumar MD CHEMISTRY Performing Organization Address City/[facility]/ZIP Co de Phone Number [facility] [address] [place] [address], * Phosphorus (11/20/2023 7:10 AM CDT) Only the most recent of12 resultswithin the time period is included. PHOSPHORUS 2.7 2.5 - 4.5 mg/dL 11/20/2023 7:53 AM CDT [facility] Blood BLOOD SPECIMEN / Unknown Extra Tube / Unknown 11/20/2023 7:10 AM CDT 11/20/2023 7:20 AM CDT Derik Kumar MD CHEMISTRY Performing Organization Address [facility] Co de Phone Number [facility] [address] [place] [address], * (ABNORMAL) COMP METABOLIC PANEL (11/20/2023 7:10 AM CDT) Only the most recent of2 resultswithin the time period is included. SODIUM 137 136 - 145 mmol/L 11/20/2023 7:53 AM CDT [facility] POTASSIUM 3.4(L) 3.5 - 5.1 mmol/L 11/20/2023 7:53 AM CDT [facility] CHLORIDE 109(H) 98 - 107 mmol/L 11/20/2023 7:53 AM CDT [facility] CO2,TOTAL 19(L) 22 - 29 mmol/L 11/20/2023 7:53 AM CDT [facility] ANION GAP 9 5 - 18 11/20/2023 7:[address] [facility] GLUCOSE 111(H) 70 - 99 mg/dL 11/20/2023 7:[address] [facility] CALCIUM 8.1(L) 8.8 - 10.2 mg/dL 11/20/2023 7:[address] [facility] BUN 27(H) 8 - 23 mg/dL 11/20/2023 7:[address] [facility] CREATININE 1.73(H) 0.70 - 1.20 mg/dL 11/20/2023 7:53 AM [facility] BUN/CREAT RATIO 16 10 - 20 7:[address] [facility] eGFR 39(L) >90 mL/min/1.7 3m2 11/20/2023 7:[address] [facility] Comment:As of 2021, eG FR is calculated by the CKD-EPI creatinine equation without race adjustment. ??eGFR can be influenced by muscle mass, exercise, and diet. ??The reported eGFR is an estimation only and is only applicable if the renal function is stable. ALBUMIN 2.5(L) 4.0 - 4.9 g/dL 11/20/2023 7:[address] [facility] PROTEIN,TOTAL 5.9(L) 6.0 - 8.0 g/dL 11/20/2023 7:[address] [facility] BILIRUBIN,TOTAL 0.5 0.0 - 1.2 mg/dL 11/20/2023 7:[address] [facility] ALK PHOSPHATASE 118 40 - 129 IU/L 11/20/2023 7:53 AM [facility] ALT (SGPT) 9(L) 10 - 50 IU/L 11/20/2023 7:[address] [facility] AST (SGOT) 30 10 - 50 IU/L 11/20/2023 7:[address] [facility] Blood BLOOD SPECIMEN / Unknown Extra Tube / Unknown 11/20/2023 7:10 AM CDT 11/20/2023 7:20 AM CDT Derik Kumar MD CHEMISTRY Performing Organization Address City/[facility] Co de Phone Number [facility] [address] [place] [address], [place] * PLATELET COUNT (11/19/2023 9:05 AM CDT) Only the most recent of5 resultswithin the time period is included. PLATELET COUNT 178 140 - 440 thou/cu mm 11/19/2023 9:18 AM CDT [facility] MPV 8.9 6.5 - 11.0 fL 11/19/2023 9:18 AM CDT [facility] Blood BLOOD SPECIMEN / Unknown Venipuncture / Unknown 11/19/2023 9:05 AM CDT 11/19/2023 9:11 AM CDT Narrative [facility] - 11/19/2023 9:18 AM CDT With am labs while on heparin or ??LMWH per hospital policy Sidney Arauz MD HEMATOLOGY Performing Organization Address [facility] Co de Phone Number [facility] [address] [place] [address], [place] * (ABNORMAL) Sodium AM (11/18/2023 7:46 AM CDT) Only the most recent of8 resultswithin the time period is included. SODIUM 135(L) 136 - 145 mmol/L 11/18/2023 8:17 AM CDT [facility] Blood BLOOD SPECIMEN / Unknown Venipuncture / Unknown 11/18/2023 7:46 AM CDT 11/18/2023 7:53 AM CDT Danay Taylor MD CHEMISTRY Performing Organization Address City/[facility]/ZIP Co de Phone Number [facility] [address] [place] [address], [place] * POTASSIUM (11/17/2023 8:09 AM CDT) Only the most recent of12 resultswithin the time period is included. POTASSIUM 3.9 3.5 - 5.1 mmol/L 11/17/2023 8:54 AM CDT [facility] Blood BLOOD SPECIMEN / Unknown Venipuncture / Unknown 11/17/2023 8:09 AM CDT 11/17/2023 8:16 AM CDT Blank Oliveros RN CHEMISTRY Performing Organization Address [facility] Co de Phone Number [facility] [address] [place] [address], * (ABNORMAL) Creatinine AM (11/16/2023 6:38 AM CDT) Only the most recent of7 resultswithin the time period is included. eGFR 38(L) >90 mL/min/1.7 3m2 11/16/2023 7:43 AM CDT [facility] Comment:As of 2021, eG FR is calculated by the CKD-EPI creatinine equation without race adjustment. ??eGFR can be influenced by muscle mass, exercise, and diet. ??The reported eGFR is an estimation only and is only applicable if the renal function is stable. CREATININE 1.79(H) 0.70 - 1.20 mg/dL 11/16/2023 7:43 AM CDT [facility] Blood BLOOD SPECIMEN / Unknown Venipuncture / Unknown 11/16/2023 6:38 AM CDT 11/16/2023 6:54 AM CDT Danay Taylor MD CHEMISTRY [facility] [address] [place] [address], [place] * TRANSFUSE RBC (NURSE COMMUNICATION ORDER) (11/15/2023 4:21 PM CDT) Blood BLOOD SPECIMEN / Unknown Danay Taylor MD NURSING BLOOD BAN K * RBC W TYPE AND SCREEN, 1 unit (11/15/2023 1:04 PM CDT) ABORH A Rh Positive 11/15/2023 1:46 PM CDT [facility] ANTIBODY SCREEN Negative Negative 11/15/2023 1:46 PM CDT [facility] SPECIMEN EXPIRATION DATE/TIME 11/18/23 23:59 11/15/2023 1:46 PM CDT [facility] Blood BLOOD SPECIMEN / Unknown Line/Port / Unknown 11/15/2023 1:04 PM CDT 11/15/2023 1:09 PM CDT Danay Taylor MD BLOOD BANK Performing Organization Address City/[facility]/ZIP Co de Phone Number [facility] [address] [place] [address], [place] [phone] * RED BLOOD CELLS EA UNIT (11/15/2023 1:00 PM CDT) Pathologist [facility] CROSSMATCH Compatible Compatible [facility] PRODUCT BLOOD TYPE A Rh Negative [facility] PRODUCT ID NUMBER [id number] [facility] PRODUCT STATUS Transfused [facility] PRODUCT DESCRIPTION RBC -3 LR Pt2 [facility] PRODUCT CODE [id number] [facility] ISSUE DATE/TIME 11/15/23 14:13 [facility] Danay Taylor MD BLOOD BANK [facility] [address] [place] [address], [place] [phone] * WBC AM (11/14/2023 5:56 AM CDT) Only the most recent of6 resultswithin the time period is included. WHITE BLOOD COUNT 7.1 4.5 - 11.0 thou/cu mm 11/14/2023 6:28 AM CDT [facility] NRBC 0.0 % 11/14/2023 6:28 AM CDT [facility] ABS NRBC 0.0 thou /cu mm 11/14/2023 6:28 AM CDT [facility] Blood BLOOD SPECIMEN / Unknown Non-Lab Venipuncture / Unknown 11/14/2023 5:56 AM CDT 11/14/2023 6:19 AM CDT Danay Taylor MD HEMATOLOGY Performing Organization Address [facility] Co de Phone Number [facility] [address] [address], [place] * Cortisol AM (11/14/2023 3:35 AM CDT) Pathologist [facility] CORTISOL,TOTAL 10.6 ug/dL 11/14/2023 4:53 AM CDT [facility] Blood BLOOD SPECIMEN / Unknown Non-Lab Venipuncture / Unknown 11/14/2023 3:35 AM CDT 11/14/2023 3:52 AM CDT Narrative [facility] - 11/14/2023 4:53 AM CDT Cortisol ?Morning Hours ?6:00 ??AM - 10:00 AM ?(4.8-19.5 ug/dL) Cortisol ?Afternoon Hours ??4:00 ??PM - ??8:00 PM ?(2.5-11.9 ug/dL) ? Biotin supplements may cause clinically significant interference for this test assay. ??If interference is suspected, it is strongly recommended that biotin is discontinued for at least one week prior to retesting. Danay Taylor MD CHEMISTRY Performing Organization Address [facility] Co de Phone Number [facility] [address] [address], [place] * (ABNORMAL) Iron plus iron binding cap AM (11/10/2023 5:47 AM CDT) IRON 57(L) 61 - 157 ug/dL 11/10/2023 10:25 AM CDT [facility] UIBC (UNSATURATED) 44(L) 112 - 347 ug/dL 11/10/2023 10:25 AM CDT [facility] IRON BINDING CAPACITY 101(L) 250 - 400 ug/dL 11/10/2023 10:25 AM CDT [facility] IRON,% SATURATION 56(H) 14 - 50 % 11/10/2023 10:25 AM CDT [facility] Blood BLOOD SPECIMEN / Unknown Non-Lab Venipuncture / Unknown 11/10/2023 5:47 AM CDT 11/10/2023 5:59 AM CDT Derik Kumar MD CHEMISTRY [facility] [address] [place] [address], [place] * VANCOMYCIN TROUGH (11/10/2023 5:46 AM CDT) VANCOMYCIN,TRO UGH 8.5 7.0 - 20.0 ug/mL 11/10/2023 6:47 AM CDT [facility] DATE OF LAST DOSE,TROUGH 11/08/2023 11/10/2023 6:47 AM CDT [facility] TIME OF LAST DOSE,TROUGH 6:00 AM 11/10/2023 6:47 AM CDT [facility] Blood BLOOD SPECIMEN / Unknown Non-Lab Venipuncture / Unknown 11/10/2023 5:46 AM CDT 11/10/2023 5:59 AM CDT Deni Au MD CHEMISTRY [facility] [address] [place] [address], [place] * Insert PICC line (11/08/2023 7:25 PM CDT) Narrative Maricruz Nelson RN - 11/08/2023 7:25 PM CDT Maricruz Nelson RN ? 11/08/2023 ??7:27 PM PICC Line Insertion Note 11/08/2023 ?? 7:25 PM Procedure education reviewed: Placement procedure, discussed with: Patient face to face. Patient face to face confirms understanding of procedure. Pet House Sitter used: No Reason for insertion: ??IV antibiotics, MD order, and TPN Medical/ Surgical/ Allergies History reviewed: ??Yes. Preprocedure Verification: ??Yes 1) Provider Order verified 2) Patient identity verified; 3) side/site/procedure confirmed; 4) relevant information/documentation available, reviewed and properly matched to the patient; 5) For PICC insertions, consent accurate and complete or verified provider has ordered emergent placement; 6) equipment and supplies available Site Marking: ??Yes Site marked if not in continuous attendance with the patient Time Out: ??Yes Time out was conducted just prior to starting procedure to verify the four required elements: 1) patient name and date of 2) confirmation that the correct side/site are marked if applicable, including visualization of the site susi 3) name of procedure including laterality if applicable, and 4) essential imaging and results are properly labeled and appropriately displayed, if applicable. Site assessment pre-insertion: ??Intact. Local anesthetic used at site: ??Yes, 1% Lidocaine. The following Central Line Insertion Checklist was used: Hand Hygiene: Yes Maximal Barrier Precautions including Sterile Gown, Hat and Mask: Yes Full Body Drape: Yes Site cleansed with: ??Chlorhexidine gluconate prep. PICC Line 2 Lumen Right;Basilic PICC/SVC (Active) 11/08/231922 Right;Basilic (IA) Lumen One Designation: ?? (IA) Lumen Two Designation: ?? Lumen One Designation: Red Lumen Two Designation: Purple Vessel Diameter: .52 Pukjinvt-km-Pcwd Ratio (%): ?? Visible Catheter Length (cm): 0 cm Placed/Present Prior to Encounter: ?? (IA) Placed Prior to Admission?: ?? Type: Valved Catheter (IA) Size: ?? Tip Location: PICC/SVC PICC Mid-Arm Circumference (cm): 26 cm Total Length of Catheter (cm): 42 cm Insertion Attempts: 1 (IA) Insertion Attempts: ?? Local Anesthetic: Injectable Placement Verification: ECG;Blood Return;Ultrasound Removed Catheter Length (cm): ?? Removed/Resolved Prior to Encounter: ?? Visible Catheter Length (cm) 0 cm 11/08/231922 Arm Circumference (cm) 26 cm 11/08/231922 Status Lumen One Blood Return;Capped/Locked 11/08/231922 Status Lumen Two Blood Return;Capped/Locked 11/08/231922 Line Assessment Antimicrobial patch and dressing clean/dry/intact 11/08/231922 Site Description Dry/Flat;Covered 11/08/231922 Line Intervention New dressing applied and NO hemostatic agent/gauze 11/08/231922 Dressing change due date 11/15/2023 11/08/231922 Line Music Coordinator Name: Bard Line Type: Valved Power PICC Lot Number: [id number] Access Assistance:Modified Seldinger Technique (Micro-Introducer) WITHOUT ??Dermatotomy (skin chioma), Ultrasound Guidance, and Tip confirmation system/ECG Post-insertion: ? Able to remove guidewire: ??Smoothly. ? Able to aspirate blood in each lumen: Yes ? Able to flush catheter without resistance in each lumen: ?? Yes Each lumen flushed with: ??20 ml(s) of 0.9% saline, and ??no Heparin. Cap applied to each lumen: ??Yes Line secured with: Stat-Lock ? Hospital dressing policy/procedure followed. PICC Line standing orders implemented: ??Yes X- ray pending: No, tip confirmed with ECG ? Insertion complications: None Patient tolerated the procedure: ??Yes PICC education reviewed: Given to patient ? Derik Kumar MD IV ORD * (ABNORMAL) AEROBIC BACTERIAL CULTURE, STAIN (11/08/2023 1:54 PM CDT) Only the most recent of2 resultswithin the time period is included. CULTURE RESULT(A) 11/12/2023 11:58 AM CDT [facility] CULTURE 3+ Pseudomonas aeruginosa 11/12/2023 11:58 AM CDT [facility] CULTURE 1+ Klebsiella pneumoniae 11/12/2023 11:58 AM CDT [facility] CULTURE 3+ Enterococcus faecium 11/12/2023 11:58 AM CDT [facility] Comment:Isolate is VRE (Vanc omycin-resistant Enterococcus). CULTURE 1+ Enterococcus faecalis 11/12/2023 11:58 AM CDT [facility] GRAM STAIN 1+ PMNs 11/12/2023 11:58 AM CDT [facility] GRAM STAIN 4+ RBCs 11/12/2023 11:58 AM CDT [facility] GRAM STAIN No Epithelial cells 11/12/2023 11:58 AM CDT [facility] GRAM STAIN 1+ Gram Positive Cocci 11/12/2023 11:58 AM CDT [facility] GRAM STAIN 1+ Gram Negative Bacilli 11/12/2023 11:58 AM CDT [facility] Swab (Abdominal Wall) Non-Blood / Unknown 11/08/2023 1:54 PM CDT 11/08/2023 2:25 PM CDT Narrative Organism Antibiotic Method Susceptibility Pseudomonas aeruginosa CEFTAZIDIME 2: S Pseudomonas aeruginosa LEVOFLOXACIN 1: S Pseudomonas aeruginosa CIPROFLOXACIN 0.12: S Pseudomonas aeruginosa PIPERACILLIN/TAZO 16: S Pseudomonas aeruginosa CEFEPIME 2: S Pseudomonas aeruginosa MEROPENEM <=0.25: S Klebsiella pneumoniae TRIMETHOPRIM/SULF <=1/19: S Klebsiella pneumoniae AMPICILLIN >=32: R Klebsiella pneumoniae CEFAZOLIN 2: S Klebsiella pneumoniae GENTAMICIN <=1: S Klebsiella pneumoniae CEFTRIAXONE <=0.25: S Klebsiella pneumoniae CEFTAZIDIME <=0.5: S Klebsiella pneumoniae LEVOFLOXACIN <=0.12: S Klebsiella pneumoniae CIPROFLOXACIN <=0.06: S Klebsiella pneumoniae PIPERACILLIN/TAZO <=4: S Klebsiella pneumoniae AMPICILLIN/SULBACTAM 4: S Klebsiella pneumoniae CEFEPIME <=0.12: S Klebsiella pneumoniae MEROPENEM <=0.25: S Enterococcus faecium VANCOMYCIN >=32: R Enterococcus faecium LINEZOLID 2: S Enterococcus faecium AMPICILLIN >=32: R Enterococcus faecium DAPTOMYCIN 4: Susceptible-dose dependent. Susceptibility dependent on max. possible blood level. Comment:This is an a ppended report. These results have been appended to a previously final verified report. Enterococcus faecalis VANCOMYCIN 1: S Enterococcus faecalis AMPICILLIN <=2: S Rachelfield Navarrete Stephen GRANT MICROBIOLO GY Performing Organization Address [facility] de Phone Number [facility] [address] [place] [address], * ANAEROBIC CULTURE (11/08/2023 1:54 PM CDT) Only the most recent of2 resultswithin the time period is included. CULTURE Mixed anaerobic and aerobic organisms present: no further workup pending. 11/11/2023 10:06 AM CDT [facility] Swab (Abdominal Wall) Non-Blood / Unknown 11/08/2023 1:54 PM CDT 11/08/2023 2:25 PM CDT Rachel ARTISO GY Performing Organization Address [facility] Phone Number [facility] [address] [place] [address], * HCHG TUBE PR1, HCHG STYLET PR1 (11/08/2023 1:37 PM CDT) Narrative Kimberly Green CRNA - 11/08/2023 1:37 PM CDT Kimberly Green CRNA ? 11/08/2023 ??1:39 PM Procedure: ETT Patient location during procedure: OR ETT Properties Mask Ventilation: easy and oral airway Final Technique: direct laryngoscopy Type: straight Location: oral Cuffed: yes Tube Size: 7.5 mm Stylet: yes Laryngoscope Blade: Mac Blade Size: 3 Cormack-Lehane Grade View: 1 Insertion Attempts: 1 Placement Verification: auscultation, end tidal CO2 and symmetrical chest wall movement Assessment: pharynx clear, atraumatic and dentition unchanged Secured at: 22 Measured From: lips Difficulty: 0 (not difficult) Kimberly Resendez Green CLOTH WINDING SUPERVISOR ANESTHESIA PX NO TE ORDERABLES * Lactate STAT (venous) (11/06/2023 6:02 AM CDT) Only the most recent of4 resultswithin the time period is included. LACTATE,VENOUS 1.4 0.5 - 2.0 mmol/L 11/06/2023 7:04 AM CDT [facility] Blood BLOOD SPECIMEN / Unknown Venipuncture / Unknown 11/06/2023 6:02 AM CDT 11/06/2023 6:13 AM CDT Deni Au MD CHEMISTRY [facility] [address] [address], * CT ABDOMEN PELVIS W (11/05/2023 7:22 PM CDT) Anatomical Region Laterality Modality Abdomen, Pelvis, AORTA, LIVER, SPLEEN Computed Tomography 11/06/2023 3:37 AM CDT Narrative 11/06/2023 3:37 AM CDT For Patients: ??As a result of the Century Cures Act, medical imaging exams and procedure reports are released immediately into your electronic medical record. ??You may view this report before your referring provider. ??If you have questions, please contact your health care provider. Indication: Intra-abdominal abscess, possible feculent outflow from IR drain Technique: CT through the abdomen and pelvis following 80 mL Omnipaque 350 IV contrast Comparison: CT abdomen pelvis performed 11/01/2023 Findings: Lower chest: Small bilateral effusions and atelectasis. Hepatobiliary: No significant parenchymal abnormality is appreciated. Spleen: Unremarkable. Pancreas: No acute abnormality appreciated. Adrenal glands: No acute abnormality appreciated. Kidneys: No significant interval change. Bowel: No obstruction. Postoperative changes of left lower quadrant ostomy are again noted. No overt evidence of perienteric or pericolonic stranding. Scattered diverticula. Vascular: Atherosclerosis. Lymph nodes: Enlarged inguinal and iliac nodes. Peritoneum: No free air. No free fluid. : No acute abnormality appreciated. Soft tissues: Postoperative changes are again noted to the ventral abdominal wall. Unchanged left lower quadrant ostomy areas of herniation. Again noted is a fluid collection along the left ventral abdominal wall with internal pigtail catheter. Compared to the prior examination, the collection has increased in size and extent. There is also significant increase in soft tissue stranding and subcutaneous emphysema, which continues along the anterior pelvis into the partially visualized bilateral groin. Within the fluid collection is mottled gas and debris, appearance of which can be compatible with feculent material. Bones: No acute fracture. No lytic or blastic lesion. Impression: 1. The fluid collection along the ventral abdominal wall with the internal pigtail catheter appears increased in size compared to prior examination with mottled gas and debris within the collection, which has an appearance that could be compatible with feculent material. No visualized fistulization or contrast extravasation into the collection is visualized on this examination. 2. There is significant soft tissue swelling surrounding the collection, particularly along the inferior pelvis. Additionally, there is significant increase in subcutaneous emphysema which continues along the bilateral inguinal canal and groin beyond the inferior edge of the study. 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 3. Small bilateral pleural effusions. 4. Additional findings as above, not significantly changed. Findings were communicated by telephone to Dr. Au at 0330 on 11/06/2023. Please note that all CT scans at this facility use dose modulation, iterative reconstruction, and/or weight-based dosing when appropriate to reduce radiation dose to as low as reasonably achievable. Dictated by Adam Wisdom MD @ 11/06/2023 3:37:47 AM (Electronically Signed) Procedure Note Adam Wisdom MD - 11/06/2023 For Patients: As a result of the 21st Century Cures Act, medical imagingexams and procedure reports are released immediately into your electronicmedical record. You may view this report before your referring provider.If you have questions, please contact your health care provider. Indication: Intra-abdominal abscess, possible feculent outflow from IR drain Technique: CT through the abdomen and pelvis following 80 mL Omnipaque 350 IVcontrast Comparison: CT abdomen pelvis performed 11/01/2023 Findings: Lower chest: Small bilateral effusions and atelectasis. Hepatobiliary: No significant parenchymal abnormality is appreciated. Spleen: Unremarkable. Pancreas: No acute abnormality appreciated. Adrenal glands: No acute abnormality appreciated. Kidneys: No significant interval change. Bowel: No obstruction. Postoperative changes of left lower quadrant ostomyare again noted. No overt evidence of perienteric or pericolonicstranding. Scattered diverticula. Vascular: Atherosclerosis. Lymph nodes: Enlarged inguinal and iliac nodes. Peritoneum: No free air. No free fluid. : No acute abnormality appreciated. Soft tissues: Postoperative changes are again noted to the ventralabdominal wall. Unchanged left lower quadrant ostomy areas of herniation.Again noted is a fluid collection along the left ventral abdominal wallwith internal pigtail catheter. Compared to the prior examination, thecollection has increased in size and extent. There is also significantincrease in soft tissue stranding and subcutaneous emphysema, whichcontinues along the anterior pelvis into the partially visualizedbilateral groin. Within the fluid collection is mottled gas and debris,appearance of which can be compatible with feculent material. Bones: No acute fracture. No lytic or blastic lesion. Impression: 1. The fluid collection along the ventral abdominal wall with the internalpigtail catheter appears increased in size compared to prior examinationwith mottled gas and debris within the collection, which has an appearancethat could be compatible with feculent material. No visualizedfistulization or contrast extravasation into the collection is visualizedon this examination. 2. There is significant soft tissue swelling surrounding the collection,particularly along the inferior pelvis. Additionally, there is significantincrease in subcutaneous emphysema which continues along the bilateralinguinal canal and groin beyond the inferior edge of the study. Thisappearance raises the concern for developing Christie`s gangrene. 3. Small bilateral pleural effusions. 4. Additional findings as above, not significantly changed. Findings were communicated by telephone to Dr. Au at 0330 on11/06/2023. Please note that all CT scans at this facility use dose modulation,iterative reconstruction, and/or weight-based dosing when appropriate toreduce radiation dose to as low as reasonably achievable. Dictated by Adam Wisdom MD @ 11/06/2023 3:37:47 AM (Electronically Signed) Mary Ellen ARENAS CT * (ABNORMAL) TSH FOR ADD ON (11/05/2023 7:42 AM CDT) TSH 7.69(H) 0.27 - 4.20 uIU/mL 11/05/2023 10:52 AM CDT [facility] Blood BLOOD SPECIMEN / Unknown Butterfly / Unknown 11/05/2023 7:42 AM CDT 11/05/2023 8:36 AM CDT Narrative [facility] - 11/05/2023 10:52 AM CDT In Adults, TSH values between 5.00 and 10.00 uIU/ml do not necessarily indicate the presence of Hypothyroidism. Correlation with clinical findings such as presence of goiter and/or Thyroperoxidase (TPO) Antibody may be helpful. For more information please refer to JUMANA 2004; 291: 228-238. Danay Taylor MD CHEMISTRY Performing Organization Address City/[facility]/ZIP Co de Phone Number [facility] [address] [place] [address], * (ABNORMAL) T4,FREE (11/05/2023 7:42 AM CDT) T4,FREE 0.88(L) 0.93 - 1.70 ng/dL 11/05/2023 3:03 PM CDT [facility] Blood BLOOD SPECIMEN / Unknown Butterfly / Unknown 11/05/2023 7:42 AM CDT 11/05/2023 8:36 AM CDT Danay Taylor MD CHEMISTRY Performing Organization Address City/[facility]/ZIP Co de Phone Number [facility] [address] [place] [address], [place] * ALT (SGPT) (11/04/2023 8:39 AM CDT) Only the most recent of4 resultswithin the time period is included. ALT (SGPT) 39 10 - 50 IU/L 11/04/2023 9:23 AM CDT [facility] Blood BLOOD SPECIMEN / Unknown Butterfly / Unknown 11/04/2023 8:39 AM CDT 11/04/2023 8:50 AM CDT Danay Taylor MD CHEMISTRY Performing Organization Address City/[facility]/ZIP Co de Phone Number [facility] [address] [place] [id number], [place] * (ABNORMAL) AST (SGOT) (11/04/2023 8:39 AM CDT) Only the most recent of4 resultswithin the time period is included. AST (SGOT) 61(H) 10 - 50 IU/L 11/04/2023 9:23 AM CDT [facility] Blood BLOOD SPECIMEN / Unknown Butterfly / Unknown 11/04/2023 8:39 AM CDT 11/04/2023 8:50 AM CDT Danay Taylor MD CHEMISTRY Performing Organization Address [facility] de Phone Number [facility] [address] [place] [address], [place] * CT ABD WALL SOFT TISSUE FLUID [...] then prepped and draped in sterile fashion. Brunswick protocol was followed. TIME-OUT conducted just prior [...] advanced. The tract was dilated with a 12-Salvadorean dilator. Over the wire, a 14-Salvadorean pigtail catheter was placed with position verified [...] 11/03/2023. 4. Status post CT-guided placement of 14-Salvadorean pigtail catheter into left lower quadrant abscess. [...] then prepped and draped in sterile fashion. Brunswick protocol was followed. TIME-OUT conducted just prior to startingprocedure confirmed patient identity, site/side, procedure, patientposition, and availability of correct equipment. Pause for cause wasperformed. 5 cc 1 percent lidocaine was used for superficial and deeper anesthesia.Under CT fluoroscopic guidance, a Yueh needle was advanced into theabscess. Through this, an 035 wire was advanced. The tract was dilatedwith a 12-Salvadorean dilator. Over the wire, a 14-Salvadorean pigtail catheter wasplaced with position verified by [...] 11/03/2023. 4. Status post CT-guided placement of 14-Salvadorean pigtail catheter into leftlower quadrant abscess. 50 [...] Signed) Sidney Arauz MD CT * (ABNORMAL) Bilirubin, total AM (11/03/2023 7:35 AM CDT) Only the most recent of3 resultswithin the time period is included. BILIRUBIN,TOTA L 1.3(H) 0.0 - 1.2 mg/dL 11/03/2023 8:22 AM CDT [facility] Blood BLOOD SPECIMEN / Unknown Venipuncture / Unknown 11/03/2023 7:35 AM CDT 11/03/2023 7:42 AM CDT Sidney Arauz MD CHEMISTRY [facility] [address] [place] [address], * (ABNORMAL) INR AM (11/03/2023 7:35 AM CDT) INR 1.9(H) <1.3 11/03/2023 7:58 AM CDT [facility] PROTIME 20.8(H) 10.3 - 12.3 sec 11/03/2023 7:58 AM CDT [facility] Blood BLOOD SPECIMEN / Unknown Venipuncture / Unknown 11/03/2023 7:35 AM CDT 11/03/2023 7:42 AM CDT Narrative [facility] - 11/03/2023 7:58 AM CDT ?Therapeutic [...] Sidney Arauz MD HEMATOLOGY Performing Organization Address [facility] Co de Phone Number [facility] [address] [place] [address], * Alk phosphatase AM (11/03/2023 7:35 AM CDT) Only the most recent of2 resultswithin the time period is included. [facility] ALK PHOSPHATASE 125 40 - 129 IU/L 11/03/2023 8:22 AM CDT [facility] Blood BLOOD SPECIMEN / Unknown Venipuncture / Unknown 11/03/2023 7:35 AM CDT 11/03/2023 7:42 AM CDT Sidney Arauz MD CHEMISTRY Performing Organization Address [facility] Phone Number [facility] [address] [place] [address], * ENDOSCOPY (11/02/2023 10:44 AM CDT) 11/02/2023 10:4 4 AM CDT Narrative Transcriptions Bryce Pope MD - 11/02/2023 11:19 AM CDT [facility] Patient Name: Long Nugent Procedure Date: 11/02/2023 Gender: Male Date of : 1940 Admit Type: Inpatient Procedure: Ileoscopy Proceduralist: Bryce Varner MD - [facility] Indications/Pre-Op Diagnosis: History of partial colectomy, Inflammatory bowel disease Medications: Monitored Anesthesia Care Procedure Description: Risk of bleeding, infection, perforation, need for surgery and alternatives were discussed. The endoscope [id number] was introduced through the anus and advanced [...] Signed) Rimma Osman MD, PhD [place] * (ABNORMAL) URINALYSIS MICROSCOPIC (10/31/2023 5:22 PM CDT) RBC 0-2 0-2, None Seen /HPF 10/31/2023 5:54 PM CDT [facility] WBC 11-25(A) 0-2, 3-5, None Seen /HPF 10/31/2023 5:54 PM CDT [facility] BACTERIA None Seen None Seen, Rare, Few Bacteria/ HPF 10/31/2023 5:54 PM CDT [facility] EPITHELIAL CELLS None Seen None Seen, Few Epi/HPF 10/31/2023 5:54 PM CDT [facility] HYALINE CASTS 0-2 0-2, 3-5 /LPF 10/31/2023 5:54 PM CDT [facility] Urine URINE SPECIMEN / Unknown Non-Blood / Unknown 10/31/2023 5:22 PM CDT 10/31/2023 5:37 PM CDT Louisa Calles DO URINE [facility] [address] [place] [address], [place] * (ABNORMAL) UA W/ SEDIMENT EXAM REFLEXED PER CRITERIA (10/31/2023 5:22 PM CDT) COLOR Yellow Yellow Color 10/31/2023 5:54 PM CDT [facility] CLARITY Clear Clear Clarity 10/31/2023 5:54 PM CDT [facility] SPECIFIC GRAVITY,URINE 1.015 1.010, 1.015, 1.020, 1.025 10/31/2023 5:54 PM CDT [facility] PH,URINE 8.0 6.0, 7.0, 8.0, 5.5, 6.5, 7.5, 8.5 10/31/2023 5:54 PM CDT [facility] UROBILINOGEN, QUALITATIVE Normal Normal EU/dl 10/31/2023 5:54 PM CDT [facility] PROTEIN, URINE 100(A) Negative mg/dL 10/31/2023 5:54 PM CDT [facility] GLUCOSE, URINE Negative Negative mg/dL 10/31/2023 5:54 PM CDT [facility] KETONES,URINE Trace(A) Negative mg/dL 10/31/2023 5:54 PM CDT [facility] BILIRUBIN,URI NE Negative Negative 10/31/2023 5:54 PM CDT [facility] OCCULT BLOOD,URINE Negative Negative 10/31/2023 5:54 PM CDT [facility] NITRITE Negative Negative 10/31/2023 5:54 PM CDT [facility] LEUKOCYTE ESTERASE Trace(A) Negative 10/31/2023 5:54 PM CDT [facility] Urine URINE SPECIMEN / Unknown Non-Blood / Unknown 10/31/2023 5:22 PM CDT 10/31/2023 5:37 PM CDT Louisa Bossutaugie DO URINE Performing Organization Address City/[facility]/ZIP Co de Phone Number [facility] [address] [place] [address], [place] * (ABNORMAL) LACTATE SCREEN VENOUS ISTAT W LINDQUIST (10/31/2023 11:33 AM CDT) LACTATE VENOUS SCREEN ISTAT Intermedia te(A) <=2.0 10/31/2023 11:39 AM CDT [facility] LACTATE SCREEN VENOUS POCT 2.1(H) <=2.0 10/31/2023 11:39 AM CDT [facility] Blood BLOOD SPECIMEN / Unknown 10/31/2023 11:33 AM CDT 10/31/2023 11:39 AM CDT Narrative [facility] - 10/31/2023 11:39 AM CDT Lactate screen results of 2.1-3.9 mmol/L are reported as Intermediate. Lactate screen results of 4.0 mmol/L or greater are reported as Critical. Elevated whole blood lactate screening results >2.0 are automatically referred for confirmatory plasma lactate quantitation. Louisa Calles DO LABOR ATORY Performing Organization Address [facility] Co de Phone Number [facility] [address] [place] [phone], [place] * EXTRA TUBE LINDQUIST ON ICE (10/31/2023 11:22 AM CDT) Blood BLOOD SPECIMEN / Unknown Butterfly / Unknown 10/31/2023 11:22 AM CDT 10/31/2023 11:36 AM CDT Louisa Calles DO LABOR ATORY Performing Organization Address City/[facility]/ZIP Co de Phone Number [facility] [address] [place] [phone], [place] * LIPASE (10/31/2023 11:21 AM CDT) LIPASE 34.9 13.0 - 60.0 IU/L 10/31/2023 12:11 PM CDT [facility] Blood BLOOD SPECIMEN / Unknown Butterfly / Unknown 10/31/2023 11:21 AM CDT 10/31/2023 11:36 AM CDT Louisa Calles DO CHEMI STRY [facility] [address] [place] [address], * (ABNORMAL) HEPATIC FUNCTION PANEL (10/31/2023 11:21 AM CDT) ALBUMIN 2.8(L) 4.0 - 4.9 g/dL 10/31/2023 12:11 PM CDT [facility] PROTEIN,TOTAL 6.9 6.0 - 8.0 g/dL 10/31/2023 12:11 PM CDT [facility] BILIRUBIN,TOTAL 1.7(H) 0.0 - 1.2 mg/dL 10/31/2023 12:11 PM CDT [facility] BILIRUBIN,DIRECT 0.9(H) 0.0 - 0.2 mg/dL 10/31/2023 12:11 PM CDT [facility] BILIRUBIN,INDIRE CT 0.8 0.2 - 0.8 mg/dL 10/31/2023 12:11 PM CDT [facility] ALK PHOSPHATASE 125 40 - 129 IU/L 10/31/2023 12:11 PM CDT [facility] ALT (SGPT) 71(H) 10 - 50 IU/L 10/31/2023 12:11 PM CDT [facility] AST (SGOT) 140(H) 10 - 50 IU/L 10/31/2023 12:11 PM CDT [facility] Blood BLOOD SPECIMEN / Unknown Butterfly / Unknown 10/31/2023 11:21 AM CDT 10/31/2023 11:36 AM CDT Anw Ed Triage CHEMISTRY [facility] [address] [place] [address], * SCAN-CARDIAC STRIP (10/31/2023 12:00 AM CDT) Narrative 10/31/2023 12:00 AM CDT Ordered by an unspecified provider. 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 Contact Precautions not required on subsequent admission. 11/08/202310/28 Advance Directives Documents on File Type Date Recorded Patient Calenderer Erica BAZZI 11/24/2023 * Full Code (Latest Code Status on File) Date Activated Date Inactivated Comments 12/22/2023 4:22 PM * DNR Date Activated Date Inactivated Comments 10/31/2023 4:15 PM 11/20/2023 3:45 PM Question Answer Comments Code Status Discussion: [...] Answer Comments Code Status Discussion: Not Discussed Care Teams Crop Setting Out Machine Operator Relationship Specialty Start Date End Date Osito Joe MD [address] [place] [address] PCP - General Family Practice 09/13/16 Ronan Pinedo, RN [address] [place] [address] Jammer Hooker Registered Nurse 01/20/[address] [address] 12/21/23
--- NOTE | 2023-12-24 13:34 | ED_ITS ---
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 He has had a ileostomy for many decades also. He recently developed a complication with this and had a surgery about a month ago. This was to correct some problems with fistulas apparently. His abdomen was left to close by secondary intention. He has been dressing the wound and the wound is closing up but comes in today stating that he had a rather large amount of drainage come suddenly from the wound any thought it was fecal and material. He is not reporting any pain or fever. Related Data Home Medications ?Medication ?Instructions ?Recorded ?Confirmed allopurinol 300 mg tablet mg 04/28/22 calcitriol 0.25 mcg capsule mcg 04/28/22 calcium ER 600 mg (as carb,cit)-D3 tab PO 04/28/22 12.5 mcg (500 unit) tablet, ext.rel (Citracal-D3 Slow Release) finasteride 5 mg tablet mg 04/28/22 levothyroxine 150 mcg tablet mcg 04/28/22 omeprazole 20 mg capsule,delayed mg 04/28/22 release potassium chloride 20 mEq meq PO 04/28/22 tablet,extended release(part/cryst) (Klor-Con M) rosuvastatin 10 mg tablet mg 04/28/22 sodium citrate-citric acid 500 ml 04/28/22 mg-334 mg/5 mL oral solution sodium di- and tab 04/28/22 monophosphate-potassium phos monobasic 250 mg tablet (Phospha Neutral) tamsulosin 0.4 mg capsule mg PO 04/28/22 Previous Rx's ?Medication ?Instructions ?Recorded cephalexin 500 mg capsule 500 mg PO TID 7 days #21 caps 12/24/23 Allergies Allergy/AdvReac Type Severity Reaction Status Date / Time furosemide (From Lasix) Allergy Intermediate Palpitation Verified 12/24/23 12:25 s aspirin Allergy Mild gi bleeding Verified 12/24/23 12:25 atorvastatin (From Lipitor) Allergy Mild Verified 12/24/23 12:25 codeine Allergy Mild constipatio Verified 12/24/23 12:25 n simvastatin Allergy Mild myalgia Verified 12/24/23 12:25 Review of Systems Status of ROS: Reports: 10 or more systems reviewed and unremarkable except as noted in History and below Narrative: Constitutional: No fevers, no weight gain or loss. Eyes: No discharge. No vision changes. HENT: No congestion, no sore throat, no ear pain. Cardiovascular: No chest pain, no palpitations. Respiratory: No shortness of breath, no wheezes, no cough. Gastrointestinal: No abdominal pain, no vomiting, no diarrhea. Genitourinary: No dysuria, no hematuria. Musculoskeletal: Normal range of motion. Skin: No rashes, no pruritis. Neurological: No dizziness, weakness, sensory change, speech change. Endo/Heme/Allergies: No bruising or bleeding. No polydipsia. Pysch: no suicidality, no anxiety, no insomnia. All other systems reviewed and are negative. PFSH [facility] Social History Smoking Status: Never smoker Do you use any of these nicotine containing products: None Second hand tobacco smoke exposure: No How often do you have a drink containing alcohol: never How often do you have six or more drinks on one occasion: Never AUDIT-C Alcohol total score: 0 Non-prescribed substance use: denies use service: No Exam Narrative: Exam Narrative: Constitutional: Well-developed, well-nourished, no acute distress. HEENT: Normocephalic, atraumatic. Neck: Normal range of motion. Nontender. Supple. Heart: Regular. No murmurs. Normal rate. Intact distal pulses. Lungs: Clear to auscultation. No chest discomfort. No wheezes, rhonchi, or rales. Abdomen: Normal bowel sounds. Nontender. No rebound tenderness. Surgical wound between the umbilicus and the ostomy bag superior to the umbilicus that is left open for closing by secondary intention. There is a small amount of purulent fluid in the wound. There is no erythema or tenderness when palpating round this area. Genitalia: Deferred. Back: No midline tenderness. Normal range of motion. Extremities: Normal range of motion. No injury. Skin: Intact. No rash. Warm. No erythema or pallor. Neurologic: No altered sensation. No weakness. Alert and oriented. Psychiatric: No suicidality. No anxiety or depression. No insomnia. Nursing notes and vitals signs are reviewed. Const: Vital Signs, click to edit/add: Vital Signs - 24 hr 12/24/23 12:18 12/24/23 12:34 12/24/23 12:35 Temperature 99.0 F Pulse Rate 73 72 Pulse Rate [Pulse Oximeter] 77 Respiratory Rate 16 Blood Pressure 110/59 L Blood Pressure [Ri ght Upper Arm] 116/74 Pulse Oximetry 97 99 98 12/24/23 12:45 12/24/23 13:00 12/24/23 13:02 Temperature Pulse Rate 73 73 71 Pulse Rate [Pulse Oximeter] Respiratory Rate Blood Pressure 105/47 L Blood Pressure [Ri ght Upper Arm] Pulse Oximetry 98 99 99 12/24/23 13:15 Temperature Pulse Rate 79 Pulse Rate [Pulse Oximeter] Respiratory Rate Blood Pressure Blood Pressure [Ri ght Upper Arm] Pulse Oximetry 100 Course Vital Signs Vital signs: Initial Vital Signs Temperature 99.0 F 12/24/23 12:18 Temperature Source Temporal Artery Scan 12/24/23 12:18 Pulse Rate 77 12/24/23 12:18 Respiratory Rate 16 12/24/23 12:18 Blood Pressure 116/74 12/24/23 12:18 Blood Pressure Mean 88 12/24/23 12:18 Blood Pressure Position Sitting 12/24/23 12:18 Pulse Oximetry 97 12/24/23 12:18 Vital Signs Temperature 99.0 F 12/24/23 12:18 Pulse Rate 77 12/24/23 12:18 Respiratory Rate 16 12/24/23 12:18 Blood Pressure 116/74 12/24/23 12:18 Pulse Oximetry 97 12/24/23 12:18 Temperature 99.0 F 12/24/23 12:18 Pulse Rate 79 12/24/23 13:15 Respiratory Rate 16 12/24/23 12:18 Blood Pressure 105/47 L 12/24/23 13:02 Pulse Oximetry 100 12/24/23 13:15 Medical Decision Making MDM Narrative Medical decision making narrative: This patient is suspecting a fistula connecting with a surgical wound was left open. He thinks that there was some fecal it material that was discharged from the wound. I do note small amount of purulent fluid coming from this area. I did clean the wound and probed gently with a Q-tip and did not identify any obvious channel or fistula. I also used bedside ultrasound to evaluate for any sign of fluid collection in the area. This also showed normal results. There is suspicion of some kind of possible infection with the purulent drainage. The patient does not have any discomfort and has normal vital signs. She is discharged home with prescription for Keflex and is encouraged to contact his surgical team tomorrow at [facility]. I also advised him regarding signs and symptoms that would indicate a need to return to this ER or up to [place]. Discharge Plan Discharge Clinical Impression: Postoperative wound infection Additional Instructions: Take medication as prescribed. Contact the surgical clinic tomorrow for ongoing management. Return to emergency department here or at [facility] if worsening symptoms occur. Prescriptions: New cephalexin 500 mg capsule 500 mg PO TID 7 Days Qty: 21 0RF No Action potassium chloride [Klor-Con M20] 20 mEq tablet,ER particles/crystals PO Patient Comments: TAKE ONE TABLET BY MOUTH TWICE DAILY WITH MEALS tamsulosin 0.4 mg capsule PO Patient Comments: TAKE TWO CAPSULE BY MOUTH DAILY AT BEDTIME sodium citrate-citric acid 500-334 mg/5 mL solution Patient Comments: TAKE 45ML BY MOUTH TWICE DAILY. levothyroxine 150 mcg tablet Patient Comments: Take 1 Tablet (150 mcg) by mouth before breakfast. omeprazole 20 mg capsule,delayed release(DR/EC) Phospha 250 Neutral 250 mg tablet Patient Comments: TAKE ONE TABLET BY MOUTH TWICE DAILY WITH FOOD allopurinol 300 mg tablet Patient Comments: TAKE ONE TABLET BY MOUTH ONE TIME DAILY calcitriol 0.25 mcg capsule Patient Comments: TAKE ONE CAPSULE BY MOUTH ONE TIME DAILY finasteride 5 mg tablet Patient Comments: TAKE ONE TABLET BY MOUTH EVERY DAY IN THE MORNING. rosuvastatin 10 mg tablet Patient Comments: TAKE ONE TABLET BY MOUTH ONE TIME DAILY AT BEDTIME calcium carb, citrate-vit D3 [Citracal-D3 Slow Release] 600 mg-12.5 mcg (500 unit) tablet extended release PO Patient Comments: TAKE ONE TABLET BY MOUTH ONE TIME DAILY Follow Up/Referrals: Osito Joe MD [Primary Care Provider] - Stand Alone Forms: [employer] Info Instructions
== END 2023-12-24 14:00 | disposition home or self-care (01) ==
PROVIDERS: Emergency Provider Emergency Medicine Emergency Medical Services; PCP Surgery
DX: T81.31XA Disruption of external operation (surgical) wound, not elsewhere classified, initial encounter (principal)
CPT/HCPCS: 99283; 99284

== ENCOUNTER 2024-03-28 10:01 | Inpatient (IN) | payer MEDICARE, BC, SELFPAY ==
[2024-03-28] VITALS (27 sets, daily range): BP systolic 93–160; BP diastolic 53–104; PULSE 69–89; RESP 16–18; TEMP 36.5–37.2; O2SAT 90–100; BMI 21.5; BMI 20.5
--- OUTSIDE RECORDS SUMMARY | 2024-03-28 10:03 | XMS_ITS | Encounter Summary ---
Author Organization [facility] Address [address] [place] [address] Care Team Providers Care Telephone Advice Nurse Name Role Phone Osito Joe MD Primary Care Provider [phone] Encounter Details Date Type Department Care Team (Late st Contact Info) Description 12/21/2023 Orders Only [facility] [address] [place] [id number] Rossy Dunn, ORAL AND MAXILLOFACIAL SURGERY-QUALITY PROCESS LEAD [address] [place] [address] Chronic kidney disease, stage 4 [...] Care Team (Late st Contact Info) Description 06/03/2024 3:00 PM CDT Office Visit [facility] [address] [place] [id number] Yan Romero MD [address] [place] [address] documented as of this encounter Procedures Procedure [...] Narrative Resulting Agency Comment Performing Organization Information: Site ID: CB Name: [facility] Address: [address] [place] [id number] Director: Boy Arredondo Rossy Crow Mona ORAL AND MAXILLOFACIAL SURGERY-QUALITY PROCESS LEAD LAB URINE ORDERABLES F inal Result [facility] See order comments [place] [address] * (ABNORMAL) Urinalysis with microscopic (12/18/2023 11:14 AM CDT) Color, Urine YELLOW YELLOW See ord er comments Appearance Urine CLEAR CLEAR See order comments Specific Foster, UA 1.018 1.001 - 1.035 See order [...] Narrative Resulting Agency Comment Performing Organization Information: Site ID: Name: [facility] Address: [address] [place] [id number] Director: Boy Arredondo Rossy Dunn ORAL AND MAXILLOFACIAL SURGERY-QUALITY PROCESS LEAD LAB URINE ORDERABLES F inal Result [facility] See order comments [place] [address] documented in this encounter Visit Diagnoses Diagnosis Chronic kidney disease, stage 4 (severe) (HCC) documented in this encounter Care Teams Telephone Advice Nurse Relationship Specialty Start Date End Date Osito Joe MD [address] [place] [address] PCP - General Family Medicine 01/13/23 documented as of this encounter
--- OUTSIDE RECORDS SUMMARY | 2024-03-28 10:04 | XMS_ITS | Encounter Summary ---
Author Organization [facility] Address [address] [place] [address] Care Team Providers Care Life Guard Name Role Phone Osito Joe MD Primary Care Provider [phone] Encounter Details Date Type Department Care Team (Late st Contact Info) Description 08/25/2023 Orders Only [facility] [address] [place] [address] Yan Romero MD [address] [place] [address] Chronic kidney disease stage 4 [...] [facility] [address] [place] [id number] Yan Romero MD [address] [place] [address] documented as of this encounter Visit Diagnoses Diagnosis Chronic kidney disease stage 4 (HCC) Hypomagnesemia documented in this encounter Care Teams Life Guard Relationship Specialty Start Date End Date Osito Joe MD [address] [place] [address] PCP - General Family Medicine 01/13/23 documented as of this encounter
--- OUTSIDE RECORDS SUMMARY | 2024-03-28 10:04 | XMS_ITS | Encounter Summary ---
Author Organization [facility] Address [address] [place] [address] Care Team Providers Care Hide Inspector And Sorter Name Role Phone Osito Joe MD Primary Care Provider [phone] Encounter Details Date Type Department Care Team (Late st Contact Info) Description 11/06/2023 Orders Only [facility] [address] [place] [id number] Yan Romero MD [address] [place] [phone] Chronic kidney disease stage 4 (HCC); Hypomagnesemia [...] [facility] [address] [place] [id number] Yan Romero MD [address] [place] [phone] documented as of this encounter Procedures Procedure [...] - 139 mg/dL See order comments Comment: Non-fasting reference interval BUN 17 7 - [...] NO Resulting Agency Comment Performing Organization Information: Site ID: Name: [facility] Address: [address] [place] [phone] Director: Boy Arredondo Yan Romero MD LAB BLOOD ORDERABLES Final Re sult Performing Organization Address [facility] Co de Phone Number [facility] See order comments [place] [address] * (ABNORMAL) Magnesium (12/18/2023 11:16 AM CDT) Magnesium 1.4(L) 1.5 - 2.5 mg/dL See order comments Blood (Blood, Venous) 12/18/2023 11:16 AM CDT 12/18/2023 11:16 AM CDT Narrative [facility] - 12/19/2023 12:57 PM CDT FASTING:NO FASTING: NO Resulting Agency Comment Performing Organization Information: Site ID: Name: [facility] Address: [address] [place] [phone] Director: Boy Arredondo Yan Romero MD LAB BLOOD ORDERABLES Final Re sult Performing Organization Address [facility] Phone Number [facility] See order comments [place] [address] * Vitamin D 25 hydroxy (12/18/2023 11:16 AM CDT) Vitamin D, 25-OH, Total, IA 30 30 - 100 ng/mL See order comments Comment: Vitamin D Status 25-OH Vitamin D: Deficiency: <20 ng/mL Insufficiency: 20 - 29 ng/mL Optimal: > or = 30 ng/mL For 25-OH Vitamin D testing on patients on D2-supplementation and patients for whom quantitation of D2 and D3 fractions is required, the QuestAssureD(TM) 25-OH VIT D, (D2,D3), LC/MS/MS is recommended: order code 56695 (patients >2yrs). See Note 1 Note 1 For additional information, please refer to http://education.TripTouch/faq/YRV808 (This link is being provided for informational/ educational purposes only.) Blood (Blood, Venous) 12/18/2023 11:16 AM CDT 12/18/2023 11:16 AM CDT Narrative [facility] - 12/19/2023 12:57 PM CDT FASTING:NO FASTING: NO Resulting Agency Comment Performing Organization Information: Site ID: Name: [facility] Address: [address] [place] [phone] Director: Boy Arredondo Yan Romero MD LAB BLOOD ORDERABLES Final Re sult Performing Organization Address [facility] de Phone Number [facility] See order comments [place] [address] * (ABNORMAL) PTH, intact (12/18/2023 11:16 AM CDT) Parathyroid Hormone, Intact 146(H) 16 - 77 pg/mL See order comments Comment: Interpretive Guide Intact PTH Calcium ------- Normal Parathyroid Normal Normal Hypoparathyroidism Low or Low Normal Low Hyperparathyroidism Primary Normal or High High Secondary High Normal or Low Tertiary High High Non-Parathyroid Hypercalcemia Low or Low Normal High Blood (Blood, Venous) 12/18/2023 11:16 AM CDT 12/18/2023 11:16 AM CDT Narrative [facility] - 12/19/2023 12:57 PM CDT FASTING:NO FASTING: NO Resulting Agency Comment Performing Organization Information: Site ID: CB Name: [facility] Address: [address] [place] [phone] Director: Boy Arredondo Yan Romero MD LAB BLOOD ORDERABLES Final Re sult Performing Organization Address [facility] Co de Phone Number [facility] See order comments [place] [address] * (ABNORMAL) Renal function panel (12/12/2023) Glucose 102 mg/dL [facility] BUN 24 mg/dL [facility] Creatinine 2.34(H) mg/dL [facility] Sodium 141 mEq/L [facility] Potassium 3.0(L) mEq/L [facility] Chloride 99 [facility] Carbon Dioxide 32(H) mmol/L [facility] Calcium 6.7(L) mg/dL [facility] eGFR 27(L) [facility] Comment:BMP was drawn Blood (Blood, Venous) 12/12/2023 us Yan Romero MD LAB BLOOD ORDERABLES Final Re sult [facility] documented in this encounter Visit Diagnoses Diagnosis Chronic kidney disease stage 4 (HCC) Hypomagnesemia documented in this encounter Care Teams Hide Inspector And Sorter Relationship Specialty Start Date End Date Osito Joe MD [address] [place] [address] PCP - General Family Medicine 01/13/23 documented as of this encounter
--- NOTE | 2024-03-28 12:05 | CRLHL7_ITS ---
For Patients: As a result of the Century Cures Act, medical imaging exams and procedure reports are released immediately into your electronic medical record. You may view this report before your referring provider. If you have questions, please contact your health care provider. INDICATION: Abdominal pain. Vomiting. TECHNIQUE: Multiplanar CT examination of the abdomen and pelvis was performed without the use of intravenous contrast. COMPARISON: CT abdomen pelvis 10/17/2023. FINDINGS: Lower chest: No focal consolidation. Normal heart size. No pleural effusions or pneumothorax. Linear band like opacification of the lungs bilaterally, likely subsegmental atelectasis and/or scarring. Stable subpleural nodule in the left lower lobe measuring 4 mm. Liver: Unremarkable. Gallbladder: Unremarkable. Biliary: Unremarkable. Pancreas: Within normal limits. Spleen: Unremarkable. Adrenal glands: Unremarkable. Renal/ureters/bladder: Bilateral renal atrophy. No obstructive uropathy. No hydronephrosis or obstructive urinary calculi. The ureters appear unremarkable. The bladder is within normal limits. Limited evaluation for renal masses without the use of intravenous contrast. There are several exophytic renal hypodensities that are poorly characterized without the use of intravenous contrast. Pelvis: Prostatomegaly. Gastrointestinal: Dilated loops of small bowel with air-fluid levels, with the transition point probably located along the left lateral aspect of the left lower quadrant stoma (2:77). No definite 2nd transition point is identified. No bowel wall thickening, or pneumatosis intestinalis. Vasculature: No aortic aneurysm. Severe atherosclerotic calcifications. Lymph nodes: No pathologic lymphadenopathy by size criteria. Peritoneum: No portal venous gas. No free fluid or pneumoperitoneum. No drainable fluid collections. Abdominal wall/soft tissues: Postoperative changes of the ventral abdominal wall. Left lower quadrant ostomy. Soft tissue defect inferior to the left lower quadrant stoma with likely surgical packing material identified, probably from a recent debridement. Bones: No acute osseous abnormalities. Degenerative changes of the visualized thoracolumbar spine. IMPRESSION: Findings compatible with a mechanical small bowel obstruction, with a likely transition point located along the left lateral aspect of the left lower quadrant stoma. No pneumatosis intestinalis, portal venous gas or pneumoperitoneum. Please note that all CT scans at this facility use dose modulation, iterative reconstruction, and/or weight-based dosing when appropriate to reduce radiation dose to as low as reasonably achievable. Dictated by Owen Cueto MD @ 03/28/2024 1:45:54 PM (Electronically Signed)
--- NOTE | 2024-03-28 12:08 | ED_ITS ---
HPI - Abdominal Pain General Chief Complaint: Abdominal Pain <Manny Kumar MD - Last Filed: 03/28/24 13:58> Time Seen by Provider: 03/28/24 11:56 <Manny Kumar MD - Last Filed: 03/28/24 13:58> History of Present Illness HPI narrative: This 83-year-old male comes in reporting abdominal pain with nausea and vomiting. He has an ileostomy and states that his pain began yesterday. He attempted to take food and drink yesterday afternoon and evening but vomited all of this up. He has not had any passage of stool into the ileostomy. <Manny Kumar MD - Last Filed: 03/28/24 13:58> . <Donald Charlton MD - Last Filed: 04/05/24 23:58> Related Data Home Medications: Home Medications ?Medication ?Instructions ?Recorded ?Confirmed allopurinol 300 mg tablet 300 mg PO DAILY 04/28/22 03/28/24 calcitriol 0.25 mcg capsule 0.25 mcg PO DAILY 04/28/22 03/28/24 calcium ER 600 mg (as carb,cit)-D3 1 tab PO DAILY 04/28/22 03/28/24 12.5 mcg (500 unit) tablet, ext.rel (Citracal-D3 Slow Release) finasteride 5 mg tablet 5 mg PO DAILY 04/28/22 03/28/24 omeprazole 20 mg capsule,delayed 20 mg PO DAILY 04/28/22 03/28/24 release potassium chloride 20 mEq 20 meq PO BID 04/28/22 03/28/24 tablet,extended release(part/cryst) (Klor-Con M) sodium citrate-citric acid 500 30 ml PO BID 04/28/22 03/28/24 mg-334 mg/5 mL oral solution sodium di- and 250 mg PO BID 04/28/22 03/28/24 monophosphate-potassium phos monobasic 250 mg tablet (Phospha Neutral) tamsulosin 0.4 mg capsule 0.8 mg PO HS 04/28/22 03/28/24 ascorbic acid (vitamin C) 1,000 mg 1 g PO DAILY 03/28/24 03/28/24 tablet cholecalciferol (vitamin D3) 25 25 mcg PO DAILY 03/28/24 03/28/24 mcg (1,000 unit) tablet coQ10 (ubiquinol) 200 mg capsule 200 - 400 mg PO BID 03/28/24 03/28/24 (Active Q) cyanocobalamin (vitamin B-12) 1,000 mcg PO DAILY 03/28/24 03/28/24 1,000 mcg tablet ferrous sulfate 325 mg (65 mg 325 mg PO BID 03/28/24 03/28/24 iron) tablet,delayed release levothyroxine 200 mcg tablet 200 mcg PO QAM 03/28/24 03/28/24 lutein 20 mg-zeaxanthin 1 1 cap PO DAILY 03/28/24 03/28/24 mg-bilberry fruit extract 2.2 mg capsule magnesium oxide 1,000 mg PO BID 03/28/24 03/28/24 nitroglycerin 0.4 mg sublingual 0.4 mg sublingual Q5M PRN 03/28/24 03/28/24 tablet oxycodone 5 mg tablet 5 mg PO Q4H PRN pain 03/28/24 03/28/24 prednisone 5 mg tablet 5 mg PO DAILY PRN 03/28/24 03/28/24 rosuvastatin 10 mg tablet (Crestor) 10 mg PO HS 03/28/24 03/28/24 zinc 15 mg tablet 15 mg PO DAILY 03/28/24 03/28/24 <Manny Kumar MD - Last Filed: 03/28/24 13:58> Allergies/Adverse Reactions: Allergies Allergy/AdvReac Type Severity Reaction Status Date / Time furosemide (From Lasix) Allergy Intermediate Palpitation Verified 03/28/24 10:30 s aspirin Allergy Mild gi bleeding Verified 03/28/24 10:30 atorvastatin (From Lipitor) Allergy Mild Verified 03/28/24 10:30 codeine Allergy Mild constipatio Verified 03/28/24 10:30 n simvastatin Allergy Mild myalgia Verified 03/28/24 10:30 <Manny Kumar MD - Last Filed: 03/28/24 13:58> Review of Systems Status of ROS Reports: 10 or more systems reviewed and unremarkable except as noted in History and below <Manny Kumar MD - Last Filed: 03/28/24 13:58> Narrative Constitutional: No fevers, no weight gain or loss. Eyes: No discharge. No vision changes. HENT: No congestion, no sore throat, no ear pain. Cardiovascular: No chest pain, no palpitations. Respiratory: No shortness of breath, no wheezes, no cough. Gastrointestinal: No diarrhea. Diffuse abdominal pain with some distention. Nausea and vomiting. Genitourinary: No dysuria, no hematuria. Musculoskeletal: Normal range of motion. Skin: No rashes, no pruritis. Neurological: No dizziness, weakness, sensory change, speech change. Endo/Heme/Allergies: No bruising or bleeding. No polydipsia. Pysch: no suicidality, no anxiety, no insomnia. All other systems reviewed and are negative. 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 - Benign neoplasm of thyroid gland (ICD-10) Pyogenic granuloma ?L98.0 - Pyogenic granuloma (ICD-10) Vitamin D deficiency ?E55.9 - Vitamin D deficiency, unspecified (ICD-10) Gastroesophageal reflux disease ?K21.9 - Gastro-esophageal reflux disease without esophagitis (ICD-10) Paroxysmal atrial fibrillation ?I48.0 - Paroxysmal atrial fibrillation (ICD-10) History of nephrolithiasis ?Z87.442 - Personal history of urinary calculi (ICD-10) Mixed hyperlipidemia ?E78.2 - Mixed hyperlipidemia (ICD-10) Pulmonary nodule ?R91.1 - Solitary pulmonary nodule (ICD-10) Hypokalemia ?E87.6 - Hypokalemia (ICD-10) History of pseudogout ?Z87.39 - Personal history of other diseases of the musculoskeletal system and connective tissue (ICD-10) Degenerative joint disease ?M19.90 - Unspecified osteoarthritis, unspecified site (ICD-10) Delayed emergence from general anesthesia ?T88.59XA - Other complications of anesthesia, initial encounter (ICD-10) Benign prostatic hyperplasia without lower urinary tract symptoms ?N40.0 - Benign prostatic hyperplasia without lower urinary tract symptoms (ICD-10) Hypothyroidism ?E03.9 - Hypothyroidism, unspecified (ICD-10) Skin lesion of left external ear ?H61.92 - Disorder of left external ear, unspecified (ICD-10) History of deep vein thrombosis ?Z86.718 - Personal history of other venous thrombosis and embolism (ICD-10) Peristomal abscess, ileostomy ?K94.12 - Enterostomy infection (ICD-10) Crohn's disease ?K50.90 - Crohn's disease, unspecified, without complications (ICD-10) <Manny Kumar MD - Last Filed: 03/28/24 13:58> Surgical History: Surgical History Status post total thyroidectomy ?Z98.890 - Other specified postprocedural states (ICD-10) ?Z90.89 - Acquired absence of other organs (ICD-10) Status post parathyroidectomy ?Z98.890 - Other specified postprocedural states (ICD-10) ?Z90.89 - Acquired absence of other organs (ICD-10) Status post laser lithotripsy of ureteral calculus ?Z98.890 - Other specified postprocedural states (ICD-10) S/P ureteral stent placement ?Z96.0 - Presence of urogenital implants (ICD-10) History of hernia repair ?Z98.890 - Other specified postprocedural states (ICD-10) ?Z87.19 - Personal history of other diseases of the digestive system (ICD-10) History of esophagogastroduodenoscopy ?Z98.890 - Other specified postprocedural states (ICD-10) History of colonoscopy ?Z98.890 - Other specified postprocedural states (ICD-10) History of lung biopsy ?Z98.890 - Other specified postprocedural states (ICD-10) Hx of appendectomy ?Z90.49 - Acquired absence of other specified parts of digestive tract (ICD- 10) Status post ileostomy ?Z93.2 - Ileostomy status (ICD-10) <Manny Kumar MD - Last Filed: 03/28/24 13:58> Family History: Family History Mother Colon cancer Stroke Father Heart disease Stroke Brother High cholesterol Sister High cholesterol Other Diabetes <Manny Kumar MD - Last Filed: 03/28/24 13:58> Social History: Social History Narrative: 03/28/2024: for 56 years. Lives with . Three children. One child . No grandchildren. Designates as his decision maker if he is unable to make own decisions regarding health. Requests DNR DNI resuscitation status in the event of cardiopulmonary demise. Does not use tobacco products. Does not consume alcoholic beverages. Denies use of any other street or recreational drugs. What is your current living situation?: I presently have a place to live Problems where you live: no known problems Problems where you live details: n/a In the past 12 months, utilities in danger of being shut off: no In past 12 months, lack of transportation kept you from medical appts, meetings, work, or getting things needed for daily living: no In the past 12 mos, have been you worried that your food would run out before you had money to buy more?: never true In the past 12 mos, the food you bought just didn't last and you didn't have money to buy more?: never true Smoking Status: Former smoker Do you use any of these nicotine containing products: None Second hand tobacco smoke exposure: No How often do you have a drink containing alcohol: never How often do you have six or more drinks on one occasion: Never AUDIT-C Alcohol total score: 0 Non-prescribed substance use: denies use Caffeine: No How often does anyone, including family, friends and others, physically hurt you : never How often does anyone, including family, friends and others, insult or talk down to you: never How often does anyone, including family, friends and others, threaten you with harm: never How often does anyone, including family, friends and others, scream or curse at you: never service: No <Manny Kumar MD - Last Filed: 03/28/24 13:58> Exam Narrative: Exam Narrative: Constitutional: Well-developed, well-nourished, no acute distress. HEENT: Normocephalic, atraumatic. Neck: Normal range of motion. Nontender. Supple. Heart: Regular. No murmurs. Normal rate. Intact distal pulses. Lungs: Clear to auscultation. No chest discomfort. No wheezes, rhonchi, or rales. Abdomen: Decreased bowel sounds. Diffuse tenderness. Genitalia: Deferred. Back: No midline tenderness. Normal range of motion. Extremities: Normal range of motion. No injury. Skin: Intact. No rash. Warm. No erythema or pallor. Neurologic: No altered sensation. No weakness. Alert and oriented. Psychiatric: No suicidality. No anxiety or depression. No insomnia. Nursing notes and vitals signs are reviewed. <Manny Kumar MD - Last Filed: 03/28/24 13:58> Const: Vital Signs, click to edit/add: Vital Signs - 24 hr 03/28/24 10:22 03/28/24 11:54 03/28/24 11:55 Temperature 99.0 F Pulse Rate 82 69 Pulse Rate [Pulse Oximeter] 87 Respiratory Rate 18 Blood Pressure 160/93 H Blood Pressure [Ri ght Upper Arm] 93/55 L Pulse Oximetry 100 94 98 Oxygen Delivery Me thod Room Air 03/28/24 12:00 03/28/24 12:02 Temperature Pulse Rate 74 71 Pulse Rate [Pulse Oximeter] Respiratory Rate Blood Pressure 142/75 H Blood Pressure [Ri ght Upper Arm] Pulse Oximetry 100 100 Oxygen Delivery Me thod <Manny Kumar MD - Last Filed: 03/28/24 13:58> Vital Signs, click to edit/add: Vital Signs - 24 hr 03/28/24 10:22 03/28/24 11:54 03/28/24 11:55 Temperature 99.0 F Pulse Rate 82 69 Pulse Rate [Pulse Oximeter] 87 Respiratory Rate 18 Blood Pressure 160/93 H Blood Pressure [Ri ght Upper Arm] 93/55 L Pulse Oximetry 100 94 98 Oxygen Delivery Me thod Room Air 03/28/24 12:00 03/28/24 12:02 Temperature Pulse Rate 74 71 Pulse Rate [Pulse Oximeter] Respiratory Rate Blood Pressure 142/75 H Blood Pressure [Ri ght Upper Arm] Pulse Oximetry 100 100 Oxygen Delivery Me thod <Donald Charlton MD - Last Filed: 04/05/24 23:58> Course Vital Signs Vital signs: Initial Vital Signs Temperature 99.0 F 03/28/24 10:22 Temperature Source Temporal Artery Scan 03/28/24 10:22 Pulse Rate 87 03/28/24 10:22 Respiratory Rate 18 03/28/24 10:22 Blood Pressure 93/55 L 03/28/24 10:22 Blood Pressure Mean 67 L 03/28/24 10:22 Blood Pressure Position Sitting 03/28/24 10:22 Pulse Oximetry 100 03/28/24 10:22 Oxygen Delivery Method Room Air 03/28/24 10:22 Vital Signs Temperature 99.0 F 03/28/24 10:22 Pulse Rate 87 03/28/24 10:22 Respiratory Rate 18 03/28/24 10:22 Blood Pressure 93/55 L 03/28/24 10:22 Pulse Oximetry 100 03/28/24 10:22 Oxygen Delivery Method Room Air 03/28/24 10:22 Temperature 98.4 F 03/29/24 02:32 Pulse Rate 75 03/29/24 02:32 Respiratory Rate 18 03/29/24 07:00 Blood Pressure 102/64 03/29/24 02:32 Pulse Oximetry 98 03/29/24 07:00 Oxygen Delivery Method Room Air 03/29/24 07:00 <Manny Kumar MD - Last Filed: 03/28/24 13:58> Initial Vital Signs Temperature 99.0 F 03/28/24 10:22 Temperature Source Temporal Artery Scan 03/28/24 10:22 Pulse Rate 87 03/28/24 10:22 Respiratory Rate 18 03/28/24 10:22 Blood Pressure 93/55 L 03/28/24 10:22 Blood Pressure Mean 67 L 03/28/24 10:22 Blood Pressure Position Sitting 03/28/24 10:22 Pulse Oximetry 100 03/28/24 10:22 Oxygen Delivery Method Room Air 03/28/24 10:22 Vital Signs Temperature 99.0 F 03/28/24 10:22 Pulse Rate 87 03/28/24 10:22 Respiratory Rate 18 03/28/24 10:22 Blood Pressure 93/55 L 03/28/24 10:22 Pulse Oximetry 100 03/28/24 10:22 Oxygen Delivery Method Room Air 03/28/24 10:22 Temperature 98.4 F 03/29/24 02:32 Pulse Rate 75 03/29/24 02:32 Respiratory Rate 18 03/29/24 07:00 Blood Pressure 102/64 03/29/24 02:32 Pulse Oximetry 98 03/29/24 07:00 Oxygen Delivery Method Room Air 03/29/24 07:00 <Donald Charlton MD - Last Filed: 04/05/24 23:58> Medications Administered Medications: Discontinued Medications Generic Name Dose Route Start Last Admin Trade Name Sjq PRN Reason Stop Dose Admin Hydromorphone HCl 0.5 mg 03/28/24 15:50 03/28/24 22:48 Hydromorphone 0.5 Mg/0.5 Ml Inj IVP 0.5 mg Q1H PRN Administration Pain Sodium Chloride 500 mls @ 500 mls/hr 03/28/24 12:06 03/28/24 14:12 0.9 % Sodium Chloride 500 Ml IV 03/28/24 13:05 Infused .Q1H ONE Infusion Potassium Chloride 10 meq in 100 mls @ 100 mls/hr 03/28/24 15:50 03/28/24 19:18 Potassium Chloride IVPB 03/28/24 18:19 Infused Q90M JOHANA Infusion Sodium Chloride 1,000 mls @ 125 mls/hr 03/28/24 15:53 03/29/24 00:47 0.9 % Sodium Chloride 1000 Ml IV 125 mls/hr .Q8H JOHANA Administration Sodium Chloride 250 mls @ 250 mls/hr 03/29/24 07:24 03/29/24 12:43 0.9 % Sodium Chloride 250 Ml IV 03/29/24 08:23 Infused .Q1H ONE Infusion Ketorolac Tromethamine 15 mg 03/28/24 12:06 03/28/24 12:34 Ketorolac 30 Mg/Ml Inj IVP 03/28/24 12:07 15 mg ONCE ONE Administration Levothyroxine Sodium 200 mcg 03/29/24 10:00 03/29/24 10:20 Levothyroxine 100 Mcg Tablet PO 200 mcg DAILY@0700 JOHANA Administration Melatonin 3 mg 03/28/24 22:44 03/28/24 23:15 Melatonin 3 Mg Tablet PO 3 mg HS PRN Administration Insomnia Omeprazole 20 mg 03/29/24 10:12 03/29/24 12:43 Omeprazole [address] PO 03/29/24 10:13 Not Given ONCE ONE Ondansetron HCl 4 mg 03/28/24 12:06 03/28/24 12:34 Ondansetron 2 Mg/Ml Inj IVP 03/28/24 12:07 4 mg ONCE ONE Administration Ondansetron HCl 4 mg 03/28/24 15:50 03/29/24 06:27 Ondansetron 2 Mg/Ml Inj IVP 4 mg Q4H PRN Administration Nausea Pantoprazole Sodium 40 mg 03/28/24 16:30 03/29/24 10:02 Pantoprazole Sodium 40 Mg Inj IVP 40 mg DAILY JOHANA Administration Sodium Chloride 5 ml 03/28/24 15:50 03/29/24 06:27 Sodium Chloride 0.9 % (Flush) 10 Ml Syringe IVF 5 ml .FLUSH PRN Administration Sodium Chloride 5 ml 03/28/24 21:00 03/29/24 10:03 Sodium Chloride 0.9 % (Flush) 10 Ml Syringe IVF 5 ml BID JOHANA Administration <Manny Kumar MD - Last Filed: 03/28/24 13:58> Discontinued Medications Generic Name Dose Route Start Last Admin Trade Name Freq PRN Reason Stop Dose Admin Hydromorphone HCl 0.5 mg 03/28/24 15:50 03/28/24 22:48 Hydromorphone 0.5 Mg/0.5 Ml Inj IVP 0.5 mg Q1H PRN Administration Pain Sodium Chloride 500 mls @ 500 mls/hr 03/28/24 12:06 03/28/24 14:12 0.9 % Sodium Chloride 500 Ml IV 03/28/24 13:05 Infused .Q1H ONE Infusion Potassium Chloride 10 meq in 100 mls @ 100 mls/hr 03/28/24 15:50 03/28/24 19:18 Potassium Chloride IVPB 03/28/24 18:19 Infused Q90M JOHANA Infusion Sodium Chloride 1,000 mls @ 125 mls/hr 03/28/24 15:53 03/29/24 00:47 0.9 % Sodium Chloride 1000 Ml IV 125 mls/hr .Q8H JOHANA Administration Sodium Chloride 250 mls @ 250 mls/hr 03/29/24 07:24 03/29/24 12:43 0.9 % Sodium Chloride 250 Ml IV 03/29/24 08:23 Infused .Q1H ONE Infusion Ketorolac Tromethamine 15 mg 03/28/24 12:06 03/28/24 12:34 Ketorolac 30 Mg/Ml Inj IVP 03/28/24 12:07 15 mg ONCE ONE Administration Levothyroxine Sodium 200 mcg 03/29/24 10:00 03/29/24 10:20 Levothyroxine 100 Mcg Tablet PO 200 mcg DAILY@0700 JOHANA Administration Melatonin 3 mg 03/28/24 22:44 03/28/24 23:15 Melatonin 3 Mg Tablet PO 3 mg HS PRN Administration Insomnia Omeprazole 20 mg 03/29/24 10:12 03/29/24 12:43 Omeprazole [address] PO 03/29/24 10:13 Not Given ONCE ONE Ondansetron HCl 4 mg 03/28/24 12:06 03/28/24 12:34 Ondansetron 2 Mg/Ml Inj IVP 03/28/24 12:07 4 mg ONCE ONE Administration Ondansetron HCl 4 mg 03/28/24 15:50 03/29/24 06:27 Ondansetron 2 Mg/Ml Inj IVP 4 mg Q4H PRN Administration Nausea Pantoprazole Sodium 40 mg 03/28/24 16:30 03/29/24 10:02 Pantoprazole Sodium 40 Mg Inj IVP 40 mg DAILY JOHANA Administration Sodium Chloride 5 ml 03/28/24 15:50 03/29/24 06:27 Sodium Chloride 0.9 % (Flush) 10 Ml Syringe IVF 5 ml .FLUSH PRN Administration Sodium Chloride 5 ml 03/28/24 21:00 03/29/24 10:03 Sodium Chloride 0.9 % (Flush) 10 Ml Syringe IVF 5 ml BID JOHANA Administration <Donald Charlton MD - Last Filed: 04/05/24 23:58> MDM - Abdominal Pain Lab Data Labs: Lab Results 03/28/24 03/28/24 Range/Units 11:20 14:22 WBC 5.53 (4.50-11.00) K/uL RBC 4.10 L (4.30-5.90) m/uL Hgb 12.3 L (13.5-17.5) gm/dL Hct 39.4 (37.0-53.0) % MCV 96 (80-100) fL MCH 30 (26-34) pg MCHC 31 L (32-36) gm/dL RDW Coeff of Sylvia 15.1 (11.5-15.5) % Plt Count 242 (140-440) K/uL Neut % (Auto) 86.5 H (42.0-72.0) % Lymph % (Auto) 8.3 L (20-44) % Troup % (Auto) 3.3 (0.0-11.0) % Eos % (Auto) 1.3 (0.0-7.0) % Baso % (Auto) 0.4 (0.0-3.0) % Neut # (Auto) 4.80 (1.7-7.0) K/uL Lymph # (Auto) 0.50 L (0.90-2.90) K/uL Troup # (Auto) 0.20 (0.00-0.90) K/UL Eos # (Auto) 0.07 (0.00-0.50) K/uL Baso # (Auto) 0.02 (0.00-0.30) K/uL Abs Immat Gran (auto) 0.01 (0.00-0.30) K/uL Imm/Tot Granulo (auto) 0.2 % Sodium 140 (135-149) mmol/L Potassium 3.7 (3.6-5.1) mmol/L Chloride 97 (96-114) mmol/L Carbon Dioxide 34 H (20-32) mmol/L Anion Gap 9 (7-15) mEq/L BUN 41 H (7-30) mg/dL Creatinine 2.6 H (0.5-1.5) mg/dL Estimated Creat Clear 21.44 Estimated GFR 24 ml/min Glucose 128 H (60-115) mg/dL Lactate 1.6 (0.5-1.9) mmol/L Calcium 9.9 (8.4-10.6) mg/dL <Manny Kumar MD - Last Filed: 03/28/24 13:58> Lab Results 03/28/24 03/28/24 Range/Units 11:20 14:22 WBC 5.53 (4.50-11.00) K/uL RBC 4.10 L (4.30-5.90) m/uL Hgb 12.3 L (13.5-17.5) gm/dL Hct 39.4 (37.0-53.0) % MCV 96 (80-100) fL MCH 30 (26-34) pg MCHC 31 L (32-36) gm/dL RDW Coeff of Sylvia 15.1 (11.5-15.5) % Plt Count 242 (140-440) K/uL Neut % (Auto) 86.5 H (42.0-72.0) % Lymph % (Auto) 8.3 L (20-44) % Troup % (Auto) 3.3 (0.0-11.0) % Eos % (Auto) 1.3 (0.0-7.0) % Baso % (Auto) 0.4 (0.0-3.0) % Neut # (Auto) 4.80 (1.7-7.0) K/uL Lymph # (Auto) 0.50 L (0.90-2.90) K/uL Troup # (Auto) 0.20 (0.00-0.90) K/UL Eos # (Auto) 0.07 (0.00-0.50) K/uL Baso # (Auto) 0.02 (0.00-0.30) K/uL Abs Immat Gran (auto) 0.01 (0.00-0.30) K/uL Imm/Tot Granulo (auto) 0.2 % Sodium 140 (135-149) mmol/L Potassium 3.7 (3.6-5.1) mmol/L Chloride 97 (96-114) mmol/L Carbon Dioxide 34 H (20-32) mmol/L Anion Gap 9 (7-15) mEq/L BUN 41 H (7-30) mg/dL Creatinine 2.6 H (0.5-1.5) mg/dL Estimated Creat Clear 21.44 Estimated GFR 24 ml/min Glucose 128 H (60-115) mg/dL Lactate 1.6 (0.5-1.9) mmol/L Calcium 9.9 (8.4-10.6) mg/dL <Donald Charlton MD - Last Filed: 04/05/24 23:58> Imaging Data CT scan - abdomen: Radiologist's impression: Findings compatible with a mechanical small bowel obstruction, with a likely transition point located along the left lateral aspect of the left lower quadrant stoma. No pneumatosis intestinalis, portal venous gas or pneumoperitoneum. <Manny Kumar MD - Last Filed: 03/28/24 13:58> Discharge Plan Discharge Condition: Improved <Manny Kumar MD - Last Filed: 03/28/24 13:58> Activity Level: Activity as Tolerated <Manny Kumar MD - Last Filed: 03/28/24 13:58> Activity as Tolerated <Donald Charlton MD - Last Filed: 04/05/24 23:58> Diet Detail: liquids (soup, hello, etc - then slowly advance) <Manny Kumar MD - Last Filed: 03/28/24 13:58> liquids (soup, hello, etc - then slowly advance) <Donald Charlton MD - Last Filed: 04/05/24 23:58>
[2024-03-28] MEDS: 0.9 % SODIUM CHLORIDE 500 ML 500 ML IV (12:30)
[2024-03-28] MEDS: ONDANSETRON 2 MG/ML inj 4 MG IVP (12:34)
[2024-03-28] MEDS: KETOROLAC 30 MG/ML inj 15 MG IVP (12:34)
[2024-03-28 12:37] LABS: Chloride* 97 mmol/L (96-114)
[2024-03-28 12:38] LABS: Potassium* 3.7 mmol/L (3.6-5.1); Sodium* 140 mmol/L (135-149)
[2024-03-28 12:40] LABS: Anion Gap 9 mEq/L (7-15); Basophils Absolute Auto 0.02 K/uL (0.00-0.30); Basophils Percent Auto 0.4 % (0.0-3.0); Carbon Dioxide* 34 mmol/L (20-32); Creatinine* 2.6 mg/dL (0.5-1.5); Eosinophils Absolute Auto 0.07 K/uL (0.00-0.50); Eosinophils Percent Auto 1.3 % (0.0-7.0); Est. Creatinine Clearance* 21.44; Estimated Glomerular Filt Rate 24 ml/min; Hematocrit 39.4 % (37.0-53.0); Hemoglobin* 12.3 gm/dL (13.5-17.5); Immature Granulocytes Abs Auto 0.01 K/uL (0.00-0.30); Immature Granulocytes Pct Auto 0.2 %; Lymphocytes Percent Auto 8.3 % (20-44); Mean Corpuscular HGB Conc 31 gm/dL (32-36); Mean Corpuscular Hemoglobin 30 pg (26-34); Mean Corpuscular Volume 96 fL (80-100); Monocytes Percent Auto 3.3 % (0.0-11.0); Neutrophils Percent Auto 86.5 % (42.0-72.0); Platelet Count* 242 K/uL (140-440); RDW Coefficient of Variation % 15.1 % (11.5-15.5); White Blood Count* 5.53 K/uL (4.50-11.00)
[2024-03-28 12:41] LABS: Blood Urea Nitrogen* 41 mg/dL (7-30); Calcium* 9.9 mg/dL (8.4-10.6); Glucose* 128 mg/dL (60-115)
[2024-03-28 12:43] LABS: Slide Review Reflex No
[2024-03-28 14:26] LABS: Lactate* 1.6 mmol/L (0.5-1.9)
--- NOTE | 2024-03-28 15:54 | PM.IMHP1 ---
Hospitalist- H&P: HPI History of Present Illness Date Seen: 03/28/24 Chief complaint: Intestinal blockage Narrative: Long Nugent is a 83 year old man with 1 and half day history of abdominal pain, nausea vomiting, no ileostomy output. Known to have underlying Crohn's disease. Has had the ileostomy in place for 50 years. Multiple complications from Crohn's. Last hospitalized 10/31/2023 at [facility] and found to have parastomal swelling thought to be a parastomal hernia. Turned out to be a small-bowel perforation into the abdominal wall. Underwent incision and drainage and primary closure of the small bowel perforation. Subsequently developed recurrent fistulous drainage into an open wound adjacent to his stoma. Has had twice daily dressing changes since then with assistance from home health care. Denies fevers, rigors, diaphoresis. Again no output from the ileostomy. Did administer a rectal suppository and had stool output from his rectum. Unable to maintain hydration and nutritional status with recurrent nausea and vomiting. 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 - Benign neoplasm of thyroid gland (ICD-10) Pyogenic granuloma ?L98.0 - Pyogenic granuloma (ICD-10) Vitamin D deficiency ?E55.9 - Vitamin D deficiency, unspecified (ICD-10) Gastroesophageal reflux disease ?K21.9 - Gastro-esophageal reflux disease without esophagitis (ICD-10) Paroxysmal atrial fibrillation ?I48.0 - Paroxysmal atrial fibrillation (ICD-10) History of nephrolithiasis ?Z87.442 - Personal history of urinary calculi (ICD-10) Mixed hyperlipidemia ?E78.2 - Mixed hyperlipidemia (ICD-10) Pulmonary nodule ?R91.1 - Solitary pulmonary nodule (ICD-10) Hypokalemia ?E87.6 - Hypokalemia (ICD-10) History of pseudogout ?Z87.39 - Personal history of other diseases of the musculoskeletal system and connective tissue (ICD-10) Degenerative joint disease ?M19.90 - Unspecified osteoarthritis, unspecified site (ICD-10) Delayed emergence from general anesthesia ?T88.59XA - Other complications of anesthesia, initial encounter (ICD-10) Benign prostatic hyperplasia without lower urinary tract symptoms ?N40.0 - Benign prostatic hyperplasia without lower urinary tract symptoms (ICD-10) Hypothyroidism ?E03.9 - Hypothyroidism, unspecified (ICD-10) Skin lesion of left external ear ?H61.92 - Disorder of left external ear, unspecified (ICD-10) History of deep vein thrombosis ?Z86.718 - Personal history of other venous thrombosis and embolism (ICD-10) Peristomal abscess, ileostomy ?K94.12 - Enterostomy infection (ICD-10) Crohn's disease ?K50.90 - Crohn's disease, unspecified, without complications (ICD-10) Surgical History Status post total thyroidectomy ?Z98.890 - Other specified postprocedural states (ICD-10) ?Z90.89 - Acquired absence of other organs (ICD-10) Status post parathyroidectomy ?Z98.890 - Other specified postprocedural states (ICD-10) ?Z90.89 - Acquired absence of other organs (ICD-10) Status post laser lithotripsy of ureteral calculus ?Z98.890 - Other specified postprocedural states (ICD-10) S/P ureteral stent placement ?Z96.0 - Presence of urogenital implants (ICD-10) History of hernia repair ?Z98.890 - Other specified postprocedural states (ICD-10) ?Z87.19 - Personal history of other diseases of the digestive system (ICD-10) History of esophagogastroduodenoscopy ?Z98.890 - Other specified postprocedural states (ICD-10) History of colonoscopy ?Z98.890 - Other specified postprocedural states (ICD-10) History of lung biopsy ?Z98.890 - Other specified postprocedural states (ICD-10) Hx of appendectomy ?Z90.49 - Acquired absence of other specified parts of digestive tract (ICD-10) Status post ileostomy ?Z93.2 - Ileostomy status (ICD-10) Family History Mother Colon cancer Stroke Father Heart disease Stroke Brother High cholesterol Sister High cholesterol Other Diabetes Social History Narrative: 03/28/2024: for 56 years. Lives with . Three children. One child . No grandchildren. Designates as his decision maker if he is unable to make own decisions regarding health. Requests DNR DNI resuscitation status in the event of cardiopulmonary demise. Does not use tobacco products. Does not consume alcoholic beverages. Denies use of any other street or recreational drugs. What is your current living situation?: I presently have a place to live Problems where you live: no known problems Problems where you live details: n/a In the past 12 months, utilities in danger of being shut off: no In past 12 months, lack of transportation kept you from medical appts, meetings, work, or getting things needed for daily living: no In the past 12 mos, have been you worried that your food would run out before you had money to buy more?: never true In the past 12 mos, the food you bought just didn't last and you didn't have money to buy more?: never true Smoking Status: Former smoker Do you use any of these nicotine containing products: None Second hand tobacco smoke exposure: No How often do you have a drink containing alcohol: never How often do you have six or more drinks on one occasion: Never AUDIT-C Alcohol total score: 0 Non-prescribed substance use: denies use Caffeine: No How often does anyone, including family, friends and others, physically hurt you: never How often does anyone, including family, friends and others, insult or talk down to you: never How often does anyone, including family, friends and others, threaten you with harm: never How often does anyone, including family, friends and others, scream or curse at you: never service: No Meds Home Medications and Allergies Home Medications ?Medication ?Instructions ?Recorded ?Confirmed ?Type allopurinol 300 mg tablet 300 mg PO DAILY 04/28/22 03/28/24 History calcitriol 0.25 mcg capsule 0.25 mcg PO DAILY 04/28/22 03/28/24 History calcium ER 600 mg (as carb,cit)-D3 1 tab PO DAILY 04/28/22 03/28/24 History 12.5 mcg (500 unit) tablet, ext.rel (Citracal-D3 Slow Release) finasteride 5 mg tablet 5 mg PO DAILY 04/28/22 03/28/24 History omeprazole 20 mg capsule,delayed 20 mg PO DAILY 04/28/22 03/28/24 History release potassium chloride 20 mEq 20 meq PO BID 04/28/22 03/28/24 History tablet,extended release(part/cryst) (Klor-Con M) sodium citrate-citric acid 500 30 ml PO BID 04/28/22 03/28/24 History mg-334 mg/5 mL oral solution sodium di- and 250 mg PO BID 04/28/22 03/28/24 History monophosphate-potassium phos monobasic 250 mg tablet (Phospha Neutral) tamsulosin 0.4 mg capsule 0.8 mg PO HS 04/28/22 03/28/24 History ascorbic acid (vitamin C) 1,000 mg 1 g PO DAILY 03/28/24 03/28/24 History tablet cholecalciferol (vitamin D3) 25 25 mcg PO DAILY 03/28/24 03/28/24 History mcg (1,000 unit) tablet coQ10 (ubiquinol) 200 mg capsule 200 - 400 mg PO BID 03/28/24 03/28/24 History (Active Q) cyanocobalamin (vitamin B-12) 1,000 mcg PO DAILY 03/28/24 03/28/24 History 1,000 mcg tablet ferrous sulfate 325 mg (65 mg 325 mg PO BID 03/28/24 03/28/24 History iron) tablet,delayed release levothyroxine 200 mcg tablet 200 mcg PO QAM 03/28/24 03/28/24 History lutein 20 mg-zeaxanthin 1 1 cap PO DAILY 03/28/24 03/28/24 History mg-bilberry fruit extract 2.2 mg capsule magnesium oxide 1,000 mg PO BID 03/28/24 03/28/24 History nitroglycerin 0.4 mg sublingual 0.4 mg sublingual Q5M PRN 03/28/24 03/28/24 History tablet oxycodone 5 mg tablet 5 mg PO Q4H PRN pain 03/28/24 03/28/24 History prednisone 5 mg tablet 5 mg PO DAILY PRN 03/28/24 03/28/24 History rosuvastatin 10 mg tablet (Crestor) 10 mg PO HS 03/28/24 03/28/24 History zinc 15 mg tablet 15 mg PO DAILY 03/28/24 03/28/24 History Allergies Allergy/AdvReac Type Severity Reaction Status Date / Time furosemide (From Lasix) Allergy Intermediate Palpitation Verified 03/28/24 10:30 s aspirin Allergy Mild gi bleeding Verified 03/28/24 10:30 atorvastatin (From Lipitor) Allergy Mild Verified 03/28/24 10:30 codeine Allergy Mild constipatio Verified 03/28/24 10:30 n simvastatin Allergy Mild myalgia Verified 03/28/24 10:30 Exam Narrative: Exam Narrative: Examined patient emergency department. Appears chronically ill. Friendly, articulate, cooperative. Alert and oriented x4. Appears thin. Clothing are loosely fitting on a thin frame. Wound on left external ear noted which is being followed by his primary care physician. External auditory canals and tympanic membranes normal. No icterus or conjunctival injection. Midline nasal septum. Dry buccal mucosa. Dentition with fair repair Neck is thin. Neck is supple. No head neck lymphadenopathy. Lungs are clear to auscultation. Heart tones with regular rhythm. Abdomen is soft. Nontender. Occasional bowel sounds but only sporadic. Dressings in place for wound care. Moves all 4 extremities. Const: Vital Signs, click to edit/add: Vital Signs - 24 hr 03/28/24 10:22 03/28/24 11:54 03/28/24 11:55 Temperature 99.0 F Pulse Rate 82 69 Pulse Rate [Pulse Oximeter] 87 Respiratory Rate 18 Blood Pressure 160/93 H Blood Pressure [Le ft Arm] Blood Pressure [Ri ght Upper Arm] 93/55 L Pulse Oximetry 100 94 98 Oxygen Delivery Me thod Room Air 03/28/24 12:00 03/28/24 12:02 03/28/24 12:03 Temperature Pulse Rate 74 71 72 Pulse Rate [Pulse Oximeter] Respiratory Rate Blood Pressure 142/75 H Blood Pressure [Le ft Arm] Blood Pressure [Ri ght Upper Arm] Pulse Oximetry 100 100 100 Oxygen Delivery Me thod 03/28/24 12:15 03/28/24 12:30 03/28/24 12:32 Temperature Pulse Rate 73 76 72 Pulse Rate [Pulse Oximeter] Respiratory Rate Blood Pressure 150/87 H Blood Pressure [Le ft Arm] Blood Pressure [Ri ght Upper Arm] Pulse Oximetry 100 96 90 Oxygen Delivery Me thod 03/28/24 12:45 03/28/24 13:11 03/28/24 13:15 Temperature Pulse Rate 75 89 75 Pulse Rate [Pulse Oximeter] Respiratory Rate Blood Pressure Blood Pressure [Le ft Arm] Blood Pressure [Ri ght Upper Arm] Pulse Oximetry 99 94 98 Oxygen Delivery Me thod 03/28/24 13:30 03/28/24 13:32 03/28/24 13:45 Temperature Pulse Rate 69 73 70 Pulse Rate [Pulse Oximeter] Respiratory Rate Blood Pressure 121/69 Blood Pressure [Le ft Arm] Blood Pressure [Ri ght Upper Arm] Pulse Oximetry 96 98 96 Oxygen Delivery Me thod 03/28/24 14:00 03/28/24 14:02 03/28/24 14:15 Temperature Pulse Rate 74 71 71 Pulse Rate [Pulse Oximeter] Respiratory Rate Blood Pressure 124/70 Blood Pressure [Le ft Arm] Blood Pressure [Ri ght Upper Arm] Pulse Oximetry 97 97 99 Oxygen Delivery Me thod 03/28/24 14:30 03/28/24 14:32 03/28/24 14:45 Temperature Pulse Rate 73 75 73 Pulse Rate [Pulse Oximeter] Respiratory Rate Blood Pressure 133/78 Blood Pressure [Le ft Arm] Blood Pressure [Ri ght Upper Arm] Pulse Oximetry 96 96 97 Oxygen Delivery Me thod 03/28/24 15:00 03/28/24 15:02 03/28/24 15:45 Temperature 97.7 F Pulse Rate 73 70 Pulse Rate [Pulse Oximeter] 79 Respiratory Rate 18 Blood Pressure 129/74 Blood Pressure [Le ft Arm] 114/104 H Blood Pressure [Ri ght Upper Arm] Pulse Oximetry 99 99 98 Oxygen Delivery Me thod Room Air Hospitalist - H&P: Result Labs Labs: Short CBC 03/28/24 Range/Units 11:20 WBC 5.53 (4.50-11.00) K/uL Hgb 12.3 L (13.5-17.5) gm/dL Hct 39.4 (37.0-53.0) % Plt Count 242 (140-440) K/uL BMP 03/28/24 11:20 Sodium 140 Potassium 3.7 Chloride 97 Carbon Dioxide 34 H BUN 41 H Creatinine 2.6 H Glucose 128 H Calcium 9.[address] scan of abdomen and pelvi: Radiologist's impression: FINDINGS: Lower chest: No focal consolidation. Normal heart size. No pleural effusions or pneumothorax. Linear band like opacification of the lungs bilaterally, likely subsegmental atelectasis and/or scarring. Stable subpleural nodule in the left lower lobe measuring 4 mm. Liver: Unremarkable. Gallbladder: Unremarkable. Biliary: Unremarkable. Pancreas: Within normal limits. Spleen: Unremarkable. Adrenal glands: Unremarkable. Renal/ureters/bladder: Bilateral renal atrophy. No obstructive uropathy. No hydronephrosis or obstructive urinary calculi. The ureters appear unremarkable. The bladder is within normal limits. Limited evaluation for renal masses without the use of intravenous contrast. There are several exophytic renal hypodensities that are poorly characterized without the use of intravenous contrast. Pelvis: Prostatomegaly. Gastrointestinal: Dilated loops of small bowel with air-fluid levels, with the transition point probably located along the left lateral aspect of the left lower quadrant stoma (2:77). No definite 2nd transition point is identified. No bowel wall thickening, or pneumatosis intestinalis. Vasculature: No aortic aneurysm. Severe atherosclerotic calcifications. Lymph nodes: No pathologic lymphadenopathy by size criteria. Peritoneum: No portal venous gas. No free fluid or pneumoperitoneum. No drainable fluid collections. Abdominal wall/soft tissues: Postoperative changes of the ventral abdominal wall. Left lower quadrant ostomy. Soft tissue defect inferior to the left lower quadrant stoma with likely surgical packing material identified, probably from a recent debridement. Bones: No acute osseous abnormalities. Degenerative changes of the visualized thoracolumbar spine. IMPRESSION: Findings compatible with a mechanical small bowel obstruction, with a likely transition point located along the left lateral aspect of the left lower quadrant stoma. No pneumatosis intestinalis, portal venous gas or pneumoperitoneum. Assessment and Plan Assessment and plan (1) Small bowel obstruction: Problem comment: - general surgeon consulted, Dr. 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 Reviewed impression with patient 2. Discuss treatment plans while in hospital, including possibility of NG tube and working with general surgeon 3. Answered patient's questions to satisfaction 4. Patient agreeable to above stated plans and recommendations
[2024-03-28] MEDS: 0.9 % SODIUM CHLORIDE 1000 ml 1,000 ML 125 ML IV (16:06)
[2024-03-28] MEDS: PANTOPRAZOLE SODIUM 40 MG INJ IVP (16:11)
[2024-03-28] MEDS: POTASSIUM CHLORIDE 10 MEQ/100 ML PIGGYBACK 100 MEQ IVPB ×2 (16:13→17:16)
--- NOTE | 2024-03-28 18:18 | PC.NURSE ---
Pt admitted from the ED. Pt alert and oriented. Pt had no complaints of pain. Pt has a chronic ileostomy. 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 Pt changed own dressing with assistance with supplies from the RN. Pt's wound on left side measures with a 10cm deep wound tunnel, Mid abdomen tunnel measurement 9cm, Right abdomen wound tunnel 2cm.
[2024-03-28] MEDS: HYDROmorphone 0.5 mg/0.5 ml inj IVP (22:48)
[2024-03-28] MEDS: MELATONIN 3 MG TABLET PO (23:15)
[2024-03-29] MEDS: 0.9 % SODIUM CHLORIDE 1000 ml 1,000 ML 125 ML IV (00:47)
[2024-03-29 02:32] VITALS: BP 102/64; PULSE 75; RESP 20; TEMP 36.9; O2SAT 97
[2024-03-29] MEDS: ONDANSETRON 2 MG/ML inj 4 MG IVP (06:27)
[2024-03-29] MEDS: SODIUM CHLORIDE 0.9 % (FLUSH) 10 ML SYRINGE 5 ML IVF ×2 (06:27→10:03)
[2024-03-29 06:46] LABS: Lactate* 0.8 mmol/L (0.5-1.9)
--- NOTE | 2024-03-29 06:52 | PC.NURSE ---
[id number]: Patient pleasant and cooperative. Rates pain as minimal and declines pain medication. Chronic ostomy for 50+ years with 150mL out during shift. Dressings to abdomen wounds C/D/I. NPO. Nausea x1 administered Zofran for relief. Low urine output of 150mL. Denies CP.
[2024-03-29 07:00] VITALS: RESP 18; O2SAT 98
[2024-03-29 07:00] LABS: Basophils Absolute Auto 0.02 K/uL (0.00-0.30); Basophils Percent Auto 0.4 % (0.0-3.0); Eosinophils Absolute Auto 0.22 K/uL (0.00-0.50); Eosinophils Percent Auto 4.7 % (0.0-7.0); Hematocrit 32.2 % (37.0-53.0); Immature Granulocytes Abs Auto 0.01 K/uL (0.00-0.30); Immature Granulocytes Pct Auto 0.2 %; Lymphocytes Percent Auto 11.7 % (20-44); Mean Corpuscular HGB Conc 31 gm/dL (32-36); Mean Corpuscular Hemoglobin 30 pg (26-34); Mean Corpuscular Volume 97 fL (80-100); Platelet Count* 218 K/uL (140-440); RDW Coefficient of Variation % 15.3 % (11.5-15.5); Red Blood Count 3.31 m/uL (4.30-5.90)
[2024-03-29 07:04] LABS: Slide Review Reflex No
[2024-03-29 07:25] LABS: Chloride* 103 mmol/L (96-114); Potassium* 3.9 mmol/L (3.6-5.1); Sodium* 140 mmol/L (135-149)
[2024-03-29 07:27] LABS: Creatinine* 2.5 mg/dL (0.5-1.5); Est. Creatinine Clearance* 20.95; Estimated Glomerular Filt Rate 25 ml/min
--- NOTE | 2024-03-29 07:27 | PM.IMPN1 ---
Progress Note: A&P Assessment and plan (1) Small bowel obstruction: Problem details: - general surgeon consulted, Dr. 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 Known to have underlying Crohn's disease. Has had the ileostomy in place for 50 years. Multiple complications from Crohn's. Last hospitalized 10/31/2023 at [facility] and found to have parastomal swelling thought to be a parastomal hernia. Turned out to be a small-bowel perforation into the abdominal wall. Underwent incision and drainage and primary closure of the small bowel perforation. Subsequently developed recurrent fistulous drainage into an open wound adjacent to his stoma. Has had twice daily dressing changes since then with assistance from home health care. Denies fevers, rigors, diaphoresis. Again no output from the ileostomy. Did administer a rectal suppository and had stool output from his rectum. Unable to maintain hydration and nutritional status with recurrent nausea and vomiting. Exam Const: Vital Signs, click to edit/add: Vital Signs - 24 hr 03/28/24 10:22 03/28/24 11:54 03/28/24 11:55 Temperature 99.0 F Pulse Rate 82 69 Pulse Rate [Pulse Oximeter] 87 Respiratory Rate 18 Blood Pressure 160/93 H Blood Pressure [Le ft Arm] Blood Pressure [Ri ght Upper Arm] 93/55 L Pulse Oximetry 100 94 98 Oxygen Delivery Me thod Room Air 03/28/24 12:00 03/28/24 12:02 03/28/24 12:03 Temperature Pulse Rate 74 71 72 Pulse Rate [Pulse Oximeter] Respiratory Rate Blood Pressure 142/75 H Blood Pressure [Le ft Arm] Blood Pressure [Ri ght Upper Arm] Pulse Oximetry 100 100 100 Oxygen Delivery Me thod 03/28/24 12:15 03/28/24 12:30 03/28/24 12:32 Temperature Pulse Rate 73 76 72 Pulse Rate [Pulse Oximeter] Respiratory Rate Blood Pressure 150/87 H Blood Pressure [Le ft Arm] Blood Pressure [Ri ght Upper Arm] Pulse Oximetry 100 96 90 Oxygen Delivery Me thod 03/28/24 12:45 03/28/24 13:11 03/28/24 13:15 Temperature Pulse Rate 75 89 75 Pulse Rate [Pulse Oximeter] Respiratory Rate Blood Pressure Blood Pressure [Le ft Arm] Blood Pressure [Ri ght Upper Arm] Pulse Oximetry 99 94 98 Oxygen Delivery Me thod 03/28/24 13:30 03/28/24 13:32 03/28/24 13:45 Temperature Pulse Rate 69 73 70 Pulse Rate [Pulse Oximeter] Respiratory Rate Blood Pressure 121/69 Blood Pressure [Le ft Arm] Blood Pressure [Ri ght Upper Arm] Pulse Oximetry 96 98 96 Oxygen Delivery Me thod 03/28/24 14:00 03/28/24 14:02 03/28/24 14:15 Temperature Pulse Rate 74 71 71 Pulse Rate [Pulse Oximeter] Respiratory Rate Blood Pressure 124/70 Blood Pressure [Le ft Arm] Blood Pressure [Ri ght Upper Arm] Pulse Oximetry 97 97 99 Oxygen Delivery Me thod 03/28/24 14:30 03/28/24 14:32 03/28/24 14:45 Temperature Pulse Rate 73 75 73 Pulse Rate [Pulse Oximeter] Respiratory Rate Blood Pressure 133/78 Blood Pressure [Le ft Arm] Blood Pressure [Ri ght Upper Arm] Pulse Oximetry 96 96 97 Oxygen Delivery Me thod 03/28/24 15:00 03/28/24 15:02 03/28/24 15:45 Temperature 97.7 F Pulse Rate 73 70 Pulse Rate [Pulse Oximeter] 79 Respiratory Rate 18 Blood Pressure 129/74 Blood Pressure [Le ft Arm] 114/104 H Blood Pressure [Ri ght Upper Arm] Pulse Oximetry 99 99 98 Oxygen Delivery Me thod Room Air 03/28/24 20:00 03/28/24 22:58 03/28/24 23:04 Temperature 98 F 98.2 F Pulse Rate Pulse Rate [Pulse Oximeter] 72 72 Respiratory Rate 16 18 18 Blood Pressure Blood Pressure [Le ft Arm] 97/53 L 101/60 Blood Pressure [Ri ght Upper Arm] Pulse Oximetry 97 97 97 Oxygen Delivery Me thod Room Air Room Air Room Air 03/29/24 02:32 Temperature 98.4 F Pulse Rate Pulse Rate [Pulse Oximeter] 75 Respiratory Rate 20 Blood Pressure Blood Pressure [Le ft Arm] 102/64 Blood Pressure [Ri ght Upper Arm] Pulse Oximetry 97 Oxygen Delivery Me thod Room Air Labs Labs: Laboratory Results - last 24 hr 03/28/24 03/28/24 03/29/24 11:20 14:22 06:17 WBC 5.53 4.70 RBC 4.10 L 3.31 L Hgb 12.3 L 10.0 L Hct 39.4 32.2 L MCV 96 97 MCH 30 30 MCHC 31 L 31 L RDW Coeff of Sylvia 15.1 15.3 Plt Count 242 218 Neut % (Auto) 86.5 H 77.0 H Lymph % (Auto) 8.3 L 11.7 L Navarro % (Auto) 3.3 6.0 Eos % (Auto) 1.3 4.7 Baso % (Auto) 0.4 0.4 Neut # (Auto) 4.80 3.60 Lymph # (Auto) 0.50 L 0.50 L Navarro # (Auto) 0.20 0.30 Eos # (Auto) 0.07 0.22 Baso # (Auto) 0.02 0.02 Abs Immat Gran (auto) 0.01 0.01 Imm/Tot Granulo (auto) 0.2 0.2 Sodium 140 Potassium 3.7 Chloride 97 Carbon Dioxide 34 H Anion Gap 9 BUN 41 H Creatinine 2.6 H Estimated Creat Clear 21.44 Estimated GFR 24 Glucose 128 H Lactate 1.6 0.8 Calcium 9.9
[2024-03-29 07:28] LABS: Anion Gap 9 mEq/L (7-15); Blood Urea Nitrogen* 48 mg/dL (7-30); Carbon Dioxide* 28 mmol/L (20-32); Glucose* 93 mg/dL (60-115); Lipase* 118 U/L (23-300)
[2024-03-29 07:29] LABS: Calcium* 8.6 mg/dL (8.4-10.6); Magnesium* 2.3 mg/dL (1.5-2.6); Phosphorus* 4.8 mg/dL (2.5-4.5)
[2024-03-29 07:31] LABS: C Reactive Protein* 1.4 mg/dL (0.5-1.0)
--- NOTE | 2024-03-29 09:35 | NUTR.NU ---
RDN with nutrition screen related to positive MST score. Patient admitted with small bowel obstruction. Medical history includes ileostomy. Current weight 140lb 14.4oz; height 5ft 10in; BMI 20.2kg/m2. Weight history is not reliable as most weights in chart are stated. Unsure if patient has truly lost weight. Current diet is NPO. No nutrition interventions at this time due to current status and diet order. RDN will continue to monitor and follow-up prn.
[2024-03-29] MEDS: PANTOPRAZOLE SODIUM 40 MG INJ IVP (10:02)
[2024-03-29] MEDS: 0.9 % SODIUM CHLORIDE 250 ml 250 ML IV (10:03)
[2024-03-29] MEDS: LEVOTHYROXINE 100 MCG TABLET 200 MCG PO (10:20)
--- NOTE | 2024-03-29 12:11 | PM.DS1 ---
DS: Providers Provider Date Seen: 03/29/24 Date of admission: 03/28/24 15:50 Primary care physician: Osito Joe MD Admitting Clinician: Ravinder Stein MD Consults: 03/28/24 15:50 Consult to Physician [CONS] Routine Comment: Consulting Provider: Tala Mcdonough Has provider been notified: Yes Attending Physician on discharge: Lina Law MD Date of Discharge: 03/29/24 DS: Diagnosis Discharge Diagnosis (1) Small bowel obstruction: Status: Acute Problem details: - general surgeon consulted from ED (Dr. 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 He was made NPO, NG not required. During stay, he had resumption of bowel function. Requested advancement of diet on hospital day 1, tolerated clears without any nausea or abdominal discomfort. He was able to ambulate and felt back to baseline, requesting discharge home with with close PCP f/u. Status at Discharge Functional status at discharge: independent ambulation Overall status at discharge: patient is back to baseline Time Spent with Patient Time attestation: Total time spent providing and/or coordinating discharge services: Time spent: Greater than 30 minutes Specific discharge activities: medication reconciliation, multidisciplinary team discussion Exam Narrative: Exam Narrative: GEN: Alert and oriented, nontoxic HEENT: EOMIs bilaterally, no scleral icterus CV: RRR, No concerning murmurs R: LCTA bilaterally without concerning wheezing, air movement adequate Ab: Soft, nontender, nondistended, + output from ileostomy Ext: wwp, no concerning edema Skin: Wounds not formally examined per patient request Neuro: Nonfocal Psych: Appropriate Const: Vital Signs, click to edit/add: Vital Signs - 24 hr 03/28/24 12:15 03/28/24 12:30 03/28/24 12:32 Temperature Pulse Rate 73 76 72 Pulse Rate [Pulse Oximeter] Respiratory Rate Blood Pressure 150/87 H Blood Pressure [Le ft Arm] Pulse Oximetry 100 96 90 Oxygen Delivery Me thod 03/28/24 12:45 03/28/24 13:11 03/28/24 13:15 Temperature Pulse Rate 75 89 75 Pulse Rate [Pulse Oximeter] Respiratory Rate Blood Pressure Blood Pressure [Le ft Arm] Pulse Oximetry 99 94 98 Oxygen Delivery Me thod 03/28/24 13:30 03/28/24 13:32 03/28/24 13:45 Temperature Pulse Rate 69 73 70 Pulse Rate [Pulse Oximeter] Respiratory Rate Blood Pressure 121/69 Blood Pressure [Le ft Arm] Pulse Oximetry 96 98 96 Oxygen Delivery Me thod 03/28/24 14:00 03/28/24 14:02 03/28/24 14:15 Temperature Pulse Rate 74 71 71 Pulse Rate [Pulse Oximeter] Respiratory Rate Blood Pressure 124/70 Blood Pressure [Le ft Arm] Pulse Oximetry 97 97 99 Oxygen Delivery Me thod 03/28/24 14:30 03/28/24 14:32 03/28/24 14:45 Temperature Pulse Rate 73 75 73 Pulse Rate [Pulse Oximeter] Respiratory Rate Blood Pressure 133/78 Blood Pressure [Le ft Arm] Pulse Oximetry 96 96 97 Oxygen Delivery Me thod 03/28/24 15:00 03/28/24 15:02 03/28/24 15:45 Temperature 97.7 F Pulse Rate 73 70 Pulse Rate [Pulse Oximeter] 79 Respiratory Rate 18 Blood Pressure 129/74 Blood Pressure [Le ft Arm] 114/104 H Pulse Oximetry 99 99 98 Oxygen Delivery Me thod Room Air 03/28/24 20:00 03/28/24 22:58 03/28/24 23:04 Temperature 98 F 98.2 F Pulse Rate Pulse Rate [Pulse Oximeter] 72 72 Respiratory Rate 16 18 18 Blood Pressure Blood Pressure [Le ft Arm] 97/53 L 101/60 Pulse Oximetry 97 97 97 Oxygen Delivery Me thod Room Air Room Air Room Air 03/29/24 02:32 Temperature 98.4 F Pulse Rate Pulse Rate [Pulse Oximeter] 75 Respiratory Rate 20 Blood Pressure Blood Pressure [Le ft Arm] 102/64 Pulse Oximetry 97 Oxygen Delivery Me thod Room Air DS: Data Data Completed and Pending Labs on day of discharge: Labs from last 24 hours 03/29/24 03/28/24 03/28/24 06:17 14:22 11:20 WBC 4.70 5.53 RBC 3.31 L 4.10 L Hgb 10.0 L 12.3 L Hct 32.2 L 39.4 MCV 97 96 MCH 30 30 MCHC 31 L 31 L RDW Coeff of Sylvia 15.3 15.1 Plt Count 218 242 Neut % (Auto) 77.0 H 86.5 H Lymph % (Auto) 11.7 L 8.3 L [place] % (Auto) 6.0 3.3 Eos % (Auto) 4.7 1.3 Baso % (Auto) 0.4 0.4 Neut # (Auto) 3.60 4.80 Lymph # (Auto) 0.50 L 0.50 L [place] # (Auto) 0.30 0.20 Eos # (Auto) 0.22 0.07 Baso # (Auto) 0.02 0.02 Abs Immat Gran (auto) 0.01 0.01 Imm/Tot Granulo (auto) 0.2 0.2 Sodium 140 140 Potassium 3.9 3.7 Chloride 103 97 Carbon Dioxide 28 34 H Anion Gap 9 9 BUN 48 H 41 H Creatinine 2.5 H 2.6 H Estimated Creat Clear 20.95 21.44 Estimated GFR 25 24 Glucose 93 128 H Lactate 0.8 1.6 Calcium 8.6 9.9 Phosphorus 4.8 H Magnesium 2.3 C-Reactive Protein 1.4 H Lipase 118 Discharge Plan Discharge Disposition: Home, Self-Care Date of Admission: 03/28/24 15:50 Attending Provider on Discharge: Lina Law Consulting Providers: Tala Mcdonough Primary Care Provider: Osito Joe Condition: Improved Anticipated Discharge Date/Time: 03/29/24 12:09 Discharge Medications: Continued Active Q 200 mg capsule 200 - 400 mg PO BID Rx Instructions: 200 MG IN AM, 400 MG IN PM rosuvastatin [Crestor] 10 mg tablet 10 mg PO HS ascorbic acid (vitamin C) 1,000 mg tablet 1 g PO DAILY cholecalciferol (vitamin D3) 25 mcg (1,000 unit) tablet 25 mcg PO DAILY cyanocobalamin (vitamin B-12) 1,000 mcg tablet 1,000 mcg PO DAILY ferrous sulfate 325 mg (65 mg iron) tablet,delayed release (DR/EC) 325 mg PO BID levothyroxine 200 mcg tablet 200 mcg PO QAM scudyp-[id number]-uqulntur ext 20-1-2.2 mg capsule 1 cap PO DAILY magnesium oxide 500 mg magnesium tablet 1,000 mg PO BID nitroglycerin 0.4 mg tablet, sublingual 0.4 mg sublingual Q5M PRN Rx Instructions: do not exceed 3 doses per episode oxycodone 5 mg tablet 5 mg PO Q4H PRN (Reason: pain) prednisone 5 mg tablet 5 mg PO DAILY PRN Patient Comments: AT ONSET OF PSEUDOGOUT FLARE FOR 1-2 DAYS zinc 15 mg tablet 15 mg PO DAILY potassium chloride [Klor-Con M20] 20 mEq tablet,ER particles/crystals 20 meq PO BID Patient Comments: TAKE ONE TABLET BY MOUTH TWICE DAILY WITH MEALS tamsulosin 0.4 mg capsule 0.8 mg PO HS Patient Comments: TAKE TWO CAPSULE BY MOUTH DAILY AT BEDTIME sodium citrate-citric acid 500-334 mg/5 mL solution 30 ml PO BID Patient Comments: TAKE 45ML BY MOUTH TWICE DAILY. omeprazole 20 mg capsule,delayed release(DR/EC) 20 mg PO DAILY Phospha 250 Neutral 250 mg tablet 250 mg PO BID Patient Comments: TAKE ONE TABLET BY MOUTH TWICE DAILY WITH FOOD allopurinol 300 mg tablet 300 mg PO DAILY Patient Comments: TAKE ONE TABLET BY MOUTH ONE TIME DAILY calcitriol 0.25 mcg capsule 0.25 mcg PO DAILY Patient Comments: TAKE ONE CAPSULE BY MOUTH ONE TIME DAILY finasteride 5 mg tablet 5 mg PO DAILY Patient Comments: TAKE ONE TABLET BY MOUTH EVERY DAY IN THE MORNING. calcium carb, citrate-vit D3 [Citracal-D3 Slow Release] 600 mg-12.5 mcg (500 unit) tablet extended release 1 tab PO DAILY Patient Comments: TAKE ONE TABLET BY MOUTH ONE TIME DAILY Discharge Orders: Discharge Order (Routine); Ordered 03/29/24 Ordered By: Lina Law Patient Education: Low Fiber Diet (DC), Bowel Obstruction (DC) Additional Instructions: Slowly advance your diet. No changes to home medications or cares. Activity Level: Activity as Tolerated Diet Detail: liquids (soup, hello, etc - then slowly advance) Follow Up Appointments: Osito Joe MD [Primary Care Provider] - 04/05/24 10:05 am ([facility] for follow-up.) Forms: [employer] Info Instructions
--- NOTE | 2024-03-29 15:25 | PC.NURSE ---
shift note: vss stable. IV dc'd intact. Reviewed dc instructions and copies sent with pt at dc. Personal belongings reviewed and sent with pt at dc.
== END 2024-03-29 14:01 | disposition home or self-care (01) | DRG 389 ==
LOC: ED 12:40 → MEDSURG 15:11
PROVIDERS: Admitting Provider Internal Medicine; Emergency Provider Emergency Medicine Emergency Medical Services; PCP Surgery; Visit Provider Internal Medicine
DX: K56.609 Unspecified intestinal obstruction, unspecified as to partial versus complete obstruction (principal); K50.90 Crohn's disease, unspecified, without complications; K94.12 Enterostomy infection; Z96.0 Presence of urogenital implants; E86.0 Dehydration; K21.9 Gastro-esophageal reflux disease without esophagitis; I48.0 Paroxysmal atrial fibrillation; E03.9 Hypothyroidism, unspecified; E78.2 Mixed hyperlipidemia; Z86.718 Personal history of other venous thrombosis and embolism
CPT/HCPCS: 36415; 74176; 80048; 83605; 83690; 83735; 84100; 85025; 86140; 99281; A9270; J1171; J1885; J2405; J2470; J3480; J7030; J7050

== ENCOUNTER 2024-04-11 08:28 | Outpatient (CLI) | payer MEDICARE, BC, SELFPAY | END 2024-04-11 08:29 | disposition home or self-care (01) | LOC: AMB 04-12 07:54 | PROVIDERS: PCP Surgery; Visit Provider Emergency Medicine | DX: R53.81 Other malaise (principal) | CPT/HCPCS: A0425; A0429 ==

== ENCOUNTER 2024-04-11 08:58 | Emergency (ER) | payer MEDICARE, BC, SELFPAY ==
[2024-04-11] VITALS (29 sets, daily range): BP systolic 99–120; BP diastolic 60–81; PULSE 71–86; RESP 8–23; TEMP 36.4; O2SAT 95–100; BMI 20.8
[2024-04-11 10:09] LABS: Basophils Absolute Auto 0.03 K/uL (0.00-0.30); Basophils Percent Auto 0.6 % (0.0-3.0); Eosinophils Absolute Auto 0.37 K/uL (0.00-0.50); Eosinophils Percent Auto 6.9 % (0.0-7.0); Hematocrit 35.3 % (37.0-53.0); Immature Granulocytes Abs Auto 0.01 K/uL (0.00-0.30); Immature Granulocytes Pct Auto 0.2 %; Lymphocytes Percent Auto 11.9 % (20-44); Mean Corpuscular HGB Conc 31 gm/dL (32-36); Mean Corpuscular Hemoglobin 30 pg (26-34); Mean Corpuscular Volume 97 fL (80-100); Monocytes Percent Auto 3.7 % (0.0-11.0); Neutrophils Percent Auto 76.7 % (42.0-72.0); Platelet Count* 212 K/uL (140-440); RDW Coefficient of Variation % 15.6 % (11.5-15.5); Red Blood Count 3.65 m/uL (4.30-5.90); White Blood Count* 5.36 K/uL (4.50-11.00)
[2024-04-11 10:12] LABS: Troponin, Point-of-Care* 0.02 ng/ml (0.01-0.04)
[2024-04-11 10:13] LABS: Slide Review Reflex No
[2024-04-11 10:19] LABS: Chloride* 95 mmol/L (96-114); Sodium* 137 mmol/L (135-149)
[2024-04-11 10:20] LABS: Potassium* 4.1 mmol/L (3.6-5.1)
[2024-04-11 10:22] LABS: Anion Gap 13 mEq/L (7-15); Carbon Dioxide* 29 mmol/L (20-32); Creatinine* 2.6 mg/dL (0.5-1.5); Est. Creatinine Clearance* 20.73; Estimated Glomerular Filt Rate 24 ml/min
[2024-04-11 10:23] LABS: Blood Urea Nitrogen* 61 mg/dL (7-30); Calcium* 9.9 mg/dL (8.4-10.6); Glucose* 103 mg/dL (60-115)
--- NOTE | 2024-04-11 13:53 | ED.GENADULT ---
HPI - General Adult General Date Seen: 04/11/24 Chief complaint: Unspecified Complaint, Adult Stated complaint: Malaise Time Seen by Provider: 04/11/24 09:09 History of Present Illness HPI narrative: Patient is an 83-year-old male who comes in saying that he woke up overnight last night in the middle the night and then felt too anxious to go back to sleep. He says he felt worried that he might if he went back to sleep and he was up pacing for the rest of the night. He feels better now, but he is very worried that it is going to happen again. He was recently admitted to the hospital for a bowel obstruction, improved over 24 hours and was discharged home. He denies any new medications. He has been able to eat and drink although he says at baseline he does not have a very healthy appetite. He has not had any vomiting, he has a long-standing ostomy and has had normal output. No fevers, chest pain, difficulty breathing, vomiting, bloody stools per Related Data Home Medications ?Medication ?Instructions ?Recorded ?Confirmed allopurinol 300 mg tablet 300 mg PO DAILY 04/28/22 04/11/24 calcitriol 0.25 mcg capsule 0.25 mcg PO DAILY 04/28/22 04/11/24 calcium ER 600 mg (as carb,cit)-D3 1 tab PO DAILY 04/28/22 04/11/24 12.5 mcg (500 unit) tablet, ext.rel (Citracal-D3 Slow Release) finasteride 5 mg tablet 5 mg PO DAILY 04/28/22 04/11/24 omeprazole 20 mg capsule,delayed 20 mg PO DAILY 04/28/22 04/11/24 release potassium chloride 20 mEq 20 meq PO BID 04/28/22 04/11/24 tablet,extended release(part/cryst) (Klor-Con M) sodium citrate-citric acid 500 30 ml PO BID 04/28/22 04/11/24 mg-334 mg/5 mL oral solution sodium di- and 250 mg PO BID 04/28/22 04/11/24 monophosphate-potassium phos monobasic 250 mg tablet (Phospha Neutral) tamsulosin 0.4 mg capsule 0.8 mg PO HS 04/28/22 04/11/24 ascorbic acid (vitamin C) 1,000 mg 1 g PO DAILY 03/28/24 04/11/24 tablet cholecalciferol (vitamin D3) 25 25 mcg PO DAILY 03/28/24 04/11/24 mcg (1,000 unit) tablet coQ10 (ubiquinol) 200 mg capsule 200 - 400 mg PO BID 03/28/24 04/11/24 (Active Q) cyanocobalamin (vitamin B-12) 1,000 mcg PO DAILY 03/28/24 04/11/24 1,000 mcg tablet ferrous sulfate 325 mg (65 mg 325 mg PO BID 03/28/24 04/11/24 iron) tablet,delayed release levothyroxine 200 mcg tablet 200 mcg PO QAM 03/28/24 04/11/24 lutein 20 mg-zeaxanthin 1 1 cap PO DAILY 03/28/24 04/11/24 mg-bilberry fruit extract 2.2 mg capsule magnesium oxide 1,000 mg PO BID 03/28/24 04/11/24 nitroglycerin 0.4 mg sublingual 0.4 mg sublingual Q5M PRN 03/28/24 04/11/24 tablet oxycodone 5 mg tablet 5 mg PO Q4H PRN pain 03/28/24 04/11/24 prednisone 5 mg tablet 5 mg PO DAILY PRN 03/28/24 04/11/24 rosuvastatin 10 mg tablet (Crestor) 10 mg PO HS 03/28/24 04/11/24 zinc 15 mg tablet 15 mg PO DAILY 03/28/24 04/11/24 acetaminophen 500 mg tablet 1,000 mg PO Q6H PRN 04/11/24 04/11/24 loperamide 2 mg tablet 2 mg PO PRN 04/11/24 Allergies Allergy/AdvReac Type Severity Reaction Status Date / Time furosemide (From Lasix) Allergy Intermediate Palpitation Verified 04/11/24 10:01 s aspirin Allergy Mild gi bleeding Verified 04/11/24 10:01 codeine Allergy Mild constipatio Verified 04/11/24 10:01 n simvastatin Allergy Mild myalgia Verified 04/11/24 10:01 atorvastatin (From Lipitor) AdvReac Intermediate myalgias Verified 04/11/24 10:01 Review of Systems Status of ROS: Reports: 10 or more systems reviewed and unremarkable except as noted in History and below [facility] Medical History Paroxysmal supraventricular tachycardia ?I47.10 - Supraventricular tachycardia, unspecified (ICD-10) 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 - Benign neoplasm of thyroid gland (ICD-10) Pyogenic granuloma ?L98.0 - Pyogenic granuloma (ICD-10) Vitamin D deficiency ?E55.9 - Vitamin D deficiency, unspecified (ICD-10) Gastroesophageal reflux disease ?K21.9 - Gastro-esophageal reflux disease without esophagitis (ICD-10) Paroxysmal atrial fibrillation ?I48.0 - Paroxysmal atrial fibrillation (ICD-10) History of nephrolithiasis ?Z87.442 - Personal history of urinary calculi (ICD-10) Mixed hyperlipidemia ?E78.2 - Mixed hyperlipidemia (ICD-10) Pulmonary nodule ?R91.1 - Solitary pulmonary nodule (ICD-10) Hypokalemia ?E87.6 - Hypokalemia (ICD-10) History of pseudogout ?Z87.39 - Personal history of other diseases of the musculoskeletal system and connective tissue (ICD-10) Degenerative joint disease ?M19.90 - Unspecified osteoarthritis, unspecified site (ICD-10) Delayed emergence from general anesthesia ?T88.59XA - Other complications of anesthesia, initial encounter (ICD-10) Benign prostatic hyperplasia without lower urinary tract symptoms ?N40.0 - Benign prostatic hyperplasia without lower urinary tract symptoms (ICD-10) Hypothyroidism ?E03.9 - Hypothyroidism, unspecified (ICD-10) Skin lesion of left external ear ?H61.92 - Disorder of left external ear, unspecified (ICD-10) History of deep vein thrombosis ?Z86.718 - Personal history of other venous thrombosis and embolism (ICD-10) Peristomal abscess, ileostomy ?K94.12 - Enterostomy infection (ICD-10) Crohn's disease ?K50.90 - Crohn's disease, unspecified, without complications (ICD-10) Surgical History Status post total thyroidectomy ?Z98.890 - Other specified postprocedural states (ICD-10) ?Z90.89 - Acquired absence of other organs (ICD-10) Status post parathyroidectomy ?Z98.890 - Other specified postprocedural states (ICD-10) ?Z90.89 - Acquired absence of other organs (ICD-10) Status post laser lithotripsy of ureteral calculus ?Z98.890 - Other specified postprocedural states (ICD-10) S/P ureteral stent placement ?Z96.0 - Presence of urogenital implants (ICD-10) History of hernia repair ?Z98.890 - Other specified postprocedural states (ICD-10) ?Z87.19 - Personal history of other diseases of the digestive system (ICD-10) History of esophagogastroduodenoscopy ?Z98.890 - Other specified postprocedural states (ICD-10) History of colonoscopy ?Z98.890 - Other specified postprocedural states (ICD-10) History of lung biopsy ?Z98.890 - Other specified postprocedural states (ICD-10) Hx of appendectomy ?Z90.49 - Acquired absence of other specified parts of digestive tract (ICD-10) Status post ileostomy ?Z93.2 - Ileostomy status (ICD-10) Family History Mother Colon cancer Stroke Father Heart disease Stroke Brother High cholesterol Sister High cholesterol Other Diabetes Social History Narrative: 03/28/2024: for 56 years. Lives with . Three children. One child . No grandchildren. Designates as his decision maker if he is unable to make own decisions regarding health. Requests DNR DNI resuscitation status in the event of cardiopulmonary demise. Does not use tobacco products. Does not consume alcoholic beverages. Denies use of any other street or recreational drugs. What is your current living situation?: I presently have a place to live Problems where you live: no known problems Problems where you live details: n/a In the past 12 months, utilities in danger of being shut off: no In past 12 months, lack of transportation kept you from medical appts, meetings, work, or getting things needed for daily living: no In the past 12 mos, have been you worried that your food would run out before you had money to buy more?: never true In the past 12 mos, the food you bought just didn't last and you didn't have money to buy more?: never true Smoking Status: Former smoker Do you use any of these nicotine containing products: None Second hand tobacco smoke exposure: No How often do you have a drink containing alcohol: never How often do you have six or more drinks on one occasion: Never AUDIT-C Alcohol total score: 0 Non-prescribed substance use: denies use Caffeine: No How often does anyone, including family, friends and others, physically hurt you: never How often does anyone, including family, friends and others, insult or talk down to you: never How often does anyone, including family, friends and others, threaten you with harm: never How often does anyone, including family, friends and others, scream or curse at you: never service: No Exam Narrative: Exam Narrative: Vital signs reviewed In general, alert, nontoxic elderly male. He is breathing easily. Head: Normocephalic, atraumatic. Eyes: Sclera clear. Pupils equal and reactive. ENT: Mucous membranes moist. Neck: Supple without adenopathy. Heart: Regular rate and rhythm without murmur. Lungs: Clear. No increased work of breathing, crackles or wheezes. Abdomen: Soft, nontender to palpation. Ostomy. Extremities: Well perfused, pulses intact. No significant edema. Neurologic: Alert, conversant. Speech fluent, face symmetric. Moves all extremities equally. Skin: Warm, dry well perfused. Affect: Anxious. Const: Vital Signs, click to edit/add: Vital Signs - 24 hr 04/11/24 09:06 04/11/24 09:09 04/11/24 09:15 Temperature 97.6 F Pulse Rate 79 76 Pulse Rate [Pulse Oximeter] 76 Respiratory Rate 22 20 Blood Pressure Blood Pressure [Ri ght Upper Arm] 120/79 Pulse Oximetry 100 100 100 Oxygen Delivery Me thod Room Air 04/11/24 09:16 04/11/24 09:30 04/11/24 09:32 Temperature Pulse Rate 77 78 75 Pulse Rate [Pulse Oximeter] Respiratory Rate 18 18 Blood Pressure 99/73 117/81 Blood Pressure [Ri ght Upper Arm] Pulse Oximetry 100 99 100 Oxygen Delivery Me thod 04/11/24 09:45 04/11/24 09:46 04/11/24 09:47 Temperature Pulse Rate 78 73 74 Pulse Rate [Pulse Oximeter] Respiratory Rate 14 8 L 13 Blood Pressure 110/71 Blood Pressure [Ri ght Upper Arm] Pulse Oximetry 100 100 100 Oxygen Delivery Me thod 04/11/24 10:00 04/11/24 10:02 04/11/24 10:03 Temperature Pulse Rate 86 76 75 Pulse Rate [Pulse Oximeter] Respiratory Rate 12 Blood Pressure 112/68 Blood Pressure [Ri ght Upper Arm] Pulse Oximetry 100 100 100 Oxygen Delivery Me thod 04/11/24 10:15 04/11/24 10:16 04/11/24 10:30 Temperature Pulse Rate 75 76 83 Pulse Rate [Pulse Oximeter] Respiratory Rate 23 Blood Pressure 107/64 Blood Pressure [Ri ght Upper Arm] Pulse Oximetry 98 95 98 Oxygen Delivery Me thod 04/11/24 10:45 04/11/24 10:46 04/11/24 10:47 Temperature Pulse Rate 83 81 76 Pulse Rate [Pulse Oximeter] Respiratory Rate 14 13 15 Blood Pressure 113/64 Blood Pressure [Ri ght Upper Arm] Pulse Oximetry 98 99 99 Oxygen Delivery Me thod 04/11/24 11:00 04/11/24 11:02 04/11/24 11:15 Temperature Pulse Rate 77 75 73 Pulse Rate [Pulse Oximeter] Respiratory Rate 12 23 13 Blood Pressure 113/61 Blood Pressure [Ri ght Upper Arm] Pulse Oximetry 99 99 98 Oxygen Delivery Me thod 04/11/24 11:16 04/11/24 11:16 04/11/24 11:30 Temperature Pulse Rate 77 77 74 Pulse Rate [Pulse Oximeter] Respiratory Rate 10 L 10 L Blood Pressure 108/64 108/64 Blood Pressure [Ri ght Upper Arm] Pulse Oximetry 98 98 99 Oxygen Delivery Me thod 04/11/24 11:32 04/11/24 11:45 04/11/24 11:46 Temperature Pulse Rate 76 76 71 Pulse Rate [Pulse Oximeter] Respiratory Rate 9 L 15 10 L Blood Pressure 101/60 105/63 Blood Pressure [Ri ght Upper Arm] Pulse Oximetry 98 98 98 Oxygen Delivery Me thod 04/11/24 11:47 04/11/24 12:00 04/11/24 12:02 Temperature Pulse Rate 73 74 Pulse Rate [Pulse Oximeter] Respiratory Rate 11 L 13 Blood Pressure 99/65 Blood Pressure [Ri ght Upper Arm] Pulse Oximetry 98 98 Oxygen Delivery Me thod Course Course ED Course: I checked basic labs including a CBC, metabolic panel and a TSH. His TSH is normal, he does have a history of thyroid disease and is on Synthroid. His hemoglobin is 11 which is baseline for him. White count is normal. He has chronic kidney disease and creatinine is 2.6, which is also baseline. He had an EKG which shows a paced rhythm, ventricular rate of 74. His troponin is 0.02. Overall, he seems to be presenting with an episode of insomnia and anxiety related to inability to sleep. He is currently asymptomatic. Discussed with him that with 1 episode of this I am hesitant to start medications. Given his age I think the side effects of medications we might use for anxiety and/or sleep might outweigh any benefit at this point. I discussed with him that if he is having more trouble with this, then he should talk with his primary doctor and perhaps something like Seroquel might be a benefit. Return to the ER at any time for acute worsening. Vital Signs Vital signs: Initial Vital Signs Temperature 97.6 F 04/11/24 09:06 Temperature Source Temporal Artery Scan 04/11/24 09:06 Pulse Rate 76 04/11/24 09:06 Respiratory Rate 22 04/11/24 09:06 Blood Pressure 120/79 04/11/24 09:06 Blood Pressure Mean 92 04/11/24 09:06 Blood Pressure Position Semi-Fowlers 04/11/24 09:06 Pulse Oximetry 100 04/11/24 09:06 Oxygen Delivery Method Room Air 04/11/24 09:06 Vital Signs Temperature 97.6 F 04/11/24 09:06 Pulse Rate 76 04/11/24 09:06 Respiratory Rate 22 04/11/24 09:06 Blood Pressure 120/79 04/11/24 09:06 Pulse Oximetry 100 04/11/24 09:06 Oxygen Delivery Method Room Air 04/11/24 09:06 Temperature 97.6 F 04/11/24 09:06 Pulse Rate 74 04/11/24 12:00 Respiratory Rate 13 04/11/24 12:00 Blood Pressure 99/65 04/11/24 12:02 Pulse Oximetry 98 04/11/24 12:00 Oxygen Delivery Method Room Air 04/11/24 09:06 Medical Decision Making Lab Data Labs: Lab Results 02/13/25 02/13/25 Range/Units 09:44 09:58 WBC 5.36 (4.50-11.00) K/uL RBC 3.65 L (4.30-5.90) m/uL Hgb 11.0 L (13.5-17.5) gm/dL Hct 35.3 L (37.0-53.0) % MCV 97 (80-100) fL MCH 30 (26-34) pg MCHC 31 L (32-36) gm/dL RDW Coeff of Sylvia 15.6 H (11.5-15.5) % Plt Count 212 (140-440) K/uL Neut % (Auto) 76.7 H (42.0-72.0) % Lymph % (Auto) 11.9 L (20-44) % [place] % (Auto) 3.7 (0.0-11.0) % Eos % (Auto) 6.9 (0.0-7.0) % Baso % (Auto) 0.6 (0.0-3.0) % Neut # (Auto) 4.10 (1.7-7.0) K/uL Lymph # (Auto) 0.60 L (0.90-2.90) K/uL [place] # (Auto) 0.20 (0.00-0.90) K/UL Eos # (Auto) 0.37 (0.00-0.50) K/uL Baso # (Auto) 0.03 (0.00-0.30) K/uL Abs Immat Gran (auto) 0.01 (0.00-0.30) K/uL Imm/Tot Granulo (auto) 0.2 % Sodium 137 (135-149) mmol/L Potassium 4.1 (3.6-5.1) mmol/L Chloride 95 L (96-114) mmol/L Carbon Dioxide 29 (20-32) mmol/L Anion Gap 13 (7-15) mEq/L BUN 61 H (7-30) mg/dL Creatinine 2.6 H (0.5-1.5) mg/dL Estimated Creat Clear 20.73 Estimated GFR 24 ml/min Glucose 103 (60-115) mg/dL Calcium 9.9 (8.4-10.6) mg/dL TSH 4.010 (0.270-4.200) uIU/mL POC Troponin I 0.02 (0.01-0.04) ng/ml Discharge Plan Discharge Clinical Impression: Insomnia Patient Disposition: Home, Self-Care Condition: Improved Instructions: Insomnia (ED) Additional Instructions: Your labs are all stable today. You have mild anemia and chronic renal insufficiency but these are unchanged. Your thyroid function looks good. I do not see any medications which obviously would be causing your symptoms. If you continue to have problems with sleep/agitation at night, I would recommend discussing this with your primary doctor. Prescriptions: No Action Active Q 200 mg capsule 200 - 400 mg PO BID Rx Instructions: 200 MG IN AM, 400 MG IN PM rosuvastatin [Crestor] 10 mg tablet 10 mg PO HS ascorbic acid (vitamin C) 1,000 mg tablet 1 g PO DAILY cholecalciferol (vitamin D3) 25 mcg (1,000 unit) tablet 25 mcg PO DAILY cyanocobalamin (vitamin B-12) 1,000 mcg tablet 1,000 mcg PO DAILY ferrous sulfate 325 mg (65 mg iron) tablet,delayed release (DR/EC) 325 mg PO BID levothyroxine 200 mcg tablet 200 mcg PO QAM hyeibd-frkqltjqdh-oamlkaaa ext 20-1-2.2 mg capsule 1 cap PO DAILY magnesium oxide 500 mg magnesium tablet 1,000 mg PO BID nitroglycerin 0.4 mg tablet, sublingual 0.4 mg sublingual Q5M PRN Rx Instructions: do not exceed 3 doses per episode oxycodone 5 mg tablet 5 mg PO Q4H PRN (Reason: pain) prednisone 5 mg tablet 5 mg PO DAILY PRN Patient Comments: AT ONSET OF PSEUDOGOUT FLARE FOR 1-2 DAYS zinc 15 mg tablet 15 mg PO DAILY acetaminophen 500 mg tablet 1,000 mg PO Q6H PRN Rx Instructions: Take 2 Tablets (1,000 mg) by mouth every 6 hours if needed for Pain. Max acetaminophen dose: 4000mg in 24 hrs. loperamide 2 mg tablet 2 mg PO PRN Rx Instructions: Take 1 Tablet (2 mg) by mouth each time if needed for Diarrhea (up to once daily as needed for liquid stool/diarrhea). Take 2 tablets (4mg) orally with 1st loose stool, then 1 tablet (2mg) with other loose stools. Max 8 tablets (16 mg) in 24 hrs. potassium chloride [Klor-Con M20] 20 mEq tablet,ER particles/crystals 20 meq PO BID Patient Comments: TAKE ONE TABLET BY MOUTH TWICE DAILY WITH MEALS tamsulosin 0.4 mg capsule 0.8 mg PO HS Patient Comments: TAKE TWO CAPSULE BY MOUTH DAILY AT BEDTIME sodium citrate-citric acid 500-334 mg/5 mL solution 30 ml PO BID Patient Comments: TAKE 45ML BY MOUTH TWICE DAILY. omeprazole 20 mg capsule,delayed release(DR/EC) 20 mg PO DAILY Phospha 250 Neutral 250 mg tablet 250 mg PO BID Patient Comments: TAKE ONE TABLET BY MOUTH TWICE DAILY WITH FOOD allopurinol 300 mg tablet 300 mg PO DAILY Patient Comments: TAKE ONE TABLET BY MOUTH ONE TIME DAILY calcitriol 0.25 mcg capsule 0.25 mcg PO DAILY Patient Comments: TAKE ONE CAPSULE BY MOUTH ONE TIME DAILY finasteride 5 mg tablet 5 mg PO DAILY Patient Comments: TAKE ONE TABLET BY MOUTH EVERY DAY IN THE MORNING. calcium carb, citrate-vit D3 [Citracal-D3 Slow Release] 600 mg-12.5 mcg (500 unit) tablet extended release 1 tab PO DAILY Patient Comments: TAKE ONE TABLET BY MOUTH ONE TIME DAILY Follow Up/Referrals: Osito Joe MD [Primary Care Provider] - Stand Alone Forms: [employer] Info Instructions
--- OUTSIDE RECORDS SUMMARY | 2024-04-11 14:15 | XMS_ITS ---
Author Organization [facility] Address [address] [place] [address] Care Team Providers Care Behavior Specialist Name Role Phone Unavailable Unavailable Unavailable Allergies, Adverse Reactions, Alerts This patient has no known allergies or adverse reactions. Problems This patient has no known problems.
--- OUTSIDE RECORDS SUMMARY | 2024-04-11 14:15 | XMS_ITS | CCD ---
Author Name Interface, [id number] lity Address [address] [place] [id number] [facility] Address [address] [place] [address] Care Plan Reason for Visit Encounters Problems Social History
--- OUTSIDE RECORDS SUMMARY | 2024-04-11 14:15 | XMS_ITS | CCD ---
Author Name Interface, [id number] lity Address [address] [place] [id number] [facility] Address [address] [place] [id number] Care Plan Reason for Visit Encounters Problems Social History
--- OUTSIDE RECORDS SUMMARY | 2024-04-11 14:15 | XMS_ITS ---
Author Name Interface, [id number] lity Address [address] [place] [address] [address] [address] Organization [facility] Address [address] [facility] [address] [address] Care Team Providers Care Aluminum Container Tester Name Role Phone Miki Lundy Unavailable Unavailable Plan Date Type Value 06/18/2020 APPOINTMENT RC - 67 6MO RC/C T PRIOR - 6MO RC/CT PRIOR 02/13/2020 APPOINTMENT RC - 67 DISCUSS SURGERY - BIOPSY PRIOR @ HERNANDEZ 02/13/2020 APPOINTMENT BIO - 607 LUNG/T HYROID ULTRA,BIOPSY - SHARA HERNANDEZ 8:30AM 02/13/2020 APPOINTMENT RC - 607 RC/DISC USS PFTS - ULTRA/BIOPSY PRIOR HERNANDEZ 08/18/2020 [facility] Chest CT w/o IV contrast Reason for Visit RC - 67 6MO RC/CT PRIOR - 6MO RC/CT PRIOR Encounters Date Name 02/13/2020 Lung nodule, solitar y 02/13/2020 Thyroid nodule Problems Diagnosis Status Date of Diagnosi s Lung nodule, solitary Active Thyroid nodule Active
--- OUTSIDE RECORDS SUMMARY | 2024-04-11 14:15 | XMS_ITS ---
Author Name Interface, [id number] lity Address [address] [place] [address] [address] [address] Organization [facility] Address [address] [facility] [address] [address] Care Team Providers Care Hot Stick Worker Name Role Phone Miki Lundy Unavailable Unavailable Plan Date Type Value 06/18/2020 APPOINTMENT RC - 67 6MO RC/C T PRIOR - 6MO RC/CT PRIOR 02/13/2020 APPOINTMENT RC - 67 DISCUSS SURGERY - BIOPSY PRIOR @ HERNANDEZ 02/13/2020 APPOINTMENT BIO - 607 LUNG/T HYROID ULTRA,BIOPSY - SHARA HERNANDEZ 8:30AM 02/13/2020 APPOINTMENT RC - 607 RC/DISC USS PFTS - ULTRA/BIOPSY PRIOR HERNANDEZ 08/18/2020 [facility] Chest CT w/o IV contrast Reason for Visit RC - 67 6MO RC/CT PRIOR - 6MO RC/CT PRIOR Encounters Date Name 02/13/2020 Lung nodule, solitar y 02/13/2020 Thyroid nodule Problems Diagnosis Status Date of Diagnosi s Lung nodule, solitary Active Thyroid nodule Active
== END 2024-04-11 12:10 | disposition home or self-care (01) ==
PROVIDERS: Emergency Provider Emergency Medicine; PCP Surgery
DX: G47.00 Insomnia, unspecified (principal)
CPT/HCPCS: 36415; 80048; 84443; 84484; 85025; 99283; 99284

== ENCOUNTER 2024-05-10 22:39 | Emergency (ER) | payer MEDICARE, BC, SELFPAY ==
--- OUTSIDE RECORDS SUMMARY | 2024-05-10 22:42 | XMS_ITS | Clinical Summary ---
Author Organization [facility] Address [address] [place] [address] Care Team Providers Care Hvac Controls Technician Name Role Phone Unavailable Primary Care Provider Unavailabl e Source Comments Patient records contain information from all sites at [facility]. For routine questions regarding patient records, call [phone] during business hours, M-F 8:00 AM - 5:00 PM Central Time. Record requests for emergency care only can be directed to [phone] at any time.[facility] Allergies Active Allergy Reactions Criticality Noted Date Comments Aspirin GI bleeding Low 04/12/2019 Atorvastatin GI intolerance,Other (see comments) Low 11/17/2006 myalgia Codeine GI intolerance Low 05/09/2006 constipation Furosemide Palpitations High 02/03/2012 Lasix caused palpitations in 2011. Simvastatin Myalgia,Other (see comments) Medium 03/19/2009 Medications calcitRIOL (RocaltroL) 0.25 mcg capsule Take 1 capsule by mouth daily. 4 Active Phospha 250 Neutral 250 mg tablet Take 1 tablet by mouth 2 (two) times a day with meals. 3 Active nitroglycerin (Nitrostat) 0.[address] 0.4 mg under the tongue every 5 (five) minutes as needed. 3 Active magnesium oxide (Mag-Ox) 500 mg magnesium tablet tablet Take 1,000 mg by mouth 2 (two) times a day. 1 Active cyanocobalamin (Vitamin B-12) 1,000 mcg tablet Take 1,000 mcg by mouth daily. 9 Active bismuth subsalicylate (Pepto-BismoL) 262 mg/15 mL suspension Take 15 mL by mouth 2 (two) times a day as needed for diarrhea. 4 Active cholecalciferol, vitamin D3, 25 mcg (1,000 Unit) tablet Take 1 tablet by mouth daily. 7 Active acetaminophen (TylenoL) 500 mg tablet Take 1,000 mg by mouth every 6 (six) hours as needed for pain. Max Dose of 4000 mg in 24 hours 4 Active amino acids-protein hydrolysate (Provide Gold) 15-60 gram-kcal/30 mL liquid Take 30 mL by mouth daily. Active vitamin A,C,F-mqaiyg-pnkz rals 300 mcg (1,000 Unit)-200 mg-60 Unit-2 [...] (two) times a day. 60 tablet 2 4 Active midodrine (ProAmatine) 5 mg tablet Take 1 tablet (5 mg total) by mouth 3 (three) times a day. 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 10 tablet 4 Active potassium chloride (Jessica CieL) 20 mEq/15 mL liquid 40 mEq (30 mL) with breakfast and 20 mEq (15 mL) with lunch and supper Must dilute with at least 120 mL of cold water or liquid prior to administration. 180 mL 4 Active allopurinoL (Zyloprim) 300 mg tablet Take 1 tablet (300 mg total) by mouth daily. 30 tablet 4 Active amoxicillin-pot clavulanate (Augmentin) 875-125 mg per tablet Take 1 tablet by mouth 2 (two) times a day. 30 tablet 4 Active omeprazole (PriLOSEC) [address] capsule Take 1 capsule (20 mg total) by mouth daily. 30 capsule 4 Active rosuvastatin (Crestor) 10 mg tablet Take 1 tablet (10 mg total) by mouth at bedtime. 30 tablet 4 Active finasteride (Proscar) 5 mg tablet Take 1 tablet (5 mg total) by mouth every morning. 30 tablet 4 Active levothyroxine 175 mcg tablet Take 1 tablet (175 mcg total) by mouth daily before morning meal. 30 tablet 4 Active Active Problems Problem Noted Date [...] wound care, was followed be wound care DATA MINER Current wound care orders remove all packing, [...] on SCr of 2.55 mg/dL (H)). Immunizations Immunization Administration Dates Next Due H1N1 Inj 03/05/2009 [...] 79 12/18/2023 8:34 AM CDT Temperature 36.5 C (97.7 F) 12/18/2023 8:34 AM CDT Respiratory Rate 18 12/18/2023 8:34 AM CDT Oxygen Saturation 97% 12/18/2023 8:34 AM CDT Inhaled Oxygen Concentration - - Weight 67.1 kg (148 lb) 12/18/2023 8:34 AM CDT Height - - Body Mass Index - - Plan of Treatment Health Maintenance Due Date Last Done Comments DTaP,Tdap,and Td Vaccines (2 - Td or Tdap) 07/26/2023 07/25/2013, 02/02/2005 COVID-19 Vaccine ( season) 2023 07/28/2022, 11/16/2021, 06/07/2021, Additional history exists Depression Screening (Annual PHQ-2) 02/28/2024 Fall Risk Screen (Annual) 02/28/2024 Thyroid Stimulating Hormone (TSH) test for thyroid function 11/04/2024 11/05/2023, 03/08/2023, 02/28/2022, Additional history exists Office Visit for Blood Pressure Check / Re-check 12/17/2024 12/18/2023 Hepatitis B Vaccines Completed 03/04/2005, 11/08/2004, 10/06/2004, Additional history exists Pneumococcal vaccine (50+ years) Completed 02/12/2015, 07/25/2013, 09/13/2012, Additional history exists Zoster Vaccines Completed 06/04/2019, 09/2019, 06/01/2007 RSV vaccine - (32-36 weeks) or 60+ years Completed 11/03/2022 Influenza Vaccine Completed 12/07/2023, , 12/13/2021, Additional history exists IPV Vaccines Aged Out No longer eligi ble based on patient's age to complete this topic Insurance MEDICARE [facility] Advance Directives For more information, please contact: [phone] Documents on File Type Date Recorded Patient Sales Operations Expl anation Advance Directives 11/27/2023 10:[address]/MOLST
--- OUTSIDE RECORDS SUMMARY | 2024-05-10 22:42 | XMS_ITS | CCD ---
Author Name Interface, [id number] lity Address [address] [place] [address] [address] [place] [address] [facility] Address [address] [place] [address] [address] [place] [address] Care Plan Date Type Value 01/30/2020 LABORDER U/S Reason for Visit RC - 67 6MO RC/CT PRIOR - 67 6MO RC/CT PRIOR Encounters Date Name 02/13/2020 Lung nodule, solitar y Problems Diagnosis Status Date of Diagnosi s Lung nodule, solitary Active Thyroid nodule Active Social History Date Name Value 01/21/2020 Sex Male
--- OUTSIDE RECORDS SUMMARY | 2024-05-10 22:42 | XMS_ITS ---
Author Name Interface, [id number] lity Address [address] [place] [address] [address] [address] Organization [facility] Address [address] [facility] [address] [address] Care Team Providers Care Profile Saw Operator Name Role Phone Miki Lundy Unavailable Unavailable Plan Date Type Value 06/18/2020 APPOINTMENT RC - 67 6MO RC/C T PRIOR - 6MO RC/CT PRIOR 02/13/2020 APPOINTMENT RC - 67 DISCUSS SURGERY - BIOPSY PRIOR @ HERNANDEZ 02/13/2020 APPOINTMENT BIO - 607 LUNG/T HYROID ULTRA,BIOPSY - SHARA HERNANDEZ 8:30AM 02/13/2020 APPOINTMENT RC - 607 RC/DISC USS PFTS - ULTRA/BIOPSY PRIOR HERNANDEZ 08/18/2020 [facility] Chest CT w/o IV contrast Reason for Visit RC - 67 6MO RC/CT PRIOR - 6MO RC/CT PRIOR Encounters Date Name 02/13/2020 Lung nodule, solitar y 02/13/2020 Thyroid nodule Problems Diagnosis Status Date of Diagnosi s Lung nodule, solitary Active Thyroid nodule Active
--- OUTSIDE RECORDS SUMMARY | 2024-05-10 22:42 | XMS_ITS ---
Author Name Interface, [id number] lity Address [address] [place] [address] [address] [address] Organization [facility] Address [address] [facility] [address] [address] Care Team Providers Care Wave Guide Assembler Name Role Phone Miki Lundy Unavailable Unavailable Plan Date Type Value 06/18/2020 APPOINTMENT RC - 67 6MO RC/C T PRIOR - 6MO RC/CT PRIOR 02/13/2020 APPOINTMENT RC - 67 DISCUSS SURGERY - BIOPSY PRIOR @ HERNANDEZ 02/13/2020 APPOINTMENT BIO - 607 LUNG/T HYROID ULTRA,BIOPSY - SHARA HERNANDEZ 8:30AM 02/13/2020 APPOINTMENT RC - 607 RC/DISC USS PFTS - ULTRA/BIOPSY PRIOR HERNANDEZ 08/18/2020 [facility] Chest CT w/o IV contrast Reason for Visit RC - 67 6MO RC/CT PRIOR - 6MO RC/CT PRIOR Encounters Date Name 02/13/2020 Lung nodule, solitar y 02/13/2020 Thyroid nodule Problems Diagnosis Status Date of Diagnosi s Lung nodule, solitary Active Thyroid nodule Active
--- OUTSIDE RECORDS SUMMARY | 2024-05-10 22:42 | XMS_ITS | Clinical Summary ---
Author Organization [employer] [facility] Address [address] [place] [id number] Care Team Providers Care Beater Engineer Helper Name Role Phone Osito Joe MD Primary Care Provider [phone] [facility], Yuriy Unavailable Allergies Active Allergy Reactions Criticality Noted Date Comments Aspirin GI Bleeding 04/12/2019 Codeine 05/09/2006 constipation Furosemide Palpitations 02/03/2012 Lasix caused palpitations in 2011. Atorvastatin Intolerance-Can't Take 11/17/2006 myalgia Simvastatin Myalgia Medium 03/19/2009 Medications CYANOCOBALAMIN 1,000 MCG TABIndications:Other B-complex deficiencies Take 1,000 mcg by mouth once daily. PROTECT FROM LIGHT 180 3 009 Active coenzyme q10 100 mg capIndications:Systoli c hypertension Take 200 mg by mouth in the morning, and 400 mg by mouth in the afternoon. 0 017 Active cholecalciferol (VITAMIN D) 1,000 unit tabletIndications:Teresa min D deficiency Take 1 tablet by mouth once daily. 90 tablet 3 017 Active Magnesium Oxide 500 mg tabIndications:PAF (paroxysmal atrial fibrillation) (HC) Take 1,000 mg by mouth 2 times daily. 0 021 Active zcuvii-nvynwbgony-bgmw erry ext 20-1-2.2 mg cap Take 1 Capsule by mouth once daily. 0 022 Active potassium-sodium di-/monobasic phosphates (Phospha 250 Neutral) 250 mg tabletIndications:Hypo kalemia,Hypophosphatem ia Take 1 Tablet by mouth two times daily with meals. 180 Tablet 3 023 Active nitroglycerin (NITROSTAT) 0.4 mg sublingual tabletIndications:CAD in [place] artery Place 1 Tablet (0.4 mg) under the tongue every 5 minutes if needed for Chest Pain. 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 90 Tablet 3 024 Active finasteride (PROSCAR) 5 mg tabletIndications:BPH with obstruction/lower urinary tract symptoms Take 1 Tablet (5 mg) by mouth every morning. 90 Tablet 3 024 Active omeprazole (PRILOSEC) 20 mg Delayed-Release capsuleIndications:Gas troesophageal reflux disease with esophagitis without hemorrhage Take 1 Capsule (20 mg) by mouth once daily before a meal. 90 Capsule 3 024 Active tamsulosin (FLOMAX) 0.4 mg capsuleIndications:BPH with obstruction/lower urinary tract symptoms Take 2 Capsules (0.8 mg) by mouth at bedtime. 180 Capsule 3 024 Active CITRACAL + D SLOW REL. Extended-Release tabletIndications:Seco ndary renal hyperparathyroidism (HC) TAKE ONE TABLET BY MOUTH ONE TIME DAILY 80 Tablet 024 Active rosuvastatin (Crestor) 10 mg tablet Take 10 mg by mouth at bedtime. Active Foam Bandage (Tendra Mepilex Border) 6 X 8 bndgIndications:Open wound of abdominal wall, subsequent encounter Apply topically to affected area(s). 30 Each 2 024 Active ferrous sulfate 325 mg delayed release tabletIndications:Iron deficiency anemia, unspecified iron deficiency anemia type Take 1 Tablet (325 mg) by mouth two times daily with meals. 024 Active loperamide (Imodium A-D) 2 mg tabletIndications:Ileo stomy care (HC) Take 1 Tablet (2 mg) by mouth each time if needed for Diarrhea (up to once daily as needed for liquid stool/diarrhea). Take 2 tablets (4mg) orally with 1st loose stool, then 1 tablet (2mg) with other loose stools. Max 8 tablets (16 mg) in 24 hrs. 40 Tablet 024 Active oxyCODONE (ROXICODONE) 5 mg immediate release tabletIndications:Pseu dogout Take 1 Tablet (5 mg) by mouth every 4 hours if needed for Pain. 20 Tablet 024 Active predniSONE (DELTASONE) 5 mg tabletIndications:Pseu dogout Take 1 Tablet (5 mg) by mouth once daily with a meal. Take at onset of pseudogout flare. Only needs 1-2 days and then resolves. 30 Tablet 1 024 Active potassium chloride (K-TAB) 20 mEq extended-release tabletIndications:hypo kalemia Take 20 mEq by mouth two times daily with meals. Indications: low amount of potassium in the blood Active ascorbic acid, vitamin C, (Vitamin C) 1,000 mg tablet Take 1,000 mg by mouth once daily. Active zinc sulfate (ZINC-15 ORAL) Take 1 Tablet by mouth once daily. Active levothyroxine (SYNTHROID) 200 mcg tabletIndications:Hypo thyroidism (acquired) Take 1 Tablet (200 mcg) by mouth before breakfast. 90 Tablet 3 025 Active melatonin 3 mg tabletIndications:Inso mnia, idiopathic Take 1 Tablet (3 mg) by mouth at bedtime if needed for Sleep. 15 Tablet 025 Active commodeIndications:Undercutter hn's disease of small intestine without complication (HC),Fecal urgency As directed. Commode. For home use. 1 Each 025 Active traZODone (DESYREL) 50 mg tabletIndications:Inso mnia, idiopathic Take 1 Tablet (50 mg) by mouth at bedtime. 93 Tablet 3 025 Active acetaminophen (TYLENOL EXTRA STRGTH) 500 mg tabletIndications:Recu rrent abdominal hernia with obstruction without gangrene, unspecified hernia type,Abdominal pain, unspecified abdominal location Take 2 Tablets (1,000 mg) by mouth every 6 hours if needed for Pain. Max acetaminophen dose: 4000mg in 24 hrs. 024 2024 Disconti nued(*Mt mcgowan states no longer taking) midodrine (PROAMATINE) 2.5 mg tabletIndications:Orth ostatic hypotension Take 1 Tablet (2.5 mg) by mouth 2 times daily if needed for Orthostatic Hypoten (Give if BP <110 systolic or < 70 diastolic, do not take before bedtime). 60 Tablet 025 2024 Disconti nued(*Al lergic/A dverse Rxn/Side Effects) traZODone (DESYREL) 50 mg tabletIndications:Inso mnia, idiopathic Take 0.5 Tablets (25 mg) by mouth at bedtime. 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 Mcdonough) - NPO, IV fluids, symptom management, consider NG tube if warranted - resolved 03/29/24, requesting d/c home Abdominal wall abscess 11/02/2023 Overview (12/18/2023): Admitted at [facility] on 10/31/23 for worsening abdominal [...] Encounters Date Type Department Care Team Description 05/09/2024 8:30 AM CDT Home Care Visit [facility] [address] [place] [address] Lyudmila Ivy RN SN - HOME VISIT 05/07/2024 3:40 PM CDT Office Visit [facility] [address] [place] [address] Osito Joe MD General Illness/Other (Antsy isn't able to hold still during the day) 05/07/2024 Travel 05/02/2024 8:30 AM SERVICE VEHICLE OPERATOR Home Care Visit [facility] [address] [place] [address] Lyudmila Ivy RN SN - HOME VISIT 05/02/2024 Telephone [facility] [address] [facility] [place] [address] Lyudmila Ivy, cross country truck driver 04/30/2024 11:10 AM SERVICE VEHICLE OPERATOR Office Visit [facility] [address] [address] Maricruz Gibbons PA Derm Problem (full body skin exam ) 04/30/2024 Telephone [facility] [address] [address] Maricruz Gibbons PA Abnormal Lab Results 04/30/2024 Travel 04/29/2024 Telephone [facility] [address] [place] [address] Osito Joe MD Concerns 04/25/2024 8:30 AM SERVICE VEHICLE OPERATOR Home Care Visit [facility] [address] [place] [phone] Lyudmila Ivy RN SN - HOME VISIT 04/22/2024 1:25 PM SERVICE VEHICLE OPERATOR Procedure Only [facility] [address] [place] [address] Osito Joe MD Removal (Left ear ) 04/22/2024 Travel 04/17/2024 1:30 PM SERVICE VEHICLE OPERATOR Office Visit [facility] [address] [place] [address] Yuli Clemons, [facility] Visit 04/17/2024 8:30 AM SERVICE VEHICLE OPERATOR Home Care Visit [facility] [address] [place] [phone] Lyudmila Ivy RN SN - OASIS RECERTIFICATION 04/17/2024 Plan of Care Documentation [facility] [address] [place] [phone] 04/17/2024 Travel 04/16/2024 Telephone [facility] [address] [place] [address] Osito Joe MD Questions (Questions) 04/15/2024 Telephone [facility] [address] [place] [address] Osito Joe MD Medication Management (melatonin 3 mg tablet ) 04/12/2024 8:25 AM SERVICE VEHICLE OPERATOR Phone Office Visit [facility] [address] [place] [address] Osito Joe MD ER Follow up 04/12/2024 Travel 04/09/2024 12:45 PM SERVICE VEHICLE OPERATOR Office Visit [facility] [address] [place] [address] Aileen Hayes MD Follow Up (Recheck - open abdominal wound - Pt denies pain - he reports he is changing the dressing twice daily ) 04/09/2024 Travel 04/08/2024 8:30 AM SERVICE VEHICLE OPERATOR Home Care Visit [facility] [address] [place] [address] Lyudmila Ivy RN SN - HOME VISIT 04/05/2024 10:05 AM SERVICE VEHICLE OPERATOR Office Visit [facility] [address] [place] [address] Osito Joe MD Hospital F/U 04/05/2024 Travel 03/29/2024 4:00 AM SERVICE VEHICLE OPERATOR Home Care Visit [facility] [address] [place] [address] Robi Dee RN SN - WOUND/OSTOMY CHART CONSULT 03/29/2024 Home Care Visit [facility] [address] [place] [phone] Lyudmila Ivy, RESOLUTION MANAGER NOTE 03/28/2024 Orders Only [facility] Scanner 1 scan: (1-Ord) [facility], CT ABDOMEN PELVIS WO CON, 03/28/2024 03/28/2024 Orders Only [facility] Scanner 1 scan: (1-Ord) [place], CT ABD PELVIS WO CON, 03/28/2024 03/26/2024 Telephone [facility] [address] [place] [address] Osito Joe MD Results 03/25/2024 8:30 AM SERVICE VEHICLE OPERATOR Home Care Visit [facility] [address] [place] [address] Lyudmila Ivy RN SN - HOME VISIT 03/25/2024 Orders Only [facility] [address] [facility] [address] Osito Joe MD <No scans attached> 03/22/2024 10:55 AM SERVICE VEHICLE OPERATOR Office Visit [facility] [address] [place] [address] Osito Joe MD Follow Up 03/22/2024 Travel 03/21/2024 8:30 AM SERVICE VEHICLE OPERATOR Home Care Visit [facility] [address] [place] [address] Lyudmila Ivy RN SN - HOME VISIT 03/21/2024 Orders Only [facility] [address] [place] [address] Osito Joe MD <No scans attached> 03/18/2024 8:30 AM SERVICE VEHICLE OPERATOR Home Care Visit [facility] [address] [place] [address] Lyudmila Ivy RN SN - HOME VISIT 03/18/2024 Refill [facility] [address] [place] [address] Osito Joe MD Refill Request (Levothyroxine) 03/18/2024 Refill [facility] [address] [place] [address] Yan Romero MD Refill Request (Sodium Citrate-citric Acid) 03/14/2024 8:30 AM SERVICE VEHICLE OPERATOR Home Care Visit [facility] [address] [place] [phone] Lyudmila Ivy RN SN - HOME VISIT 03/12/2024 Telephone [facility] [address] [place] [address] Chante Gonzales MD Questions 03/11/2024 3:30 PM SERVICE VEHICLE OPERATOR Home Care Visit [facility] [address] [place] [address] Robi Dee RN SN - WOUND/OSTOMY CHART CONSULT 03/11/2024 8:30 AM SERVICE VEHICLE OPERATOR Home Care Visit [facility] [address] [place] [phone] Lyudmila Ivy RN SN - HOME VISIT 03/07/2024 8:30 AM SERVICE VEHICLE OPERATOR Home Care Visit [facility] [address] [place] [phone] Lyudmila Ivy RN SN - HOME VISIT 03/07/2024 4:00 AM SERVICE VEHICLE OPERATOR Home Care Visit [facility] [address] [place] [phone] Robi Dee RN SN - WOUND/OSTOMY CHART CONSULT 03/06/2024 1:00 PM SERVICE VEHICLE OPERATOR Office Visit [facility] [address] [place] [address] Chante Gonzales MD Post-op (Wound check ) 03/06/2024 Travel 03/04/2024 8:30 AM SERVICE VEHICLE OPERATOR Home Care Visit [place] [address] [place] [phone] Lyudmila Ivy RN SN - HOME VISIT 02/29/2024 8:30 AM SERVICE VEHICLE OPERATOR Home Care Visit [address] [phone] Lyudmila Ivy RN SN - HOME VISIT 02/27/2024 10:08 AM SERVICE VEHICLE OPERATOR - 02/27/2024 11:59 PM SERVICE VEHICLE OPERATOR Hospital Encounter [facility] [address] [place] [address] History of recurrent deep vein thrombosis (DVT) 02/27/2024 9:15 AM SERVICE VEHICLE OPERATOR Office Visit [facility] [address] [place] [address] Sangeetha Rich, EXPERIMENTAL OUTBOARD MOTORS MECHANIC Consult (DVT) 02/27/2024 Travel 02/26/2024 8:30 AM SERVICE VEHICLE OPERATOR Home Care Visit [address] [place] [address] Lyudmila Ivy RN SN - HOME VISIT 02/22/2024 8:30 AM SERVICE VEHICLE OPERATOR Home Care Visit [facility] [address] [place] [address], [place] [address] Lyudmila Ivy RN SN - HOME VISIT 02/22/2024 4:00 AM SERVICE VEHICLE OPERATOR Home Care Visit [facility] [address] [place] [address], [place] [address] Robi Dee RN SN - WOUND/OSTOMY CHART CONSULT 02/15/2024 8:30 AM SERVICE VEHICLE OPERATOR Home Care Visit [facility] [address] [place] [address], [place] [address] Lyudmila Ivy RN SN - OASIS RECERTIFICATION 02/15/2024 Plan of Care Documentation [address] [place] [address] 02/13/2024 8:30 AM SERVICE VEHICLE OPERATOR Home Care Visit [facility] [address] [place] [address], [place] [address] Lyudmila Ivy RN SN - HOME VISIT from Last 3 Months Immunizations Immunization Administration Dates Next Due AMB Influenza, IIV4 PF (=>6 mos Flulaval,Fluzone Fluarix)(Flu Clinic Only) 12/17/2018 COVID-19 vaccine (ClubKviar NTValuNet 30mcg/0.3mL) PF, MDV 05/19/2020,04/28/2020 Hepatitis B (Adult) [...] Name Comments Hyperlipidemia Brother Heart Disease Father [place], CABG Stroke Father age 70s fr om [...] 0 06/02/2023 Social Connections Answer Date Recorded Do you often feel lonely or isolated from those around you? 0 10/31/2023 Financial Resource Strain Answer Date R ecorded Difficulty of Paying Living Expenses 3 10/27/2023 Difficulty of Paying Living Expenses Not on file 10/27/2023 Food Insecurity Answer Date Recorded Do you worry your food will run out before you are able to buy more? 1 10/31/2023 Transportation Needs Answer Date Record ed Does lack of transportation keep you from medica l appointments? 1 10/31/2023 Does lack of transportation keep you from work, meetings or getting things that you need? 1 10/31/2023 Housing Stability Answer Date Recorded What is your housing situation today? 1 10/31/2023 Interpersonal Safety Answer Date Record ed Are you being hit, kicked, p ushed or yelled at (see row info)? No 10/31/2023 Interpersonal Safety Abuse 12 - 18 Not on file 10/31/2023 Interpersonal Safety Ambulatory Vulnerability No t on file 10/31/2023 Utilities Answer Date Recorded Do you have trouble paying f or utilities (for example, heat, electricity, water, phone)? 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 Not on file Not on file Not on file Obstetrics History Last Filed Vital Signs Vital Sign Reading Time Taken Comments Blood Pressure 99/56 05/09/2024 8:39 AM CDT Pulse 74 05/09/2024 8:39 AM CDT Temperature 37 C (98.6 F) 05/09/2024 8:39 AM CDT Respiratory Rate 18 05/09/2024 8:39 AM CDT Oxygen Saturation 97% 05/09/2024 8:39 AM CDT Inhaled Oxygen Concentration - - Weight 61.5 kg (135 lb 8 oz) 05/07/2024 3:28 PM CDT Height 177.8 cm (5' 10) 04/09/2024 12:54 PM SERVICE VEHICLE OPERATOR Body Mass Index 19.44 04/09/2024 12:54 PM SERVICE VEHICLE OPERATOR Plan of Treatment Upcoming Encounters Date Type Department Care Team (Late st Contact Info) Description 05/16/2024 8:30 AM CDT Home Care Visit [facility] [address] [facility] [place] [phone] Lyudmila Ivy RN 05/16/2024 1:15 PM CDT Orders Only [facility] [address] [facility] [address] [place] 05/23/2024 8:30 AM CDT Home Care Visit [facility] [address] [facility] [place] [phone] Lyudmila Ivy, STEPHANIE 05/30/2024 8:30 AM CDT Home Care Visit [facility] [address] [place] [address] Lyudmila Ivy, STEPHANIE 06/06/2024 8:30 AM CDT Home Care Visit [facility] [address] [place] [phone] Lyudmila Ivy, STEPHANIE 06/10/2024 1:50 PM CDT Office Visit [facility] [address] [place] [address] Osito Joe MD [address] [place] [address] 06/13/2024 8:30 AM CDT Home Care Visit [facility] [address] [place] [phone] Lyudmila Ivy RN 06/18/2024 8:30 AM CDT Appointment [facility] [address] [place] [phone] Lyudmila Ivy RN 06/25/2024 1:30 PM CDT Office Visit [facility] [address] [place] [address] Cheyenne Green MD [address] [place] [address] 07/01/2024 8:00 AM CDT Procedure Only [facility] [address] [facility] [address] [place] [address] Jesus Ospina MD [address] [facility] [address] [facility] [address] [place] [address] 07/16/2024 11:00 AM CDT Ancillary Procedure [facility] [address] [place] [address] 07/23/2024 11:00 AM CDT Office Visit [facility] [address] [place] [phone] Arnulfo Salas MD [address] [place] [address] 08/06/2024 9:30 AM CDT Cardiac Device Check [facility] [address] [place] [address] 10/22/2024 11:50 AM CDT Office [facility] [address] [facility] [place] [facility] [address] [place], [place] [phone] [place] [address] [place] [address] [place] [address] Health Maintenance Due Date Last Done Comments Tetanus booster 07/26/2023 07/25/2013, 08/2004, 02/02/2005 Depression screening for age 12+ 06/01/2024 06/02/2023, 06/02/2023, 06/01/2022, Additional history exists Medicare Wellness for age 65+ 06/02/2024, 05/30/2022, 05/21/2021, Additional history exists COVID-19 vaccine series ( season) 2024 12/07/2023, 05/31/2023, 12/22/2022, Additional history exists BMI (ht and wt on same day) for age 18+ 04/09/2025 04/09/2024, 02/01/2024, 01/04/2024, Additional history exists Tdap Completed 07/25/2013, 07/25/2013 Pneumococcal series for age 50+ Completed 02/12/2015, 02/12/2015, 07/25/2013, Additional history exists Zoster (shingles) series for age 50+ Completed 06/04/2019, 03/06/2019, 06/01/2007 RSV vaccine for adults or Completed 11/03/2022 Influenza Vaccine Completed 12/07/2023, , 12/17/2018, Additional history exists Medical Devices Implanted Type Area Winder Fixer Device Identifier Shelf Expiration Date Model / Serial / Lot Stent Contour [id number] - [id number] Implanted:Qty: 1 on 03/28/2012 by Sukhdev Elizalde MD at [facility] Right: [employer] [facility] 01/26/2015 [id number] / / [id number] Description:please see impla nt sheet. Stent Prcflx [id number] Hydpls - [id number] Implanted:Qty: 1 on 08/17/[address] [facility] Right: [employer] [facility] [id number]# / / [id number] Procedures Procedure Name Priority Date/Time Associated Diagnosis Comments TSH Routine 05/07/2024 4:41 PM CDT Hypothyroidism (acquired) PATH TISSUE EXAM Routine 04/30/2024 11:4 5 AM SERVICE VEHICLE OPERATOR Neoplasm of uncertain behavior PATH TISSUE EXAM Routine 04/22/2024 1:48 PM SERVICE VEHICLE OPERATOR Skin lesion of left ear SCAN-CT INTERPRETATION 5 12:00 AM SERVICE VEHICLE OPERATOR SCAN-CT INTERPRETATION 5 12:00 AM SERVICE VEHICLE OPERATOR TSH Routine 03/22/2024 11:48 AM SERVICE VEHICLE OPERATOR Hypothyroidism (acquired) CBC WITH AUTO DIFFERENTIAL Timed 02/27/2024 10:16 AM SERVICE VEHICLE OPERATOR History of recurrent deep vein thrombosis (DVT) CBC WITH AUTO DIFFERENTIAL Today 02/27/2024 10:16 AM SERVICE VEHICLE OPERATOR 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 TSH 2.40 0.40 - 4.50 mIU/L [facility] Blood BLOOD SPECIMEN / Unknown 05/07/2024 4:41 PM CDT 05/07/2024 4:42 PM CDT Osito Joe MD CHEMISTRY Final Resu lt [facility] [address] [place] [address], [facility] [address] [place] [address] * PATH TISSUE EXAM (04/30/2024 11:45 AM SERVICE VEHICLE OPERATOR) Only the most recent of2 resultswithin the time period is included. Case Report Pathology Report Case: [id number] Authorizing Provider: Maricruz Gibbons Collected: 04/30/2024 1145 MT Maki Ordering Location: [facility] Received: 04/30/2024 1524 [facility] Pathologist: Es Dimas MD Specimens: A) - Skin, right mid helix B) - Skin, left forehead 05/03/2024 5:01 PM SERVICE VEHICLE OPERATOR [facility] Final Diagnosis A) SKIN, RIGHT MID HELIX, BIOPSY: 1. Solar lentigo 2. Negative for malignancy B) SKIN, LEFT FOREHEAD, BIOPSY: 1. Hemangioma 2. Negative for malignancy 05/03/2024 5:01 PM SERVICE VEHICLE OPERATOR [facility] Clinical Information A. Rule out atypia, B. Rule out NMSC versus anderson angioma 05/03/2024 5:01 PM SERVICE VEHICLE OPERATOR [facility] Gross Description A) Received in formalin, labeled with the patient's name and R mid helix, is a 0.5 x 0.5 cm skin biopsy. There is a 0.5 x 0.4 cm flat brown-black lesion. The specimen is inked blue, bisected and entirely submitted in one cassette. B) Received in formalin, labeled with the patient's name and L forehead, is a 0.6 x 0.4 cm skin biopsy. There is a 0.6 x 0.4 cm flat cuevas lesion. The specimen is inked green, bisected and entirely submitted in one cassette. SJM 05/01/2024 05/03/2024 5:01 PM SERVICE VEHICLE OPERATOR [facility] Microscopic Description The final diagnosis is based on microscopic examination of appropriate sections of all specimens. 05/03/2024 5:01 PM SERVICE VEHICLE OPERATOR [facility] Additional Information Interpreted at [facility] - [address] [facility] [address], [place] [address] 05/03/2024 5:01 PM [facility] Other SPECIMEN FROM SKIN / Unknown Non-Blood / Unknown 04/30/2024 11:45 AM SERVICE VEHICLE OPERATOR 04/30/2024 3:24 PM SERVICE VEHICLE OPERATOR Specimen (specimen) SPECIMEN FROM SKIN / Unknown 04/30/2024 11:45 AM SERVICE VEHICLE OPERATOR 04/30/2024 3:24 PM SERVICE VEHICLE OPERATOR Mar[facility]ruz ARENAS PATHOLOGY/CYTOLOGY Final Result [facility] [address] [place] [address], * SCAN-CT INTERPRETATION (03/28/2024 12:00 AM SERVICE VEHICLE OPERATOR) Only the most recent of2 resultswithin the time period is included. Anatomical Region Laterality Modality Other us Scanner OTHER Final Result * (ABNORMAL) CBC WITH AUTO DIFFERENTIAL (02/27/2024 10:16 AM SERVICE VEHICLE OPERATOR) WHITE BLOOD COUNT 4.1(L) 4.5 - 11.0 thou/cu mm 02/27/2024 10:20 AM SERVICE VEHICLE OPERATOR [facility] RED BLOOD COUNT 3.32(L) 4.30 - 5.90 mil/cu mm 02/27/2024 10:20 AM [facility] HEMOGLOBIN 10.2(L) 13.5 - 17.5 g/dL 02/27/2024 10:20 AM [facility] HEMATOCRIT 33.6(L) 37.0 - 53.0 % 02/27/2024 10:20 AM [facility] MCV 101(H) 80 - 100 fL 02/27/2024 10:20 AM [facility] MCH 30.7 26.0 - 34.0 pg 02/27/2024 10:20 AM [facility] MCHC 30.4(L) 32.0 - 36.0 g/dL 02/27/2024 10:20 AM [facility] RDW 16.2(H) 11.5 - 15.5 % 02/27/2024 10:20 AM [facility] PLATELET COUNT 159 140 - 440 thou/cu mm 02/27/2024 10:20 AM [facility] MPV 9.5 6.5 - 11.0 fL 02/27/2024 10:20 AM [facility] % NEUT 68.7 % 02/27/2024 10:20 AM [facility] % LYMPH 14.7 % 02/27/2024 10:20 AM [facility] % MONO 5.1 % 02/27/2024 10:20 AM [facility] % EOS 10.3 % 02/27/2024 10:20 AM [facility] % BASO 1.2 % 02/27/2024 10:20 AM [facility] ABSOLUTE NEUTROPHILS 2.8 1.7 - 7.0 thou/cu mm 02/27/2024 10:20 AM [facility] ABSOLUTE LYMPHOCYTES 0.6(L) 0.9 - 2.9 thou/cu mm 02/27/2024 10:20 AM [facility] ABSOLUTE MONOCYTES 0.2 <0.9 thou/cu mm 02/27/2024 10:20 AM [facility] ABSOLUTE EOSINOPHILS 0.4 <0.5 thou/cu mm 02/27/2024 10:20 AM [facility] ABSOLUTE BASOPHILS 0.1 <0.3 thou/cu mm 02/27/2024 10:20 AM SERVICE VEHICLE OPERATOR [facility] Blood BLOOD SPECIMEN / Unknown Venipuncture / Unknown 02/27/2024 10:16 AM SERVICE VEHICLE OPERATOR 02/27/2024 10:16 AM SERVICE VEHICLE OPERATOR Narrative [facility] - 02/27/2024 10:20 AM SERVICE VEHICLE OPERATOR This procedure was originally ordered at [facility]. This procedure was originally ordered at [facility]. 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 03/04/2024 12:50 PM SERVICE VEHICLE OPERATOR [facility] Blood BLOOD SPECIMEN / Unknown Venipuncture / Unknown 02/27/2024 10:16 AM SERVICE VEHICLE OPERATOR 02/27/2024 10:16 AM SERVICE VEHICLE OPERATOR Narrative [facility] - 03/04/2024 12:50 PM SERVICE VEHICLE OPERATOR Method: alon Factor II and Factor V Test us Sangeetha Rich NP LABORATORY Final Result [facility] 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 03/04/2024 12:50 PM SERVICE VEHICLE OPERATOR [facility] Blood BLOOD SPECIMEN / Unknown Venipuncture / Unknown 02/27/2024 10:16 AM SERVICE VEHICLE OPERATOR 02/27/2024 10:16 AM SERVICE VEHICLE OPERATOR Narrative [facility] - 03/04/2024 12:50 PM SERVICE VEHICLE OPERATOR Method: alon Factor II and Factor V Test us Sangeetha Rich NP SEND OUTS Final Result [facility] 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 Contact Precautions not required on subsequent admission. 11/08/202310/28 Insurance [place] [place] BLUE MR PB ONLY MEDICARE PART B HB ONLY [place] [place] BLUE HB ONLY MEDICARE PART A HB ONLY [place] BLUE HB ONLY MEDICARE PPS Advance Directives Documents on File Type Date Recorded Patient Director Of Casework Expl anation POLST 11/24/2023 * Full Code (Latest Code Status [...] Code Status Discussion: Not Discussed Care Teams Beater Engineer Helper Relationship Specialty Start Date End Date Osito Joe MD [address] [place] [address] PCP - General Family Practice 09/13/[address] [address] 12/21/23
--- OUTSIDE RECORDS SUMMARY | 2024-05-10 22:42 | XMS_ITS | CCD ---
Author Name Interface, [id number] lity Address [address] [place] [address] [address] [place] [address] [facility] On[facility] Address [address] [place] [address] [address] [place] [address] Care Plan Date Type Value 01/30/2020 LABORDER U/S Reason for Visit RC - 67 6MO RC/CT PRIOR - 67 6MO RC/CT PRIOR Encounters Date Name 02/13/2020 Lung nodule, solitar y Problems Diagnosis Status Date of Diagnosi s Lung nodule, solitary Active Thyroid nodule Active Social History Date Name Value 01/21/2020 Sex Male
[2024-05-10 22:45] VITALS: BP 92/52; PULSE 89; RESP 16; TEMP 36.4; O2SAT 100; BMI 19.4
--- NOTE | 2024-05-10 23:27 | ED_ITS ---
HPI - General Adult General Chief complaint: Urogenital Problems, Male Stated complaint: unable to urinate Time Seen by Provider: 05/10/24 23:07 Source: patient Mode of arrival: ambulatory Limitations: no limitations History of Present Illness HPI narrative: 83-year-old male presenting today decreased urinary output for 2 days. Patient states that for the last 2 days he has just been dribbling small amounts of u rine here in there throughout the day. He states that he has the urge to go within very small amount if any comes out. Patient does have a history of kidney disease, he sees a respiratory practitioner. He states that he had a clinic appointment this week and he just got a phone call today that his creatinine was elevated and he needed follow-up this coming week. He was not instructed to come to the emergency department. However, with the news that his creatinine was elevated and this decreased urinary output he became concerned. He states that he is not having any abdominal pain. He denies fevers, chills, nausea or vomiting. He denies blood in his urine. He does have a history of BPH. Related Data Home Medications ?Medication ?Instructions ?Recorded ?Confirmed allopurinol 300 mg tablet 300 mg PO DAILY 04/28/22 04/11/24 calcitriol 0.25 mcg capsule 0.25 mcg PO DAILY 04/28/22 04/11/24 calcium ER 600 mg (as carb,cit)-D3 1 tab PO DAILY 04/28/22 04/11/24 12.5 mcg (500 unit) tablet, ext.rel (Citracal-D3 Slow Release) finasteride 5 mg tablet 5 mg PO DAILY 04/28/22 04/11/24 omeprazole 20 mg capsule,delayed 20 mg PO DAILY 04/28/22 04/11/24 release potassium chloride 20 mEq 20 meq PO BID 04/28/22 04/11/24 tablet,extended release(part/cryst) (Klor-Con M) sodium citrate-citric acid 500 30 ml PO BID 04/28/22 04/11/24 mg-334 mg/5 mL oral solution sodium di- and 250 mg PO BID 04/28/22 04/11/24 monophosphate-potassium phos monobasic 250 mg tablet (Phospha Neutral) tamsulosin 0.4 mg capsule 0.8 mg PO HS 04/28/22 04/11/24 ascorbic acid (vitamin C) 1,000 mg 1 g PO DAILY 03/28/24 04/11/24 tablet cholecalciferol (vitamin D3) 25 25 mcg PO DAILY 03/28/24 04/11/24 mcg (1,000 unit) tablet coQ10 (ubiquinol) 200 mg capsule 200 - 400 mg PO BID 03/28/24 04/11/24 (Active Q) cyanocobalamin (vitamin B-12) 1,000 mcg PO DAILY 03/28/24 04/11/24 1,000 mcg tablet ferrous sulfate 325 mg (65 mg 325 mg PO BID 03/28/24 04/11/24 iron) tablet,delayed release levothyroxine 200 mcg tablet 200 mcg PO QAM 03/28/24 04/11/24 lutein 20 mg-zeaxanthin 1 1 cap PO DAILY 03/28/24 04/11/24 mg-bilberry fruit extract 2.2 mg capsule magnesium oxide 1,000 mg PO BID 03/28/24 04/11/24 nitroglycerin 0.4 mg sublingual 0.4 mg sublingual Q5M PRN 03/28/24 04/11/24 tablet oxycodone 5 mg tablet 5 mg PO Q4H PRN pain 03/28/24 04/11/24 prednisone 5 mg tablet 5 mg PO DAILY PRN 03/28/24 04/11/24 rosuvastatin 10 mg tablet (Crestor) 10 mg PO HS 03/28/24 04/11/24 zinc 15 mg tablet 15 mg PO DAILY 03/28/24 04/11/24 acetaminophen 500 mg tablet 1,000 mg PO Q6H PRN 04/11/24 04/11/24 loperamide 2 mg tablet 2 mg PO PRN 04/11/24 Allergies Allergy/AdvReac Type Severity Reaction Status Date / Time furosemide (From Lasix) Allergy Intermediate Palpitation Verified 04/11/24 10:01 s aspirin Allergy Mild gi bleeding Verified 04/11/24 10:01 codeine Allergy Mild constipatio Verified 04/11/24 10:01 n simvastatin Allergy Mild myalgia Verified 04/11/24 10:01 atorvastatin (From Lipitor) AdvReac Intermediate myalgias Verified 04/11/24 10:01 Review of Systems Status of ROS: Reports: 10 or more systems reviewed and unremarkable except as noted in History and below [facility] Medical History Paroxysmal supraventricular tachycardia ?I47.10 - Supraventricular tachycardia, unspecified (ICD-10) 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 - Benign neoplasm of thyroid gland (ICD-10) Pyogenic granuloma ?L98.0 - Pyogenic granuloma (ICD-10) Vitamin D deficiency ?E55.9 - Vitamin D deficiency, unspecified (ICD-10) Gastroesophageal reflux disease ?K21.9 - Gastro-esophageal reflux disease without esophagitis (ICD-10) Paroxysmal atrial fibrillation ?I48.0 - Paroxysmal atrial fibrillation (ICD-10) History of nephrolithiasis ?Z87.442 - Personal history of urinary calculi (ICD-10) Mixed hyperlipidemia ?E78.2 - Mixed hyperlipidemia (ICD-10) Pulmonary nodule ?R91.1 - Solitary pulmonary nodule (ICD-10) Hypokalemia ?E87.6 - Hypokalemia (ICD-10) History of pseudogout ?Z87.39 - Personal history of other diseases of the musculoskeletal system and connective tissue (ICD-10) Degenerative joint disease ?M19.90 - Unspecified osteoarthritis, unspecified site (ICD-10) Delayed emergence from general anesthesia ?T88.59XA - Other complications of anesthesia, initial encounter (ICD-10) Benign prostatic hyperplasia without lower urinary tract symptoms ?N40.0 - Benign prostatic hyperplasia without lower urinary tract symptoms (ICD-10) Hypothyroidism ?E03.9 - Hypothyroidism, unspecified (ICD-10) Skin lesion of left external ear ?H61.92 - Disorder of left external ear, unspecified (ICD-10) History of deep vein thrombosis ?Z86.718 - Personal history of other venous thrombosis and embolism (ICD-10) Peristomal abscess, ileostomy ?K94.12 - Enterostomy infection (ICD-10) Crohn's disease ?K50.90 - Crohn's disease, unspecified, without complications (ICD-10) Surgical History Status post total thyroidectomy ?Z98.890 - Other specified postprocedural states (ICD-10) ?Z90.89 - Acquired absence of other organs (ICD-10) Status post parathyroidectomy ?Z98.890 - Other specified postprocedural states (ICD-10) ?Z90.89 - Acquired absence of other organs (ICD-10) Status post laser lithotripsy of ureteral calculus ?Z98.890 - Other specified postprocedural states (ICD-10) S/P ureteral stent placement ?Z96.0 - Presence of urogenital implants (ICD-10) History of hernia repair ?Z98.890 - Other specified postprocedural states (ICD-10) ?Z87.19 - Personal history of other diseases of the digestive system (ICD-10) History of esophagogastroduodenoscopy ?Z98.890 - Other specified postprocedural states (ICD-10) History of colonoscopy ?Z98.890 - Other specified postprocedural states (ICD-10) History of lung biopsy ?Z98.890 - Other specified postprocedural states (ICD-10) Hx of appendectomy ?Z90.49 - Acquired absence of other specified parts of digestive tract (ICD- 10) Status post ileostomy ?Z93.2 - Ileostomy status (ICD-10) Family History Mother Colon cancer Stroke Father Heart disease Stroke Brother High cholesterol Sister High cholesterol Other Diabetes Social History Narrative: 03/28/2024: for 56 years. Lives with . Three children. One child . No grandchildren. Designates as his decision maker if he is unable to make own decisions regarding health. Requests DNR DNI resuscitation status in the event of cardiopulmonary demise. Does not use tobacco products. Does not consume alcoholic beverages. Denies use of any other street or recreational drugs. What is your current living situation?: I presently have a place to live Problems where you live: no known problems Problems where you live details: n/a In the past 12 months, utilities in danger of being shut off: no In past 12 months, lack of transportation kept you from medical appts, meetings, work, or getting things needed for daily living: no In the past 12 mos, have been you worried that your food would run out before you had money to buy more?: never true In the past 12 mos, the food you bought just didn't last and you didn't have money to buy more?: never true Smoking Status: Former smoker Do you use any of these nicotine containing products: None Second hand tobacco smoke exposure: No How often do you have a drink containing alcohol: never How often do you have six or more drinks on one occasion: Never AUDIT-C Alcohol total score: 0 Non-prescribed substance use: denies use Caffeine: No How often does anyone, including family, friends and others, physically hurt you : never How often does anyone, including family, friends and others, insult or talk down to you: never How often does anyone, including family, friends and others, threaten you with harm: never How often does anyone, including family, friends and others, scream or curse at you: never service: No Exam Narrative: Exam Narrative: Thin, frail elderly patient in no acute distress. Alert and oriented. Answers questions appropriately. Mood and affect are appropriate. Thoughts are goal oriented and rational. No tangential or magical thinking noted. Patient speaks in full sentences without needing to catch his breath. HEENT: Normocephalic atraumatic. Conjunctivae are moist without any icterus noted. Moist mucous membranes. Abdomen: Soft and nondistended with normal bowel sounds. Ileostomy in place. Skin: Well perfused. Const: Vital Signs, click to edit/add: Vital Signs - 24 hr 05/10/24 22:45 Temperature 97.6 F Pulse Rate [Left P ulse Oximeter] 89 Respiratory Rate 16 Blood Pressure [Ri ght Upper Arm] 92/52 L Pulse Oximetry 100 Oxygen Delivery Me thod Room Air Course Course ED Course: Bladder scan showed less than 200 mL of urine present. Creatinine 3.6. Vital Signs Vital signs: Initial Vital Signs Temperature 97.6 F 05/10/24 22:45 Temperature Source Temporal Artery Scan 05/10/24 22:45 Pulse Rate 89 05/10/24 22:45 Pulse Rhythm Regular 05/10/24 22:45 Respiratory Rate 16 05/10/24 22:45 Blood Pressure 92/52 L 05/10/24 22:45 Blood Pressure Mean 65 L 05/10/24 22:45 Blood Pressure Position Sitting 05/10/24 22:45 Pulse Oximetry 100 05/10/24 22:45 Oxygen Delivery Method Room Air 05/10/24 22:45 Vital Signs Temperature 97.6 F 05/10/24 22:45 Pulse Rate 89 05/10/24 22:45 Respiratory Rate 16 05/10/24 22:45 Blood Pressure 92/52 L 05/10/24 22:45 Pulse Oximetry 100 05/10/24 22:45 Oxygen Delivery Method Room Air 05/10/24 22:45 Temperature 97.6 F 05/10/24 22:45 Pulse Rate 89 05/10/24 22:45 Respiratory Rate 16 05/10/24 22:45 Blood Pressure 92/52 L 05/10/24 22:45 Pulse Oximetry 100 05/10/24 22:45 Oxygen Delivery Method Room Air 05/10/24 22:45 Medical Decision Making MDM Narrative Medical decision making narrative: 83-year-old male with chronic renal disease. Creatinine above baseline, apparently Nephrology is aware of this and recommended follow-up next week. Discharge Plan Discharge Clinical Impression: Chronic kidney disease Patient Disposition: Home, Self-Care Condition: Stable Additional Instructions: Follow-up with nephrology as recommended. Prescriptions: No Action Active Q 200 mg capsule 200 - 400 mg PO BID Rx Instructions: 200 MG IN AM, 400 MG IN PM rosuvastatin [Crestor] 10 mg tablet 10 mg PO HS ascorbic acid (vitamin C) 1,000 mg tablet 1 g PO DAILY cholecalciferol (vitamin D3) 25 mcg (1,000 unit) tablet 25 mcg PO DAILY cyanocobalamin (vitamin B-12) 1,000 mcg tablet 1,000 mcg PO DAILY ferrous sulfate 325 mg (65 mg iron) tablet,delayed release (DR/EC) 325 mg PO BID levothyroxine 200 mcg tablet 200 mcg PO QAM bkoepd-rwxunimscb-vdynsryc ext 20-1-2.2 mg capsule 1 cap PO DAILY magnesium oxide 500 mg magnesium tablet 1,000 mg PO BID nitroglycerin 0.4 mg tablet, sublingual 0.4 mg sublingual Q5M PRN Rx Instructions: do not exceed 3 doses per episode oxycodone 5 mg tablet 5 mg PO Q4H PRN (Reason: pain) prednisone 5 mg tablet 5 mg PO DAILY PRN Patient Comments: AT ONSET OF PSEUDOGOUT FLARE FOR 1-2 DAYS zinc 15 mg tablet 15 mg PO DAILY acetaminophen 500 mg tablet 1,000 mg PO Q6H PRN Rx Instructions: Take 2 Tablets (1,000 mg) by mouth every 6 hours if needed for Pain. Max acetaminophen dose: 4000mg in 24 hrs. loperamide 2 mg tablet 2 mg PO PRN Rx Instructions: Take 1 Tablet (2 mg) by mouth each time if needed for Diarrhea (up to once daily as needed for liquid stool/diarrhea). Take 2 tablets (4mg) orally with 1st loose stool, then 1 tablet (2mg) with other loose stools. Max 8 tablets (16 mg) in 24 hrs. potassium chloride [Klor-Con M20] 20 mEq tablet,ER particles/crystals 20 meq PO BID Patient Comments: TAKE ONE TABLET BY MOUTH TWICE DAILY WITH MEALS tamsulosin 0.4 mg capsule 0.8 mg PO HS Patient Comments: TAKE TWO CAPSULE BY MOUTH DAILY AT BEDTIME sodium citrate-citric acid 500-334 mg/5 mL solution 30 ml PO BID Patient Comments: TAKE 45ML BY MOUTH TWICE DAILY. omeprazole 20 mg capsule,delayed release(DR/EC) 20 mg PO DAILY Phospha 250 Neutral 250 mg tablet 250 mg PO BID Patient Comments: TAKE ONE TABLET BY MOUTH TWICE DAILY WITH FOOD allopurinol 300 mg tablet 300 mg PO DAILY Patient Comments: TAKE ONE TABLET BY MOUTH ONE TIME DAILY calcitriol 0.25 mcg capsule 0.25 mcg PO DAILY Patient Comments: TAKE ONE CAPSULE BY MOUTH ONE TIME DAILY finasteride 5 mg tablet 5 mg PO DAILY Patient Comments: TAKE ONE TABLET BY MOUTH EVERY DAY IN THE MORNING. calcium carb, citrate-vit D3 [Citracal-D3 Slow Release] 600 mg-12.5 mcg (500 unit) tablet extended release 1 tab PO DAILY Patient Comments: TAKE ONE TABLET BY MOUTH ONE TIME DAILY Follow Up/Referrals: Osito Joe MD [Primary Care Provider] - Stand Alone Forms: [employer] Info Instructions
--- OUTSIDE RECORDS SUMMARY | 2024-05-10 23:29 | XMS_ITS | Clinical Summary ---
Author Organization [facility] Address [address] [place] [address] Care Team Providers Care Draw Off Worker Name Role Phone Osito Joe MD Primary Care Provider [phone] [facility], Yuriy Unavailable [phone] Allergies Active Allergy Reactions Criticality Noted Date [...] mouth 2 times daily. 0 021 Active aqlrux-tjxjifaijs-ffxq erry ext 20-1-2.2 mg cap Take 1 Capsule by mouth once daily. 0 022 Active potassium-sodium di-/monobasic phosphates (Phospha 250 Neutral) 250 mg tabletIndications:Hypo kalemia,Hypophosphatem ia Take 1 Tablet by mouth two times daily with meals. 180 Tablet 3 023 Active nitroglycerin (NITROSTAT) 0.4 mg sublingual tabletIndications:CAD in [place] artery Place 1 Tablet (0.4 mg) under the tongue every 5 minutes if needed for Chest Pain. 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 [...] wall abscess 11/02/2023 Overview (12/18/2023): Admitted at [facility] on 10/31/23 for worsening abdominal pain [...] 05/09/2024 8:30 AM CDT Home Care Visit [facility] [address] [place] [address] Lyudmila Ivy RN SN - HOME VISIT 05/07/2024 3:40 PM CDT Office Visit [facility] [address] [place] [address] Osito Joe MD General Illness/Other (Antsy isn't able to hold still during the day) 05/07/2024 Travel 05/02/2024 8:30 AM [employer]OD [employer]OPS [employer]ARM HAND Home Care Visit [facility] [address] [place] [address] Lyudmila Ivy RN SN - HOME VISIT 05/02/2024 Telephone [facility]ly [facility] [address] [place] [address] Lyudmila Ivy, chrome polisher 04/30/2024 11:10 AM [employer]OPS [employer] HAND Office Visit [facility] [address] [address] Maricruz Gibbons PA Derm Problem (full body skin exam ) 04/30/2024 Telephone [facility] [address] [address] Maricruz Gibbons PA Abnormal Lab Results 04/30/2024 Travel 04/29/2024 Telephone [facility] [address] [place] [address] Osito Joe MD Concerns 04/25/2024 8:30 AM [employer] Home Care Visit [facility] [address] [place] [phone] Lyudmila Ivy RN SN - HOME VISIT 04/22/2024 1:25 PM [employer] HAND Procedure Only [facility] [address] [place] [address] Osito Joe MD Removal (Left ear ) 04/22/2024 Travel 04/17/2024 1:30 PM [employer] Office Visit [facility] [address] [place] [address] Yuli Clemons, [facility] Visit 04/17/2024 8:30 AM [employer]OPS [employer] HAND Home Care Visit [facility] [address] [place] [phone] Lyudmila Ivy RN SN - OASIS RECERTIFICATION 04/17/2024 Plan of Care Documentation [facility] [address] [place] [phone] 04/17/2024 Travel 04/16/2024 Telephone [facility] [address] [place] [address] Osito Joe MD Questions (Questions) 04/15/2024 Telephone [facility] [address] [facility] [place] [address] Osito Joe MD Medication Management (melatonin 3 mg tablet ) 04/12/2024 8:25 AM [employer]OPS [employer] HAND Phone Office Visit [facility] [address] [facility] [place] [address] Osito Joe MD ER Follow up 04/12/2024 Travel 04/09/2024 12:45 PM FOOD CROPS [employer] HAND Office Visit [facility] [address] [place] [address] Aileen Hayes MD Follow Up (Recheck - open abdominal wound - Pt denies pain - he reports he is changing the dressing twice daily ) 04/09/2024 Travel 04/08/2024 8:30 AM FOOD CROPS [employer] HAND Home Care Visit [place] [address] [place] [address] Lyudmila Ivy RN SN - HOME VISIT 04/05/2024 10:05 AM FO[employer] CROPS [employer] HAND Office Visit [facility] [address] [place] [address] Osito Joe MD Hospital F/U 04/05/2024 Travel 03/29/2024 4:00 AM [employer] Home Care Visit [facility] [address] [place] [address] Robi Dee RN SN - WOUND/OSTOMY CHART CONSULT 03/29/2024 Home Care Visit [facility] [address] [place] [phone] Lyudmila Ivy, MANAGER OF INTERNATIONAL NOTE 03/28/2024 Orders Only [facility] Scanner 1 scan: (1-Ord) [facility], CT ABDOMEN PELVIS WO CON, 03/28/2024 03/28/2024 Orders Only [facility] Scanner 1 scan: (1-Ord) [place], CT ABD PELVIS WO CON, 03/28/2024 03/26/2024 Telephone [facility] [address] [place] [address] Osito Joe MD Results 03/25/2024 8:30 AM [employer] CR[employer] HAND Home Care Visit [facility] [address] [place] [address] Lyudmila Ivy RN SN - HOME VISIT 03/25/2024 Orders Only [facility] [address] [facility] [address] Osito Joe MD <No scans attached> 03/22/2024 10:55 AM FOOD CROPS [employer]ARM HAND Office Visit [facility] [address] [place] [address] Osito Joe MD Follow Up 03/22/2024 Travel 03/21/2024 8:30 AM FO[employer] CROPS [employer] HAND Home Care Visit [facility] [address] [place] [address] Lyudmila Ivy RN SN - HOME VISIT 03/21/2024 Orders Only [facility] [address] [place] [address] Osito Joe MD <No scans attached> 03/18/2024 8:30 AM FOOD CROPS F[employer] HAND Home Care Visit [facility] [address] [place] [address] Lyudmila Ivy RN SN - HOME VISIT 03/18/2024 Refill [facility] [address] [place] [address] Osito Joe MD Refill Request (Levothyroxine) 03/18/2024 Refill [facility] [address] [place] [address] Yan Romero MD Refill Request (Sodium Citrate-citric Acid) 03/14/2024 8:30 AM [employer] CROPS [employer] HAND Home Care Visit [facility] [address] [place] [phone] Lyudmila Ivy RN SN - HOME VISIT 03/12/2024 Telephone [facility] [address] [place] [address] Chante Gonzales MD Questions 03/11/2024 3:30 PM FOOD CROPS [employer] HAND Home Care Visit [facility] [address] [place] [address] Robi Dee RN SN - WOUND/OSTOMY CHART CONSULT 03/11/2024 8:30 AM FO[employer] CROPS [employer] HAND Home Care Visit [facility] [address] [place] [phone] Lyudmila Ivy RN SN - HOME VISIT 03/07/2024 8:30 AM FO[employer] CROPS [employer] HAND Home Care Visit [facility] [address] [place] [phone] Lyudmila Ivy RN SN - HOME VISIT 03/07/2024 4:00 AM [employer] CROPS [employer] HAND Home Care Visit [facility] [address] [place] [phone] Robi Dee RN SN - WOUND/OSTOMY CHART CONSULT 03/06/2024 1:00 PM FOOD CROPS FARM HAND Office Visit [facility] [address] [place] [address] Chante Gonzales MD Post-op (Wound check ) 03/06/2024 Travel 03/04/2024 8:30 AM FOOD CROPS [employer]ARM HAND Home Care Visit [place] [address] [place] [phone] Lyudmila Ivy RN SN - HOME VISIT 02/29/2024 8:30 AM FOOD CROPS [employer] HAND Home Care Visit [address] [phone] Lyudmila Ivy RN SN - HOME VISIT 02/27/2024 10:08 AM FOOD CROPS [employer] HAND - 02/27/2024 11:59 PM FOOD CROPS [employer]ARM HAND Hospital Encounter [facility] [address] [place] [address] History of recurrent deep vein thrombosis (DVT) 02/27/2024 9:15 AM FOOD CROPS [employer] HAND Office Visit [facility] [address] [place] [address] Sangeetha Rich, DEMURRAGE WORKER Consult (DVT) 02/27/2024 Travel 02/26/2024 8:30 AM FOOD CROPS [employer] HAND Home Care [place] [address] [place] [address] Lyudmila Ivy RN SN - HOME VISIT 02/22/2024 8:30 AM FOOD CROPS FARM HAND Home Care Visit [facility] [address] [place] [address], [place] [address] Lyudmila Ivy RN SN - HOME VISIT 02/22/2024 4:00 AM FOOD CROPS [employer]ARM HAND Home Care Visit [facility] [address] [place] [address], [place] [address] Robi Dee RN SN - WOUND/OSTOMY CHART CONSULT 02/15/2024 8:30 AM FOOD CROPS FARM HAND Home Care Visit [facility] [address] [place] [address], [place] [phone] Lyudmila Ivy RN SN - OASIS RECERTIFICATION 02/15/2024 Plan of Care Documentation [address] [place] [address] 02/13/2024 8:30 AM FOOD CROPS [employer] HAND Home Care Visit [facility] [address] [place] [address], [place] [address] Lyudmila Ivy RN SN - HOME VISIT from Last 3 Months Immunizations Immunization Administration Dates Next Due AMB Influenza, IIV4 PF (=>6 mos Flulaval,Fluzone Fluarix)(Flu Clinic Only) 12/17/2018 COVID-19 vaccine ([employer] NTConvrrt 30mcg/0.3mL) PF, MDV 05/19/2020,04/28/2020 Hepatitis B (Adult) [...] Name Comments Hyperlipidemia Brother Heart Disease Father [place], CABG Stroke Father age 70s fr om [...] on file Legal Sex Male 6:13 AM [employer] Gender Identity Not on file Sexual Orientation Not on file 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 [address] [place] [place] 05/23/2024 8:30 AM CDT Home Care Visit [facility] [address] [facility] [phone] Lyudmila Ivy, STEPHANIE 05/30/2024 8:30 AM CDT Home Care Visit [facility] [address] [place] [address] Lyudmila Ivy, STEPHANIE 06/06/2024 8:30 AM CDT Home Care Visit [facility] [address] [place] [phone] Lyudmila Ivy, STEPHANIE 06/10/2024 1:50 PM CDT Office Visit [facility] [address] [place] [address] Osito Joe MD [address] [place] [address] 06/13/2024 8:30 AM CDT Home Care Visit [facility] [address] [place] [phone] Lyudmila Ivy RN 06/18/2024 8:30 AM CDT Appointment [facility] [address] [place] [phone] Lyudmila Ivy RN 06/25/2024 1:30 PM CDT Office Visit [facility] [address] [place] [address] Cheyenne Green MD [address] [place] [address] 07/01/2024 8:00 AM CDT Procedure Only [facility] [address] [facility] [address] [place] [address] Jesus Ospina MD 1021 [facility] [address] [place] [address] 07/16/2024 11:00 AM CDT Ancillary Procedure [facility] [address] [place] [address] 07/23/2024 11:00 AM CDT Office Visit [facility] [address] [place] [phone] Arnulfo Salas MD [address] [place] [address] 08/06/2024 9:30 AM CDT Cardiac Device Check [facility] [address] [place] [address] 10/22/2024 11:50 AM CDT Office Visit [facility] [address] [facility] [address] [place], [place] [phone] [place] [address] [place] [address] [place] [address] Health Maintenance Due Date Last Done Comments [...] history exists Medical Devices Implanted Type Area Supervisor Hardboard Device Identifier Shelf Expiration Date Model / Serial / Lot Stent Contour [id number] - [id number] Implanted:Qty: 1 on 03/28/2012 by Sukhdev Elizalde MD at [facility] Right: [employer] [facility] 01/26/2015 [id number]# / / [id number] Description:please see impla nt sheet. Stent Prcflx [id number] Hydpls - [id number] Implanted:Qty: 1 on 08/17/2013 at [facility] Right: [employer] [facility] [id number]# / / [id number] Procedures Procedure Name Priority Date/Time Associated Diagnosis Comments TSH Routine 05/07/2024 4:41 PM CDT Hypothyroidism (acquired) PATH TISSUE EXAM Routine 04/30/2024 11:4 5 AM [employer] Neoplasm of uncertain behavior PATH TISSUE EXAM Routine 04/22/2024 1:48 PM [employer] HAND Skin lesion of left ear SCAN-CT INTERPRETATION 5 12:00 AM [employer] HAND SCAN-CT INTERPRETATION 5 12:00 AM [employer] HAND TSH Routine 03/22/2024 11:48 AM [employer] HAND Hypothyroidism (acquired) CBC WITH AUTO DIFFERENTIAL Timed 02/27/2024 10:16 AM [employer] HAND History of recurrent deep vein thrombosis (DVT) CBC WITH AUTO DIFFERENTIAL Today 02/27/2024 10:16 AM FO[employer] CROPS [employer]ARM HAND 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 TSH 2.40 0.40 - 4.50 mIU/L [facility] Blood BLOOD SPECIMEN / Unknown 05/07/2024 4:41 PM CDT 05/07/2024 4:42 PM CDT Osito Joe MD CHEMISTRY Final Resu lt [facility] [address] [place] [address], [facility] [address] [place] [address] * PATH TISSUE EXAM (04/30/2024 11:45 AM FOOD CROPS FARM HAND) Only the most recent of2 resultswithin the time period is included. Case Report Pathology Report Case: [id number] Authorizing Provider: Maricruz Gibbons Collected: 04/30/2024 1145 [place] Maki Ordering Location: [facility] Received: 04/30/2024 1524 [facility] Pathologist: Es Dimas MD Specimens: A) - Skin, right mid helix B) - Skin, left forehead 05/03/2024 5:01 PM FOOD CROPS FARM HAND [facility] Final Diagnosis A) SKIN, RIGHT MID HELIX, BIOPSY: 1. Solar lentigo 2. Negative for malignancy B) SKIN, LEFT FOREHEAD, BIOPSY: 1. Hemangioma 2. Negative for malignancy 05/03/2024 5:01 PM FOOD CROPS FARM HAND [facility] Clinical Information A. Rule out atypia, B. Rule out NMSC versus anderson angioma 05/03/2024 5:01 PM FOOD CROPS FARM HAND [facility] Gross Description A) Received in [...] one cassette. SJM 05/01/2024 05/03/2024 5:01 PM [employer] CROPS [employer] HAND [facility] Microscopic Description The final diagnosis is based on microscopic examination of appropriate sections of all specimens. 05/03/2024 5:01 PM FO[employer] CROPS [employer]ARM HAND [facility] Additional Information Interpreted at [facility] - [address] [facility] [address], [place] [address] 05/03/2024 5:01 PM [facility] Other SPECIMEN FROM SKIN / Unknown Non-Blood / Unknown 04/30/2024 11:45 AM FOOD CROPS FARM HAND 04/30/2024 3:24 PM [employer]OPS [employer]ARM HAND Specimen (specimen) SPECIMEN FROM SKIN / Unknown 04/30/2024 11:45 AM FO[employer] CROPS FARM HAND 04/30/2024 3:24 PM [employer]ARM HAND Maricruz ARENAS PATHOLOGY/CYTOLOGY Final Result [facility] [address] [place] [address], * SCAN-CT INTERPRETATION (03/28/2024 12:00 AM FOOD CROPS F[employer] HAND) Only the most recent of2 resultswithin the time period is included. Anatomical Region Laterality Modality Other us Scanner OTHER Final Result * (ABNORMAL) CBC WITH AUTO DIFFERENTIAL (02/27/2024 10:16 AM FOOD CROPS FARM HAND) WHITE BLOOD COUNT 4.1(L) 4.5 - 11.0 thou/cu mm 02/27/2024 10:20 AM [employer] HAND [facility] RED BLOOD COUNT 3.32(L) 4.30 - 5.90 mil/cu mm 02/27/2024 10:20 AM [facility] HEMOGLOBIN 10.2(L) 13.5 - 17.5 g/dL 02/27/2024 10:20 AM [facility] HEMATOCRIT 33.6(L) 37.0 - 53.0 % 02/27/2024 10:20 AM [facility] MCV 101(H) 80 - 100 fL 02/27/2024 10:20 AM [facility] MCH 30.7 26.0 - 34.0 pg 02/27/2024 10:20 AM [facility] MCHC 30.4(L) 32.0 - 36.0 g/dL 02/27/2024 10:20 AM [facility] RDW 16.2(H) 11.5 - 15.5 % 02/27/2024 10:20 AM [facility] PLATELET COUNT 159 140 - 440 thou/cu mm 02/27/2024 10:20 AM [facility] MPV 9.5 6.5 - 11.0 fL 02/27/2024 10:20 AM [facility] % NEUT 68.7 % 02/27/2024 10:20 AM [facility] % LYMPH 14.7 % 02/27/2024 10:20 AM [facility] % MONO 5.1 % 02/27/2024 10:20 AM [facility] % EOS 10.3 % 02/27/2024 10:20 AM [facility] % BASO 1.2 % 02/27/2024 10:20 AM [facility] ABSOLUTE NEUTROPHILS 2.8 1.7 - 7.0 thou/cu mm 02/27/2024 10:20 AM [facility] ABSOLUTE LYMPHOCYTES 0.6(L) 0.9 - 2.9 thou/cu mm 02/27/2024 10:20 AM [facility] ABSOLUTE MONOCYTES 0.2 <0.9 thou/cu mm 02/27/2024 10:20 AM [facility] ABSOLUTE EOSINOPHILS 0.4 <0.5 thou/cu mm 02/27/2024 10:20 AM [facility] ABSOLUTE BASOPHILS 0.1 <0.3 thou/cu mm 02/27/2024 10:20 AM [employer] [facility] Blood BLOOD SPECIMEN / Unknown Venipuncture / Unknown 02/27/2024 10:16 AM [employer] HAND 02/27/2024 10:16 AM [employer] HAND Narrative [facility] - 02/27/2024 10:20 AM [employer] HAND This procedure was originally ordered at [facility]. This procedure was originally ordered at [facility]. 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 03/04/2024 12:50 PM [employer]OPS [employer]ARM HAND [facility] Blood BLOOD SPECIMEN / Unknown Venipuncture / Unknown 02/27/2024 10:16 AM [employer]OPS [employer]ARM HAND 02/27/2024 10:16 AM [employer] HAND Narrative [facility] - 03/04/2024 12:50 PM [employer] HAND Method: alon Factor II and Factor V Test us Sangeetha Rich NP LABORATORY Final Result [facility] 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 03/04/2024 12:50 PM [employer] CROPS FARM HAND [facility] Blood BLOOD SPECIMEN / Unknown Venipuncture / Unknown 02/27/2024 10:16 AM [employer]OPS [employer] HAND 02/27/2024 10:16 AM [employer] HAND Narrative [facility] - 03/04/2024 12:50 PM [employer] HAND Method: alon Factor II and Factor V Test us Sangeetha Rich NP SEND OUTS Final Result [facility] 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 Contact Precautions not required on subsequent admission. 11/08/202310/28 Insurance BLUE [employer]OSS [employer] BLUE MR PB ONLY MEDICARE PART B HB ONLY [employer] BLUE HB ONLY MEDICARE PART A HB ONLY [employer] BLUE HB ONLY MEDICARE PPS Advance Directives Documents on File Type Date Recorded Patient Lap Cutter Expl anation POLST 11/24/2023 * Full Code [...] Code Status Discussion: Not Discussed Care Teams Draw Off Worker Relationship Specialty Start Date End Date Osito Joe MD [address] [place] [address] PCP - General Family Practice 09/13/[address] [address] 12/21/23
--- OUTSIDE RECORDS SUMMARY | 2024-05-10 23:29 | XMS_ITS | CCD ---
Author Name Interface, [id number] lity Address [address] [place] [address] [facility] Address [address] [place] [address] Care Plan Reason for Visit Encounters Problems Social History
--- OUTSIDE RECORDS SUMMARY | 2024-05-10 23:29 | XMS_ITS ---
Author Name Interface, [id number] lity Address [address] [place] [address] [address] [address] Organization [facility] Address [address] [facility] [address] [address] Care Team Providers Care Wellness Assistant Name Role Phone Miki Lundy Unavailable Unavailable Plan Date Type Value 06/18/2020 APPOINTMENT RC - 67 6MO RC/C T PRIOR - 6MO RC/CT PRIOR 02/13/2020 APPOINTMENT RC - 67 DISCUSS SURGERY - BIOPSY PRIOR @ HERNANDEZ 02/13/2020 APPOINTMENT BIO - 607 LUNG/T HYROID ULTRA,BIOPSY - SHARA HERNANDEZ 8:30AM 02/13/2020 APPOINTMENT RC - 607 RC/DISC USS PFTS - ULTRA/BIOPSY PRIOR HERNANDEZ 08/18/2020 [facility] Chest CT w/o IV contrast Reason for Visit RC - 67 6MO RC/CT PRIOR - 6MO RC/CT PRIOR Encounters Date Name 02/13/2020 Lung nodule, solitar y 02/13/2020 Thyroid nodule Problems Diagnosis Status Date of Diagnosi s Lung nodule, solitary Active Thyroid nodule Active
--- OUTSIDE RECORDS SUMMARY | 2024-05-10 23:29 | XMS_ITS | CCD ---
Author Name Interface, [id number] lity Address [address] [place] [address] [address] [place] [address] [facility] Address [address] [place] [address] [address] [place] [address] Care Plan Date Type Value 01/30/2020 LABORDER U/S Reason for Visit RC - 67 6MO RC/CT PRIOR - 67 6MO RC/CT PRIOR Encounters Date Name 02/13/2020 Lung nodule, solitar y Problems Diagnosis Status Date of Diagnosi s Lung nodule, solitary Active Thyroid nodule Active Social History Date Name Value 01/21/2020 Sex Male
--- OUTSIDE RECORDS SUMMARY | 2024-05-10 23:29 | XMS_ITS ---
Author Name Interface, I7Dncletc lity Address [address] [place] [address] [address] [address] Organization [facility] Address [address] [facility] [address] [address] Care Team Providers Care Infertility Medical Assistant Name Role Phone Miki Lundy Unavailable Unavailable Plan Date Type Value 06/18/2020 APPOINTMENT RC - 67 6MO RC/C T PRIOR - 6MO RC/CT PRIOR 02/13/2020 APPOINTMENT RC - 67 DISCUSS SURGERY - BIOPSY PRIOR @ HERNANDEZ 02/13/2020 APPOINTMENT BIO - 607 LUNG/T HYROID ULTRA,BIOPSY - SHARA HERNANDEZ 8:30AM 02/13/2020 APPOINTMENT RC - 607 RC/DISC USS PFTS - ULTRA/BIOPSY PRIOR HERNANDEZ 08/18/[address] [facility] Chest CT w/o IV contrast Reason for Visit RC - 67 6MO RC/CT PRIOR - 6MO RC/CT PRIOR Encounters Date Name 02/13/2020 Lung nodule, solitar y 02/13/2020 Thyroid nodule Problems Diagnosis Status Date of Diagnosi s Lung nodule, solitary Active Thyroid nodule Active
--- OUTSIDE RECORDS SUMMARY | 2024-05-10 23:29 | XMS_ITS | Clinical Summary ---
Author Organization [facility] Address [address] [place] [address] Care Team Providers Care Branding Machine Tender Name Role Phone Unavailable Primary Care Provider Unavailabl e Source Comments Patient records contain information from all sites at [facility]. For routine questions regarding patient records, call [phone] during business hours, M-F 8:00 AM - 5:00 PM Central Time. Record requests for emergency care only can be directed to [phone] at any time.[facility] Allergies Active Allergy Reactions Criticality Noted Date [...] 30 mL by mouth daily. Active vitamin A,C,J-vxixll-lhod rals 300 mcg (1,000 Unit)-200 mg-60 Unit-2 [...] wound care, was followed be wound care [facility] Current wound care orders remove all packing, [...] age to complete this topic Insurance MEDICARE [facility] Advance Directives For more information, please contact: [phone] Documents on File Type Date Recorded Patient Group President Expl anation Advance Directives 11/27/2023 10:[address]
== END 2024-05-11 00:27 | disposition home or self-care (01) ==
PROVIDERS: Emergency Provider Family Medicine; PCP Surgery
DX: N18.9 Chronic kidney disease, unspecified (principal)
CPT/HCPCS: 82565; 99283; 99284